=== PATIENT | male | born 1935 | race Caucasian/White ===

== ENCOUNTER 2017-09-16 10:48 | Observation (INO) | payer MEDICARE, BC ==
[2017-09-16] MEDS ORDERED: Famotidine 20 MG/2 ML SDV IVPUSH ONE (10:53)
[2017-09-16] MEDS ORDERED: Sodium Chloride 0.9% 10 ML Syringe FLUSH PRN ×2 (10:53→13:59)
--- NOTE | 2017-09-16 10:53 | EDM.PDOC ---
ED HPI GENERAL MEDICAL PROBLEM - General Chief Complaint: Neuro Symptoms/Deficits Stated Complaint: R sided weakness, hypertension Time Seen by Provider: 09/16/17 10:52 Source of Information: Reports: Patient, Family (), Old Records ([facility] EMR. No paper hospital chart available.) History Limitations: Reports: Altered Mental Status - History of Present Illness INITIAL COMMENTS - FREE TEXT/NARRATIVE: The patient was brought to the emergency room via private automobile by his for evaluation of possible TIA versus repeat CVA with patient noticing some possible mild progression of his chronic right-sided hemiparesis, paresthesias, and decreased balance since about 15:00 hours yesterday afternoon. He did not wish to come to the emergency room until this morning. Note previous history of chronic right-sided hemiparesis and paresthesias after his distant CVA as below. No recent history of fall, injury, headaches, or other change in his neurological status. The patient is a somewhat poor historian but no significant confusion, etc.. The patient denies any chest pain/ pressure, heart flutter, dizziness, orthostasis, orthopnea, diaphoresis, paresthesias, recent decreased exercise tolerance, or any other anginal-type symptoms. No recent history of abdominal pain, heartburn, nausea, diarrhea, melena, gross hematochezia, or any food intolerance, including fatty foods, etc.. The patient also denies any recent fever, cough, wheezing, dyspnea, etc.. He denies any pain or discomfort. His blood pressures have been under somewhat poor controlled since yesterday afternoon with systolic blood pressure in the 190s earlier this morning and yesterday afternoon. Onset: Gradual, Unknown/Unsure Onset Date: 09/15/17 Onset Time: 15:00 Duration: Getting Worse Location: Reports: Other (No pain) Improves with: Reports: None Worsens with: Reports: None Context: Reports: Other (As above) Associated Symptoms: Reports: Weakness. 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: Reports: Other (see below) (None) - Related Data Allergies Allergy/AdvReac Type Severity Reaction Status Date / Time No Known Allergies Allergy Verified 06/26/18 12:18 Home Meds: Home Meds Acetaminophen [Tylenol] 975 mg PO Q6H PRN 03/23/16 [History] Aspirin [Halfprin] 81 mg PO DAILY@1200 03/23/16 [History] Calcium Carbonate/Vitamin D3 [Calcium Carb 500 MG] 1 tab PO BID 03/23/16 [ History] Cholecalciferol (Vitamin D3) [Vitamin D3] 2,000 unit PO QAM 03/23/16 [History] Cyanocobalamin (Vitamin B-12) [Vitamin B-12] 1,000 mcg PO DAILY@1200 03/23/16 [ History] Esomeprazole Magnesium [Nexium] 40 mg PO QAM 03/23/16 [History] Glucosamine/D3/Boswellia Rocio [Glucosamine Complex Tablet] 1 tab PO DAILY@1200 03/23/16 [History] Lisinopril 20 mg PO BEDTIME 03/23/16 [History] Metoprolol Succinate [Toprol XL] 100 mg PO QAM 03/23/16 [History] Warfarin [Coumadin] 5 mg PO QPM 03/23/16 [History] Cholestyramine/Sucrose [Cholestyramine Packet] 4 gm PO TID 09/16/17 [History] Meclizine [Antivert] 25 mg PO TID PRN 09/16/17 [History] Past Medical History HEENT History: Reports: Cataract, Impaired Vision. Denies: Allergic Rhinitis, Glaucoma, Hard of Hearing, Macular Degeneration, Retinal Detachment Other HEENT History: Wears glasses. Borderline bilateral cataracts. Cardiovascular History: Reports: Afib, CAD, High Cholesterol, Hypertension, AK, Pacemaker, PVD, Other (See Below). Denies: Aneurysm, Arrhythmia, Blood Clots/ VTE/DVT, Bypass, Heart Failure, Heart Murmur, PTCA, Stents, Syncope Other Cardiovascular History: Bilateral carotid occlusive disease requiring surgery complicated by CVA as below. Multivessel coronary artery disease with good collaterals per heart catheterization at age 62. Note that patient did have a postoperative cardiac arrest without AK at the the time of his left carotid arterectomy and then again during post CVA rehabilitation? Respiratory History: Reports: Intubation, Previous. Denies: Asthma, Bronchitis , Recurrent, COPD, Intubation, Difficult, PE, Pneumothorax, Sleep Apnea, TB Gastrointestinal History: Reports: Chronic Constipation, Chronic Diarrhea, Colon Polyp, Diverticulosis, Fecal Incontinence, GERD, Jaundice. Denies: Celiac Disease, Cholelithiasis, Gastritis, GI Bleed, Hepatitis, Inflammatory Bowel Disease, Irritable Bowel Syndrome, Pancreatitis Other Gastrointestinal History: jaundice. Non-Cancerous rectal masses and/or cysts requiring surgeries as below with secondary stool incontinence. Genitourinary History: Reports: BPH, Chronic Renal Insuffiency, Retention, Urinary, Urinary Incontinence, Other (See Below). Denies: Acute Renal Failure, Renal Calculus, STD, UTI, Recurrent Other Genitourinary History: BPH with PSA elevation with negative biopsies as below. History of recurrent colonic polyps of unknown type. Musculoskeletal History: Reports: Arthritis, Back Pain, Chronic, Neck Pain, Chronic, Osteoarthritis. Denies: Amputation, Fracture, Gout, Osteoporosis, RA, SLE Neurological History: Reports: Concussion, CVA, Head Trauma, Neuropathy, Peripheral, Vertigo, Other (See Below). Denies: Cerebral Aneurysms, Headaches, Chronic, Migraines, MS, Neuropathy, Diabetic, Parkinson's, Seizure, TIA Other Neuro History: Postoperative CVA after left-sided carotid endarterectomy in the fall of 2012 with secondary chronic right hemiparesis including the facial region and chronic vertigo. Head concussion on 08/25/12 with brief period of loss of consciousness. Psychiatric History: Reports: None. Denies: Abuse, Victim of, ADD, ADHD, Addiction, Anxiety, Depression, Psych Hospitalization(s), PTSD, Suicide Attempt , Suicidal Ideation Endocrine/Metabolic History: Reports: Obesity/BMI 30+. Denies: Diabetes, Type I , Diabetes, Type II, Diabetes Mellitus, Type 3c, Hypothyroidism, IDDM, Osteoporosis Hematologic History: Reports: None, B12 Deficiency. Denies: Anemia, Blood Transfusion(s), Iron Deficiency Immunologic History: Reports: None. Denies: AIDS, HIV, Immunosuppression, SLE Oncologic (Cancer) History: Reports: None. Denies: Basal Cell Carcinoma, Colon , Hodgkin's Lymphoma, Leukemia, Lymphoma, Malignant Melanoma, Non-Hodgkin's Lymphoma, Prostate, Squamous Cell Carcinoma Dermatologic History: Reports: Other (See Below). Denies: Benign Melanoma, Eczema, Melanoma, Psoriasis, Seborrheic Dermatitis, Venous Stasis Dermatitis Other Dermatologic History: Actinic keratosis - Infectious Disease History Infectious Disease History: Reports: Chicken Pox, Measles. Denies: C-Difficile , Meningitis, Mononucleosis, MRSA, Mumps, Pertussis (Whooping Cough), Rheumatic Fever, Rubella, Scarlet Fever, Shingles, TB, VRE - Past Surgical History Head Surgeries/Procedures: Reports: None HEENT Surgical History: Reports: Adenoidectomy, Oral Surgery, Radiocarotid Ectomy, Tonsillectomy, Other (See Below). Denies: Cataract Surgery, Eye Surgery , Laser Surgery, LASIK, Myringotomy w Tube(s), Naso-Sinus Surgery Other HEENT Surgeries/Procedures: [place] teeth extraction 2 uppers in the 1980s. Tonsillectomy and adenoidectomy at about age 6. Cardiovascular Surgical History: Reports: Pacer, Other (See Below) Respiratory Surgical History: Reports: None. Denies: Thoracentesis GI Surgical History: Reports: Colonoscopy, EGD, Other (See Below). Denies: Appendectomy, Cholecystectomy, Hernia, Inguinal, Hernia Repair/Other Other GI Surgeries/Procedures: Last colonoscopy in about 2014 with polypectomy. EGD in about 2001. Note excision of rectal masses/cysts 2 with last surgery in about 2002. Male Surgical History: Reports: Circumcision, Prostate Biopsy, Other (See Below). Denies: TURBT-Transurethral Resection of Bladder Tumor, TURP- Transurethral Resection of Prostate, Vasectomy Other Male Surgeries/Procedures: Circumcision as an infant. Prostate biopsy in about 2009. Endocrine Surgical History: Reports: None Neurological Surgical History: Denies: C-Spine, Discectomy, Intracranial, Laminectomy, Lumbar Spine, Sacral Spine, Spinal Fusion, Thoracic Spine, Vertebroplasty Musculoskeletal Surgical History: Reports: None. Denies: Arthroscopic Procedure , Carpal Tunnel, Ganglion Cyst, Joint Replacement, ORIF, Shoulder Surgery Oncologic Surgical History: Reports: None Dermatological Surgical History: Reports: None. Denies: Skin Biopsy - Past Imaging History Past Imaging History: Reports: Angiography (Heart catheterization age 62 with results as above), CAT Scan (CT of the abdomen and pelvis with contrast on 03/23. CT of the brain and C-spine on 08/25/12.), Ultrasound (Pelvic ultrasound on .) Social & Family History - Family History HEENT: Reports: None. Denies: Glaucoma, Macular Degeneration, Retinal Detachment Cardiac: Reports: Hypertension, Other (See Below). Denies: Afib, Aneurysm, Arrhythmia, Blood Clots/VTE/DVT, Bypass, CAD, Heart Failure, High Cholesterol, AK, PVD/COD, Syncope Other Cardiac Family History: Father with hypertension Respiratory: Reports: None. Denies: BPD, COPD, PE, Pneumothorax, Sleep Apnea GI: Reports: Colon Polyps, GI bleed, PUD, Other (See Below). Denies: Celiac Disease, GERD, Inflammatory Bowel Disease, Irritable Bowel Syndrome Other GI Family History: Father with peptic disease and upper GI bleed. Mother with history of colon cancer as below : Reports: None. Denies: Dialysis, Renal Calculus, Renal Disease/ Insufficiency OBGYN: Reports: Endometriosis, Recurrent Spontaneous , Other (See Below) Other OBGYN Family History: Sister with recurrent SAB secondary to endometriosis. Musculoskeletal: Reports: None. Denies: Gout, RA, SLE Neurological: Reports: Other (See Below). Denies: Alzheimers Disease, CVA, Dementia, Migraines, MS, Neuropathy, Diabetic, Neuropathy, Peripheral, Parkinson 's, Seizure, TIA Other Neurological Family History: Sister with possible meningioma Psychiatric: Reports: None. Denies: Abuse, Victim of, ADD, ADHD, Anxiety, Depression, Psych Hospitalization(s), PTSD, Suicide Attempt Endocrine/Metabolic: Reports: None. Denies: Diabetes, Type I, Diabetes, type II , Diabetes Mellitus, Type 3c, Hypothyroidism, IDDM, Osteoporosis Hematologic: Reports: None. Denies: Anemia, SLE, Transfusion Reaction Immunologic: Reports: None. Denies: AIDS, HIV, SLE Dermatologic: Reports: None. Denies: Eczema, Psoriasis Oncologic: Reports: Colon, Leukemia, Other (See Below). Denies: Hodgkin's Lymphoma, Lymphoma, Non-Hodgkin's Lymphoma, Prostate, Skin, Uterine Other Oncologic Family History: Sister with leukemia in her 60s. Mother with fatal colon cancer at age 92. - Tobacco Use Smoking Status *Q: Former Smoker Tobacco Use Within Last Twelve Months: Cigarettes, Pipe Years of Tobacco use: 13 Packs/Tins Daily: 0.5 Packs/Tins Daily Comment: Started Smoking at age 18 with initial cigarette use for a few years then subsequent pipe use until age 31. Used Tobacco, but Quit: Yes Smoking Cessation Information Provided To Patient: No Second Hand Smoke Exposure: No - Caffeine Use Caffeine Use: Reports: Soda (1 soda per month). Denies: Coffee, Energy Drinks, Tea - Alcohol Use Alcohol Use History: Yes Days Per Week of Alcohol Use: 0 Number of Drinks Per Day: 1 Number of Drinks Per Day Comment: 1 Glass of wine for holidays. No previous DWIs , problems with alcohol abuse, etc. 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 ED EXAM, NEURO - Physical Exam Exam: See Below Exam Limited By: No Limitations General Appearance: Alert, WD/WN, No Apparent Distress Eye Exam: Bilateral Eye: EOMI, Normal Fundi, Normal Inspection (No nystagmus. Patient wearing glasses.), PERRL Ears: Normal External Exam, Normal Canal, Hearing Grossly Normal, Normal TMs Nose: Normal Inspection, Normal Mucosa, No Blood Throat/Mouth: Normal Inspection, Normal Lips, Normal Teeth, Normal Gums, Normal Oropharynx, Normal Voice, No Airway Compromise. No: Dysphagia, Inflammation, Perioral Cyanosis Head Exam: Atraumatic, Normocephalic. No: Facial Swelling, Facial Tenderness, Sinus Tenderness Neck: Supple, Non-Tender, Full Range of Motion, Carotid Bruit (Bilateral carotid bruitsmild). No: Lymphadenopathy (L), Lymphadenopathy (R) Respiratory/Chest: No Respiratory Distress, Lungs Clear, Normal Breath Sounds, No Accessory Muscle Use, Chest Non-Tender. No: Pleural Rub, Retractions Cardiovascular: Normal Peripheral Pulses, Regular Rate, Rhythm, No Edema, No Gallop, No JVD, No Murmur, No Rub. No: Gallop/S3, Gallop/S4, Friction Rub GI/Abdominal: Normal Bowel Sounds, Soft, Non-Tender, No Organomegaly, No Distention, No Abnormal Bruit, No Mass, Pelvis Stable, Other (Obese). No: Guarding (Male) Exam: Deferred Rectal (Males) Exam: Deferred Neurological: Alert, Normal Mood/Affect, Normal Dorsiflexion, Normal Plantar Flexion, Normal Reflexes, Abnormal Gait (As below), Difficulty Walking (Mild dystaxiastable by history), Other (Stable by history right hemiparesis mostly in the arm with borderline right facial hemiparesis). No: Abnormal Finger to Nose, Babinski, Tremor Back Exam: Normal Inspection, Full Range of Motion. No: CVA Tenderness (L), CVA Tenderness (R), Muscle Spasm Extremities: Normal Inspection, Normal Range of Motion, Non-Tender, No Pedal Edema, Normal Capillary Refill. No: Nathaly's Sign Psychiatric: Normal Affect, Normal Mood Skin Exam: Warm, Dry, Intact, Normal Color, No Rash, Other (Actinic keratosis on the dorsal surface of his hands and forearms bilaterally, left greater than right ). No: Diaphoretic, Ecchymosis, Petechiae, Wound/Incision EKG INTERPRETATION EKG Date: 09/16/17 Time: 11:00 Rhythm: NSR Rate (Beats/Min): 64 [place]: Normal (Neutral cardiac axis) P-Wave: Enlarged (Moderate diffuse biphasic P waves with no pacer beats noted) QRS: Normal (QRS interval of 0.09 seconds) ST-T: Other (Nonspecific ST changes with T-wave inversion in leads 1, 2, 3, aVF , and V5V6) QT: Normal DE/PQ Interval: 0.25 seconds representing a first degree AV block Comparison: NA - No Prior EKG EKG Interpretation Comments: 1. Inferolateral cardiac ischemia 2. Newly diagnosed first-degree AV block 3. Probable left atrial enlargement Course - Vital Signs Last Recorded V/S: Last Vital Signs Temp 36.8 C 09/16/17 10:53 Pulse 60 09/16/17 12:05 Resp 16 09/16/17 12:05 BP 169/68 H 09/16/17 12:05 Pulse Ox 97 09/16/17 12:05 Vital Signs - 24 hr 09/16/17 09/16/17 09/16/17 10:53 11:30 11:50 Temperature [ 36.8 C Temporal] Pulse, 60 60 60 Peripheral [ Pulse Oximetry] Respiratory 19 20 18 Rate Blood Pressure 170/86 H 158/84 H [Left Upper Arm ] O2 Sat by Pulse 100 97 97 Oximetry 09/16/17 09/16/17 09/16/17 12:05 12:20 12:45 Temperature [ Temporal] Pulse, 60 60 60 Peripheral [ Pulse Oximetry] Respiratory 16 19 19 Rate Blood Pressure 169/68 H 170/82 H 174/76 H [Left Upper Arm ] O2 Sat by Pulse 97 98 98 Oximetry See Stroke Code Sheet - Orders/Labs/Meds Orders: Active Orders 24 hr Category Date Time Status Blood Glucose Check, Bedside [RC] STAT Care 09/16/17 10:53 Active Cardiac Monitoring [RC] STAT Care 09/16/17 10:53 Active EKG Documentation Completion [RC] ASDIRECTED Care 09/16/17 10:53 Active NIH Stroke Scale [RC] ASDIRECTED Care 09/16/17 10:53 Active Oxygen Therapy, ED [RC] CONTINUOUS Care 09/16/17 10:53 Active Peripheral IV Care [RC] . DIRECTED Care 09/16/17 10:53 Active Pulse Oximetry [RC] CONTINUOUS Care 09/16/17 10:53 Active Up With Assistance [RC] ASDIRECTED Care 09/16/17 10:53 Active Vital Signs [RC] PFP Care 09/16/17 10:53 Active Nothing per Oral Now Diet [DIET] Diet 09/16/17 Breakfast Active Chest 1V Frontal [CR] Stat Exams 09/16/17 10:53 Taken Head wo Cont [CT] Stat Exams 09/16/17 10:53 Taken PROLACTIN [REF] Stat Lab 09/16/17 11:05 Received UA W/MICROSCOPIC [URIN] Stat Lab 09/16/17 10:53 Ordered Sodium Chloride 0.9% [Saline Flush] Med 09/16/17 10:53 Active 10 ml FLUSH ASDIRECTED PRN Obtain Past Medical Record [OM.PC] Stat Oth 09/16/17 10:53 Active Peripheral IV Insertion Adult [OM.PC] Stat Oth 09/16/17 10:53 Ordered Resuscitation Status Stat Resus Stat 09/16/17 10:53 Ordered Medication Orders Sodium Chloride (Saline Flush) 10 ml FLUSH ASDIRECTED PRN PRN Reason: Keep Vein Open Last Admin: 09/16/17 11:21 Dose: 10 ml Labs: Laboratory Tests 0609/16/17 09/16/17 Range/Units 11:05 11:05 11:05 WBC 7.4 (4.0-10.2) K/uL RBC 5.28 (4.33-5.41) M/uL Hgb 15.4 D (13.1-16.8) g/dL Hct 46.1 (39.0-49.0) % MCV 87.3 D (84.0-98.0) fL MCH 29.2 (28.2-33.3) pg MCHC 33.4 (31.7-36.0) g/dL RDW 15.1 H (11.2-14.1) % Plt Count 196 (150-350) K/uL Neut % (Auto) 53.0 (45.0-80.0) % Lymph % (Auto) 26.9 (10.0-50.0) % [place] % (Auto) 15.2 H (2.0-14.0) % Eos % (Auto) 4.1 (0.0-5.0) % Baso % (Auto) 0.8 (0.0-2.0) % Neut # (Auto) 3.92 (1.40-7.00) K/uL Lymph # (Auto) 1.99 (0.50-3.50) K/uL [place] # (Auto) 1.12 H (0.00-1.00) K/uL Eos # (Auto) 0.30 (0.00-0.50) K/uL Baso # (Auto) 0.06 (0.00-0.20) K/uL PT 23.7 H (9.8-11.7) SEC INR 2.2 APTT 34.8 H (22.1-29.8) SEC D-Dimer, Quantitative 339 (0-400) ng/mL Sodium (136-145) mmol/L Potassium (3.5-5.1) mmol/L Chloride (98-107) mmol/L Carbon Dioxide (21.0-32.0) mmol/L BUN (7-18) mg/dL Creatinine (0.51-1.17) mg/dL Est Cr Clr Drug Dosing Estimated GFR (MDRD) mL/min Glucose (74-106) mg/dL Lactic Acid (0.4-2.0) mmol/L Uric Acid (2.6-7.2) mg/dL Calcium (8.5-10.1) mg/dL Magnesium (1.8-2.4) mg/dL Total Bilirubin (0.2-1.0) mg/dL AST (15-37) U/L ALT (12-78) U/L Alkaline Phosphatase (46-116) IU/L Creatine Kinase (26-308) U/L Creatine Kinase Index (0.0-2.5) % CK-MB (CK-2) (0.00-3.60) ng/mL Troponin I (0.000-0.056) ng/mL NT-Pro-B Natriuret Pep (0-125) pg/mL Total Protein (6.4-8.2) g/dL Albumin (3.4-5.0) g/dL TSH, Ultra Sensitive (0.358-3.740) mIU/mL 09/16/17 09/16/17 Range/Units 11:05 11:05 WBC (4.0-10.2) K/uL RBC (4.33-5.41) M/uL Hgb (13.1-16.8) g/dL Hct (39.0-49.0) % MCV (84.0-98.0) fL MCH (28.2-33.3) pg MCHC (31.7-36.0) g/dL RDW (11.2-14.1) % Plt Count (150-350) K/uL Neut % (Auto) (45.0-80.0) % Lymph % (Auto) (10.0-50.0) % [place] % (Auto) (2.0-14.0) % Eos % (Auto) (0.0-5.0) % Baso % (Auto) (0.0-2.0) % Neut # (Auto) (1.40-7.00) K/uL Lymph # (Auto) (0.50-3.50) K/uL [place] # (Auto) (0.00-1.00) K/uL Eos # (Auto) (0.00-0.50) K/uL Baso # (Auto) (0.00-0.20) K/uL PT (9.8-11.7) SEC INR APTT (22.1-29.8) SEC D-Dimer, Quantitative (0-400) ng/mL Sodium 139 (136-145) mmol/L Potassium 4.6 (3.5-5.1) mmol/L Chloride 104 (98-107) mmol/L Carbon Dioxide 26.7 (21.0-32.0) mmol/L BUN 21 H (7-18) mg/dL Creatinine 1.32 H (0.51-1.17) mg/dL Est Cr Clr Drug Dosing TNP Estimated GFR (MDRD) 52 mL/min Glucose 130 H (74-106) mg/dL Lactic Acid 1.8 (0.4-2.0) mmol/L Uric Acid 8.5 H (2.6-7.2) mg/dL Calcium 9.2 (8.5-10.1) mg/dL Magnesium 1.6 L (1.8-2.4) mg/dL Total Bilirubin 0.4 (0.2-1.0) mg/dL AST 28 (15-37) U/L ALT 27 (12-78) U/L Alkaline Phosphatase 75 (46-116) IU/L Creatine Kinase 114 (26-308) U/L Creatine Kinase Index 1.8 (0.0-2.5) % CK-MB (CK-2) 2.00 (0.00-3.60) ng/mL Troponin I 0.000 (0.000-0.056) ng/mL NT-Pro-B Natriuret Pep 150 H (0-125) pg/mL Total Protein 8.1 (6.4-8.2) g/dL Albumin 3.5 (3.4-5.0) g/dL TSH, Ultra Sensitive 2.169 (0.358-3.740) mIU/mL Stat Accu-Chek of 107 mg percent at patient's arrival Meds: Medications Generic Name Dose Route Start Last Admin Trade Name Freq PRN Reason Stop Dose Admin Sodium Chloride 10 ml 09/16/17 10:53 09/16/17 11:21 Saline Flush FLUSH 10 ml ASDIRECTED PRN Administration Keep Vein Open Discontinued Medications Generic Name Dose Route Start Last Admin Trade Name Freq PRN Reason Stop Dose Admin Famotidine 40 mg 09/16/17 10:53 09/16/17 11:21 Pepcid IVPUSH 09/16/17 10:54 40 mg ONETIME ONE Administration - Radiology Interpretation Free Text/Narrative:: healthcare management shows normal sinus rhythm with average heart rate in the 60s with no spacer spikes, ectopy, or other arrhythmia noted. Chest x-ray, portable, shows mildly elevated right hemidiaphragm with mild to moderate cardiomegaly and borderline mild centralized CHF versus pulmonary hypertension. COPD changes also present with no significant pulmonary infiltrates. Pacemaker also noted with leads in appropriate position. Chest x- ray report received prior to admission. Telephone consultation at 11:30 2 AM with the radiology department at [facility]. Note status post old left-sided CVA with no acute changes noted. Official written report received prior to patient's admission. CT Results Date: 09/16/17 CT Results Time: 11:32 Departure - Departure Time of Disposition: 13:30 Disposition: Refer to Observation Condition: Fair Clinical Impression: First degree AV block, Hyperuricemia, Renal insufficiency, Peptic reflux disease CVA (cerebral vascular accident) Qualifiers: CVA mechanism: unspecified Qualified Code(s): I63.9 - Cerebral infarction, unspecified Coronary artery disease Qualifiers: Coronary Disease-Associated Artery/Lesion type: [place] artery [place] vs. transplanted heart: [place] heart Associated angina: without angina Qualified Code(s): I25.10 - Atherosclerotic heart disease of [place] coronary artery without angina pectoris Hypertension Qualifiers: Hypertension type: essential hypertension Qualified Code(s): I10 - Essential ( primary) hypertension Atrial fibrillation Qualifiers: Atrial fibrillation type: paroxysmal Qualified Code(s): I48.0 - Paroxysmal atrial fibrillation - Discharge Information Referrals: PCP,Unknown [Primary Care Provider] - Forms: ED Department Discharge Care Plan Goals: See plan - Problem List & Annotations (1) CVA (cerebral vascular accident) SNOMED Code(s): 583069664 Code(s): I63.9 - CEREBRAL INFARCTION, UNSPECIFIED Status: Acute Priority : High Current Visit: Yes Onset Date: ~09/15/17 Annotation/Comment:: Stroke code was called upon patient's arrival to our emergency room. [facility] was notified about the stroke code at 11:00 a.m. No significant neurological findings at this time. Possible threatening TIA versus recurrent CVA with patient probably back to normal baseline. Note negative CT scan of the head results as above. Secondary to his pacemaker he is not a candidate for an MRI. Various therapeutic options were discussed with the patient and his , who do agree to admission into this facility in observation status with continuation of neurological checks with vitals. Note evidence of inferolateral cardiac ischemia by EKG as above with additional continued observation of his cardiac status also to be conducted during this hospitalization. Neurology consultation depending on his clinical course. No aspirin given. INR therapeutic today. Qualifiers: CVA mechanism: unspecified Qualified Code(s): I63.9 - Cerebral infarction, unspecified (2) Coronary artery disease SNOMED Code(s): 80678020 Code(s): I25.10 - ATHSCL HEART DISEASE OF [place] CORONARY ARTERY W/O ANG PCTRS Status: Chronic Priority: High Current Visit: Yes Annotation/ Comment:: History of diffuse coronary artery disease nonoperable in the past secondary to good collaterals by distant heart catheterization. No chest pain or anginal type symptoms at this time. Initiate standard rule out AK orders with further cardiology consultation and/or workup depending on his clinical course. Initiate Imdur therapy as cardiac prophylaxis and for treatment of his hypertension, which has been under somewhat moderate control recently as above. Qualifiers: Coronary Disease-Associated Artery/Lesion type: [place] artery [place] vs. transplanted heart: [place] heart Associated angina: without angina Qualified Code(s): I25.10 - Atherosclerotic heart disease of [place] coronary artery without angina pectoris (3) Hypertension SNOMED Code(s): 34987594 Code(s): I10 - ESSENTIAL (PRIMARY) HYPERTENSION Status: Chronic Priority : High Current Visit: Yes Annotation/Comment:: As above. Qualifiers: Hypertension type: essential hypertension Qualified Code(s): I10 - Essential (primary) hypertension (4) Atrial fibrillation SNOMED Code(s): 13560128 Code(s): I48.91 - UNSPECIFIED ATRIAL FIBRILLATION Status: Chronic Priority: Medium Current Visit: Yes Annotation/Comment:: No atrial fibrillation today. Note INR is therapeutic. Continue to observe closely. Note current pacemaker. Qualifiers: Atrial fibrillation type: paroxysmal Qualified Code(s): I48.0 - Paroxysmal atrial fibrillation (5) First degree AV block SNOMED Code(s): 067587949 Code(s): I44.0 - ATRIOVENTRICULAR BLOCK, FIRST DEGREE Status: Acute Priority: Medium Current Visit: Yes Onset Date: 09/16/17 Annotation/ Comment:: Observe for now (6) Hyperuricemia SNOMED Code(s): 49809790 Code(s): E79.0 - HYPERURICEMIA W/O SIGNS OF INFLAM ARTHRIT AND TOPHACEOUS DIS Status: Acute Priority: Medium Current Visit: Yes Onset Date: Annotation/Comment:: No previous history of gout. His arthritis is otherwise been stable. (7) Peptic reflux disease SNOMED Code(s): 811981274 Code(s): K21.9 - GASTRO-ESOPHAGEAL REFLUX DISEASE WITHOUT ESOPHAGITIS Status: Chronic Priority: Medium Current Visit: Yes Annotation/Comment:: He apparently did have some nonspecific possible GERD type symptoms a couple days ago. High-dose IV Pepcid given as GI prophylaxis. Continue to observe for now. (8) Renal insufficiency SNOMED Code(s): 378642754, [id number] Code(s): N28.9 - DISORDER OF KIDNEY AND URETER, UNSPECIFIED Status: Chronic Priority: Medium Current Visit: Yes Annotation/Comment:: Stable. Note mild secondary BNP elevation with cardiac enzymes otherwise normal. - Problem List Review Problem List Initiated/Reviewed/Updated: Yes - My Orders Last 24 Hours: My Active Orders 09/16/17 10:53 Blood Glucose Check, Bedside [RC] STAT Cardiac Monitoring [RC] STAT EKG Documentation Completion [RC] ASDIRECTED NIH Stroke Scale [RC] ASDIRECTED Oxygen Therapy, ED [RC] CONTINUOUS Peripheral IV Care [RC] . DIRECTED Pulse Oximetry [RC] CONTINUOUS Up With Assistance [RC] ASDIRECTED Vital Signs [RC] PFP Chest 1V Frontal [CR] Stat Head wo Cont [CT] Stat UA W/MICROSCOPIC [URIN] Stat Sodium Chloride 0.9% [Saline Flush] 10 ml FLUSH ASDIRECTED PRN Obtain Past Medical Record [OM.PC] Stat Peripheral IV Insertion Adult [OM.PC] Stat Resuscitation Status Stat 09/16/17 11:05 PROLACTIN [REF] Stat 09/16/17 Breakfast Nothing per Oral Now Diet [DIET] - Assessment/Plan Admission H&P: Please use this note as an admission H&P Last 24 Hours: My Active Orders 09/16/17 10:53 Blood Glucose Check, Bedside [RC] STAT Cardiac Monitoring [RC] STAT EKG Documentation Completion [RC] ASDIRECTED NIH Stroke Scale [RC] ASDIRECTED Oxygen Therapy, ED [RC] CONTINUOUS Peripheral IV Care [RC] . DIRECTED Pulse Oximetry [RC] CONTINUOUS Up With Assistance [RC] ASDIRECTED Vital Signs [RC] PFP Chest 1V Frontal [CR] Stat Head wo Cont [CT] Stat UA W/MICROSCOPIC [URIN] Stat Sodium Chloride 0.9% [Saline Flush] 10 ml FLUSH ASDIRECTED PRN Obtain Past Medical Record [OM.PC] Stat Peripheral IV Insertion Adult [OM.PC] Stat Resuscitation Status Stat 09/16/17 11:05 PROLACTIN [REF] Stat 09/16/17 Breakfast Nothing per Oral Now Diet [DIET] Assessment:: As above Plan: As above. Extensive precautions were given to the patient and his , who are in agreement with the treatment plan. The patient's condition is stable enough for observation status and general supervision.
[2017-09-16 11:50] LABS: CHLORIDE,CL 104 mmol/L (98-107); SODIUM,NA 139 mmol/L (136-145)
[2017-09-16] MEDS ORDERED: Aspirin 81 MG Tab.EC PO SCH (13:49)
[2017-09-16] MEDS ORDERED: Meclizine 25 MG Tab PO PRN (13:49)
[2017-09-16] MEDS ORDERED: Temazepam 15 MG Cap PO PRN (13:59)
[2017-09-16] MEDS ORDERED: Acetaminophen 325 MG Tab PO PRN (14:00)
[2017-09-16] MEDS ORDERED: Isosorbide Mononitrate 30 MG Tab.ER PO ONE (14:16)
[2017-09-16] MEDS: Cholestyramine/Sucrose Powder 4 GM Packet PO SCH (17:28)
[2017-09-16] MEDS: Calcium Carbonate 500 MG Tab.Chew PO SCH (17:29)
[2017-09-16] MEDS ORDERED: Warfarin 5 MG Tab PO SCH (18:00)
[2017-09-16] MEDS ORDERED: Isosorbide Mononitrate 30 MG Tab.ER PO SCH (18:00)
[2017-09-16] MEDS ORDERED: Lisinopril 20 MG Tab PO SCH (18:00)
[2017-09-17] MEDS: Calcium Carbonate 500 MG Tab.Chew PO SCH (07:52)
[2017-09-17] MEDS: Cholestyramine/Sucrose Powder 4 GM Packet PO SCH (07:56)
[2017-09-17 07:57] VITALS: BP 149/73
[2017-09-17] MEDS ORDERED: Cholecalciferol (Vitamin D3) 1,000 Unit Tab PO SCH (08:00)
[2017-09-17] MEDS ORDERED: Metoprolol Succinate 50 MG Tab.ER PO SCH (08:00)
--- NOTE | 2017-09-17 08:51 | PCM.DCSUM1 ---
Discharge Summary - Hospital Course HPI Initial Comments: See emergency room note/admission H&P Brief History: See emergency room note/admission H&P Diagnosis: Stroke: Yes Modified [place] Scale: Mod.Disablility Requiring Some Help,Able to Walk Without Assistance Modified [place] Scale Score: 3 - Discharge Data Discharge Date: 09/17/17 Discharge Disposition: Home, Self-Care 01 Condition: Fair - Discharge Diagnosis/Problem(s) (1) CVA (cerebral vascular accident) SNOMED Code(s): 595339774 ICD Code: I63.9 - CEREBRAL INFARCTION, UNSPECIFIED Status: Acute Priority : High Current Visit: Yes Onset Date: ~09/15/17 Problem Details: Patient appears to be back to normal baseline with no direct evidence of repeat CVA prior to admission. Note recent slow increase of his right hemiparesis and dystaxia likely secondary to aging process. Stroke code was called upon patient' s arrival to our emergency room. [facility] was notified about the stroke code at 11:00 a.m. No significant change in his previous neurological findings at that time. Possible threatening TIA versus recurrent CVA with patient probably back to normal baseline prior to admission as above. Note negative CT scan of the head results prior to admission. Secondary to his pacemaker he was not a candidate for an MRI. Various therapeutic options were discussed with the patient and his , who did agree to admission into this facility in observation status with continuation of neurological checks with vitals. Note evidence of inferolateral cardiac ischemia by EKG on admission with additional continued observation of his cardiac status also conducted during this hospitalization with negative workup for acute AR. Neurology consultation normally conducted on a yearly basis per his history with regular provider to determine whether an earlier than scheduled consultation is needed as per discharge instructions. No aspirin given since INR was therapeutic in the emergency room. The patient and his were counseled on the likely slow progression of his right-sided hemiparesis secondary to his aging process. Qualifiers: CVA mechanism: unspecified Qualified Code(s): I63.9 - Cerebral infarction, unspecified (2) Coronary artery disease SNOMED Code(s): 42958222 ICD Code: I25.10 - ATHSCL HEART DISEASE OF [place] CORONARY ARTERY W/O ANG PCTRS Status: Chronic Priority: High Current Visit: Yes Problem Details : History of diffuse coronary artery disease nonoperable in the past secondary to good collaterals by distant heart catheterization. No chest pain or anginal type symptoms either prior to admission or throughout this hospitalization. Negative workup for acute AR with further earlier cardiology consultation NORMAN recommended, including possible Cardiolite evaluation. Initiated Imdur therapy as cardiac prophylaxis and for treatment of his hypertension, which will be increased prior to discharge secondary to persistent occasional elevated blood pressures. Patient was previously on sublingual nitroglycerin tablets with this to be renewed at this time. The patient is not excessively active secondary to his previous CVA as above. Glycosylated hemoglobin of 5.9% today with persistent severe dyslipidemia, which should be watched closely by his regular provider. Qualifiers: Coronary Disease-Associated Artery/Lesion type: [place] artery [place] vs. transplanted heart: [place] heart Associated angina: without angina Qualified Code(s): I25.10 - Atherosclerotic heart disease of [place] coronary artery without angina pectoris (3) Hypertension SNOMED Code(s): 86692761 ICD Code: I10 - ESSENTIAL (PRIMARY) HYPERTENSION Status: Chronic Priority : High Current Visit: Yes Problem Details: As above. Qualifiers: Hypertension type: essential hypertension Qualified Code(s): I10 - Essential (primary) hypertension (4) Atrial fibrillation SNOMED Code(s): 90923457 ICD Code: I48.91 - UNSPECIFIED ATRIAL FIBRILLATION Status: Chronic Priority: Medium Current Visit: Yes Problem Details: No atrial fibrillation today. Note INR is therapeutic. Continue to observe closely. Note current pacemaker. Qualifiers: Atrial fibrillation type: paroxysmal Qualified Code(s): I48.0 - Paroxysmal atrial fibrillation (5) First degree AV block SNOMED Code(s): 349289899 ICD Code: I44.0 - ATRIOVENTRICULAR BLOCK, FIRST DEGREE Status: Acute Priority: Medium Current Visit: Yes Onset Date: 09/16/17 Problem Details: Observe for now (6) Hyperuricemia SNOMED Code(s): 81822205 ICD Code: E79.0 - HYPERURICEMIA W/O SIGNS OF INFLAM ARTHRIT AND TOPHACEOUS DIS Status: Acute Priority: Medium Current Visit: Yes Onset Date: Problem Details: No previous history of gout. His arthritis is otherwise been stable. Continue to observe closely by his regular provider. (7) Peptic reflux disease SNOMED Code(s): 690454284 ICD Code: K21.9 - GASTRO-ESOPHAGEAL REFLUX DISEASE WITHOUT ESOPHAGITIS Status: Chronic Priority: Medium Current Visit: Yes Problem Details: He apparently did have some nonspecific possible GERD type symptoms a couple days ago. High-dose IV Pepcid given as GI prophylaxis. Continue to observe for now. (8) Renal insufficiency SNOMED Code(s): 572993156, 286404754 ICD Code: N28.9 - DISORDER OF KIDNEY AND URETER, UNSPECIFIED Status: Chronic Priority: Medium Current Visit: Yes Problem Details: Stable. Note mild BNP elevation likely secondary to his renal insufficiency with cardiac enzymes otherwise normal. No clinical evidence of CHF. (9) Heart murmur SNOMED Code(s): 54303301 ICD Code: R01.1 - CARDIAC MURMUR, UNSPECIFIED Status: Acute Priority: Medium Current Visit: Yes Onset Date: ~09/17/17 Problem Details: Note mild aortic valve stenosis and mitral valve insufficiency by clinical exam today. Consider echocardiogram, heart catheterization, cardiology consultation, etc. as above (10) Dyslipidemia SNOMED Code(s): 782114809 ICD Code: E78.5 - HYPERLIPIDEMIA, UNSPECIFIED Status: Acute Priority: High Current Visit: Yes Onset Date: ~09/17/17 Problem Details: Severe dyslipidemia. Initiate Zocor at a low-dose initially secondary to his current Coumadin therapy, etc. Close follow-up by his regular provider as per discharge instructions. - Patient Summary/Data Operative Procedure(s) Performed: None Complications: None Consults: None Labs Pending at D/C: Urine culture and sensitivity Recommended Follow-up Testing/Procedures: As per discharge instructions Planned Operative Procedure(s) after DC: None Hospital Course: The patient was admitted to observation status on telemetry with continued close observation of both his neurological and cardiac status as above. Negative workup for acute AR with patient otherwise having stable neurological status and right-sided hemiparesis throughout this hospitalization, including neurological checks with vitals. He was started on Imdur as above, which he tolerated well. Close follow-up by his regular provider as above. No complications during this hospitalization. - Patient Instructions Diet: Heart Healthy Diet (Diverticulosis, low purine/gout) Activity: As Tolerated (Strict fall precautions) Driving: Do Not Drive Showering/Bathing: May Shower Notify Provider of: Increased Pain, Nausea and/or Vomiting Other/Special Instructions: 1. Followup with your regular provider in days as directed for reevaluation and recommended repeat EKG, INR, CBC, basic metabolic panel, uric acid level, CK, CK-MB, and troponin I. Bring these discharge instructions with you to that visit. 2. Discuss with your regular provider at that time recommended earlier cardiology consultation [facility]MAN, including possible further testing such as a Cardiolite scan, echocardiogram, etc. 3. Also discuss with your regular provider possibility of earlier neurology consultation secondary to your recent slow progression of your right hemiparesis , dystaxia, etc. 4. Bring all your medications to your follow-up visit with your regular provider including OTC supplements, etc. 5. Recommend repeat CK, LFTs, and INR in 4 weeks with repeat lipid panel also recommended in about 3 months secondary to newly initiated Zocor - Discharge Plan Prescriptions/Med Rec: Isosorbide Mononitrate [Imdur] 60 mg PO QPM #30 tab.er Nitroglycerin [Nitrostat] 0.4 mg SL ASDIRECTED PRN #25 tab.sl PRN Reason: Chest Pain Simvastatin [Zocor] 10 mg PO BEDTIME #30 tablet Home Medications: Home Meds Aspirin [Halfprin] 81 mg PO DAILY@1200 03/23/16 [History] Cholecalciferol (Vitamin D3) [Vitamin D3] 2,000 unit PO QAM 03/23/16 [History] Cyanocobalamin (Vitamin B-12) [Vitamin B-12] 1,000 mcg PO DAILY@1200 03/23/16 [ History] Esomeprazole Magnesium [Nexium] 40 mg PO QAM 03/23/16 [History] Glucosamine/D3/Boswellia Rocio [Glucosamine Complex Tablet] 1 tab PO DAILY@1200 03/23/16 [History] Lisinopril 20 mg PO QPM@1800 03/23/16 [History] Metoprolol Succinate [Toprol XL] 100 mg PO QAM 03/23/16 [History] Warfarin [Coumadin] 5 mg PO QPM@1800 03/23/16 [History] Calcium Carbonate [Calcium] 1 tab PO BID 09/16/17 [History] Cholestyramine/Sucrose [Cholestyramine] 4 gm PO TID 09/16/17 [History] Meclizine [Antivert] 25 mg PO TID PRN 09/16/17 [History] Acetaminophen [Tylenol] 650 mg PO Q4H PRN tablet 09/17/17 [Rx] Isosorbide Mononitrate [Imdur] 60 mg PO QPM #30 tab.er 09/17/17 [Rx] Nitroglycerin [Nitrostat] 0.4 mg SL ASDIRECTED PRN #25 tab.sl 09/17/17 [Rx] Simvastatin [Zocor] 10 mg PO BEDTIME #30 tablet 09/17/17 [Rx] Patient Handouts: Coronary Artery Disease, Male, Simvastatin tablets, Isosorbide Mononitrate extended-release tablets, Heart-Healthy Eating Plan, Easy -to-Read, Fat and Cholesterol Restricted Diet, [id number], Low-Purine Eating Plan Forms: ED Department Discharge Referrals: PCP,Unknown [Primary Care Provider] - - Discharge Summary/Plan Comment DC Time >30 min.: Yes (Coordination of care ) Discharge Summary/Plan Comment: As above. Extensive precautions were given to the patient and his , who are in agreement with the treatment plan. See Patient Instructions for further treatment and plan. - General Info Date of Service: 09/17/17 Functional Status: Reports: Pain Controlled, Tolerating Diet, Ambulating, Urinating. Denies: New Symptoms, Incentive Spirometry Numeric/FACES Score: 0 - Review of Systems General: Reports: Weakness (Stable moderate right-sided hemiparesis). Denies: Fever, Fatigue, Malaise, Chills, Night Sweats, Appetite (.) HEENT: Reports: No Symptoms. Denies: Ear Pain, Eye Pain, Headaches, Post Nasal Drip, Sinus Congestion, Sore Throat, Rhinitis, Visual Changes Pulmonary: Reports: No Symptoms. Denies: Shortness of Breath, Pleuritic Chest Pain, Cough, Sputum, Hemoptysis, Wheezing Cardiovascular: Reports: No Symptoms. Denies: Chest Pain, Palpitations, Dyspnea on Exertion, Orthopnea, PND, Edema, Lightheadedness Gastrointestinal: Reports: No Symptoms, Other (Normal bowel movement prior to admission however no bowel movements during this hospitalization). Denies: Abdominal Pain, Constipation, Decreased Appetite, Diarrhea, Difficulty Swallowing, Flatus, Hematochezia, Melena, Nausea, Vomiting Genitourinary: Reports: No Symptoms. Denies: Frequency, Burning, Pain, Urgency , Hematuria, Retention, Flank Pain Musculoskeletal: Reports: No Symptoms. Denies: Neck Pain, Shoulder Pain, Arm Pain, Back Pain, Leg Pain Skin: Reports: No Symptoms. Denies: Diaphoresis, Bruising Neurological: Reports: Pre-Existing Deficit (Stable right hemiparesis including in the facial region), Difficulty Walking (Stable), Weakness (As above). Denies : Confusion, Dizziness, Headache, Numbness, Paresthesia, Tingling, Trouble Speaking, Change in Speech Psychiatric: Reports: No Symptoms. Denies: Confusion, Depression, Anxiety, Agitation, Cravings, Hallucinations - Patient Data Vitals - Most Recent: Last Vital Signs Temp 35.9 C 09/17/17 07:58 Pulse 62 09/17/17 07:58 Resp 18 09/17/17 07:58 BP 149/73 H 09/17/17 07:58 Pulse Ox 98 09/17/17 07:58 Vital Signs - 24 hr 09/16/17 09/16/17 09/16/17 10:53 11:30 11:50 Temperature [ 36.8 C Temporal] Pulse, Peripheral Pulse, 60 60 60 Peripheral [ Pulse Oximetry] Respiratory 19 20 18 Rate Blood Pressure Blood Pressure 170/86 H 158/84 H [Left Upper Arm ] O2 Sat by Pulse 100 97 97 Oximetry O2 Sat by Pulse Oximetry [ Nasal Cannula] 09/16/17 09/16/17 09/16/17 12:05 12:20 12:45 Temperature [ Temporal] Pulse, Peripheral Pulse, 60 60 60 Peripheral [ Pulse Oximetry] Respiratory 16 19 19 Rate Blood Pressure Blood Pressure 169/68 H 170/82 H 174/76 H [Left Upper Arm ] O2 Sat by Pulse 97 98 98 Oximetry O2 Sat by Pulse Oximetry [ Nasal Cannula] 09/16/17 09/16/17 09/16/17 13:59 15:03 15:56 Temperature [ 36.2 C 36.5 C Temporal] Pulse, Peripheral Pulse, 66 60 Peripheral [ Pulse Oximetry] Respiratory 20 18 Rate Blood Pressure 186/88 H Blood Pressure 180/90 H 149/73 H [Left Upper Arm ] O2 Sat by Pulse 100 96 Oximetry O2 Sat by Pulse 100 Oximetry [ Nasal Cannula] 09/16/17 09/17/17 09/17/17 19:18 00:00 04:00 Temperature [ 36.8 C 36.5 C 36.3 C Temporal] Pulse, Peripheral Pulse, 64 60 61 Peripheral [ Pulse Oximetry] Respiratory 20 16 16 Rate Blood Pressure Blood Pressure 152/74 H 144/67 H 160/74 H [Left Upper Arm ] O2 Sat by Pulse 97 95 96 Oximetry O2 Sat by Pulse Oximetry [ Nasal Cannula] 09/17/17 09/17/17 07:53 07:58 Temperature [ 35.9 C Temporal] Pulse, 62 Peripheral Pulse, 62 Peripheral [ Pulse Oximetry] Respiratory 18 Rate Blood Pressure 149/73 H Blood Pressure 149/73 H [Left Upper Arm ] O2 Sat by Pulse 98 Oximetry O2 Sat by Pulse Oximetry [ Nasal Cannula] Weight - Most Recent: 104.553 kg I&O - Last 24 hours: Intake & Output 09/16/17 09/17/17 09/17/17 22:59 06:59 14:59 Intake Total 240 Output Total 500 675 Balance -260 -675 Imaging Impressions - Last 24 hrs: manager monitoring shows 100% paced rhythm in the 70s with no other ectopy or arrhythmia. Note 100% independent rhythm with no paced beats in the emergency room prior to admission with average heart rate in the 60s at that time. Chest x-ray, portable, on 09/16/17 shows mildly elevated right hemidiaphragm with mild to moderate cardiomegaly and borderline mild centralized CHF versus pulmonary hypertension. COPD changes also present with no significant pulmonary infiltrates. Pacemaker also noted with leads in appropriate position. Chest x- ray report received prior to admission. Telephone consultation at 11:32 AM on 09/16/17 with the radiology department at [facility] in [place] with verbal report of noncontrast CT scan of the head. Note status post old left-sided CVA with no acute changes noted. Official written report received prior to patient's admission. Lab Results - Last 24 hrs: Laboratory Results - last 24 hr 09/16/17 09/16/17 09/16/17 Range/Units 11:05 11:05 11:05 WBC 7.4 (4.0-10.2) K/uL RBC 5.28 (4.33-5.41) M/uL Hgb 15.4 D (13.1-16.8) g/dL Hct 46.1 (39.0-49.0) % MCV 87.3 D (84.0-98.0) fL MCH 29.2 (28.2-33.3) pg MCHC 33.4 (31.7-36.0) g/dL RDW 15.1 H (11.2-14.1) % Plt Count 196 (150-350) K/uL Neut % (Auto) 53.0 (45.0-80.0) % Lymph % (Auto) 26.9 (10.0-50.0) % [place] % (Auto) 15.2 H (2.0-14.0) % Eos % (Auto) 4.1 (0.0-5.0) % Baso % (Auto) 0.8 (0.0-2.0) % Neut # (Auto) 3.92 (1.40-7.00) K/uL Lymph # (Auto) 1.99 (0.50-3.50) K/uL [place] # (Auto) 1.12 H (0.00-1.00) K/uL Eos # (Auto) 0.30 (0.00-0.50) K/uL Baso # (Auto) 0.06 (0.00-0.20) K/uL PT 23.7 H (9.8-11.7) SEC INR 2.2 APTT 34.8 H (22.1-29.8) SEC D-Dimer, Quantitative 339 (0-400) ng/mL Sodium (136-145) mmol/L Potassium (3.5-5.1) mmol/L Chloride (98-107) mmol/L Carbon Dioxide (21.0-32.0) mmol/L BUN (7-18) mg/dL Creatinine (0.51-1.17) mg/dL Est Cr Clr Drug Dosing Estimated GFR (MDRD) mL/min Glucose (74-106) mg/dL Hemoglobin A1c (4.3-5.7) % Lactic Acid (0.4-2.0) mmol/L Uric Acid (2.6-7.2) mg/dL Calcium (8.5-10.1) mg/dL Magnesium (1.8-2.4) mg/dL Total Bilirubin (0.2-1.0) mg/dL AST (15-37) U/L ALT (12-78) U/L Alkaline Phosphatase (46-116) IU/L Creatine Kinase (26-308) U/L Creatine Kinase Index (0.0-2.5) % CK-MB (CK-2) (0.00-3.60) ng/mL Troponin I (0.000-0.056) ng/mL NT-Pro-B Natriuret Pep (0-125) pg/mL Total Protein (6.4-8.2) g/dL Albumin (3.4-5.0) g/dL Triglycerides (30-150) mg/dL Cholesterol (100-200) mg/dL LDL Cholesterol, Calc (0-100) mg/dL HDL Cholesterol (40-60) mg/dL TSH, Ultra Sensitive (0.358-3.740) mIU/mL Specimen Type Urine Color Urine Appearance Urine pH (5.0-9.0) Ur Specific [place] (1.005-1.030) Urine Protein (NEGATIVE) mg/dL Urine Glucose (UA) (NEGATIVE) mg/dL Urine Ketones (NEGATIVE) mg/dL Urine Occult Blood (NEGATIVE) Urine Nitrite (NEGATIVE) Urine Bilirubin (NEGATIVE) Urine Urobilinogen (0.2-1.0) E.U./dL Ur Leukocyte Esterase (NEGATIVE) Urine RBC /HPF Urine WBC /HPF Ur Epithelial Cells /LPF Urine Bacteria (NONE TO FEW) /HPF 09/16/17 09/16/17 09/16/17 Range/Units 11:05 11:05 15:00 WBC (4.0-10.2) K/uL RBC (4.33-5.41) M/uL Hgb (13.1-16.8) g/dL Hct (39.0-49.0) % MCV (84.0-98.0) fL MCH (28.2-33.3) pg MCHC (31.7-36.0) g/dL RDW (11.2-14.1) % Plt Count (150-350) K/uL Neut % (Auto) (45.0-80.0) % Lymph % (Auto) (10.0-50.0) % [place] % (Auto) (2.0-14.0) % Eos % (Auto) (0.0-5.0) % Baso % (Auto) (0.0-2.0) % Neut # (Auto) (1.40-7.00) K/uL Lymph # (Auto) (0.50-3.50) K/uL [place] # (Auto) (0.00-1.00) K/uL Eos # (Auto) (0.00-0.50) K/uL Baso # (Auto) (0.00-0.20) K/uL PT (9.8-11.7) SEC INR APTT (22.1-29.8) SEC D-Dimer, Quantitative (0-400) ng/mL Sodium 139 (136-145) mmol/L Potassium 4.6 (3.5-5.1) mmol/L Chloride 104 (98-107) mmol/L Carbon Dioxide 26.7 (21.0-32.0) mmol/L BUN 21 H (7-18) mg/dL Creatinine 1.32 H (0.51-1.17) mg/dL Est Cr Clr Drug Dosing TNP Estimated GFR (MDRD) 52 mL/min Glucose 130 H (74-106) mg/dL Hemoglobin A1c (4.3-5.7) % Lactic Acid 1.8 (0.4-2.0) mmol/L Uric Acid 8.5 H (2.6-7.2) mg/dL Calcium 9.2 (8.5-10.1) mg/dL Magnesium 1.6 L (1.8-2.4) mg/dL Total Bilirubin 0.4 (0.2-1.0) mg/dL AST 28 (15-37) U/L ALT 27 (12-78) U/L Alkaline Phosphatase 75 (46-116) IU/L Creatine Kinase 114 84 (26-308) U/L Creatine Kinase Index 1.8 2.3 (0.0-2.5) % CK-MB (CK-2) 2.00 1.90 (0.00-3.60) ng/mL Troponin I 0.000 0.000 (0.000-0.056) ng/mL NT-Pro-B Natriuret Pep 150 H (0-125) pg/mL Total Protein 8.1 (6.4-8.2) g/dL Albumin 3.5 (3.4-5.0) g/dL Triglycerides (30-150) mg/dL Cholesterol (100-200) mg/dL LDL Cholesterol, Calc (0-100) mg/dL HDL Cholesterol (40-60) mg/dL TSH, Ultra Sensitive 2.169 (0.358-3.740) mIU/mL Specimen Type Urine Color Urine Appearance Urine pH (5.0-9.0) Ur Specific [place] (1.005-1.030) Urine Protein (NEGATIVE) mg/dL Urine Glucose (UA) (NEGATIVE) mg/dL Urine Ketones (NEGATIVE) mg/dL Urine Occult Blood (NEGATIVE) Urine Nitrite (NEGATIVE) Urine Bilirubin (NEGATIVE) Urine Urobilinogen (0.2-1.0) E.U./dL Ur Leukocyte Esterase (NEGATIVE) Urine RBC /HPF Urine WBC /HPF Ur Epithelial Cells /LPF Urine Bacteria (NONE TO FEW) /HPF 09/16/17 09/16/17 09/17/17 Range/Units 17:02 20:39 07:05 WBC 9.4 (4.0-10.2) K/uL RBC 4.98 (4.33-5.41) M/uL Hgb 14.5 (13.1-16.8) g/dL Hct 43.8 (39.0-49.0) % MCV 88.0 (84.0-98.0) fL MCH 29.1 (28.2-33.3) pg MCHC 33.1 (31.7-36.0) g/dL RDW 15.3 H (11.2-14.1) % Plt Count 205 (150-350) K/uL Neut % (Auto) 64.3 (45.0-80.0) % Lymph % (Auto) 20.0 (10.0-50.0) % [place] % (Auto) 11.4 (2.0-14.0) % Eos % (Auto) 3.7 (0.0-5.0) % Baso % (Auto) 0.6 (0.0-2.0) % Neut # (Auto) 6.06 (1.40-7.00) K/uL Lymph # (Auto) 1.88 (0.50-3.50) K/uL [place] # (Auto) 1.07 H (0.00-1.00) K/uL Eos # (Auto) 0.35 (0.00-0.50) K/uL Baso # (Auto) 0.06 (0.00-0.20) K/uL PT (9.8-11.7) SEC INR APTT (22.1-29.8) SEC D-Dimer, Quantitative (0-400) ng/mL Sodium (136-145) mmol/L Potassium (3.5-5.1) mmol/L Chloride (98-107) mmol/L Carbon Dioxide (21.0-32.0) mmol/L BUN (7-18) mg/dL Creatinine (0.51-1.17) mg/dL Est Cr Clr Drug Dosing Estimated GFR (MDRD) mL/min Glucose (74-106) mg/dL Hemoglobin A1c (4.3-5.7) % Lactic Acid (0.4-2.0) mmol/L Uric Acid (2.6-7.2) mg/dL Calcium (8.5-10.1) mg/dL Magnesium (1.8-2.4) mg/dL Total Bilirubin (0.2-1.0) mg/dL AST (15-37) U/L ALT (12-78) U/L Alkaline Phosphatase (46-116) IU/L Creatine Kinase 85 (26-308) U/L Creatine Kinase Index 2.2 (0.0-2.5) % CK-MB (CK-2) 1.90 (0.00-3.60) ng/mL Troponin I 0.000 (0.000-0.056) ng/mL NT-Pro-B Natriuret Pep (0-125) pg/mL Total Protein (6.4-8.2) g/dL Albumin (3.4-5.0) g/dL Triglycerides (30-150) mg/dL Cholesterol (100-200) mg/dL LDL Cholesterol, Calc (0-100) mg/dL HDL Cholesterol (40-60) mg/dL TSH, Ultra Sensitive (0.358-3.740) mIU/mL Specimen Type Urinvoid Urine Color Yellow Urine Appearance Clear Urine pH 5.5 (5.0-9.0) Ur Specific [place] 1.010 (1.005-1.030) Urine Protein Negative (NEGATIVE) mg/dL Urine Glucose (UA) Negative (NEGATIVE) mg/dL Urine Ketones Negative (NEGATIVE) mg/dL Urine Occult Blood Trace-intact H (NEGATIVE) Urine Nitrite Negative (NEGATIVE) Urine Bilirubin Negative (NEGATIVE) Urine Urobilinogen 0.2 (0.2-1.0) E.U./dL Ur Leukocyte Esterase Negative (NEGATIVE) Urine RBC Not seen /HPF Urine WBC Not seen /HPF Ur Epithelial Cells Not seen /LPF Urine Bacteria Not seen (NONE TO FEW) /HPF 09/17/17 09/17/17 Range/Units 07:05 07:05 WBC (4.0-10.2) K/uL RBC (4.33-5.41) M/uL Hgb (13.1-16.8) g/dL Hct (39.0-49.0) % MCV (84.0-98.0) fL MCH (28.2-33.3) pg MCHC (31.7-36.0) g/dL RDW (11.2-14.1) % Plt Count (150-350) K/uL Neut % (Auto) (45.0-80.0) % Lymph % (Auto) (10.0-50.0) % [place] % (Auto) (2.0-14.0) % Eos % (Auto) (0.0-5.0) % Baso % (Auto) (0.0-2.0) % Neut # (Auto) (1.40-7.00) K/uL Lymph # (Auto) (0.50-3.50) K/uL [place] # (Auto) (0.00-1.00) K/uL Eos # (Auto) (0.00-0.50) K/uL Baso # (Auto) (0.00-0.20) K/uL PT (9.8-11.7) SEC INR APTT (22.1-29.8) SEC D-Dimer, Quantitative (0-400) ng/mL Sodium 139 (136-145) mmol/L Potassium 4.1 (3.5-5.1) mmol/L Chloride 104 (98-107) mmol/L Carbon Dioxide 25.8 (21.0-32.0) mmol/L BUN 19 H (7-18) mg/dL Creatinine 1.34 H (0.51-1.17) mg/dL Est Cr Clr Drug Dosing 47.45 Estimated GFR (MDRD) 51 mL/min Glucose 99 (74-106) mg/dL Hemoglobin A1c 5.9 H (4.3-5.7) % Lactic Acid (0.4-2.0) mmol/L Uric Acid (2.6-7.2) mg/dL Calcium 8.9 (8.5-10.1) mg/dL Magnesium (1.8-2.4) mg/dL Total Bilirubin 0.5 (0.2-1.0) mg/dL AST 21 (15-37) U/L ALT 25 (12-78) U/L Alkaline Phosphatase 69 (46-116) IU/L Creatine Kinase 89 (26-308) U/L Creatine Kinase Index 1.9 (0.0-2.5) % CK-MB (CK-2) 1.70 (0.00-3.60) ng/mL Troponin I 0.000 (0.000-0.056) ng/mL NT-Pro-B Natriuret Pep 138 H (0-125) pg/mL Total Protein 7.4 (6.4-8.2) g/dL Albumin 3.4 (3.4-5.0) g/dL Triglycerides 467 H (30-150) mg/dL Cholesterol 198 (100-200) mg/dL LDL Cholesterol, Calc 72 (0-100) mg/dL HDL Cholesterol 33 L (40-60) mg/dL TSH, Ultra Sensitive (0.358-3.740) mIU/mL Specimen Type Urine Color Urine Appearance Urine pH (5.0-9.0) Ur Specific [place] (1.005-1.030) Urine Protein (NEGATIVE) mg/dL Urine Glucose (UA) (NEGATIVE) mg/dL Urine Ketones (NEGATIVE) mg/dL Urine Occult Blood (NEGATIVE) Urine Nitrite (NEGATIVE) Urine Bilirubin (NEGATIVE) Urine Urobilinogen (0.2-1.0) E.U./dL Ur Leukocyte Esterase (NEGATIVE) Urine RBC /HPF Urine WBC /HPF Ur Epithelial Cells /LPF Urine Bacteria (NONE TO FEW) /HPF Laboratory Tests 09/16/17 09/16/17 09/16/17 Range/Units 11:05 11:05 11:05 WBC 7.4 (4.0-10.2) K/uL RBC 5.28 (4.33-5.41) M/uL Hgb 15.4 D (13.1-16.8) g/dL Hct 46.1 (39.0-49.0) % MCV 87.3 D (84.0-98.0) fL MCH 29.2 (28.2-33.3) pg MCHC 33.4 (31.7-36.0) g/dL RDW 15.1 H (11.2-14.1) % Plt Count 196 (150-350) K/uL Neut % (Auto) 53.0 (45.0-80.0) % Lymph % (Auto) 26.9 (10.0-50.0) % [place] % (Auto) 15.2 H (2.0-14.0) % Eos % (Auto) 4.1 (0.0-5.0) % Baso % (Auto) 0.8 (0.0-2.0) % Neut # (Auto) 3.92 (1.40-7.00) K/uL Lymph # (Auto) 1.99 (0.50-3.50) K/uL [place] # (Auto) 1.12 H (0.00-1.00) K/uL Eos # (Auto) 0.30 (0.00-0.50) K/uL Baso # (Auto) 0.06 (0.00-0.20) K/uL PT 23.7 H (9.8-11.7) SEC INR 2.2 APTT 34.8 H (22.1-29.8) SEC D-Dimer, Quantitative 339 (0-400) ng/mL Sodium (136-145) mmol/L Potassium (3.5-5.1) mmol/L Chloride (98-107) mmol/L Carbon Dioxide (21.0-32.0) mmol/L BUN (7-18) mg/dL Creatinine (0.51-1.17) mg/dL Est Cr Clr Drug Dosing Estimated GFR (MDRD) mL/min Glucose (74-106) mg/dL Hemoglobin A1c (4.3-5.7) % Lactic Acid (0.4-2.0) mmol/L Uric Acid (2.6-7.2) mg/dL Calcium (8.5-10.1) mg/dL Magnesium (1.8-2.4) mg/dL Total Bilirubin (0.2-1.0) mg/dL AST (15-37) U/L ALT (12-78) U/L Alkaline Phosphatase (46-116) IU/L Creatine Kinase (26-308) U/L Creatine Kinase Index (0.0-2.5) % CK-MB (CK-2) (0.00-3.60) ng/mL Troponin I (0.000-0.056) ng/mL NT-Pro-B Natriuret Pep (0-125) pg/mL Total Protein (6.4-8.2) g/dL Albumin (3.4-5.0) g/dL Triglycerides (30-150) mg/dL Cholesterol (100-200) mg/dL LDL Cholesterol, Calc (0-100) mg/dL HDL Cholesterol (40-60) mg/dL TSH, Ultra Sensitive (0.358-3.740) mIU/mL Specimen Type Urine Color Urine Appearance Urine pH (5.0-9.0) Ur Specific [place] (1.005-1.030) Urine Protein (NEGATIVE) mg/dL Urine Glucose (UA) (NEGATIVE) mg/dL Urine Ketones (NEGATIVE) mg/dL Urine Occult Blood (NEGATIVE) Urine Nitrite (NEGATIVE) Urine Bilirubin (NEGATIVE) Urine Urobilinogen (0.2-1.0) E.U./dL Ur Leukocyte Esterase (NEGATIVE) Urine RBC /HPF Urine WBC /HPF Ur Epithelial Cells /LPF Urine Bacteria (NONE TO FEW) /HPF 09/16/17 09/16/17 09/16/17 Range/Units 11:05 11:05 15:00 WBC (4.0-10.2) K/uL RBC (4.33-5.41) M/uL Hgb (13.1-16.8) g/dL Hct (39.0-49.0) % MCV (84.0-98.0) fL MCH (28.2-33.3) pg MCHC (31.7-36.0) g/dL RDW (11.2-14.1) % Plt Count (150-350) K/uL Neut % (Auto) (45.0-80.0) % Lymph % (Auto) (10.0-50.0) % [place] % (Auto) (2.0-14.0) % Eos % (Auto) (0.0-5.0) % Baso % (Auto) (0.0-2.0) % Neut # (Auto) (1.40-7.00) K/uL Lymph # (Auto) (0.50-3.50) K/uL [place] # (Auto) (0.00-1.00) K/uL Eos # (Auto) (0.00-0.50) K/uL Baso # (Auto) (0.00-0.20) K/uL PT (9.8-11.7) SEC INR APTT (22.1-29.8) SEC D-Dimer, Quantitative (0-400) ng/mL Sodium 139 (136-145) mmol/L Potassium 4.6 (3.5-5.1) mmol/L Chloride 104 (98-107) mmol/L Carbon Dioxide 26.7 (21.0-32.0) mmol/L BUN 21 H (7-18) mg/dL Creatinine 1.32 H (0.51-1.17) mg/dL Est Cr Clr Drug Dosing TNP Estimated GFR (MDRD) 52 mL/min Glucose 130 H (74-106) mg/dL Hemoglobin A1c (4.3-5.7) % Lactic Acid 1.8 (0.4-2.0) mmol/L Uric Acid 8.5 H (2.6-7.2) mg/dL Calcium 9.2 (8.5-10.1) mg/dL Magnesium 1.6 L (1.8-2.4) mg/dL Total Bilirubin 0.4 (0.2-1.0) mg/dL AST 28 (15-37) U/L ALT 27 (12-78) U/L Alkaline Phosphatase 75 (46-116) IU/L Creatine Kinase 114 84 (26-308) U/L Creatine Kinase Index 1.8 2.3 (0.0-2.5) % CK-MB (CK-2) 2.00 1.90 (0.00-3.60) ng/mL Troponin I 0.000 0.000 (0.000-0.056) ng/mL NT-Pro-B Natriuret Pep 150 H (0-125) pg/mL Total Protein 8.1 (6.4-8.2) g/dL Albumin 3.5 (3.4-5.0) g/dL Triglycerides (30-150) mg/dL Cholesterol (100-200) mg/dL LDL Cholesterol, Calc (0-100) mg/dL HDL Cholesterol (40-60) mg/dL TSH, Ultra Sensitive 2.169 (0.358-3.740) mIU/mL Specimen Type Urine Color Urine Appearance Urine pH (5.0-9.0) Ur Specific [place] (1.005-1.030) Urine Protein (NEGATIVE) mg/dL Urine Glucose (UA) (NEGATIVE) mg/dL Urine Ketones (NEGATIVE) mg/dL Urine Occult Blood (NEGATIVE) Urine Nitrite (NEGATIVE) Urine Bilirubin (NEGATIVE) Urine Urobilinogen (0.2-1.0) E.U./dL Ur Leukocyte Esterase (NEGATIVE) Urine RBC /HPF Urine WBC /HPF Ur Epithelial Cells /LPF Urine Bacteria (NONE TO FEW) /HPF 09/16/17 09/16/17 09/17/17 Range/Units 17:02 20:39 07:05 WBC 9.4 (4.0-10.2) K/uL RBC 4.98 (4.33-5.41) M/uL Hgb 14.5 (13.1-16.8) g/dL Hct 43.8 (39.0-49.0) % MCV 88.0 (84.0-98.0) fL MCH 29.1 (28.2-33.3) pg MCHC 33.1 (31.7-36.0) g/dL RDW 15.3 H (11.2-14.1) % Plt Count 205 (150-350) K/uL Neut % (Auto) 64.3 (45.0-80.0) % Lymph % (Auto) 20.0 (10.0-50.0) % [place] % (Auto) 11.4 (2.0-14.0) % Eos % (Auto) 3.7 (0.0-5.0) % Baso % (Auto) 0.6 (0.0-2.0) % Neut # (Auto) 6.06 (1.40-7.00) K/uL Lymph # (Auto) 1.88 (0.50-3.50) K/uL [place] # (Auto) 1.07 H (0.00-1.00) K/uL Eos # (Auto) 0.35 (0.00-0.50) K/uL Baso # (Auto) 0.06 (0.00-0.20) K/uL PT (9.8-11.7) SEC INR APTT (22.1-29.8) SEC D-Dimer, Quantitative (0-400) ng/mL Sodium (136-145) mmol/L Potassium (3.5-5.1) mmol/L Chloride (98-107) mmol/L Carbon Dioxide (21.0-32.0) mmol/L BUN (7-18) mg/dL Creatinine (0.51-1.17) mg/dL Est Cr Clr Drug Dosing Estimated GFR (MDRD) mL/min Glucose (74-106) mg/dL Hemoglobin A1c (4.3-5.7) % Lactic Acid (0.4-2.0) mmol/L Uric Acid (2.6-7.2) mg/dL Calcium (8.5-10.1) mg/dL Magnesium (1.8-2.4) mg/dL Total Bilirubin (0.2-1.0) mg/dL AST (15-37) U/L ALT (12-78) U/L Alkaline Phosphatase (46-116) IU/L Creatine Kinase 85 (26-308) U/L Creatine Kinase Index 2.2 (0.0-2.5) % CK-MB (CK-2) 1.90 (0.00-3.60) ng/mL Troponin I 0.000 (0.000-0.056) ng/mL NT-Pro-B Natriuret Pep (0-125) pg/mL Total Protein (6.4-8.2) g/dL Albumin (3.4-5.0) g/dL Triglycerides (30-150) mg/dL Cholesterol (100-200) mg/dL LDL Cholesterol, Calc (0-100) mg/dL HDL Cholesterol (40-60) mg/dL TSH, Ultra Sensitive (0.358-3.740) mIU/mL Specimen Type Urinvoid Urine Color Yellow Urine Appearance Clear Urine pH 5.5 (5.0-9.0) Ur Specific [place] 1.010 (1.005-1.030) Urine Protein Negative (NEGATIVE) mg/dL Urine Glucose (UA) Negative (NEGATIVE) mg/dL Urine Ketones Negative (NEGATIVE) mg/dL Urine Occult Blood Trace-intact H (NEGATIVE) Urine Nitrite Negative (NEGATIVE) Urine Bilirubin Negative (NEGATIVE) Urine Urobilinogen 0.2 (0.2-1.0) E.U./dL Ur Leukocyte Esterase Negative (NEGATIVE) Urine RBC Not seen /HPF Urine WBC Not seen /HPF Ur Epithelial Cells Not seen /LPF Urine Bacteria Not seen (NONE TO FEW) /HPF 09/17/17 09/17/17 Range/Units 07:05 07:05 WBC (4.0-10.2) K/uL RBC (4.33-5.41) M/uL Hgb (13.1-16.8) g/dL Hct (39.0-49.0) % MCV (84.0-98.0) fL MCH (28.2-33.3) pg MCHC (31.7-36.0) g/dL RDW (11.2-14.1) % Plt Count (150-350) K/uL Neut % (Auto) (45.0-80.0) % Lymph % (Auto) (10.0-50.0) % [place] % (Auto) (2.0-14.0) % Eos % (Auto) (0.0-5.0) % Baso % (Auto) (0.0-2.0) % Neut # (Auto) (1.40-7.00) K/uL Lymph # (Auto) (0.50-3.50) K/uL [place] # (Auto) (0.00-1.00) K/uL Eos # (Auto) (0.00-0.50) K/uL Baso # (Auto) (0.00-0.20) K/uL PT (9.8-11.7) SEC INR APTT (22.1-29.8) SEC D-Dimer, Quantitative (0-400) ng/mL Sodium 139 (136-145) mmol/L Potassium 4.1 (3.5-5.1) mmol/L Chloride 104 (98-107) mmol/L Carbon Dioxide 25.8 (21.0-32.0) mmol/L BUN 19 H (7-18) mg/dL Creatinine 1.34 H (0.51-1.17) mg/dL Est Cr Clr Drug Dosing 47.45 Estimated GFR (MDRD) 51 mL/min Glucose 99 (74-106) mg/dL Hemoglobin A1c 5.9 H (4.3-5.7) % Lactic Acid (0.4-2.0) mmol/L Uric Acid (2.6-7.2) mg/dL Calcium 8.9 (8.5-10.1) mg/dL Magnesium (1.8-2.4) mg/dL Total Bilirubin 0.5 (0.2-1.0) mg/dL AST 21 (15-37) U/L ALT 25 (12-78) U/L Alkaline Phosphatase 69 (46-116) IU/L Creatine Kinase 89 (26-308) U/L Creatine Kinase Index 1.9 (0.0-2.5) % CK-MB (CK-2) 1.70 (0.00-3.60) ng/mL Troponin I 0.000 (0.000-0.056) ng/mL NT-Pro-B Natriuret Pep 138 H (0-125) pg/mL Total Protein 7.4 (6.4-8.2) g/dL Albumin 3.4 (3.4-5.0) g/dL Triglycerides 467 H (30-150) mg/dL Cholesterol 198 (100-200) mg/dL LDL Cholesterol, Calc 72 (0-100) mg/dL HDL Cholesterol 33 L (40-60) mg/dL TSH, Ultra Sensitive (0.358-3.740) mIU/mL Specimen Type Urine Color Urine Appearance Urine pH (5.0-9.0) Ur Specific [place] (1.005-1.030) Urine Protein (NEGATIVE) mg/dL Urine Glucose (UA) (NEGATIVE) mg/dL Urine Ketones (NEGATIVE) mg/dL Urine Occult Blood (NEGATIVE) Urine Nitrite (NEGATIVE) Urine Bilirubin (NEGATIVE) Urine Urobilinogen (0.2-1.0) E.U./dL Ur Leukocyte Esterase (NEGATIVE) Urine RBC /HPF Urine WBC /HPF Ur Epithelial Cells /LPF Urine Bacteria (NONE TO FEW) /HPF AMADO Results - Last 24 hrs: Urine culture and sensitivity results pending Med Orders - Current: Current Medications Acetaminophen (Tylenol) 650 mg PO Q4H PRN PRN Reason: Pain Aspirin (Halfprin) 81 mg PO DAILY@1200 [facility] Last Admin: 09/16/17 15:04 Dose: 81 mg Calcium Carbonate/Glycine (Tums) 500 mg PO BID [facility] Last Admin: 09/17/17 07:52 Dose: 500 mg Cholecalciferol (Vitamin D3) [facility] [place] [facility] Admin: 09/17/17 07:52 Dose: 2,000 units Cholestyramine Resin (Cholestyramine Packet) 4 gm PO TID [facility] Last Admin: 09/17/17 07:56 Dose: 4 gm Cyanocobalamin (Vitamin B12) 1,000 mcg PO DAILY@1200 [facility] Isosorbide Mononitrate (Imdur) 30 mg PO QPM [facility] Lisinopril (Prinivil) 20 mg PO DAILY@1800 [facility] Last Admin: 09/16/17 17:27 Dose: 20 mg Meclizine HCl (Antivert) 25 mg PO TID PRN PRN Reason: Dizziness Metoprolol Succinate (Toprol Xl) 100 mg PO QAM [facility] Last Admin: 09/17/17 07:53 Dose: 100 mg Sodium Chloride (Saline Flush) 10 ml FLUSH ASDIRECTED PRN PRN Reason: Keep Vein Open Last Admin: 09/16/17 11:21 Dose: 10 ml Sodium Chloride (Saline Flush) 10 ml FLUSH Q12HR PRN PRN Reason: Keep Vein Open Temazepam (Restoril) 15 mg PO BEDTIME PRN PRN Reason: Insomnia Warfarin Sodium (Coumadin) 5 mg PO QPM [facility] Last Admin: 09/16/17 17:27 Dose: 5 mg Discontinued Medications Famotidine (Pepcid) 40 mg IVPUSH ONETIME ONE Stop: 09/16/17 10:54 Last Admin: 09/16/17 11:21 Dose: 40 mg Isosorbide Mononitrate (Imdur) 30 mg PO QPM [facility] Isosorbide Mononitrate (Imdur) 30 mg PO ONETIME ONE Stop: 09/16/17 14:17 Last Admin: 09/16/17 15:03 Dose: 30 mg - Exam Quality Assessment: Reports: Supplemental Oxygen, DVT Prophylaxis (On Coumadin) . Denies: Central Line/PICC, Urine Catheter, Skin Breakdown, Restraints General: Reports: Alert, Oriented, Cooperative, No Acute Distress HEENT: Reports: Pupils Equal, Pupils Reactive, EOMI, Mucous Membr. Moist/[place]. Denies: Scleral Icterus Neck: Reports: Supple, Trachea Midline, No JVD, No Thyromegaly, Carotid Bruit ( Mild bilateral carotid bruits versus transmitted heart sounds). Denies: Lymphadenopathy Lungs: Reports: Clear to Auscultation, Normal Respiratory Effort. Denies: Rub Cardiovascular: Reports: Regular Rate, Regular Rhythm, Murmurs (1/6 FRANCISCO of the aortic and mitral valves). Denies: Gallops, Rubs GI/Abdominal Exam: Normal Bowel Sounds, Soft, Non-Tender, No Organomegaly, No Distention, No Abnormal Bruit, No Mass, Pelvis Stable, Other (Obese). No: Guarding (Male) Exam: Deferred Rectal (Males) Exam: Deferred Back Exam: Reports: Normal Inspection, Full Range of Motion. Denies: CVA Tenderness (L), CVA Tenderness (R), Muscle Spasm Extremities: Normal Inspection, Normal Range of Motion, Non-Tender, No Pedal Edema, Normal Capillary Refill. No: Nathaly's Sign Skin: Reports: Warm, Dry, Intact. Denies: Ecchymosis Neurological: Reports: No New Focal Deficit, Other (Stable moderate right-sided hemiparesis with mild facial drooping. Negative Babinski's) Psy/Mental Status: Reports: Alert, Normal Affect, Normal Mood. Denies: Agitated , Hallucinations, Withdrawal Symptoms EKG INTERPRETATION EKG Date: 09/17/17 Time: 07:33 Rhythm: NSR Rate (Beats/Min): 60 [place]: Normal (Left versus neutral cardiac axis) P-Wave: Present (Diffuse biphasic P waves with questionable occasional pacer spikes) QRS: Normal (QRS interval of 0.09 seconds) ST-T: Other (T-wave inversion in leads 1 aVL, V5, and V6 with resolution of previous T-wave inversion in leads 2, 3, and aVF since last EKG) QT: Normal TN/PQ Interval: 0.18 seconds with borderline new pulmonary hypertension Comparison: Change From Previous EKG (As above since 09/16/17) EKG Interpretation Comments: 1. Probable lateral wall cardiac ischemia with improved previous inferior wall ischemia 2. Questionable pulmonary hypertension by EKG 3. Demand pacemaker
[2017-09-17] MEDS ORDERED: Cyanocobalamin (Vitamin B12) 1,000 MCG Tab PO SCH (12:00)
[2017-09-17] MEDS ORDERED: Isosorbide Mononitrate 30 MG Tab.ER PO SCH (18:00)
== END 2017-09-17 11:25 | disposition home or self-care (01) ==
LOC: LL.ED 10:48 → UNDOADMOB 13:33 → LL.MS 13:33
PROVIDERS: ADMIT Family Medicine; ATTEND Family Medicine
DX: I69.351 Hemiplegia and hemiparesis following cerebral infarction affecting right dominant side (principal); I25.9 Chronic ischemic heart disease, unspecified; I44.0 Atrioventricular block, first degree; I25.10 Atherosclerotic heart disease of native coronary artery without angina pectoris; I48.0 Paroxysmal atrial fibrillation; I10 Essential (primary) hypertension; E79.0 Hyperuricemia without signs of inflammatory arthritis and tophaceous disease; K21.9 Gastro-esophageal reflux disease without esophagitis; E78.00 Pure hypercholesterolemia, unspecified; E66.9 Obesity, unspecified; N28.9 Disorder of kidney and ureter, unspecified; Z87.891 Personal history of nicotine dependence; E78.5 Hyperlipidemia, unspecified; Z79.82 Long term (current) use of aspirin; Z79.01 Long term (current) use of anticoagulants; Z79.899 Other long term (current) drug therapy; Z95.0 Presence of cardiac pacemaker
CPT/HCPCS: 36415; 70450; 71045; 80053; 80061; 81001; 82550; 82553; 83036; 83605; 83735; 83880; 84146; 84443; 84484; 84550; 85025; 85379; 85610; 85730; 93005; 96374; 99285; A9270-GY; G0378; J7050; S0028

== ENCOUNTER 2018-11-04 07:25 | Inpatient (IN) | payer MEDICARE, BC ==
[2018-11-04] MEDS: Sodium Chloride 0.9% 1,000 ML IV SCH ×2 (08:52→20:35)
--- NOTE | 2018-11-04 09:31 | EDM.PDOC ---
ED HPI GENERAL MEDICAL PROBLEM - General Chief Complaint: General Stated Complaint: weakness, chills Time Seen by Provider: 11/04/18 07:31 Source of Information: Reports: Patient, Family - History of Present Illness INITIAL COMMENTS - FREE TEXT/NARRATIVE: Patient presented to ER with generalized weakness in the lower extremities. "My legs felt weak and numb" per patient. Patient has a previous history of stroke 6 years ago. Here for evaluation. Onset: Sudden Associated Symptoms: Reports: Other (generalized weakness) Frontal Headache Pain Score (Numeric/FACES): 3 - Related Data Allergies Allergy/AdvReac Type Severity Reaction Status Date / Time No Known Allergies Allergy Verified 11/04/18 07:30 Home Meds: Home Meds Aspirin [Halfprin] 81 mg PO DAILY 03/23/16 [History] Cholecalciferol (Vitamin D3) [Vitamin D3] 2,000 unit PO QAM 03/23/16 [History] Cyanocobalamin (Vitamin B-12) [Vitamin B-12] 1,000 mcg PO DAILY 03/23/16 [ History] Esomeprazole Magnesium [Nexium] 40 mg PO QAM 03/23/16 [History] Glucosamine/D3/Boswellia Rocio [Glucosamine Complex Tablet] 1 tab PO DAILY 03/23 [History] Lisinopril 20 mg PO QPM@1800 03/23/16 [History] Metoprolol Succinate [Toprol XL] 150 mg PO QAM 03/23/16 [History] Warfarin [Coumadin] 5 mg PO SUMOTUWETHSA@18 03/23/16 [History] Cholestyramine/Sucrose [Cholestyramine] 4 gm PO SUMOWEFR@1000 09/16/17 [History] Acetaminophen [Tylenol] 650 mg PO Q4H PRN tablet 09/17/17 [Rx] Nitroglycerin [Nitrostat] 0.4 mg SL ASDIRECTED PRN #25 tab.sl 09/17/17 [Rx] Calcium Carbonate/Vitamin D3 [Calcium Carb 500 MG] 1 each PO BID 11/04/18 [ History] Isosorbide Mononitrate [Imdur] 60 mg PO DAILY 11/04/18 [History] Magnesium Oxide [Magnesium] 400 mg PO QPM 11/04/18 [History] Warfarin [Coumadin] 2.5 mg PO FR@18 11/04/18 [History] atorvaSTATin [Lipitor] 10 mg PO BEDTIME 11/04/18 [History] Past Medical History HEENT History: Reports: Cataract, Impaired Vision Other HEENT History: Wears glasses. Borderline bilateral cataracts. Cardiovascular History: Reports: Afib, CAD, High Cholesterol, Hypertension, [place], Pacemaker, Prior Cardiac Arrest, PVD, Other (See Below) Other Cardiovascular History: Bilateral carotid occlusive disease requiring surgery complicated by CVA as below. Multivessel coronary artery disease with good collaterals per heart catheterization at age 62. Note that patient did have a postoperative cardiac arrest without FL at the the time of his left carotid arterectomy and then again during post CVA rehabilitation? PRIOR CARDIAC ARREST REQUIRING CPR Respiratory History: Reports: Intubation, Previous Gastrointestinal History: Reports: Chronic Constipation, Chronic Diarrhea, Colon Polyp, Diverticulosis, Fecal Incontinence, GERD, Jaundice Other Gastrointestinal History: jaundice. Non-Cancerous rectal masses and/or cysts requiring surgeries as below with secondary stool incontinence. Genitourinary History: Reports: BPH, Chronic Renal Insuffiency, Retention, Urinary, Urinary Incontinence, Other (See Below) Other Genitourinary History: BPH with PSA elevation with negative biopsies as below. History of recurrent colonic polyps of unknown type. 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 Head concussion on 08/25/12 with brief period of loss of consciousness. Psychiatric History: Reports: None Endocrine/Metabolic History: Reports: Obesity/BMI 30+ Hematologic History: Reports: None, B12 Deficiency Immunologic History: Reports: None Oncologic (Cancer) History: Reports: None Dermatologic History: Reports: Other (See Below) Other Dermatologic History: Actinic keratosis - Infectious Disease History Infectious Disease History: Reports: None - Past Surgical History Head Surgeries/Procedures: Reports: None HEENT Surgical History: Reports: Adenoidectomy, Oral Surgery, Radiocarotid Ectomy, Tonsillectomy, Other (See Below) Other HEENT Surgeries/Procedures: [place] teeth extraction 2 uppers in the 1980s. Tonsillectomy and adenoidectomy at about age 6. Cardiovascular Surgical History: Reports: Pacer Respiratory Surgical History: Reports: None GI Surgical History: Reports: Colonoscopy, EGD, Other (See Below) Other GI Surgeries/Procedures: Last colonoscopy in about 2014 with polypectomy. EGD in about 2001. Note excision of rectal masses/cysts 2 with last surgery in about 2002. Male Surgical History: Reports: Circumcision, Prostate Biopsy, Other (See Below) Other Male Surgeries/Procedures: Circumcision as an . Prostate biopsy in about 2009. Endocrine Surgical History: Reports: None Musculoskeletal Surgical History: Reports: None Oncologic Surgical History: Reports: None Dermatological Surgical History: Reports: None - Past Imaging History Past Imaging History: Reports: Angiography (Heart catheterization age 62 with results as above), CAT Scan (CT of the abdomen and pelvis with contrast on 03/23. CT of the brain and C-spine on 08/25/12.), Ultrasound (Pelvic ultrasound on .) Social & Family History - Family History HEENT: Reports: None Cardiac: Reports: Hypertension, Other (See Below) Other Cardiac Family History: Father with hypertension Respiratory: Reports: None GI: Reports: Colon Polyps, GI bleed, PUD, Other (See Below) Other GI Family History: Father with peptic disease and upper GI bleed. Mother with history of colon cancer as below : Reports: None OBGYN: Reports: Endometriosis, Recurrent Spontaneous , Other (See Below) Other OBGYN Family History: Sister with recurrent SAB secondary to endometriosis. Musculoskeletal: Reports: None Neurological: Reports: Other (See Below) Other Neurological Family History: Sister with possible meningioma Psychiatric: Reports: None Endocrine/Metabolic: Reports: None Hematologic: Reports: None Immunologic: Reports: None Dermatologic: Reports: None Oncologic: Reports: Colon, Leukemia, Other (See Below) Other Oncologic Family History: Sister with leukemia in her 60s. Mother with fatal colon cancer at age 92. 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 Denies: Shortness of Breath Cardiovascular: Reports: No Symptoms. Denies: Chest Pain GI/Abdominal: Reports: No Symptoms : Reports: No Symptoms Musculoskeletal: Reports: No Symptoms Skin: Reports: No Symptoms Neurological: Reports: Headache ("in front of head" per patient ; patient reports last week that he had sharp pains through his head, but they went away ) Psychiatric: Reports: No Symptoms Hematologic/Lymphatic: Reports: No Symptoms Immunologic: Reports: No Symptoms ED EXAM, GENERAL - Physical Exam Exam: See Below Exam Limited By: No Limitations General Appearance: Alert, WD/WN, No Apparent Distress Ears: Normal External Exam, Normal Canal, Hearing Grossly Normal, Normal TMs Nose: Normal Inspection, Normal Mucosa, No Blood Throat/Mouth: Normal Inspection, Normal Lips, Normal Teeth, Normal Gums, Normal Oropharynx, Normal Voice, No Airway Compromise Head: Atraumatic, Normocephalic Neck: Normal Inspection, Supple, Non-Tender, Full Range of Motion Respiratory/Chest: No Respiratory Distress, Lungs Clear, Normal Breath Sounds, No Accessory Muscle Use, Chest Non-Tender Cardiovascular: Normal Peripheral Pulses, Regular Rate, Rhythm, No Edema, No Gallop, No JVD, No Murmur, No Rub GI/Abdominal: Normal Bowel Sounds, Soft, Non-Tender, No Organomegaly, No Distention, No Abnormal Bruit, No Mass Back Exam: Normal Inspection, Full Range of Motion, NT Extremities: Redness, Other (left foot redness and scab on bottom of foot. reports he had a wart there for many years and he occasionally "picks its out" . ) Neurological: Alert, Oriented, Normal Cognition Psychiatric: Normal Affect, Normal Mood Skin Exam: Warm, Intact, Rash (bottom of left foot- cellulitis) Course - Vital Signs Last Recorded V/S: Last Vital Signs Temp 98 F 11/04/18 15:47 Pulse 60 11/04/18 15:47 Resp 17 11/04/18 15:47 BP 155/72 H 11/04/18 15:47 Pulse Ox 96 11/04/18 15:47 - Orders/Labs/Meds Orders: Active Orders 24 hr Category Date Time Status Patient Status [ADT] Routine ADT 11/04/18 11:09 Active Cardiac Monitoring [RC] Q2HR Care 11/04/18 08:29 Active EKG Documentation Completion [RC] ASDIRECTED Care 11/04/18 08:12 Active Insert Urinary Catheter [OM.PC] Q24H Care 11/04/18 09:40 Ordered Vital Signs [RC] Q4HR Care 11/04/18 11:09 Active Chest 1V Frontal [CR] Stat Exams 11/04/18 08:00 Taken Sodium Chloride 0.9% [Normal Saline] 1,000 ml Med 11/04/18 08:15 Active IV ASDIRECTED Sodium Chloride 0.9% [Saline Flush] Med 11/04/18 08:10 Active 10 ml FLUSH ASDIRECTED PRN Old Chart [Obtain Past Medical Record] [OM.PC] Routine Oth 11/04/18 08:29 Active Saline Lock Insert [OM.PC] Stat Oth 11/04/18 08:10 Ordered Medication Orders Acetaminophen (Tylenol) 650 mg PO Q4H PRN PRN Reason: Pain Aspirin (Halfprin) 81 mg PO DAILY [facility] Atorvastatin Calcium (Lipitor) 10 mg PO BEDTIME [facility] Calcium Carbonate (Caltrate 600+D 1500 Mg-400 Units) 1 tab PO BID [facility]IO Cholecalciferol (Vitamin D3) 50 mcg PO QAM [facility] Cholestyramine Resin (Cholestyramine Packet) 4 gm PO SuMoWeFr@1000 [facility] Cyanocobalamin (Vitamin B12) 1,000 mcg PO DAILY [facility] Glucosamine/Chondroitin (Glucosamine-Chondroitin 500-400 Capsule) 1 cap PO DAILY [facility] Sodium Chloride (Normal Saline) 1,000 mls @ 125 mls/hr IV ASDIRECTED [facility] Last Admin: 11/04/18 08:52 Dose: 125 mls/hr Piperacillin Sod/Tazobactam (Sod 3.375 gm/ Sodium Chloride) 100 mls @ 200 mls/ hr IV Q6H [facility] Last Admin: 11/04/18 16:09 Dose: 200 mls/hr Isosorbide Mononitrate (Imdur) 60 mg PO DAILY [facility] Lisinopril (Prinivil) 20 mg PO QPM@1800 [facility] Magnesium Oxide (Magnesium Oxide) 400 mg PO QPM [facility]IO Metoprolol Succinate (Toprol Xl) 150 mg PO QAM [facility] Nitroglycerin (Nitrostat) 0.4 mg SL ASDIRECTED PRN PRN Reason: Chest Pain Pantoprazole Sodium (Protonix) 40 mg PO QAM [facility] Sodium Chloride (Saline Flush) 10 ml FLUSH ASDIRECTED PRN PRN Reason: Keep Vein Open Warfarin Sodium (Coumadin) 2.5 mg PO FR@18 [facility] Warfarin Sodium (Coumadin) 5 mg PO SUMOTUWETHSA@18 [facility] Labs: Laboratory Tests 11/04/18 11/04/18 11/04/18 Range/Units 08:10 08:10 08:10 WBC 11.6 H (4.0-10.2) K/uL RBC 5.14 (4.33-5.41) M/uL Hgb 15.6 (13.1-16.8) g/dL Hct 45.6 (39.0-49.0) % MCV 88.7 (84.0-98.0) fL MCH 30.4 (28.2-33.3) pg MCHC 34.2 (31.7-36.0) g/dL RDW 15.0 H (11.2-14.1) % Plt Count 207 (150-350) K/uL Neut % (Auto) 69.7 (45.0-80.0) % Lymph % (Auto) 14.0 (10.0-50.0) % [place] % (Auto) 15.0 H (2.0-14.0) % Eos % (Auto) 1.0 (0.0-5.0) % Baso % (Auto) 0.3 (0.0-2.0) % Neut # (Auto) 8.10 H (1.40-7.00) K/uL Lymph # (Auto) 1.63 (0.50-3.50) K/uL [place] # (Auto) 1.75 H (0.00-1.00) K/uL Eos # (Auto) 0.12 (0.00-0.50) K/uL Baso # (Auto) 0.03 (0.00-0.20) K/uL PT 25.2 H (9.5-12.0) SEC INR 2.3 Sodium 136 (136-145) mmol/L Potassium 4.2 (3.5-5.1) mmol/L Chloride 101 (98-107) mmol/L Carbon Dioxide 26.6 (21.0-32.0) mmol/L BUN 19 H (7-18) mg/dL Creatinine 1.45 H (0.51-1.17) mg/dL Est Cr Clr Drug Dosing 43.11 mL/min Estimated GFR (MDRD) 47 mL/min Glucose 108 H (74-106) mg/dL Calcium 8.9 (8.5-10.1) mg/dL Total Bilirubin 0.6 (0.2-1.0) mg/dL AST 19 (15-37) U/L ALT 24 (12-78) U/L Alkaline Phosphatase 83 (46-116) IU/L Troponin I (0.000-0.056) ng/mL Total Protein 7.8 (6.4-8.2) g/dL Albumin 3.4 (3.4-5.0) g/dL Specimen Type Urine Color Urine Appearance Urine pH (5.0-9.0) Ur Specific [place] (1.005-1.030) Urine Protein (NEGATIVE) mg/dL Urine Glucose (UA) (NEGATIVE) mg/dL Urine Ketones (NEGATIVE) mg/dL Urine Occult Blood (NEGATIVE) Urine Nitrite (NEGATIVE) Urine Bilirubin (NEGATIVE) Urine Urobilinogen (0.2-1.0) E.U./dL Ur Leukocyte Esterase (NEGATIVE) Urine RBC /HPF Urine WBC /HPF Ur Epithelial Cells /LPF Urine Bacteria (NONE TO FEW) /HPF 11/04/18 11/04/18 Range/Units 08:51 10:00 WBC (4.0-10.2) K/uL RBC (4.33-5.41) M/uL Hgb (13.1-16.8) g/dL Hct (39.0-49.0) % MCV (84.0-98.0) fL MCH (28.2-33.3) pg MCHC (31.7-36.0) g/dL RDW (11.2-14.1) % Plt Count (150-350) K/uL Neut % (Auto) (45.0-80.0) % Lymph % (Auto) (10.0-50.0) % Valley % (Auto) (2.0-14.0) % Eos % (Auto) (0.0-5.0) % Baso % (Auto) (0.0-2.0) % Neut # (Auto) (1.40-7.00) K/uL Lymph # (Auto) (0.50-3.50) K/uL [place] # (Auto) (0.00-1.00) K/uL Eos # (Auto) (0.00-0.50) K/uL Baso # (Auto) (0.00-0.20) K/uL PT (9.5-12.0) SEC INR Sodium (136-145) mmol/L Potassium (3.5-5.1) mmol/L Chloride (98-107) mmol/L Carbon Dioxide (21.0-32.0) mmol/L BUN (7-18) mg/dL Creatinine (0.51-1.17) mg/dL Est Cr Clr Drug Dosing mL/min Estimated GFR (MDRD) mL/min Glucose (74-106) mg/dL Calcium (8.5-10.1) mg/dL Total Bilirubin (0.2-1.0) mg/dL AST (15-37) U/L ALT (12-78) U/L Alkaline Phosphatase (46-116) IU/L Troponin I 0.000 (0.000-0.056) ng/mL Total Protein (6.4-8.2) g/dL Albumin (3.4-5.0) g/dL Specimen Type Urinvoid Urine Color Yellow Urine Appearance Clear Urine pH 7.5 (5.0-9.0) Ur Specific [place] 1.015 (1.005-1.030) Urine Protein 30 H (NEGATIVE) mg/dL Urine Glucose (UA) Negative (NEGATIVE) mg/dL Urine Ketones Negative (NEGATIVE) mg/dL Urine Occult Blood Trace-intact H (NEGATIVE) Urine Nitrite Negative (NEGATIVE) Urine Bilirubin Negative (NEGATIVE) Urine Urobilinogen 0.2 (0.2-1.0) E.U./dL Ur Leukocyte Esterase Negative (NEGATIVE) Urine RBC 0-5 /HPF Urine WBC Not seen /HPF Ur Epithelial Cells Not seen /LPF Urine Bacteria Not seen (NONE TO FEW) /HPF Meds: Medications Generic Name Dose Route Start Last Admin Trade Name Freq PRN Reason Stop Dose Admin Acetaminophen 650 mg 11/04/18 11:33 Tylenol PO Q4H PRN Pain Aspirin 81 mg 11/05/18 08:00 Halfprin PO DAILY [facility] Atorvastatin Calcium 10 mg 11/04/18 20:00 Lipitor PO BEDTIME [facility] Calcium Carbonate 1 tab 11/04/18 18:00 Caltrate 600+D 1500 Mg-400 Units PO BID [facility] Cholecalciferol 50 mcg 11/05/18 08:00 Vitamin D3 PO QAM [facility] Cholestyramine Resin 4 gm 11/06/18 10:00 Cholestyramine Packet PO SuMoWeFr@1000 [facility] Cyanocobalamin 1,000 mcg 11/05/18 08:00 Vitamin B12 PO DAILY [facility] Glucosamine/Chondroitin 1 cap 11/05/18 08:00 Glucosamine-Chondroitin 500-400 Capsule PO DAILY [facility] Sodium Chloride 1,000 mls @ 125 mls/hr 11/04/18 08:15 11/04/18 08:52 Normal Saline IV 125 mls/hr ASDIRECTED RIO Administration Piperacillin Sod/Tazobactam 100 mls @ 200 mls/hr 11/04/18 16:00 11/04/18 16: 09 Sod 3.375 gm/ Sodium Chloride IV 200 mls/hr Q6H [facility] Administration Isosorbide Mononitrate 60 mg 11/05/18 08:00 Imdur PO DAILY [facility] Lisinopril 20 mg 11/04/18 18:00 Prinivil PO QPM@1800 [facility] Magnesium Oxide 400 mg 11/04/18 18:00 Magnesium Oxide PO QPM [facility] Metoprolol Succinate 150 mg 11/05/18 08:00 Toprol Xl PO QAM [facility] Nitroglycerin 0.4 mg 11/04/18 11:33 Nitrostat SL ASDIRECTED PRN Chest Pain Pantoprazole Sodium 40 mg 11/05/18 08:00 Protonix PO QAM [facility] Sodium Chloride 10 ml 11/04/18 08:10 Saline Flush FLUSH ASDIRECTED PRN Keep Vein Open Warfarin Sodium 2.5 mg 11/06/18 18:00 Coumadin PO FR@18 [facility] Warfarin Sodium 5 mg 11/04/18 18:00 Coumadin PO SUMOTUWETHSA@18 [facility] Discontinued Medications Generic Name Dose Route Start Last Admin Trade Name Freq PRN Reason Stop Dose Admin Cholestyramine Resin 4 gm 11/04/18 12:00 11/04/18 13:21 Cholestyramine Packet PO 4 gm TID [facility] Administration Sodium Chloride 1,000 mls @ 100 mls/hr 11/04/18 11:15 Normal Saline IV ASDIRECTED [facility] Isosorbide Mononitrate 60 mg 11/05/18 08:00 Imdur PO DAILY [facility] Non-Formulary Medication 1 each 11/04/18 18:00 Calcium Carbonate/Vitamin D3 [Calcium Carb 500 Mg] PO BID [facility] Non-Formulary Medication 40 mg 11/05/18 08:00 Esomeprazole Magnesium [Nexium] PO QAM [facility] Non-Formulary Medication 1 tab 11/05/18 08:00 Glucosamine/D3/Boswellia Rocio [Glucosamine Complex Tablet] PO DAILY [facility] Non-Formulary Medication 400 mg 11/04/18 18:00 Magnesium Oxide [Magnesium] PO QPM [facility] Departure - Departure Time of Disposition: 11:09 Disposition: Admitted As Inpatient 66 Clinical Impression: Generalized weakness - Discharge Information - Problem List & Annotations (1) Cellulitis and abscess of foot SNOMED Code(s): 860892533, 739087549 Code(s): L03.119 - CELLULITIS OF UNSPECIFIED PART OF LIMB; L02.619 - CUTANEOUS ABSCESS OF UNSPECIFIED FOOT Status: Acute Current Visit: Yes Annotation/Comment:: Patient complains of left foot ulcer/wound. Redness noted. WIll start antibiotics. (2) Generalized weakness SNOMED Code(s): 88320679 Code(s): R53.1 - WEAKNESS Status: Acute Current Visit: Yes Annotation/ Comment:: PT/OT therapy initiated (3) Pressure ulcer of foot, stage 2 SNOMED Code(s): 119082507, 931134046, 801243152 Code(s): L89.892 - PRESSURE ULCER OF OTHER SITE, STAGE 2 Status: Acute Current Visit: Yes Annotation/Comment:: pinhole ulcer noted on bottom of left foot. open to air. Qualifiers: Laterality: left Qualified Code(s): L89.892 - Pressure ulcer of other site , stage 2 - Problem List Review Problem List Initiated/Reviewed/Updated: Yes - My Orders Last 24 Hours: My Active Orders 11/04/18 08:00 Chest 1V Frontal [CR] Stat 11/04/18 08:10 Sodium Chloride 0.9% [Saline Flush] 10 ml FLUSH ASDIRECTED PRN Saline Lock Insert [OM.PC] Stat 11/04/18 08:12 EKG Documentation Completion [RC] ASDIRECTED 11/04/18 08:15 Sodium Chloride 0.9% [Normal Saline] 1,000 ml IV ASDIRECTED 11/04/18 08:29 Cardiac Monitoring [RC] Q2HR Old Chart [Obtain Past Medical Record] [OM.PC] Routine 11/04/18 09:40 Insert Urinary Catheter [OM.PC] Q24H 11/04/18 11:09 Patient Status [ADT] Routine Vital Signs [RC] Q4HR - Assessment/Plan Admission H&P: Please use this note as an admission H&P Last 24 Hours: My Active Orders 11/04/18 08:00 Chest 1V Frontal [CR] Stat 11/04/18 08:10 Sodium Chloride 0.9% [Saline Flush] 10 ml FLUSH ASDIRECTED PRN Saline Lock Insert [OM.PC] Stat 11/04/18 08:12 EKG Documentation Completion [RC] ASDIRECTED 11/04/18 08:15 Sodium Chloride 0.9% [Normal Saline] 1,000 ml IV ASDIRECTED 11/04/18 08:29 Cardiac Monitoring [RC] Q2HR Old Chart [Obtain Past Medical Record] [OM.PC] Routine 11/04/18 09:40 Insert Urinary Catheter [OM.PC] Q24H 11/04/18 11:09 Patient Status [ADT] Routine Vital Signs [RC] Q4HR Plan: After review, this patient will be admitted to inpatient for antibiotic therapy and PT/OT.
[2018-11-04] MEDS ORDERED: Sodium Chloride 0.9% 1,000 ML IV SCH (11:15)
[2018-11-04] MEDS ORDERED: Acetaminophen 325 MG Tab PO PRN (11:33)
[2018-11-04] MEDS ORDERED: Nitroglycerin 0.4 MG Tab.SL SL PRN (11:33)
[2018-11-04] MEDS ORDERED: Cholestyramine/Sucrose Powder 4 GM Packet PO SCH (12:00)
[2018-11-04] MEDS: Piperacillin/Tazobactam 3.375 GM in Sodium Chloride 0.9% 100 ML IV SCH ×2 (16:09→21:28)
[2018-11-04] MEDS: Warfarin 5 MG Tab PO SCH (17:19)
[2018-11-04] MEDS: Magnesium Oxide 400 MG Tab PO SCH (17:19)
[2018-11-04] MEDS: Lisinopril 20 MG Tab PO SCH (17:19)
[2018-11-04] MEDS: Calcium Carbonate/Vitamin D3 1500 MG-400 Units Tab PO SCH (17:19)
[2018-11-04] MEDS ORDERED: [UNRECOGNIZED DRUG - OTHER] PO SCH (18:00)
[2018-11-04] MEDS ORDERED: VITAMIN D3 PO SCH (18:00)
[2018-11-04] MEDS ORDERED: CALCIUM CARBONATE PO SCH (18:00)
[2018-11-04] MEDS ORDERED: Non-Formulary Medication 1 Each (Magnesium Oxide [Magnesium] 400 MG) PO SCH (18:00)
[2018-11-04] MEDS: atorvaSTATin 10 MG Tab PO SCH (20:35)
[2018-11-05] MEDS: Piperacillin/Tazobactam 3.375 GM in Sodium Chloride 0.9% 100 ML IV SCH ×4 (03:20→21:52)
[2018-11-05] MEDS: Sodium Chloride 0.9% 1,000 ML IV SCH (05:38)
[2018-11-05] MEDS: Isosorbide Mononitrate 60 MG Tab.ER PO SCH (07:44)
[2018-11-05] MEDS: Cholecalciferol (Vitamin D3) 25 MCG Tab PO SCH (07:44)
[2018-11-05] MEDS: Calcium Carbonate/Vitamin D3 1500 MG-400 Units Tab PO SCH ×2 (07:44→17:18)
[2018-11-05] MEDS: Chondroitin/Glucosamine Cap PO SCH (07:45)
[2018-11-05] MEDS: Metoprolol Succinate 50 MG Tab.ER PO SCH (07:45)
[2018-11-05] MEDS: Cyanocobalamin (Vitamin B12) 1,000 MCG Tab PO SCH (07:45)
[2018-11-05] MEDS: Pantoprazole 40 MG Tab.CR PO SCH (07:45)
[2018-11-05] MEDS: Aspirin 81 MG Tab.EC PO SCH (07:46)
[2018-11-05] MEDS ORDERED: Non-Formulary Medication 1 Each (Esomeprazole Magnesium [Nexium] 40 MG) PO SCH (08:00)
[2018-11-05] MEDS ORDERED: GLUCOSAMINE PO SCH (08:00)
[2018-11-05] MEDS ORDERED: Isosorbide Mononitrate 30 MG Tab.ER PO SCH (08:00)
[2018-11-05] MEDS ORDERED: [UNRECOGNIZED DRUG - OTHER] PO SCH (08:00)
[2018-11-05] MEDS ORDERED: BOSWELLIA SERRA PO SCH (08:00)
[2018-11-05] MEDS ORDERED: D3 PO SCH (08:00)
--- NOTE | 2018-11-05 13:50 | PCM.PN ---
- General Info Date of Service: 11/05/18 Functional Status: Reports: Tolerating Diet, Ambulating - Review of Systems General: Reports: Weakness HEENT: Reports: No Symptoms Pulmonary: Reports: No Symptoms Cardiovascular: Reports: No Symptoms Gastrointestinal: Reports: No Symptoms Genitourinary: Reports: No Symptoms Musculoskeletal: Reports: No Symptoms Skin: Reports: Other Neurological: Reports: No Symptoms Psychiatric: Reports: No Symptoms - Patient Data Vitals - Most Recent: Last Vital Signs Temp 97.6 F 11/05/18 06:55 Pulse 60 11/05/18 07:45 Resp 18 11/05/18 06:55 BP 150/67 H 11/05/18 07:45 Pulse Ox 95 11/05/18 06:55 Weight - Most Recent: 230 lb 3.2 oz I&O - Last 24 Hours: Intake & Output 11/04/18 11/05/18 11/05/18 22:59 06:59 14:59 Intake Total 140 2507 583 Output Total 750 1400 400 Balance -610 1107 183 Lab Results Last 24 Hours: Laboratory Results - last 24 hr 11/04/18 11/04/18 11/05/18 Range/Units 17:25 17:25 07:15 WBC 9.5 8.3 (4.0-10.2) K/uL RBC 5.05 4.87 (4.33-5.41) M/uL Hgb 15.4 14.8 (13.1-16.8) g/dL Hct 45.7 43.9 (39.0-49.0) % MCV 90.5 90.1 (84.0-98.0) fL MCH 30.5 30.4 (28.2-33.3) pg MCHC 33.7 33.7 (31.7-36.0) g/dL RDW 15.2 H 15.3 H (11.2-14.1) % Plt Count 202 193 (150-350) K/uL Neut % (Auto) 66.3 66.4 (45.0-80.0) % Lymph % (Auto) 18.3 19.1 (10.0-50.0) % [place] % (Auto) 13.9 12.1 (2.0-14.0) % Eos % (Auto) 1.2 2.2 (0.0-5.0) % Baso % (Auto) 0.3 0.2 (0.0-2.0) % Neut # (Auto) 6.29 5.49 (1.40-7.00) K/uL Lymph # (Auto) 1.74 1.58 (0.50-3.50) K/uL [place] # (Auto) 1.32 H 1.00 (0.00-1.00) K/uL Eos # (Auto) 0.11 0.18 (0.00-0.50) K/uL Baso # (Auto) 0.03 0.02 (0.00-0.20) K/uL PT (9.5-12.0) SEC INR Sodium 137 (136-145) mmol/L Potassium 4.1 (3.5-5.1) mmol/L Chloride 102 (98-107) mmol/L Carbon Dioxide 29.9 (21.0-32.0) mmol/L BUN 19 H (7-18) mg/dL Creatinine 1.56 H (0.51-1.17) mg/dL Est Cr Clr Drug Dosing 40.07 mL/min Estimated GFR (MDRD) 43 mL/min Glucose 127 H (74-106) mg/dL Calcium 8.6 (8.5-10.1) mg/dL 11/05/18 11/05/18 Range/Units 07:15 07:30 WBC (4.0-10.2) K/uL RBC (4.33-5.41) M/uL Hgb (13.1-16.8) g/dL Hct (39.0-49.0) % MCV (84.0-98.0) fL MCH (28.2-33.3) pg MCHC (31.7-36.0) g/dL RDW (11.2-14.1) % Plt Count (150-350) K/uL Neut % (Auto) (45.0-80.0) % Lymph % (Auto) (10.0-50.0) % [place] % (Auto) (2.0-14.0) % Eos % (Auto) (0.0-5.0) % Baso % (Auto) (0.0-2.0) % Neut # (Auto) (1.40-7.00) K/uL Lymph # (Auto) (0.50-3.50) K/uL [place] # (Auto) (0.00-1.00) K/uL Eos # (Auto) (0.00-0.50) K/uL Baso # (Auto) (0.00-0.20) K/uL PT 24.5 H (9.5-12.0) SEC INR 2.3 Sodium 138 (136-145) mmol/L Potassium 4.0 (3.5-5.1) mmol/L Chloride 105 (98-107) mmol/L Carbon Dioxide 26.0 (21.0-32.0) mmol/L BUN 18 (7-18) mg/dL Creatinine 1.56 H (0.51-1.17) mg/dL Est Cr Clr Drug Dosing 40.07 mL/min Estimated GFR (MDRD) 43 mL/min Glucose 105 (74-106) mg/dL Calcium 8.3 L (8.5-10.1) mg/dL Med Orders - Current: Current Medications Acetaminophen (Tylenol) 650 mg PO Q4H PRN PRN Reason: Pain Aspirin (Halfprin) 81 mg PO DAILY [facility] Last Admin: 11/05/18 07:46 Dose: 81 mg Atorvastatin Calcium (Lipitor) 10 mg PO BEDTIME [facility] Last Admin: 11/04/18 20:35 Dose: 10 mg Calcium Carbonate (Caltrate 600+D 1500 Mg-400 Units) 1 tab PO BID [facility] Last Admin: 11/05/18 07:44 Dose: 1 tab Cholecalciferol (Vitamin D3) 50 mcg PO QAM [facility] Last Admin: 11/05/18 07:44 Dose: 50 mcg Cholestyramine Resin (Cholestyramine Packet) 4 gm PO SuMoWeFr@1000 [facility] Cyanocobalamin (Vitamin B12) 1,000 mcg PO DAILY [facility] Last Admin: 11/05/18 07:45 Dose: 1,000 mcg Glucosamine/Chondroitin (Glucosamine-Chondroitin 500-400 Capsule) 1 cap PO DAILY [facility] Last Admin: 11/05/18 07:45 Dose: 1 cap Piperacillin Sod/Tazobactam (Sod 3.375 gm/ Sodium Chloride) 100 mls @ 200 mls/ hr IV Q6H [facility] Last Admin: 11/05/18 09:53 Dose: 200 mls/hr Isosorbide Mononitrate (Imdur) 60 mg PO DAILY [facility] Last Admin: 11/05/18 07:44 Dose: 60 mg Lisinopril (Prinivil) 20 mg PO QPM@1800 [facility] Last Admin: 11/04/18 17:19 Dose: 20 mg Magnesium Oxide (Magnesium Oxide) 400 mg PO QPM [facility] Last Admin: 11/04/18 17:19 Dose: 400 mg Metoprolol Succinate (Toprol Xl) 150 mg PO QAM [facility] Last Admin: 11/05/18 07:45 Dose: 150 mg Nitroglycerin (Nitrostat) 0.4 mg SL ASDIRECTED PRN PRN Reason: Chest Pain Pantoprazole Sodium (Protonix) 40 mg PO QAM [facility] Last Admin: 11/05/18 07:45 Dose: 40 mg Sodium Chloride (Saline Flush) 10 ml FLUSH ASDIRECTED PRN PRN Reason: Keep Vein Open Warfarin Sodium (Coumadin) 2.5 mg PO FR@18 [facility] Warfarin Sodium (Coumadin) 5 mg PO SUMOTUWETHSA@18 [facility] Last Admin: 11/04/18 17:19 Dose: 5 mg Discontinued Medications Cholestyramine Resin (Cholestyramine Packet) 4 gm PO TID [facility] Last Admin: 11/04/18 13:21 Dose: 4 gm Sodium Chloride (Normal Saline) 1,000 mls @ 125 mls/hr IV ASDIRECTED [facility] Last Admin: 11/05/18 05:38 Dose: 125 mls/hr Sodium Chloride (Normal Saline) 1,000 mls @ 100 mls/hr IV ASDIRECTED [facility] Isosorbide Mononitrate (Imdur) 60 mg PO DAILY [facility] Non-Formulary Medication (Calcium Carbonate/Vitamin D3 [Calcium Carb 500 Mg]) 1 each PO BID [facility] Non-Formulary Medication (Esomeprazole Magnesium [Nexium]) 40 mg PO QAM [facility] Non-Formulary Medication (Glucosamine/D3/Boswellia Rocio [Glucosamine Complex Tablet]) 1 tab PO DAILY [facility] Non-Formulary Medication (Magnesium Oxide [Magnesium]) 400 mg PO QPM [facility] - Exam General: Alert, Oriented HEENT: Pupils Equal, Pupils Reactive, EOMI, Mucous Membr. Moist/[place] Neck: Supple Lungs: Clear to Auscultation, Normal Respiratory Effort Cardiovascular: Regular Rate, Regular Rhythm GI/Abdominal Exam: Normal Bowel Sounds, Soft, Non-Tender, No Organomegaly, No Distention, No Abnormal Bruit, No Mass, Pelvis Stable Back Exam: Decreased Range of Motion Extremities: Other (Left foot cellulitis) Skin: Warm, Dry, Intact Wound/Incisions: No Drainage Neurological: No New Focal Deficit Psy/Mental Status: Alert, Normal Affect, Normal Mood - Problem List & Annotations (1) Cellulitis and abscess of foot SNOMED Code(s): 298519551, 674744757 Code(s): L03.119 - CELLULITIS OF UNSPECIFIED PART OF LIMB; L02.619 - CUTANEOUS ABSCESS OF UNSPECIFIED FOOT Status: Acute Current Visit: Yes Annotation/Comment:: Patient complains of left foot ulcer/wound. Redness noted. WIll start antibiotics. (2) Generalized weakness SNOMED Code(s): 23942089 Code(s): R53.1 - WEAKNESS Status: Acute Current Visit: Yes Annotation/ Comment:: PT/OT therapy initiated (3) Pressure ulcer of foot, stage 2 SNOMED Code(s): 675293817, 669391037, 544339974 Code(s): L89.892 - PRESSURE ULCER OF OTHER SITE, STAGE 2 Status: Acute Current Visit: Yes Qualifiers: Laterality: left Qualified Code(s): L89.892 - Pressure ulcer of other site , stage 2 Annotation/Comment:: pinhole ulcer noted on bottom of left foot. open to air. - Problem List Review Problem List Initiated/Reviewed/Updated: Yes - My Orders Last 24 Hours: My Active Orders 11/04/18 14:34 Intake and Output [RC] ASDIRECTED 11/04/18 14:35 Antiembolic Devices [RC] PER UNIT ROUTINE Bladder Scan [RC] PRN YEHUDA Hose [Antiembolic Hose] [OM.PC] Routine 11/04/18 15:20 Blood Culture x2 Reflex Set [OM.PC] Stat 11/04/18 15:30 CULTURE BLOOD [BC] Stat 11/04/18 15:35 CULTURE BLOOD [BC] Stat 11/04/18 16:00 Piperacillin/Tazobactam [Zosyn] 3.375 gm Sodium Chloride 0.9% [Normal Saline] 100 ml IV Q6H 11/04/18 16:22 OT Evaluation and Treatment [CONS] Routine 11/04/18 18:00 Calcium Carbonate/Vitamin D3 [Caltrate 600+D 1500 MG-400 Units] 1 tab PO BID Lisinopril [Prinivil] 20 mg PO QPM@1800 Magnesium Oxide 400 mg PO QPM Warfarin [Coumadin] 5 mg PO SUMOTUWETHSA@18 11/04/18 20:00 atorvaSTATin [Lipitor] 10 mg PO BEDTIME 11/04/18 Dinner Regular Diet [DIET] 11/05/18 08:00 Aspirin [Halfprin] 81 mg PO DAILY Cholecalciferol (Vitamin D3) [Vitamin D3] 50 mcg PO QAM Chondroitin/Glucosamine [Glucosamine-Chondroitin 500-400 Capsule] 1 cap PO DAILY Cyanocobalamin (Vitamin B12) [Vitamin B12] 1,000 mcg PO DAILY Isosorbide Mononitrate [Imdur] 60 mg PO DAILY Metoprolol Succinate [Toprol XL] 150 mg PO QAM Pantoprazole [ProTONIX] 40 mg PO QAM 11/06/18 10:00 Cholestyramine/Sucrose [Cholestyramine Packet] 4 gm PO SuMoWeFr@1000 11/06/18 18:00 Warfarin [Coumadin] 2.5 mg PO FR@18 - Plan Plan:: Continue current therapy of antibiotics and physical therapy
[2018-11-05] MEDS: Sodium Chloride 0.9% 10 ML Syringe FLUSH PRN ×3 (16:37→22:00)
[2018-11-05] MEDS: Magnesium Oxide 400 MG Tab PO SCH (17:18)
[2018-11-05] MEDS: Lisinopril 20 MG Tab PO SCH (17:18)
[2018-11-05] MEDS: Warfarin 5 MG Tab PO SCH (17:18)
[2018-11-05] MEDS: atorvaSTATin 10 MG Tab PO SCH (20:26)
[2018-11-06] MEDS: Sodium Chloride 0.9% 10 ML Syringe FLUSH PRN ×4 (04:44→21:50)
[2018-11-06] MEDS: Piperacillin/Tazobactam 3.375 GM in Sodium Chloride 0.9% 100 ML IV SCH ×4 (04:45→21:50)
[2018-11-06] MEDS: Pantoprazole 40 MG Tab.CR PO SCH (07:12)
[2018-11-06] MEDS: Calcium Carbonate/Vitamin D3 1500 MG-400 Units Tab PO SCH ×2 (07:12→17:27)
[2018-11-06] MEDS: Chondroitin/Glucosamine Cap PO SCH (07:12)
[2018-11-06] MEDS: Isosorbide Mononitrate 60 MG Tab.ER PO SCH (07:13)
[2018-11-06] MEDS: Aspirin 81 MG Tab.EC PO SCH (07:13)
[2018-11-06] MEDS: Cholecalciferol (Vitamin D3) 25 MCG Tab PO SCH (07:13)
[2018-11-06] MEDS: Cyanocobalamin (Vitamin B12) 1,000 MCG Tab PO SCH (07:13)
[2018-11-06] MEDS: Metoprolol Succinate 50 MG Tab.ER PO SCH (07:18)
[2018-11-06] MEDS ORDERED: Cholestyramine/Sucrose Powder 4 GM Packet PO SCH (10:00)
--- NOTE | 2018-11-06 12:21 | PCM.PN ---
- General Info Date of Service: 11/06/18 Admission Dx/Problem (Free Text): Cellulitis and abscess left plantar aspect of foot Functional Status: Reports: Tolerating Diet, Ambulating - Review of Systems General: Reports: Fever, Chills, Other (Improve) HEENT: Reports: No Symptoms Pulmonary: Reports: No Symptoms Cardiovascular: Reports: No Symptoms Gastrointestinal: Reports: No Symptoms Genitourinary: Reports: No Symptoms Neurological: Reports: No Symptoms Psychiatric: Reports: No Symptoms - Patient Data Vitals - Most Recent: Last Vital Signs Temp 98.7 F 11/06/18 07:10 Pulse 62 11/06/18 07:18 Resp 20 11/06/18 07:10 BP 159/67 H 11/06/18 07:18 Pulse Ox 95 11/06/18 07:10 Weight - Most Recent: 230 lb 3.2 oz I&O - Last 24 Hours: Intake & Output 11/05/18 11/06/18 11/06/18 22:59 06:59 14:59 Intake Total 100 200 Output Total 400 800 700 Balance -300 -600 -700 Lab Results Last 24 Hours: Laboratory Results - last 24 hr 11/06/18 11/06/18 11/06/18 Range/Units 07:10 07:10 07:10 WBC 7.2 (4.0-10.2) K/uL RBC 4.68 (4.33-5.41) M/uL Hgb 14.2 (13.1-16.8) g/dL Hct 42.6 (39.0-49.0) % MCV 91.0 (84.0-98.0) fL MCH 30.3 (28.2-33.3) pg MCHC 33.3 (31.7-36.0) g/dL RDW 15.0 H (11.2-14.1) % Plt Count 180 (150-350) K/uL Neut % (Auto) 66.0 (45.0-80.0) % Lymph % (Auto) 17.5 (10.0-50.0) % [place] % (Auto) 13.6 (2.0-14.0) % Eos % (Auto) 2.5 (0.0-5.0) % Baso % (Auto) 0.4 (0.0-2.0) % Neut # (Auto) 4.73 (1.40-7.00) K/uL Lymph # (Auto) 1.26 (0.50-3.50) K/uL [place] # (Auto) 0.98 (0.00-1.00) K/uL Eos # (Auto) 0.18 (0.00-0.50) K/uL Baso # (Auto) 0.03 (0.00-0.20) K/uL PT 24.5 H (9.5-12.0) SEC INR 2.3 Sodium 140 (136-145) mmol/L Potassium 4.0 (3.5-5.1) mmol/L Chloride 107 (98-107) mmol/L Carbon Dioxide 24.7 (21.0-32.0) mmol/L BUN 16 (7-18) mg/dL Creatinine 1.49 H (0.51-1.17) mg/dL Est Cr Clr Drug Dosing 41.95 mL/min Estimated GFR (MDRD) 45 mL/min Glucose 105 (74-106) mg/dL Calcium 8.6 (8.5-10.1) mg/dL Bruce Results Last 24 Hours: Microbiology 11/04/18 15:35 Aerobic Blood Culture - Preliminary Blood - Venous NO GROWTH AFTER 1 DAY Anaerobic Blood Culture - Preliminary NO GROWTH AFTER 1 DAY 11/04/18 15:30 Aerobic Blood Culture - Preliminary Blood - Venous - Lab Draw NO GROWTH AFTER 1 DAY Anaerobic Blood Culture - Preliminary NO GROWTH AFTER 1 DAY Med Orders - Current: Current Medications Acetaminophen (Tylenol) 650 mg PO Q4H PRN PRN Reason: Pain Aspirin (Halfprin) 81 mg PO DAILY [facility] Last Admin: 11/06/18 07:13 Dose: 81 mg Atorvastatin Calcium (Lipitor) 10 mg PO BEDTIME [facility] Last Admin: 11/05/18 20:26 Dose: 10 mg Calcium Carbonate (Caltrate 600+D 1500 Mg-400 Units) 1 tab PO BID [facility] Last Admin: 11/06/18 07:12 Dose: 1 tab Cholecalciferol (Vitamin D3) 50 mcg PO QAM [facility] Last Admin: 11/06/18 07:13 Dose: 50 mcg Cholestyramine Resin (Cholestyramine Packet) 4 gm PO SuMoWeFr@1000 [facility] Last Admin: 11/06/18 09:39 Dose: 4 gm Cyanocobalamin (Vitamin B12) 1,000 mcg PO DAILY [facility] Last Admin: 11/06/18 07:13 Dose: 1,000 mcg Glucosamine/Chondroitin (Glucosamine-Chondroitin 500-400 Capsule) 1 cap PO DAILY [facility] Last Admin: 11/06/18 07:12 Dose: 1 cap Piperacillin Sod/Tazobactam (Sod 3.375 gm/ Sodium Chloride) 100 mls @ 200 mls/ hr IV Q6H [facility] Last Admin: 11/06/18 09:39 Dose: 200 mls/hr Isosorbide Mononitrate (Imdur) 60 mg PO DAILY [facility] Last Admin: 11/06/18 07:13 Dose: 60 mg Lisinopril (Prinivil) 20 mg PO QPM@1800 [facility] Last Admin: 11/05/18 17:18 Dose: 20 mg Magnesium Oxide (Magnesium Oxide) 400 mg PO QPM [facility] Last Admin: 11/05/18 17:18 Dose: 400 mg Metoprolol Succinate (Toprol Xl) 150 mg PO QAM [facility] Last Admin: 11/06/18 07:18 Dose: 150 mg Nitroglycerin (Nitrostat) 0.4 mg SL ASDIRECTED PRN PRN Reason: Chest Pain Pantoprazole Sodium (Protonix) 40 mg PO QAM [facility] Last Admin: 11/06/18 07:12 Dose: 40 mg Sodium Chloride (Saline Flush) 10 ml FLUSH ASDIRECTED PRN PRN Reason: Keep Vein Open Last Admin: 11/06/18 09:45 Dose: 10 ml Warfarin Sodium (Coumadin) 2.5 mg PO FR@18 [facility] Warfarin Sodium (Coumadin) 5 mg PO SUMOTUWETHSA@18 [facility] Last Admin: 11/05/18 17:18 Dose: 5 mg Discontinued Medications Cholestyramine Resin (Cholestyramine Packet) 4 gm PO TID [facility] Last Admin: 11/04/18 13:21 Dose: 4 gm Sodium Chloride (Normal Saline) 1,000 mls @ 125 mls/hr IV ASDIRECTED [facility] Last Admin: 11/05/18 05:38 Dose: 125 mls/hr Sodium Chloride (Normal Saline) 1,000 mls @ 100 mls/hr IV ASDIRECTED [facility] Isosorbide Mononitrate (Imdur) 60 mg PO DAILY [facility] Non-Formulary Medication (Calcium Carbonate/Vitamin D3 [Calcium Carb 500 Mg]) 1 each PO BID [facility] Non-Formulary Medication (Esomeprazole Magnesium [Nexium]) 40 mg PO QAM [facility] Non-Formulary Medication (Glucosamine/D3/Boswellia Rocio [Glucosamine Complex Tablet]) 1 tab PO DAILY [facility] Non-Formulary Medication (Magnesium Oxide [Magnesium]) 400 mg PO QPM [facility] - Exam General: Alert, Oriented, Cooperative HEENT: Pupils Equal, Pupils Reactive, EOMI, Mucous Membr. Moist/[place] Neck: Supple Lungs: Clear to Auscultation, Normal Respiratory Effort Cardiovascular: Regular Rate, Regular Rhythm GI/Abdominal Exam: Normal Bowel Sounds, Soft, Non-Tender, No Organomegaly, No Distention, No Abnormal Bruit, No Mass, Pelvis Stable (Male) Exam: Deferred Back Exam: Normal Inspection, Full Range of Motion Extremities: Other (Decubitus ulcer right foot with cellulitis resolving) - Problem List & Annotations (1) Cellulitis and abscess of foot SNOMED Code(s): 000895480, 348851072 Code(s): L03.119 - CELLULITIS OF UNSPECIFIED PART OF LIMB; L02.619 - CUTANEOUS ABSCESS OF UNSPECIFIED FOOT Status: Acute Current Visit: Yes Annotation/Comment:: Cellulitis improving with current antibiotics will continue for a couple days (2) Generalized weakness SNOMED Code(s): 23891142 Code(s): R53.1 - WEAKNESS Status: Acute Current Visit: Yes Annotation/ Comment:: Patient feeling stronger at this time (3) Pressure ulcer of foot, stage 2 SNOMED Code(s): 283948922, 141861726, 578081562 Code(s): L89.892 - PRESSURE ULCER OF OTHER SITE, STAGE 2 Status: Acute Current Visit: Yes Qualifiers: Laterality: left Qualified Code(s): L89.892 - Pressure ulcer of other site , stage 2 Annotation/Comment:: pinhole ulcer noted on bottom of left foot. open to air. - Problem List Review Problem List Initiated/Reviewed/Updated: Yes - My Orders Last 24 Hours: My Active Orders 11/06/18 10:00 Cholestyramine/Sucrose [Cholestyramine Packet] 4 gm PO SuMoWeFr@1000 11/06/18 18:00 Warfarin [Coumadin] 2.5 mg PO FR@18 - Plan Plan:: Continue current therapy of antibiotics and physical therapy
[2018-11-06] MEDS: Magnesium Oxide 400 MG Tab PO SCH (17:28)
[2018-11-06] MEDS: Lisinopril 20 MG Tab PO SCH (17:28)
[2018-11-06] MEDS ORDERED: Warfarin 2.5 MG Tab PO SCH (18:00)
[2018-11-06] MEDS: atorvaSTATin 10 MG Tab PO SCH (19:22)
[2018-11-07] MEDS: Piperacillin/Tazobactam 3.375 GM in Sodium Chloride 0.9% 100 ML IV SCH ×2 (03:48→10:33)
[2018-11-07] MEDS: Sodium Chloride 0.9% 10 ML Syringe FLUSH PRN ×3 (03:49→10:36)
[2018-11-07] MEDS: Chondroitin/Glucosamine Cap PO SCH (07:49)
[2018-11-07] MEDS: Pantoprazole 40 MG Tab.CR PO SCH (07:50)
[2018-11-07] MEDS: Aspirin 81 MG Tab.EC PO SCH (07:50)
[2018-11-07] MEDS: Cholecalciferol (Vitamin D3) 25 MCG Tab PO SCH (07:50)
[2018-11-07] MEDS: Isosorbide Mononitrate 60 MG Tab.ER PO SCH (07:50)
[2018-11-07] MEDS: Cyanocobalamin (Vitamin B12) 1,000 MCG Tab PO SCH (07:51)
[2018-11-07] MEDS: Calcium Carbonate/Vitamin D3 1500 MG-400 Units Tab PO SCH (07:51)
[2018-11-07] MEDS: Metoprolol Succinate 50 MG Tab.ER PO SCH (08:51)
[2018-11-07 11:39] VITALS: BP 134/68; PULSE 59
--- NOTE | 2018-11-07 13:18 | PCM.DCSUM1 ---
Discharge Summary - Hospital Course Brief History: Patient admitted for treatment of cellulitis left foot and weakness. Will need to be changed to swing bed for continued PT/OT therapy as well as IV antibiotic therapy. Diagnosis: Stroke: No - Discharge Data Discharge Date: 11/07/18 Discharge Disposition: DC/Tfer W/I Hosp To Swing 61 Condition: Good - Discharge Diagnosis/Problem(s) (1) Cellulitis and abscess of foot SNOMED Code(s): 180868320, 230016526 ICD Code: L03.119 - CELLULITIS OF UNSPECIFIED PART OF LIMB; L02.619 - CUTANEOUS ABSCESS OF UNSPECIFIED FOOT Status: Acute Current Visit: Yes Problem Details: Cellulitis improving with current antibiotics. Admission to swing bed to continue IV antibiotics, PT/OT. Anticipate 3 additional days IV antibiotics with transition to PO antibiotics at that time. (2) Generalized weakness SNOMED Code(s): 59608791 ICD Code: R53.1 - WEAKNESS Status: Acute Current Visit: Yes Problem Details: Patient feeling stronger at this time. PT and OT will be working with patient this week on strengthening/ADLs. (3) Pressure ulcer of foot, stage 2 SNOMED Code(s): 906503933, 142361433, 186607345 ICD Code: L89.892 - PRESSURE ULCER OF OTHER SITE, STAGE 2 Status: Acute Current Visit: Yes Problem Details: pinhole ulcer noted on bottom of left foot. open to air. Qualifiers: Laterality: left Qualified Code(s): L89.892 - Pressure ulcer of other site , stage 2 - Patient Summary/Data Consults: Consultations 11/04/18 11:21 Consult to Physical Therapy [PT Evaluation and Treatment] [CONS] Routine 11/04/18 16:22 OT Evaluation and Treatment [CONS] Routine Hospital Course: Patient received IV antibiotics to treat left foot infection. Improving overall. Still weak. Admitted to Swing Bed after PT and OT qualified him for ongoing treatment. Anticipate 3 additional days of IV antibiotic treatment for cellulitis and will then change patient over to oral antibiotics. - Patient Instructions Diet: Usual Diet as Tolerated - Discharge Plan *PRESCRIPTION DRUG MONITORING PROGRAM REVIEWED*: Not Applicable *COPY OF PRESCRIPTION DRUG MONITORING REPORT IN PATIENT LUISANA: Not Applicable Home Medications: Home Meds Aspirin [Halfprin] 81 mg PO DAILY 03/23/16 [History] Cholecalciferol (Vitamin D3) [Vitamin D3] 2,000 unit PO QAM 03/23/16 [History] Cyanocobalamin (Vitamin B-12) [Vitamin B-12] 1,000 mcg PO DAILY 03/23/16 [ History] Esomeprazole Magnesium [Nexium] 40 mg PO QAM 03/23/16 [History] Glucosamine/D3/Boswellia Rocio [Glucosamine Complex Tablet] 1 tab PO DAILY 03/23 [History] Lisinopril 20 mg PO QPM@1800 03/23/16 [History] Metoprolol Succinate [Toprol XL] 150 mg PO QAM 03/23/16 [History] Warfarin [Coumadin] 5 mg PO SUMOTUWETHSA@18 03/23/16 [History] Cholestyramine/Sucrose [Cholestyramine] 4 gm PO SUMOWEFR@1000 09/16/17 [History] Acetaminophen [Tylenol] 650 mg PO Q4H PRN tablet 09/17/17 [Rx] Nitroglycerin [Nitrostat] 0.4 mg SL ASDIRECTED PRN #25 tab.sl 09/17/17 [Rx] Calcium Carbonate/Vitamin D3 [Calcium Carb 500 MG] 1 each PO BID 11/04/18 [ History] Isosorbide Mononitrate [Imdur] 60 mg PO DAILY 11/04/18 [History] Magnesium Oxide [Magnesium] 400 mg PO QPM 11/04/18 [History] Warfarin [Coumadin] 2.5 mg PO FR@18 11/04/18 [History] atorvaSTATin [Lipitor] 10 mg PO BEDTIME 11/04/18 [History] Forms: ED Department Discharge Referrals: Ethan Pineda MD [Primary Care Provider] - - Discharge Summary/Plan Comment DC Time >30 min.: No - Patient Data Vitals - Most Recent: Last Vital Signs Temp 37.0 C 11/07/18 11:38 Pulse 59 L 11/07/18 11:38 Resp 16 11/07/18 11:38 BP 134/68 11/07/18 11:38 Pulse Ox 95 11/07/18 11:38 Weight - Most Recent: 104.417 kg I&O - Last 24 hours: Intake & Output 11/06/18 11/07/18 11/07/18 22:59 06:59 14:59 Intake Total 200 200 220 Output Total 450 Balance 200 -250 220 Lab Results - Last 24 hrs: Laboratory Results - last 24 hr 11/07/18 Range/Units 08:10 INR 2.7 AMADO Results - Last 24 hrs: Microbiology 11/04/18 15:35 Aerobic Blood Culture - Preliminary Blood - Venous NO GROWTH AFTER 2 DAYS Anaerobic Blood Culture - Preliminary NO GROWTH AFTER 2 DAYS 11/04/18 15:30 Aerobic Blood Culture - Preliminary Blood - Venous - Lab Draw NO GROWTH AFTER 2 DAYS Anaerobic Blood Culture - Preliminary NO GROWTH AFTER 2 DAYS Med Orders - Current: Current Medications Acetaminophen (Tylenol) 650 mg PO Q4H PRN PRN Reason: Pain Aspirin (Halfprin) 81 mg PO DAILY [facility] [place] Last Admin: 11/07/18 07:50 Dose: 81 mg Atorvastatin Calcium (Lipitor) 10 mg PO BEDTIME [facility] [place] Last Admin: 11/06/18 19:22 Dose: 10 mg Calcium Carbonate (Caltrate 600+D 1500 Mg-400 Units) 1 tab PO BID [facility] [place] Last Admin: 11/07/18 07:51 Dose: 1 tab Cholecalciferol (Vitamin D3) 50 mcg PO QAM [facility] [place] Last Admin: 11/07/18 07:50 Dose: 50 mcg Cholestyramine Resin (Cholestyramine Packet) 4 gm PO SuMoWeFr@1000 [facility] [place] Last Admin: 11/06/18 09:39 Dose: 4 gm Cyanocobalamin (Vitamin B12) 1,000 mcg PO DAILY [facility] [place] Last Admin: 11/07/18 07:51 Dose: 1,000 mcg Glucosamine/Chondroitin (Glucosamine-Chondroitin 500-400 Capsule) 1 cap PO DAILY [facility] [place] Last Admin: 11/07/18 07:49 Dose: 1 cap Piperacillin Sod/Tazobactam (Sod 3.375 gm/ Sodium Chloride) 100 mls @ 200 mls/ hr IV Q6H [facility] [place] Last Admin: 11/07/18 10:33 Dose: 200 mls/hr Isosorbide Mononitrate (Imdur) 60 mg PO DAILY [facility] [place] Last Admin: 11/07/18 07:50 Dose: 60 mg Lisinopril (Prinivil) 20 mg PO QPM@1800 [facility] [place] Last Admin: 11/06/18 17:28 Dose: 20 mg Magnesium Oxide (Magnesium Oxide) 400 mg PO QPM [facility] [place] Last Admin: 11/06/18 17:28 Dose: 400 mg Metoprolol Succinate (Toprol Xl) 150 mg PO QAM [facility] [place] Last Admin: 11/07/18 08:51 Dose: 150 mg Nitroglycerin (Nitrostat) 0.4 mg SL ASDIRECTED PRN PRN Reason: Chest Pain Pantoprazole Sodium (Protonix) 40 mg PO QAM [facility] [place] Last Admin: 11/07/18 07:50 Dose: 40 mg Sodium Chloride (Saline Flush) 10 ml FLUSH ASDIRECTED PRN PRN Reason: Keep Vein Open Last Admin: 11/07/18 10:36 Dose: 10 ml Warfarin Sodium (Coumadin) 2.5 mg PO FR@18 [facility] [place] Last Admin: 11/06/18 17:27 Dose: 2.5 mg Warfarin Sodium (Coumadin) 5 mg PO SUMOTUWETHSA@18 [facility] [place] Last Admin: 11/05/18 17:18 Dose: 5 mg Discontinued Medications Cholestyramine Resin (Cholestyramine Packet) 4 gm PO TID [facility] [place] Last Admin: 11/04/18 13:21 Dose: 4 gm Sodium Chloride (Normal Saline) 1,000 mls @ 125 mls/hr IV ASDIRECTED [facility] [place] Last Admin: 11/05/18 05:38 Dose: 125 mls/hr Sodium Chloride (Normal Saline) 1,000 mls @ 100 mls/hr IV ASDIRECTED [facility] [place] Isosorbide Mononitrate (Imdur) 60 mg PO DAILY [facility] [place] Non-Formulary Medication (Calcium Carbonate/Vitamin D3 [Calcium Carb 500 Mg]) 1 each PO BID [facility] [place] Non-Formulary Medication (Esomeprazole Magnesium [Nexium]) [facility] [place] [facility] (Glucosamine/D3/Boswellia Rocio [Glucosamine Complex Tablet]) 1 tab PO DAILY [facility] [place] Non-Formulary Medication (Magnesium Oxide [Magnesium]) 400 mg PO QPM [facility] [place]
== END 2018-11-07 13:25 | disposition swing bed (61) | DRG 603 ==
LOC: LL.ED 07:25 → LL.MS 10:50 → UNDOADMOB 10:50 → LL.MS 11:09 → OBSVTOIN 16:20 → INTOOBSV 16:20 → UNDODISIN 11-07 13:25
PROVIDERS: ADMIT Family Medicine; ATTEND Family Medicine
DX: L03.116 Cellulitis of left lower limb (principal); L03.119 Cellulitis of unspecified part of limb; R53.1 Weakness; L89.892 Pressure ulcer of other site, stage 2; H54.7 Unspecified visual loss; I48.91 Unspecified atrial fibrillation; I25.10 Atherosclerotic heart disease of native coronary artery without angina pectoris; E78.00 Pure hypercholesterolemia, unspecified; I25.2 Old myocardial infarction; Z86.74 Personal history of sudden cardiac arrest; K59.00 Constipation, unspecified; I73.9 Peripheral vascular disease, unspecified; K59.09 Other constipation; K21.9 Gastro-esophageal reflux disease without esophagitis; N40.0 Benign prostatic hyperplasia without lower urinary tract symptoms; N18.9 Chronic kidney disease, unspecified; M19.90 Unspecified osteoarthritis, unspecified site; M54.9 Dorsalgia, unspecified; E66.9 Obesity, unspecified; I69.351 Hemiplegia and hemiparesis following cerebral infarction affecting right dominant side; G89.29 Other chronic pain; E53.8 Deficiency of other specified B group vitamins; I12.9 Hypertensive chronic kidney disease with stage 1 through stage 4 chronic kidney disease, or unspecified chronic kidney disease; H26.9 Unspecified cataract; M54.2 Cervicalgia; Z98.890 Other specified postprocedural states; Z79.82 Long term (current) use of aspirin; Z95.0 Presence of cardiac pacemaker; Z79.01 Long term (current) use of anticoagulants; Z79.899 Other long term (current) drug therapy; Z86.73 Personal history of transient ischemic attack (TIA), and cerebral infarction without residual deficits; Z68.31 Body mass index [BMI] 31.0-31.9, adult; Z90.89 Acquired absence of other organs; Z98.61 Coronary angioplasty status; Z87.891 Personal history of nicotine dependence
CPT/HCPCS: 36415; 70450; 71045; 80053; 81001; 84484; 85025; 85610; 87040 ×2; 93005; 96360; 96361; 97162; 97530; 99285; A9270; J2543; J7030; J7050; 80048; 83735; 97110-GP

== ENCOUNTER 2018-11-07 11:20 | Inpatient (IN) | payer MEDICARE, BC ==
[2018-11-07] MEDS ORDERED: Acetaminophen 325 MG Tab PO PRN (13:27)
[2018-11-07] MEDS ORDERED: Sodium Chloride 0.9% 10 ML Syringe FLUSH PRN (13:27)
[2018-11-07] MEDS ORDERED: Nitroglycerin 0.4 MG Tab.SL SL PRN (13:27)
[2018-11-07] MEDS: Piperacillin/Tazobactam 3.375 GM in Sodium Chloride 0.9% 100 ML IV SCH ×2 (16:17→22:12)
[2018-11-07] MEDS: Sodium Chloride 0.9% 10 ML Syringe FLUSH PRN ×2 (16:20→22:12)
[2018-11-07] MEDS: Magnesium Oxide 400 MG Tab PO SCH (17:24)
[2018-11-07] MEDS: Calcium Carbonate/Vitamin D3 1500 MG-400 Units Tab PO SCH (17:24)
[2018-11-07] MEDS: Lisinopril 20 MG Tab PO SCH (17:25)
[2018-11-07] MEDS: Warfarin 5 MG Tab PO SCH (17:25)
[2018-11-07] MEDS: atorvaSTATin 10 MG Tab PO SCH (19:14)
[2018-11-08] MEDS: Sodium Chloride 0.9% 10 ML Syringe FLUSH PRN ×2 (04:27→21:03)
[2018-11-08] MEDS: Piperacillin/Tazobactam 3.375 GM in Sodium Chloride 0.9% 100 ML IV SCH ×4 (04:27→21:03)
[2018-11-08] MEDS: Chondroitin/Glucosamine Cap PO SCH (08:25)
[2018-11-08] MEDS: Metoprolol Succinate 50 MG Tab.ER PO SCH (08:26)
[2018-11-08] MEDS: Aspirin 81 MG Tab.EC PO SCH (08:27)
[2018-11-08] MEDS: Pantoprazole 40 MG Tab.CR PO SCH (08:27)
[2018-11-08] MEDS: Calcium Carbonate/Vitamin D3 1500 MG-400 Units Tab PO SCH ×2 (08:27→17:08)
[2018-11-08] MEDS: Cholecalciferol (Vitamin D3) 25 MCG Tab PO SCH (08:27)
[2018-11-08] MEDS: Isosorbide Mononitrate 60 MG Tab.ER PO SCH (08:28)
[2018-11-08] MEDS: Cyanocobalamin (Vitamin B12) 1,000 MCG Tab PO SCH (08:28)
[2018-11-08] MEDS: Cholestyramine/Sucrose Powder 4 GM Packet PO SCH (09:52)
[2018-11-08] MEDS ORDERED: Furosemide 20 MG Tab PO ONE (10:15)
[2018-11-08] MEDS: Magnesium Oxide 400 MG Tab PO SCH (17:09)
[2018-11-08] MEDS: Lisinopril 20 MG Tab PO SCH (17:09)
[2018-11-08] MEDS: Warfarin 5 MG Tab PO SCH (17:09)
[2018-11-08] MEDS: atorvaSTATin 10 MG Tab PO SCH (20:13)
[2018-11-09] MEDS: Sodium Chloride 0.9% 10 ML Syringe FLUSH PRN ×2 (03:03→20:14)
[2018-11-09] MEDS: Piperacillin/Tazobactam 3.375 GM in Sodium Chloride 0.9% 100 ML IV SCH (03:03)
[2018-11-09] MEDS: Isosorbide Mononitrate 60 MG Tab.ER PO SCH (07:29)
[2018-11-09] MEDS: Aspirin 81 MG Tab.EC PO SCH (07:29)
[2018-11-09] MEDS: Chondroitin/Glucosamine Cap PO SCH (07:29)
[2018-11-09] MEDS: Calcium Carbonate/Vitamin D3 1500 MG-400 Units Tab PO SCH ×2 (07:29→17:44)
[2018-11-09] MEDS: Metoprolol Succinate 50 MG Tab.ER PO SCH (07:30)
[2018-11-09] MEDS: Pantoprazole 40 MG Tab.CR PO SCH (07:30)
[2018-11-09] MEDS: Cholecalciferol (Vitamin D3) 25 MCG Tab PO SCH (07:31)
[2018-11-09] MEDS: Cyanocobalamin (Vitamin B12) 1,000 MCG Tab PO SCH (07:31)
[2018-11-09] MEDS ORDERED: Furosemide 20 MG Tab PO ONE (08:00)
[2018-11-09] MEDS: Cephalexin 250 MG Cap PO SCH ×3 (09:58→21:12)
[2018-11-09] MEDS: Cholestyramine/Sucrose Powder 4 GM Packet PO SCH (09:59)
[2018-11-09] MEDS ORDERED: Cephalexin 250 MG Cap PO SCH (12:00)
[2018-11-09] MEDS: Lisinopril 20 MG Tab PO SCH (17:44)
[2018-11-09] MEDS: Warfarin 5 MG Tab PO SCH (17:44)
[2018-11-09] MEDS: Magnesium Oxide 400 MG Tab PO SCH (17:44)
[2018-11-09] MEDS: atorvaSTATin 10 MG Tab PO SCH (20:14)
[2018-11-10] MEDS: Aspirin 81 MG Tab.EC PO SCH (07:17)
[2018-11-10] MEDS: Chondroitin/Glucosamine Cap PO SCH (07:17)
[2018-11-10] MEDS: Cephalexin 250 MG Cap PO SCH ×2 (07:17→19:22)
[2018-11-10] MEDS: Calcium Carbonate/Vitamin D3 1500 MG-400 Units Tab PO SCH ×2 (07:17→17:57)
[2018-11-10] MEDS: Isosorbide Mononitrate 60 MG Tab.ER PO SCH (07:17)
[2018-11-10] MEDS: Pantoprazole 40 MG Tab.CR PO SCH (07:18)
[2018-11-10] MEDS: Metoprolol Succinate 50 MG Tab.ER PO SCH (07:18)
[2018-11-10] MEDS: Cyanocobalamin (Vitamin B12) 1,000 MCG Tab PO SCH (07:19)
[2018-11-10] MEDS: Cholecalciferol (Vitamin D3) 25 MCG Tab PO SCH (07:19)
[2018-11-10] MEDS: Sodium Chloride 0.9% 10 ML Syringe FLUSH PRN (07:23)
--- NOTE | 2018-11-10 15:04 | PCM.SN ---
- Free Text/Narrative Note: patient was seen today for evaluation of left foot redness/infection follow up. He continues to have some ruddiness to the left 1st metatarsal area. He has no pain to the area. This cannot be accurately judged because of his peripheral neuropathy, so he doesn't have much sensation to foot anyways. Area is red, but only slightly warm to touch. No drainage is noted. Area blanches easily. He continues on Keflex orally. patient is working with PT and ambulating well. He has no discomfort with ambulation or foot drag iwth left foot. 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 CVA occurrd 6 years ago per 's report. We will continue this and monitor left foot for improvement or decline. He has an INR of 1.8. We will keep him on current dosage and recheck in 2 days.
[2018-11-10] MEDS: Warfarin 5 MG Tab PO SCH (17:57)
[2018-11-10] MEDS: Lisinopril 20 MG Tab PO SCH (17:57)
[2018-11-10] MEDS: Magnesium Oxide 400 MG Tab PO SCH (17:57)
[2018-11-10] MEDS: atorvaSTATin 10 MG Tab PO SCH (19:23)
[2018-11-11] MEDS: Calcium Carbonate/Vitamin D3 1500 MG-400 Units Tab PO SCH ×2 (07:42→17:57)
[2018-11-11] MEDS: Metoprolol Succinate 50 MG Tab.ER PO SCH (07:43)
[2018-11-11] MEDS: Cholecalciferol (Vitamin D3) 25 MCG Tab PO SCH (07:43)
[2018-11-11] MEDS: Pantoprazole 40 MG Tab.CR PO SCH (07:45)
[2018-11-11] MEDS: Aspirin 81 MG Tab.EC PO SCH (07:45)
[2018-11-11] MEDS: Chondroitin/Glucosamine Cap PO SCH (07:45)
[2018-11-11] MEDS: Cephalexin 250 MG Cap PO SCH ×2 (07:46→19:15)
[2018-11-11] MEDS: Isosorbide Mononitrate 60 MG Tab.ER PO SCH (07:47)
[2018-11-11] MEDS: Cyanocobalamin (Vitamin B12) 1,000 MCG Tab PO SCH (07:47)
[2018-11-11] MEDS: Cholestyramine/Sucrose Powder 4 GM Packet PO SCH (10:13)
[2018-11-11] MEDS: Magnesium Oxide 400 MG Tab PO SCH (17:57)
[2018-11-11] MEDS: Warfarin 5 MG Tab PO SCH (17:57)
[2018-11-11] MEDS: Lisinopril 20 MG Tab PO SCH (17:57)
[2018-11-11] MEDS: atorvaSTATin 10 MG Tab PO SCH (19:16)
[2018-11-12] MEDS: Aspirin 81 MG Tab.EC PO SCH (07:29)
[2018-11-12] MEDS: Chondroitin/Glucosamine Cap PO SCH (07:29)
[2018-11-12] MEDS: Calcium Carbonate/Vitamin D3 1500 MG-400 Units Tab PO SCH ×2 (07:29→17:38)
[2018-11-12] MEDS: Cholecalciferol (Vitamin D3) 25 MCG Tab PO SCH (07:30)
[2018-11-12] MEDS: Cephalexin 250 MG Cap PO SCH ×2 (07:30→19:21)
[2018-11-12] MEDS: Isosorbide Mononitrate 60 MG Tab.ER PO SCH (07:30)
[2018-11-12] MEDS: Pantoprazole 40 MG Tab.CR PO SCH (07:30)
[2018-11-12] MEDS: Metoprolol Succinate 50 MG Tab.ER PO SCH (07:30)
[2018-11-12] MEDS: Cyanocobalamin (Vitamin B12) 1,000 MCG Tab PO SCH (07:30)
[2018-11-12] MEDS: Warfarin 5 MG Tab PO SCH (17:38)
[2018-11-12] MEDS: Magnesium Oxide 400 MG Tab PO SCH (17:38)
[2018-11-12] MEDS: Lisinopril 20 MG Tab PO SCH (17:39)
[2018-11-12] MEDS: atorvaSTATin 10 MG Tab PO SCH (19:21)
[2018-11-13] MEDS: Cephalexin 250 MG Cap PO SCH ×2 (07:58→19:34)
[2018-11-13] MEDS: Cholecalciferol (Vitamin D3) 25 MCG Tab PO SCH (07:59)
[2018-11-13] MEDS: Pantoprazole 40 MG Tab.CR PO SCH (07:59)
[2018-11-13] MEDS: Calcium Carbonate/Vitamin D3 1500 MG-400 Units Tab PO SCH ×2 (07:59→17:58)
[2018-11-13] MEDS: Chondroitin/Glucosamine Cap PO SCH (07:59)
[2018-11-13] MEDS: Cyanocobalamin (Vitamin B12) 1,000 MCG Tab PO SCH (07:59)
[2018-11-13] MEDS: Aspirin 81 MG Tab.EC PO SCH (07:59)
[2018-11-13] MEDS: Metoprolol Succinate 50 MG Tab.ER PO SCH (08:03)
[2018-11-13] MEDS: Isosorbide Mononitrate 60 MG Tab.ER PO SCH (08:04)
[2018-11-13] MEDS: Cholestyramine/Sucrose Powder 4 GM Packet PO SCH (10:53)
[2018-11-13] MEDS: Lisinopril 20 MG Tab PO SCH (17:59)
[2018-11-13] MEDS: Magnesium Oxide 400 MG Tab PO SCH (17:59)
[2018-11-13] MEDS ORDERED: Warfarin 2.5 MG Tab PO SCH (18:00)
[2018-11-13] MEDS: atorvaSTATin 10 MG Tab PO SCH (19:34)
[2018-11-14] MEDS: Cephalexin 250 MG Cap PO SCH ×2 (07:56→19:00)
[2018-11-14] MEDS: Chondroitin/Glucosamine Cap PO SCH (07:56)
[2018-11-14] MEDS: Pantoprazole 40 MG Tab.CR PO SCH (07:56)
[2018-11-14] MEDS: Aspirin 81 MG Tab.EC PO SCH (07:57)
[2018-11-14] MEDS: Cholecalciferol (Vitamin D3) 25 MCG Tab PO SCH (07:57)
[2018-11-14] MEDS: Calcium Carbonate/Vitamin D3 1500 MG-400 Units Tab PO SCH ×2 (07:58→17:13)
[2018-11-14] MEDS: Cyanocobalamin (Vitamin B12) 1,000 MCG Tab PO SCH (07:58)
[2018-11-14] MEDS: Isosorbide Mononitrate 60 MG Tab.ER PO SCH (07:58)
[2018-11-14] MEDS: Metoprolol Succinate 50 MG Tab.ER PO SCH (07:58)
[2018-11-14] MEDS: Magnesium Oxide 400 MG Tab PO SCH (17:13)
[2018-11-14] MEDS: Lisinopril 20 MG Tab PO SCH (17:13)
[2018-11-14] MEDS: Warfarin 5 MG Tab PO SCH (17:15)
[2018-11-14] MEDS: atorvaSTATin 10 MG Tab PO SCH (19:01)
[2018-11-15] MEDS: Calcium Carbonate/Vitamin D3 1500 MG-400 Units Tab PO SCH ×2 (08:03→17:56)
[2018-11-15] MEDS: Cyanocobalamin (Vitamin B12) 1,000 MCG Tab PO SCH (08:03)
[2018-11-15] MEDS: Aspirin 81 MG Tab.EC PO SCH (08:03)
[2018-11-15] MEDS: Cholecalciferol (Vitamin D3) 25 MCG Tab PO SCH (08:03)
[2018-11-15] MEDS: Chondroitin/Glucosamine Cap PO SCH (08:03)
[2018-11-15] MEDS: Pantoprazole 40 MG Tab.CR PO SCH (08:03)
[2018-11-15] MEDS: Cephalexin 250 MG Cap PO SCH ×2 (08:03→19:33)
[2018-11-15] MEDS: Metoprolol Succinate 50 MG Tab.ER PO SCH (08:04)
[2018-11-15] MEDS: Isosorbide Mononitrate 60 MG Tab.ER PO SCH (08:13)
[2018-11-15] MEDS: Cholestyramine/Sucrose Powder 4 GM Packet PO SCH (10:59)
[2018-11-15] MEDS: Lisinopril 20 MG Tab PO SCH (17:58)
[2018-11-15] MEDS: Magnesium Oxide 400 MG Tab PO SCH (17:58)
[2018-11-15] MEDS: Warfarin 5 MG Tab PO SCH (18:00)
[2018-11-15] MEDS: atorvaSTATin 10 MG Tab PO SCH (19:34)
[2018-11-16] MEDS: Calcium Carbonate/Vitamin D3 1500 MG-400 Units Tab PO SCH ×2 (07:59→17:15)
[2018-11-16] MEDS: Chondroitin/Glucosamine Cap PO SCH (07:59)
[2018-11-16] MEDS: Pantoprazole 40 MG Tab.CR PO SCH (07:59)
[2018-11-16] MEDS: Cyanocobalamin (Vitamin B12) 1,000 MCG Tab PO SCH (08:00)
[2018-11-16] MEDS: Isosorbide Mononitrate 60 MG Tab.ER PO SCH (08:00)
[2018-11-16] MEDS: Aspirin 81 MG Tab.EC PO SCH (08:00)
[2018-11-16] MEDS: Metoprolol Succinate 50 MG Tab.ER PO SCH (08:00)
[2018-11-16] MEDS: Cephalexin 250 MG Cap PO SCH ×2 (08:00→17:15)
[2018-11-16] MEDS: Cholecalciferol (Vitamin D3) 25 MCG Tab PO SCH (08:00)
[2018-11-16] MEDS: Cholestyramine/Sucrose Powder 4 GM Packet PO SCH (11:25)
[2018-11-16] MEDS: Magnesium Oxide 400 MG Tab PO SCH (17:15)
[2018-11-16] MEDS: Warfarin 5 MG Tab PO SCH (17:16)
[2018-11-16] MEDS: Lisinopril 20 MG Tab PO SCH (17:16)
[2018-11-16] MEDS: atorvaSTATin 10 MG Tab PO SCH (19:07)
[2018-11-17] MEDS: Aspirin 81 MG Tab.EC PO SCH (08:03)
[2018-11-17] MEDS: Cephalexin 250 MG Cap PO SCH ×2 (08:03→17:20)
[2018-11-17] MEDS: Pantoprazole 40 MG Tab.CR PO SCH (08:03)
[2018-11-17] MEDS: Chondroitin/Glucosamine Cap PO SCH (08:03)
[2018-11-17] MEDS: Metoprolol Succinate 50 MG Tab.ER PO SCH (08:04)
[2018-11-17] MEDS: Calcium Carbonate/Vitamin D3 1500 MG-400 Units Tab PO SCH ×2 (08:04→17:21)
[2018-11-17] MEDS: Isosorbide Mononitrate 60 MG Tab.ER PO SCH (08:04)
[2018-11-17] MEDS: Cyanocobalamin (Vitamin B12) 1,000 MCG Tab PO SCH (08:04)
[2018-11-17] MEDS: Cholecalciferol (Vitamin D3) 25 MCG Tab PO SCH (08:04)
[2018-11-17] MEDS: Lisinopril 20 MG Tab PO SCH (17:21)
[2018-11-17] MEDS: Magnesium Oxide 400 MG Tab PO SCH (17:21)
[2018-11-17] MEDS: Warfarin 5 MG Tab PO SCH (17:22)
[2018-11-17] MEDS: atorvaSTATin 10 MG Tab PO SCH (19:33)
[2018-11-18] MEDS: Metoprolol Succinate 50 MG Tab.ER PO SCH (07:35)
[2018-11-18] MEDS: Chondroitin/Glucosamine Cap PO SCH (07:35)
[2018-11-18] MEDS: Cholecalciferol (Vitamin D3) 25 MCG Tab PO SCH (07:36)
[2018-11-18] MEDS: Pantoprazole 40 MG Tab.CR PO SCH (07:36)
[2018-11-18] MEDS: Aspirin 81 MG Tab.EC PO SCH (07:37)
[2018-11-18] MEDS: Isosorbide Mononitrate 60 MG Tab.ER PO SCH (07:37)
[2018-11-18] MEDS: Cyanocobalamin (Vitamin B12) 1,000 MCG Tab PO SCH (07:37)
[2018-11-18] MEDS: Calcium Carbonate/Vitamin D3 1500 MG-400 Units Tab PO SCH (07:37)
[2018-11-18] MEDS: Cephalexin 250 MG Cap PO SCH (07:38)
[2018-11-18 07:46] VITALS: BP 173/74
--- NOTE | 2018-11-18 09:05 | PCM.DCSUM1 ---
Discharge Summary - Hospital Course Free Text/Narrative:: Patient is here for a SWB stay for PT/OT for rehabilitation after cellulitis infection of the foot. He has reached plateau with therapy and is ready for discharge. His skin infection to the bottom of his left foot is healing. This appears to have developed on a plantar wart. Patient's noted bleeding from the wart in the days prior to hospital admission. The area is healed, however plantars wart is still present. We will refer patient to Dr. Rangel for evalaution and treatment of plantars wart as he feels necessary. - Discharge Data Discharge Date: 11/18/18 Discharge Disposition: Home, Self-Care 01 Condition: Good - Patient Summary/Data Consults: Consultations 11/07/18 13:27 Consult to Physical Therapy [PT Evaluation and Treatment] [CONS] Routine OT Evaluation and Treatment [CONS] Routine - Patient Instructions Diet: Usual Diet as Tolerated Activity: As Tolerated Showering/Bathing: May Shower (May leave plantars wart uncovered in the shower) Notify Provider of: Fever, Increased Pain, Swelling and Redness - Discharge Plan *PRESCRIPTION DRUG MONITORING PROGRAM REVIEWED*: Not Applicable *COPY OF PRESCRIPTION DRUG MONITORING REPORT IN PATIENT LUISANA: Not Applicable Prescriptions/Med Rec: atorvaSTATin [Lipitor] 10 mg PO BEDTIME #30 tablet cephALEXin [Keflex] 500 mg PO BID 7 Days #14 cap Cholestyramine/Sucrose [Cholestyramine] 4 gm PO SUMOWEFR@1000 #30 packet Esomeprazole Magnesium [Nexium] 40 mg PO QAM #30 capsule. Isosorbide Mononitrate [Imdur] 60 mg PO DAILY #30 tab.er Lisinopril 20 mg PO QPM@1800 #30 tablet Metoprolol Succinate [Toprol XL 50mg] 150 mg PO QAM #90 tab.er Warfarin [Coumadin] 2.5 mg PO FR@18 #30 tablet Warfarin [Coumadin] 5 mg PO SUMOTUWETHSA@18 #30 tablet Home Medications: Home Meds Cholecalciferol (Vitamin D3) [Vitamin D3] 2,000 unit PO QAM 03/23/16 [History] Cyanocobalamin (Vitamin B-12) [Vitamin B-12] 1,000 mcg PO DAILY 03/23/16 [ History] Glucosamine/D3/Boswellia Rocio [Glucosamine Complex Tablet] 1 tab PO DAILY 03/23 [History] Metoprolol Succinate [Toprol XL] 150 mg PO QAM 03/23/16 [History] Warfarin [Coumadin] 5 mg PO SUMOTUWETHSA@18 03/23/16 [History] Acetaminophen [Tylenol] 650 mg PO Q4H PRN tablet 09/17/17 [Rx] Nitroglycerin [Nitrostat] 0.4 mg SL ASDIRECTED PRN #25 tab.sl 09/17/17 [Rx] Calcium Carbonate/Vitamin D3 [Calcium Carb 500 MG] 1 each PO BID 11/04/18 [ History] Magnesium Oxide [Magnesium] 400 mg PO QPM 11/04/18 [History] Aspirin [Halfprin] 81 mg PO DAILY tab.ec 11/18/18 [Rx] Cholestyramine/Sucrose [Cholestyramine] 4 gm PO SUMOWEFR@1000 #30 packet [Rx] Esomeprazole Magnesium [Nexium] 40 mg PO QAM #30 capsule.dr 11/18/18 [Rx] Isosorbide Mononitrate [Imdur] 60 mg PO DAILY #30 tab.er 11/18/18 [Rx] Lisinopril 20 mg PO QPM@1800 #30 tablet 11/18/18 [Rx] Metoprolol Succinate [Toprol XL 50mg] 150 mg PO QAM #90 tab.er 11/18/18 [Rx] Warfarin [Coumadin] 2.5 mg PO FR@18 #30 tablet 11/18/18 [Rx] Warfarin [Coumadin] 5 mg PO SUMOTUWETHSA@18 #30 tablet 11/18/18 [Rx] atorvaSTATin [Lipitor] 10 mg PO BEDTIME #30 tablet 11/18/18 [Rx] cephALEXin [Keflex] 500 mg PO BID 7 Days #14 cap 11/18/18 [Rx] Patient Handouts: Furosemide tablets, Cellulitis, Adult, [id number] Referrals: Jose Han MD [Ordering Only Provider] - - Discharge Summary/Plan Comment DC Time >30 min.: Yes - General Info Date of Service: 11/18/18 Admission Dx/Problem (Free Text: Cellulitis and abscess of foot Functional Status: Reports: Pain Controlled - Review of Systems General: Reports: No Symptoms HEENT: Reports: No Symptoms, Glasses Pulmonary: Reports: No Symptoms Cardiovascular: Reports: No Symptoms Gastrointestinal: Reports: No Symptoms Genitourinary: Reports: No Symptoms Musculoskeletal: Reports: No Symptoms Skin: Reports: No Symptoms Neurological: Reports: No Symptoms Psychiatric: Reports: No Symptoms - Patient Data Vitals - Most Recent: Last Vital Signs Temp 97.8 F 11/18/18 07:45 Pulse 72 11/18/18 07:45 Resp 14 11/18/18 07:45 BP 173/74 H 11/18/18 07:45 Pulse Ox 96 11/17/18 17:20 Weight - Most Recent: 229 lb 3.2 oz I&O - Last 24 hours: Intake & Output 11/17/18 11/18/18 11/18/18 22:59 06:59 14:59 Intake Total 1950 0 120 Balance 1950 0 120 Med Orders - Current: Current Medications Acetaminophen (Tylenol) 650 mg PO Q4H PRN PRN Reason: Pain Aspirin (Halfprin) 81 mg PO DAILY [facility] Last Admin: 11/18/18 07:37 Dose: 81 mg Atorvastatin Calcium (Lipitor) 10 mg PO BEDTIME [facility] Last Admin: 11/17/18 19:33 Dose: 10 mg Calcium Carbonate (Caltrate 600+D 1500 Mg-400 Units) 1 tab PO BID [facility] Last Admin: 11/18/18 07:37 Dose: 1 tab Cephalexin (Keflex) 500 mg PO BID [facility] Stop: 11/23/18 09:00 Last Admin: 11/18/18 07:38 Dose: 500 mg Cholecalciferol (Vitamin D3) 50 mcg PO QAM [facility] Last Admin: 11/18/18 07:36 Dose: 50 mcg Cholestyramine Resin (Cholestyramine Packet) 4 gm PO SuMoWeFr@1000 [facility] Last Admin: 11/16/18 11:25 Dose: 4 gm Cyanocobalamin (Vitamin B12) 1,000 mcg PO DAILY [facility] Last Admin: 11/18/18 07:37 Dose: 1,000 mcg Glucosamine/Chondroitin (Glucosamine-Chondroitin 500-400 Capsule) 1 cap PO DAILY [facility] Last Admin: 11/18/18 07:35 Dose: 1 cap Isosorbide Mononitrate (Imdur) 60 mg PO DAILY [facility] Last Admin: 11/18/18 07:37 Dose: 60 mg Lisinopril (Prinivil) 20 mg PO QPM@1800 [facility] Last Admin: 11/17/18 17:21 Dose: 20 mg Magnesium Oxide (Magnesium Oxide) 400 mg PO QPM [facility] Last Admin: 11/17/18 17:21 Dose: 400 mg Metoprolol Succinate (Toprol Xl) 150 mg PO QAM [facility] Last Admin: 11/18/18 07:35 Dose: 150 mg Nitroglycerin (Nitrostat) 0.4 mg SL ASDIRECTED PRN PRN Reason: Chest Pain Pantoprazole Sodium (Protonix) 40 mg PO QAM [facility] Last Admin: 11/18/18 07:36 Dose: 40 mg Sodium Chloride (Saline Flush) 10 ml FLUSH ASDIRECTED PRN PRN Reason: Keep Vein Open Last Admin: 11/10/18 07:23 Dose: 10 ml Warfarin Sodium (Coumadin) 2.5 mg PO FR@18 [facility] Last Admin: 11/13/18 17:59 Dose: 2.5 mg Warfarin Sodium (Coumadin) 5 mg PO SUMOTUWETHSA@18 [facility] Last Admin: 11/17/18 17:22 Dose: 5 mg Discontinued Medications Cephalexin (Keflex) 500 mg PO Q12H [facility] Stop: 11/16/18 12:01 Cephalexin (Keflex) 500 mg PO Q12H [facility] Stop: 11/16/18 09:01 Last Admin: 11/09/18 20:14 Dose: 500 mg Cephalexin (Keflex) 500 mg PO BID@0800,1999 [facility] Stop: 11/16/18 09:01 Last Admin: 11/16/18 08:00 Dose: 500 mg Furosemide (Lasix) 20 mg PO ONETIME ONE Stop: 11/08/18 10:16 Last Admin: 11/08/18 10:42 Dose: 20 mg Furosemide (Lasix) 20 mg PO ONETIME ONE Stop: 11/09/18 08:01 Last Admin: 11/09/18 07:29 Dose: 20 mg Piperacillin Sod/Tazobactam (Sod 3.375 gm/ Sodium Chloride) 100 mls @ 200 mls/ hr IV Q6H [facility] Stop: 11/09/18 08:00 Last Admin: 11/09/18 03:03 Dose: 200 mls/hr Sodium Chloride (Saline Flush) 10 ml FLUSH ASDIRECTED PRN PRN Reason: Keep Vein Open - Exam General: Reports: Alert, Oriented, Cooperative HEENT: Reports: Pupils Equal, Pupils Reactive Neck: Reports: Supple Lungs: Reports: Clear to Auscultation, Normal Respiratory Effort Cardiovascular: Reports: Regular Rate, Regular Rhythm GI/Abdominal Exam: Normal Bowel Sounds, Soft, Non-Tender, No Distention (Male) Exam: Deferred Rectal (Males) Exam: Deferred Extremities: Normal Inspection, Normal Range of Motion, No Pedal Edema Skin: Reports: Warm, Dry, Intact Wound/Incisions: Reports: Healing Well, Dressing Dry and Intact Neurological: Reports: No New Focal Deficit Psy/Mental Status: Reports: Alert, Normal Affect, Normal Mood
[2018-11-18] MEDS ORDERED: Furosemide 20 MG Tab PO SCH (09:56)
[2018-11-19] MEDS ORDERED: Furosemide 20 MG Tab PO SCH (08:00)
== END 2018-11-18 10:20 | disposition home or self-care (01) | DRG 603 ==
LOC: LL.MS 13:25
PROVIDERS: ADMIT Family Medicine; ATTEND Family Medicine
DX: L03.116 Cellulitis of left lower limb (principal); L02.612 Cutaneous abscess of left foot; L89.892 Pressure ulcer of other site, stage 2; Z79.899 Other long term (current) drug therapy; Z98.890 Other specified postprocedural states; Z79.82 Long term (current) use of aspirin; Z79.01 Long term (current) use of anticoagulants
CPT/HCPCS: 36415; 36416; 73630-LT; 80053; 82962; 85025; 85610; 97110-GO; 97110-GP; 97116-GP; 97161-GP; 97165-GO; 97530-GO; 97530-GP; 97535-GO; A9270-GY; J2543; J7050

== ENCOUNTER 2020-01-30 19:35 | Emergency (ER) | payer MEDICARE, BC | END 2020-01-30 23:09 | disposition swing bed (61) | LOC: LL.ED 19:35 | DX: U07.1 COVID-19 (principal); I48.91 Unspecified atrial fibrillation; I25.10 Atherosclerotic heart disease of native coronary artery without angina pectoris; I12.9 Hypertensive chronic kidney disease with stage 1 through stage 4 chronic kidney disease, or unspecified chronic kidney disease; N18.9 Chronic kidney disease, unspecified; E78.00 Pure hypercholesterolemia, unspecified; I25.2 Old myocardial infarction; K21.9 Gastro-esophageal reflux disease without esophagitis; M19.90 Unspecified osteoarthritis, unspecified site; E66.9 Obesity, unspecified; Z79.899 Other long term (current) drug therapy; Z79.82 Long term (current) use of aspirin | CPT/HCPCS: 99284; 99285 ==

== ENCOUNTER 2020-01-30 19:35 | Inpatient (IN) | payer MEDICARE, BC ==
--- NOTE | 2020-01-30 21:55 | EDM.PDOC ---
ED HPI GENERAL MEDICAL PROBLEM - General Chief Complaint: General Stated Complaint: weakness r/t COVID Time Seen by Provider: 01/30/20 19:49 Source of Information: Reports: Patient, Family History Limitations: Reports: No Limitations - History of Present Illness INITIAL COMMENTS - FREE TEXT/NARRATIVE: Patient comes to ER by EMS after having apparent vaso-vagal episode at home. Brief LOC/nausea/small emesis/some muscle twitching observed by his . Had similar episode in vehicle the day he was admitted to [facility] last week for treatment of Covid 19. Patient discharged home today from that facility. Says he was barely able to get into his house due to weakness. Unable to perform ADLs/very weak. No SOB or other acute complaints at this time. Call placed to [facility] for information regarding patient's stay. We were informed that patient was not evaluated by PT/OT there as their policy is not to allow interaction with Covid patients. We were also told that patient was supposedly up and able to walk and they felt he could go home. Finally, they added that they do not allow Covid patients to go to Swing Bed status there once they no longer qualify for inpatient. Patient and feel that he is unable to be safely at home given the continued feeling of significant weakness. Patient has persistent right side deficit from previous stroke that adds to their concerns. - Related Data Allergies Allergy/AdvReac Type Severity Reaction Status Date / Time No Known Allergies Allergy Verified 01/30/20 19:36 Home Meds: Home Meds Cholecalciferol (Vitamin D3) [Vitamin D3] 2,000 unit PO QAM 03/23/16 [History] Cyanocobalamin (Vitamin B-12) [Vitamin B-12] 1,000 mcg PO DAILY 03/23/16 [History] Glucosamine/D3/Boswellia Rocio [Glucosamine Complex Tablet] 1 tab PO DAILY 03/23/16 [History] Metoprolol Succinate [Toprol XL] 150 mg PO QAM 03/23/16 [History] Warfarin [Coumadin] 5 mg PO SUMOTUWETHSA@18 03/23/16 [History] Acetaminophen [Tylenol] 650 mg PO Q4H PRN tablet 09/17/17 [Rx] Calcium Carbonate/Vitamin D3 [Calcium Carb 500 MG] 1 each PO BID 11/04/18 [History] Magnesium Oxide [Magnesium] 400 mg PO QPM 11/04/18 [History] Aspirin [Halfprin] 81 mg PO DAILY tab.ec 11/18/18 [Rx] Cholestyramine/Sucrose [Cholestyramine] 4 gm PO SUMOWEFR@1000 #30 packet 11/18/18 [Rx] Esomeprazole Magnesium [Nexium] 40 mg PO QAM #30 capsule.dr 11/18/18 [Rx] Furosemide [Lasix] 10 mg PO DAILY #30 tablet 11/18/18 [Rx] Isosorbide Mononitrate [Imdur] 60 mg PO DAILY #30 tab.er 11/18/18 [Rx] Lisinopril 20 mg PO QPM@1800 #30 tablet 11/18/18 [Rx] Metoprolol Succinate [Toprol XL 50mg] 150 mg PO QAM #90 tab.er 11/18/18 [Rx] Nitroglycerin [Nitrostat] 0.4 mg SL ASDIRECTED PRN #10 tab.sl 11/18/18 [Rx] Warfarin [Coumadin] 2.5 mg PO FR@18 #30 tablet 11/18/18 [Rx] Warfarin [Coumadin] 5 mg PO SUMOTUWETHSA@18 #30 tablet 11/18/18 [Rx] atorvaSTATin [Lipitor] 10 mg PO BEDTIME #30 tablet 11/18/18 [Rx] cephALEXin [Keflex] 500 mg PO BID 7 Days #14 cap 11/18/18 [Rx] Past Medical History HEENT History: Reports: Cataract, Impaired Vision Other HEENT History: Wears glasses. Borderline bilateral cataracts. Cardiovascular History: Reports: Afib, CAD, High Cholesterol, Hypertension, NH, Pacemaker, Prior Cardiac Arrest, PVD, Other (See Below) Other Cardiovascular History: Bilateral carotid occlusive disease requiring surgery complicated by CVA as below. Multivessel coronary artery disease with good collaterals per heart catheterization at age 62. Note that patient did have a postoperative cardiac arrest without NH at the the time of his left carotid arterectomy and then again during post CVA rehabilitation? PRIOR CARDIAC ARREST REQUIRING CPR Respiratory History: Reports: Intubation, Previous Gastrointestinal History: Reports: Chronic Constipation, Chronic Diarrhea, Colon Polyp, Diverticulosis, Fecal Incontinence, GERD, Jaundice Other Gastrointestinal History: jaundice. Non-Cancerous rectal masses and/or cysts requiring surgeries as below with secondary stool incontinence. Genitourinary History: Reports: BPH, Chronic Renal Insuffiency, Retention, Urinary, Urinary Incontinence, Other (See Below) Other Genitourinary History: BPH with PSA elevation with negative biopsies as below. History of recurrent colonic polyps of unknown type. 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 Head concussion on 08/25/12 with brief period of loss of consciousness. Psychiatric History: Reports: None Endocrine/Metabolic History: Reports: Obesity/BMI 30+ Hematologic History: Reports: None, B12 Deficiency Immunologic History: Reports: None Oncologic (Cancer) History: Reports: None Dermatologic History: Reports: Other (See Below) Other Dermatologic History: Actinic keratosis - Infectious Disease History Infectious Disease History: Reports: Influenza, Measles, Other (See Below) Other Infectious Disease History: Jaundice as a child. - Past Surgical History Head Surgeries/Procedures: Reports: None HEENT Surgical History: Reports: Adenoidectomy, Oral Surgery, Radiocarotid Ectomy, Tonsillectomy, Other (See Below) Other HEENT Surgeries/Procedures: [place] teeth extraction 2 uppers in the 1980s . Tonsillectomy and adenoidectomy at about age 6. Cardiovascular Surgical History: Reports: Pacer Respiratory Surgical History: Reports: None GI Surgical History: Reports: Colonoscopy, EGD, Other (See Below) Other GI Surgeries/Procedures: Last colonoscopy in about 2014 with polypectomy. EGD in about 2001. Note excision of rectal masses/cysts 2 with last surgery in about 2002. Male Surgical History: Reports: Circumcision, Prostate Biopsy, Other (See Below) Other Male Surgeries/Procedures: Circumcision as an infant. Prostate biopsy in about 2009. Endocrine Surgical History: Reports: None Musculoskeletal Surgical History: Reports: None Oncologic Surgical History: Reports: None Dermatological Surgical History: Reports: None - Past Imaging History Past Imaging History: Reports: Angiography (Heart catheterization age 62 with results as above), CAT Scan (CT of the abdomen and pelvis with contrast on 03/23/16. CT of the brain and C-spine on 08/25/12.), Ultrasound (Pelvic ultrasound on 11/01/15.) Social & Family History - Family History HEENT: Reports: None Cardiac: Reports: Hypertension, Other (See Below) Other Cardiac Family History: Father with hypertension Respiratory: Reports: None GI: Reports: Colon Polyps, GI bleed, PUD, Other (See Below) Other GI Family History: Father with peptic disease and upper GI bleed. Mother with history of colon cancer as below : Reports: None OBGYN: Reports: Endometriosis, Recurrent Spontaneous , Other (See Below) Other OBGYN Family History: Sister with recurrent SAB secondary to endometriosis. Musculoskeletal: Reports: None Neurological: Reports: Other (See Below) Other Neurological Family History: Sister with possible meningioma Psychiatric: Reports: None Endocrine/Metabolic: Reports: None Hematologic: Reports: None Immunologic: Reports: None Dermatologic: Reports: None Oncologic: Reports: Colon, Leukemia, Other (See Below) Other Oncologic Family History: Sister with leukemia in her 60s. Mother with fatal colon cancer at age 92. - Caffeine Use Caffeine Use: Reports: Soda Other Caffeine Use: RARE CAFFINE USE Caffeine Use Comment: very rarely - Living Situation & Occupation Living situation: Reports: (1958, 4 children.), with Family () Occupation: Retired (Semi-Retired [employer] at age 62 with completely disabled secondary to CVA in the Fall of 2012) ED ROS GENERAL - Review of Systems Review Of Systems: See Below Constitutional: Reports: Weakness, Fatigue, Decreased Appetite. Denies: Fever, Chills, Night Sweats HEENT: Denies: Rhinitis, Sinus Problem, Throat Swelling, Vertigo, Vision Change Respiratory: Denies: Shortness of Breath, Wheezing, Pleuritic Chest Pain, Cough, Sputum Cardiovascular: Denies: Chest Pain, Lightheadedness, Palpitations GI/Abdominal: Denies: Abdominal Pain, Constipation, Diarrhea, Nausea, Vomiting : Reports: No Symptoms Musculoskeletal: Reports: Other (no acute changes from baseline) Skin: Reports: No Symptoms Neurological: Reports: Pre-Existing Deficit (right sided weakness), Syncope, Difficulty Walking, Weakness (generalized). Denies: Change in Speech Psychiatric: Reports: No Symptoms ED EXAM, GENERAL - Physical Exam Exam: See Below Exam Limited By: No Limitations General Appearance: Alert, WD/WN, No Apparent Distress, Obese Eye Exam: Bilateral Eye: EOMI, PERRL Ears: Hearing Grossly Normal Nose: No: Nasal Deformity, Nasal Swelling, Nasal Drainage Throat/Mouth: Normal Lips, Normal Voice, No Airway Compromise Head: Atraumatic, Normocephalic Neck: Supple, Full Range of Motion Respiratory/Chest: No Respiratory Distress, Lungs Clear, Normal Breath Sounds, No Accessory Muscle Use Cardiovascular: Regular Rate, Rhythm, No Murmur GI/Abdominal: Normal Bowel Sounds, Soft, Non-Tender (Male) Exam: Deferred Rectal (Males) Exam: Deferred Back Exam: No: CVA Tenderness (L), CVA Tenderness (R), Muscle Spasm, Paraspinal Tenderness, Vertebral Tenderness Extremities: Non-Tender, Normal Capillary Refill, Pedal Edema (mild). No: Increased Warmth, Mottled, Pallor, Redness Neurological: Alert, Oriented, Normal Cognition, Other (right sided upper and lower limb weakness) Psychiatric: Normal Affect, Normal Mood Skin Exam: Warm, Dry, Intact, Normal Color Course - Vital Signs Last Recorded V/S: Last Vital Signs Temp 36.1 C 01/30/20 19:37 Pulse 69 01/30/20 19:37 Resp 28 H 01/30/20 19:37 BP 117/65 01/30/20 19:37 Pulse Ox 92 L 01/30/20 19:37 - Re-Assessments/Exams Free Text/Narrative Re-Assessment/Exam: 01/30/20 21:59 Labs/paperwork reviewed from [place] fax. No need to draw new labs at this time as this mornings labs were overall within good range. Patient's Covid infection is also overall improving. Persistent fatigue which is common with Covid is the main issue at this time. Given his 3 night stay at [facility] he qualifies for [facility] admission for ongoing strengthening. Patient and are agreeable with plan. Departure - Departure Time of Disposition: 22:01 Disposition: DC/Tfer W/I Hosp To [place] [id number] Condition: Good Clinical Impression: COVID-19 - Discharge Information *PRESCRIPTION DRUG MONITORING PROGRAM REVIEWED*: Not Applicable *COPY OF PRESCRIPTION DRUG MONITORING REPORT IN PATIENT LUISANA: Not Applicable Sepsis Event Note (ED) - Evaluation Sepsis Screening Result: No Definite Risk - Focused Exam Vital Signs: Vital Signs Temp Pulse Resp BP Pulse Ox 01/30/20 19:37 36.1 C 69 28 H 117/65 92 L - Problem List & Annotations (1) COVID-19 SNOMED Code(s): 979790714 Code(s): U07.1 - COVID-19 Status: Acute Priority: High Current Visit: Yes Annotation/Comment:: Recent acute Covid 19 infection with initial 3 day stay at [facility] for treatment. Discharged today and failed attempt to return home due to continued pronounced weakness. Other symptoms have been improving. Admit to Swing Bed for evaluation tomorrow by PT/OT. (2) Generalized weakness SNOMED Code(s): 98490657 Code(s): R53.1 - WEAKNESS Status: Acute Priority: High Current Visit: No Annotation/Comment:: As above (3) CVA (cerebral vascular accident) SNOMED Code(s): 986095445 Code(s): I63.9 - CEREBRAL INFARCTION, UNSPECIFIED Status: Chronic Priority: Low Current Visit: No Onset Date: ~09/15/17 Annotation/Comment:: Chronic right sided limb weakness Qualifiers: CVA mechanism: unspecified Qualified Code(s): I63.9 - Cerebral infarction, unspecified (4) Coronary artery disease SNOMED Code(s): 87416602 Code(s): I25.10 - ATHSCL HEART DISEASE OF [place] CORONARY ARTERY W/O ANG PCTRS Status: Chronic Priority: Low Current Visit: No Annotation/Comment:: History of diffuse coronary artery disease nonoperable in the past secondary to good collaterals by distant heart catheterization. Pacemaker. History Afib. 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 Qualifiers: Coronary Disease-Associated Artery/Lesion type: [place] artery [place] vs. transplanted heart: [place] heart Associated angina: without angina Qualified Code(s): I25.10 - Atherosclerotic heart disease of [place] coronary artery without angina pectoris (5) Hypertension SNOMED Code(s): 37575697 Code(s): I10 - ESSENTIAL (PRIMARY) HYPERTENSION Status: Chronic Priority: Low Current Visit: No Annotation/Comment:: observe trends Qualifiers: Hypertension type: essential hypertension Qualified Code(s): I10 - Essential (primary) hypertension (6) Renal insufficiency SNOMED Code(s): 980448441, 102125075 Code(s): N28.9 - DISORDER OF KIDNEY AND URETER, UNSPECIFIED Status: Chronic Priority: Medium Current Visit: No Annotation/Comment:: Stable. (7) Peptic reflux disease SNOMED Code(s): 045602476 Code(s): K21.9 - GASTRO-ESOPHAGEAL REFLUX DISEASE WITHOUT ESOPHAGITIS Status: Chronic Priority: Medium Current Visit: No Annotation/Comment:: Stable by history (8) Dyslipidemia SNOMED Code(s): 415628579 Code(s): E78.5 - HYPERLIPIDEMIA, UNSPECIFIED Status: Acute Priority: High Current Visit: No Onset Date: ~09/17/17 Annotation/Comment:: Close follow-up by his regular provide. - Problem List Review Problem List Initiated/Reviewed/Updated: Yes - Assessment/Plan Admission H&P: Please use this note as an admission H&P Assessment:: as above Plan: as above. PT and OT evaluation tomorrow for strengthening/ADLs/ambulation.
[2020-01-30] MEDS ORDERED: Nitroglycerin 0.4 MG Tab.SL SL PRN (22:49)
[2020-01-30] MEDS ORDERED: Acetaminophen 325 MG Tab PO PRN (22:49)
[2020-01-31] MEDS ORDERED: Pantoprazole 40 MG Tab.CR PO SCH (07:30)
[2020-01-31] MEDS ORDERED: Calcium Carbonate/Vitamin D3 625 MG-125 Unit Tab PO SCH (08:00)
[2020-01-31] MEDS: Cholecalciferol (Vitamin D3) 25 MCG Tab PO SCH (08:02)
[2020-01-31] MEDS: Isosorbide Mononitrate 30 MG Tab.ER PO SCH (08:02)
[2020-01-31] MEDS: Cyanocobalamin (Vitamin B12) 1,000 MCG Tab PO SCH (08:02)
[2020-01-31] MEDS: Aspirin 81 MG Tab.EC PO SCH (08:03)
[2020-01-31] MEDS: Metoprolol Succinate 50 MG Tab.ER PO SCH (08:03)
[2020-01-31] MEDS: Furosemide 20 MG Tab PO SCH (08:03)
[2020-01-31] MEDS: Magnesium Oxide 400 MG Tab PO SCH (08:04)
[2020-01-31] MEDS ORDERED: Cholestyramine/Sucrose Powder 4 GM Packet PO SCH (10:00)
[2020-01-31] MEDS: Calcium Carbonate/Vitamin D3 625 MG-125 Unit Tab PO SCH (19:49)
[2020-01-31] MEDS ORDERED: Warfarin 5 MG Tab PO SCH (20:00)
[2020-01-31] MEDS ORDERED: Latanoprost 0.005% Ophth Soln 2.5 ML Bottle EYEBOTH SCH (20:00)
[2020-01-31] MEDS ORDERED: Lisinopril 20 MG Tab PO SCH (20:00)
[2020-01-31] MEDS ORDERED: atorvaSTATin 10 MG Tab PO SCH (20:00)
[2020-02-01] MEDS ORDERED: Pantoprazole 40 MG Tab.CR PO SCH (08:00)
[2020-02-01 08:10] LABS: CHLORIDE,CL 95 mmol/L (98-107); SODIUM,NA 125 mmol/L (136-145)
[2020-02-01] MEDS: Cholecalciferol (Vitamin D3) 25 MCG Tab PO SCH (08:48)
[2020-02-01] MEDS: Metoprolol Succinate 50 MG Tab.ER PO SCH (08:48)
[2020-02-01] MEDS: Cyanocobalamin (Vitamin B12) 1,000 MCG Tab PO SCH (08:49)
[2020-02-01] MEDS: Furosemide 20 MG Tab PO SCH (08:49)
[2020-02-01] MEDS: Aspirin 81 MG Tab.EC PO SCH (08:49)
[2020-02-01] MEDS: Isosorbide Mononitrate 30 MG Tab.ER PO SCH (08:49)
[2020-02-01] MEDS: Calcium Carbonate/Vitamin D3 625 MG-125 Unit Tab PO SCH (08:49)
[2020-02-01] MEDS: Magnesium Oxide 400 MG Tab PO SCH (08:49)
--- NOTE | 2020-02-01 11:08 | PCM.DCSUM1 ---
Discharge Summary - Hospital Course HPI Initial Comments: See admission H&P Brief History: See admission H&P Diagnosis: Stroke: Yes Modified [place] Scale: Mod.Disablility Requiring Some Help,Able to Walk Without Assistance Modified [place] Scale Score: 3 - Discharge Data Discharge Date: 02/01/20 Discharge Disposition: Admitted As Inpatient 66 Condition: Poor - Referral to Home Health Primary Care Physician: PCP None - Discharge Diagnosis/Problem(s) (1) COVID-19 SNOMED Code(s): 000744988 ICD Code: U07.1 - COVID-19 Status: Acute Priority: High Current Visit: Yes Problem Details: Recent acute Covid 19 infection with initial 3 day stay at [facility] for treatment. Discharged from that facility and failed attempt to return home due to continued pronounced weakness. Other symptoms have been improving. Admit to [facility] for evaluation by PT/OT. IV antibiotic therapy was not initiated with leukopenia on admission. Initiate doxycycline and IV Protonix as a prophylactic measure for possible concomitant pneumonia. Chest x-ray later today. Transfer to acute care secondary to possible recurrent seizures and/or syncopal episodes as above. (2) Dyslipidemia SNOMED Code(s): 784530161 ICD Code: E78.5 - HYPERLIPIDEMIA, UNSPECIFIED Status: Acute Priority: High Current Visit: No Onset Date: ~09/17/17 Problem Details: Currently under therapy. (3) Generalized weakness SNOMED Code(s): 23430836 ICD Code: R53.1 - WEAKNESS Status: Acute Priority: High Current Visit: No Problem Details: As per admission H&P. Note patient unable to perform ADLs secondary to his recent COVID-19 infection, etc. as above. (4) Atrial fibrillation SNOMED Code(s): 50366404 ICD Code: I48.91 - UNSPECIFIED ATRIAL FIBRILLATION Status: Chronic Priority: Medium Current Visit: Yes Problem Details: No atrial fibrillation on admission, however note current pacemaker. Note INR is therapeutic at 2.0.. Continue to observe closely. Qualifiers: Atrial fibrillation type: paroxysmal Qualified Code(s): I48.0 - Paroxysmal atrial fibrillation (5) CVA (cerebral vascular accident) SNOMED Code(s): 090875941 ICD Code: I63.9 - CEREBRAL INFARCTION, UNSPECIFIED Status: Chronic Priority: Low Current Visit: Yes Onset Date: ~09/15/17 Problem Details: Chronic right sided limb weakness Qualifiers: CVA mechanism: unspecified Qualified Code(s): I63.9 - Cerebral infarction, unspecified (6) Coronary artery disease SNOMED Code(s): 39535520 ICD Code: I25.10 - ATHSCL HEART DISEASE OF [place] CORONARY ARTERY W/O ANG PCTRS Status: Chronic Priority: Medium Current Visit: Yes Problem Details: History of diffuse coronary artery disease nonoperable in the past seco ndary to good collaterals by distant heart catheterization. Pacemaker. History Afib. 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 No chest pain or anginal type symptoms. Note comfort care status. Repeat cardiac enzymes in the a.m. Qualifiers: Coronary Disease-Associated Artery/Lesion type: [place] artery [place] vs. transplanted heart: [place] heart Associated angina: without angina Qualified Code(s): I25.10 - Atherosclerotic heart disease of [place] coronary artery without angina pectoris (7) Hypertension SNOMED Code(s): 91114664 ICD Code: I10 - ESSENTIAL (PRIMARY) HYPERTENSION Status: Chronic Priority: Medium Current Visit: Yes Problem Details: Blood pressure is elevated prior to transfer to inpatient/acute care. Continue to observe closely. Medication adjustment as needed. Qualifiers: Hypertension type: essential hypertension Qualified Code(s): I10 - Essential (primary) hypertension (8) Peptic reflux disease SNOMED Code(s): 344313594 ICD Code: K21.9 - GASTRO-ESOPHAGEAL REFLUX DISEASE WITHOUT ESOPHAGITIS Status: Chronic Priority: Medium Current Visit: Yes Problem Details: Stable by history, however change from oral Protonix to IV Pepcid and IV Protonix secondary to current anemia and COVID-19. (9) Renal insufficiency SNOMED Code(s): 446291471, 074882999 ICD Code: N28.9 - DISORDER OF KIDNEY AND URETER, UNSPECIFIED Status: Chronic Priority: Medium Current Visit: Yes Problem Details: Stable. (10) Seizure SNOMED Code(s): 87240570 ICD Code: R56.9 - UNSPECIFIED CONVULSIONS Status: Acute Priority: High Current Visit: Yes Onset Date: 02/01/20 Problem Details: Generalized tonic- clonic grand mal seizure with secondary urinary and stool incontinence at about 9:10 AM today resulting in some mild postictal sedation. Previously suspected recurrent vasovagal episodes prior to admission to [facility] as per history and physical and swing bed care. By patient history a negative CTA of the chest was conducted in that facility with consideration of repeat evaluation depending on his clinical course. Note current COVID-19 infection and comfort care. Prolactin level to be collected. Prognosis guarded. No neurological deficits other than stable right mild hemiparesis at time of my exam this morning. (11) Hyponatremia SNOMED Code(s): 32722810 ICD Code: E87.1 - HYPO-OSMOLALITY AND HYPONATREMIA Status: Acute Priority: High Current Visit: Yes Onset Date: 02/01/20 Problem Details: Note significant hyponatremia, which may have contributed to his grand mal seizure as above. Careful initiation of 3% sodium chloride solution. (12) Anemia SNOMED Code(s): 805296557 ICD Code: D64.9 - ANEMIA, UNSPECIFIED Status: Acute Priority: High Current Visit: Yes Problem Details: Stable anemia with IV Pepcid and IV Protonix as above. Iron studies, etc. to be conducted in acute care. Qualifiers: Anemia type: unspecified type Qualified Code(s): D64.9 - Anemia, unspecified - Patient Summary/Data Operative Procedure(s) Performed: None Complications: None. The patient was in bed during seizure with no fall or injury. Consults: Consultations 01/30/20 22:49 OT Evaluation and Treatment [CONS] Routine PT Evaluation and Treatment [CONS] Routine 01/31/20 15:18 Consult to Case Management/Clerical Clerk [CONS] Routine Labs Pending at D/C: None Recommended Follow-up Testing/Procedures: None Planned Operative Procedure(s) after DC: None Hospital Course: Patient was initially placed in swing bed care by on-call physician with necessity of transferring to inpatient/acute care secondary to newly diagnosed probable grand mal seizures, hyponatremia, etc. as above. - Patient Instructions Diet: Fluid Restriction Diet, Other: Heart healthy Fluid Restriction: 2000 mL Activity: No Strenuous Activities Driving: Do Not Drive Showering/Bathing: May Shower (With assist) Notify Provider of: Fever, Increased Pain, Nausea and/or Vomiting - Discharge Plan *PRESCRIPTION DRUG MONITORING PROGRAM REVIEWED*: Not Applicable *COPY OF PRESCRIPTION DRUG MONITORING REPORT IN PATIENT LUISANA: Not Applicable Home Medications: Home Meds Cholecalciferol (Vitamin D3) [Vitamin D3] 2,000 unit PO QAM 03/23/16 [History] Cyanocobalamin (Vitamin B-12) [Vitamin B-12] 1,000 mcg PO DAILY 03/23/16 [History] Glucosamine/D3/Boswellia Rocio [Glucosamine Complex Tablet] 1 tab PO DAILY 03/23/16 [History] Warfarin [Coumadin] 5 mg PO SUMOTUWETHSA@18 03/23/16 [History] Acetaminophen [Tylenol] 650 mg PO Q4H PRN tablet 09/17/17 [Rx] Calcium Carbonate/Vitamin D3 [Calcium Carb 500 MG] 1 each PO BID 11/04/18 [History] Magnesium Oxide [Magnesium] 400 mg PO QPM 11/04/18 [History] Aspirin [Halfprin] 81 mg PO DAILY tab.ec 11/18/18 [Rx] Cholestyramine/Sucrose [Cholestyramine] 4 gm PO SUMOWEFR@1000 #30 packet 11/18/18 [Rx] Esomeprazole Magnesium [Nexium] 40 mg PO QAM #30 capsule.dr 11/18/18 [Rx] Furosemide [Lasix] 10 mg PO DAILY #30 tablet 11/18/18 [Rx] Isosorbide Mononitrate [Imdur] 60 mg PO DAILY #30 tab.er 11/18/18 [Rx] Lisinopril 20 mg PO QPM@1800 #30 tablet 11/18/18 [Rx] Metoprolol Succinate [Toprol XL 50mg] 150 mg PO QAM #90 tab.er 11/18/18 [Rx] Nitroglycerin [Nitrostat] 0.4 mg SL ASDIRECTED PRN #10 tab.sl 11/18/18 [Rx] Warfarin [Coumadin] 2.5 mg PO FR@18 #30 tablet 11/18/18 [Rx] atorvaSTATin [Lipitor] 10 mg PO BEDTIME #30 tablet 11/18/18 [Rx] Latanoprost/Pf [Latanoprost 0.005% Eye Drop] 1 drop EYEBOTH BEDTIME 01/30/20 [History] Oxygen Therapy Mode: Nasal Cannula Oxygen Flow Rate (L/min): 2 Maintain SpO2% greater than: 92 Forms: ED Department Discharge Referrals: PCP,None [Primary Care Provider] - - Discharge Summary/Plan Comment DC Time >30 min.: Yes (Hospital transfer) Discharge Summary/Plan Comment: As above. Extensive precautions were given to the patient, who is in agreement with the treatment plan. Transfer to inpatient/acute care on telemetry as above. - General Info Date of Service: 02/01/20 Admission Dx/Problem (Free Text: 1. Generalized weakness 2. COVID-19 Functional Status: Reports: Pain Controlled, Tolerating Diet, Ambulating (With assist), Urinating, New Symptoms (Grand mal seizure as above), Incentive Spirometry Numeric/FACES Score: 0 - Review of Systems General: Reports: Fever (Maximum temperature of 38.4 degrees since admission), Weakness, Fatigue, Chills, Night Sweats, Appetite (Adequate) HEENT: Reports: Post Nasal Drip, Rhinitis. Denies: Dysphasia, Ear Pain, Eye Pain, Headaches, Sinus Congestion, Sore Throat, Visual Changes Pulmonary: Reports: Cough, Sputum. Denies: Shortness of Breath, Pleuritic Chest Pain, Hemoptysis, Wheezing Cardiovascular: Reports: No Symptoms, Dyspnea on Exertion. Denies: Chest Pain, Palpitations, Orthopnea, Edema Gastrointestinal: Reports: Other (Stool incontinence as above). Denies: Abdominal Pain, Constipation, Decreased Appetite, Diarrhea, Difficulty Swallowing, Flatus, Melena, Nausea, Vomiting Genitourinary: Reports: Incontinence (Secondary seizure as above) Musculoskeletal: Reports: No Symptoms. Denies: Shoulder Pain, Arm Pain, Back Pain, Joint Pain, Joint Swelling Skin: Reports: No Symptoms. Denies: Diaphoresis, Pruritis, Rash Neurological: Reports: Pre-Existing Deficit (Mild right hemiparesis), Seizure, Weakness. Denies: Confusion, Headache, Numbness, Paresthesia, Tingling Psychiatric: Reports: No Symptoms. Denies: Confusion, Depression, Anxiety, Agitation, Hallucinations, Homicidal Ideation - Patient Data Vitals - Most Recent: Last Vital Signs Temp 37.7 C 02/01/20 08:00 Pulse 74 02/01/20 08:48 Resp 22 H 02/01/20 08:00 BP 169/73 H 02/01/20 08:49 Pulse Ox 93 L 02/01/20 08:00 Vital Signs - 24 hr 01/31/20 01/31/20 01/31/20 16:00 19:49 19:53 Temperature [ 37.1 C 38.4 C H Temporal] Pulse, Peripheral Pulse, 75 73 Peripheral [ Right Pulse Oximetry] Respiratory 18 20 Rate Blood Pressure 155/78 H Blood Pressure 132/86 155/78 H [Left Upper Arm ] O2 Sat by Pulse 96 95 Oximetry 02/01/20 02/01/20 02/01/20 08:00 08:48 08:49 Temperature [ 37.7 C Temporal] Pulse, 74 Peripheral Pulse, 74 Peripheral [ Right Pulse Oximetry] Respiratory 22 H Rate Blood Pressure 169/73 H 169/73 H Blood Pressure 169/73 H [Left Upper Arm ] O2 Sat by Pulse 93 L Oximetry Weight - Most Recent: 87.997 kg I&O - Last 24 hours: Intake & Output 01/31/20 02/01/20 02/01/20 22:59 06:59 14:59 Intake Total 700 100 Output Total 500 Balance 700 -500 100 Imaging Impressions - Last 24 hrs: None Lab Results - Last 24 hrs: Laboratory Results - last 24 hr 02/01/20 02/01/20 02/01/20 Range/Units 07:20 07:20 07:20 WBC 4.2 (4.0-10.2) K/uL RBC 5.30 (4.33-5.41) M/uL Hgb 15.8 (13.1-16.8) g/dL Hct 47.3 (39.0-49.0) % MCV 89.2 (84.0-98.0) fL MCH 29.8 (28.2-33.3) pg MCHC 33.4 (31.7-36.0) g/dL RDW 14.3 H (11.2-14.1) % Plt Count 140 L D (150-350) K/uL Neut % (Auto) 59.9 (45.0-80.0) % Lymph % (Auto) 20.9 (10.0-50.0) % [place] % (Auto) 18.8 H (2.0-14.0) % Eos % (Auto) 0.2 (0.0-5.0) % Baso % (Auto) 0.2 (0.0-2.0) % Neut # (Auto) 2.49 (1.40-7.00) K/uL Lymph # (Auto) 0.87 (0.50-3.50) K/uL [place] # (Auto) 0.78 (0.00-1.00) K/uL Eos # (Auto) 0.01 (0.00-0.50) K/uL Baso # (Auto) 0.01 (0.00-0.20) K/uL PT 19.7 H (9.5-12.0) SEC INR 2.0 Sodium 125 L D (136-145) mmol/L Potassium 3.8 (3.5-5.1) mmol/L Chloride 95 L (98-107) mmol/L Carbon Dioxide 24.7 (21.0-32.0) mmol/L BUN 25 H (7-18) mg/dL Creatinine 1.63 H (0.51-1.17) mg/dL Est Cr Clr Drug Dosing TNP Estimated GFR (MDRD) 41 mL/min Glucose 97 (74-106) mg/dL Calcium 8.6 (8.5-10.1) mg/dL Total Bilirubin 0.6 (0.2-1.0) mg/dL AST 31 (15-37) U/L ALT 27 (12-78) U/L Alkaline Phosphatase 69 (46-116) IU/L Total Protein 7.3 (6.4-8.2) g/dL Albumin 3.2 L (3.4-5.0) g/dL Specimen Type Urine Color Urine Appearance Urine pH (5.0-9.0) Ur Specific [place] (1.005-1.030) Urine Protein (NEGATIVE) mg/dL Urine Glucose (UA) (NEGATIVE) mg/dL Urine Ketones (NEGATIVE) mg/dL Urine Occult Blood (NEGATIVE) Urine Nitrite (NEGATIVE) Urine Bilirubin (NEGATIVE) Urine Urobilinogen (0.2-1.0) E.U./dL Ur Leukocyte Esterase (NEGATIVE) U Hyaline Cast (Auto) Urine RBC /HPF Urine WBC /HPF Amorphous Sediment (0/HPF) /HPF Urine Mucus (NEGATIVE) /LPF 02/01/20 Range/Units 09:55 WBC (4.0-10.2) K/uL RBC (4.33-5.41) M/uL Hgb (13.1-16.8) g/dL Hct (39.0-49.0) % MCV (84.0-98.0) fL MCH (28.2-33.3) pg MCHC (31.7-36.0) g/dL RDW (11.2-14.1) % Plt Count (150-350) K/uL Neut % (Auto) (45.0-80.0) % Lymph % (Auto) (10.0-50.0) % [place] % (Auto) (2.0-14.0) % Eos % (Auto) (0.0-5.0) % Baso % (Auto) (0.0-2.0) % Neut # (Auto) (1.40-7.00) K/uL Lymph # (Auto) (0.50-3.50) K/uL [place] # (Auto) (0.00-1.00) K/uL Eos # (Auto) (0.00-0.50) K/uL Baso # (Auto) (0.00-0.20) K/uL PT (9.5-12.0) SEC INR Sodium (136-145) mmol/L Potassium (3.5-5.1) mmol/L Chloride (98-107) mmol/L Carbon Dioxide (21.0-32.0) mmol/L BUN (7-18) mg/dL Creatinine (0.51-1.17) mg/dL Est Cr Clr Drug Dosing Estimated GFR (MDRD) mL/min Glucose (74-106) mg/dL Calcium (8.5-10.1) mg/dL Total Bilirubin (0.2-1.0) mg/dL AST (15-37) U/L ALT (12-78) U/L Alkaline Phosphatase (46-116) IU/L Total Protein (6.4-8.2) g/dL Albumin (3.4-5.0) g/dL Specimen Type Urinblad Urine Color Yellow Urine Appearance Clear Urine pH 5.5 (5.0-9.0) Ur Specific [place] 1.020 (1.005-1.030) Urine Protein 30 H (NEGATIVE) mg/dL Urine Glucose (UA) Negative (NEGATIVE) mg/dL Urine Ketones Negative (NEGATIVE) mg/dL Urine Occult Blood Trace-lysed H (NEGATIVE) Urine Nitrite Negative (NEGATIVE) Urine Bilirubin Negative (NEGATIVE) Urine Urobilinogen 0.2 (0.2-1.0) E.U./dL Ur Leukocyte Esterase Negative (NEGATIVE) U Hyaline Cast (Auto) Few Urine RBC 0-5 /HPF Urine WBC Not seen /HPF Amorphous Sediment Rare (0/HPF) /HPF Urine Mucus Rare H (NEGATIVE) /LPF AMADO Results - Last 24 hrs: None Med Orders - Current: Current Medications Acetaminophen (Tylenol) 650 mg PO Q4H PRN PRN Reason: Pain Last Admin: 01/31/20 19:57 Dose: 650 mg Documented by: Aspirin (Halfprin) 81 mg PO DAILY [facility] Last Admin: 02/01/20 08:49 Dose: 81 mg Documented by: Atorvastatin Calcium (Lipitor) 10 mg PO BEDTIME [facility] Last Admin: 01/31/20 19:49 Dose: 10 mg Documented by: Calcium Carbonate (Oystcal-D 625 Mg-125 Units) 1 tab PO BID@799,1999 [facility] Last Admin: 02/01/20 08:49 Dose: 1 tab Documented by: Cholecalciferol (Vitamin D3) 50 mcg PO QAM [facility] Last Admin: 02/01/20 08:48 Dose: 50 mcg Documented by: Cholestyramine Resin (Cholestyramine Packet) 4 gm PO SUMOWEFR@1000 [facility] Last Admin: 01/31/20 10:05 Dose: 4 gm Documented by: Cyanocobalamin (Vitamin B12) 1,000 mcg PO DAILY [facility] Last Admin: 02/01/20 08:49 Dose: 1,000 mcg Documented by: Furosemide (Lasix) 10 mg PO DAILY [facility] Last Admin: 02/01/20 08:49 Dose: 10 mg Documented by: Isosorbide Mononitrate (Imdur) 60 mg PO DAILY [facility] Last Admin: 02/01/20 08:49 Dose: 60 mg Documented by: Latanoprost (Xalatan 0.005% Ophth Soln) 0 ml EYEBOTH BEDTIME [facility] Last Admin: 01/31/20 19:51 Dose: 1 drop Documented by: Lisinopril (Prinivil) 20 mg PO QPM@1999 [facility] Last Admin: 01/31/20 19:49 Dose: 20 mg Documented by: Magnesium Oxide (Magnesium Oxide) 400 mg PO DAILY [facility] Last Admin: 02/01/20 08:49 Dose: 400 mg Documented by: Metoprolol Succinate (Toprol Xl) 150 mg PO QAM [facility] Last Admin: 02/01/20 08:48 Dose: 150 mg Documented by: Nitroglycerin (Nitrostat) 0.4 mg SL ASDIRECTED PRN PRN Reason: Chest Pain Pantoprazole Sodium (Protonix) 40 mg PO DAILY [facility] Last Admin: 02/01/20 08:49 Dose: 40 mg Documented by: Warfarin Sodium (Coumadin) 2.5 mg PO Fr@1999 [facility] Warfarin Sodium (Coumadin) 5 mg PO SuMoTuWeThSa@1999 [facility] Last Admin: 01/31/20 19:49 Dose: 5 mg Documented by: Discontinued Medications Calcium Carbonate (Oystcal-D 625 Mg-125 Units) 1 tab PO BID [facility] Last Admin: 01/31/20 08:02 Dose: 1 tab Documented by: Pantoprazole Sodium (Protonix) 40 mg PO ACBREAKFAST [facility] Last Admin: 01/31/20 08:03 Dose: 40 mg Documented by: - Exam Quality Assessment: Reports: Supplemental Oxygen, DVT Prophylaxis (Coumadin). Denies: Central Line/PICC, Urine Catheter, Skin Breakdown, Restraints General: Reports: Alert, Oriented, Cooperative, No Acute Distress HEENT: Reports: Pupils Equal, Pupils Reactive, EOMI, Mucous Membr. Moist/[place]. Denies: Scleral Icterus Neck: Reports: Supple, No JVD, No Thyromegaly, Carotid Bruit (Mild bilateral carotid bruits versus transmitted heart sounds). Denies: Lymphadenopathy Lungs: Reports: Normal Respiratory Effort, Rales (Mild diffuse bilateral). Denies: Rhonchi, Rub, Stridor, Wheezing Cardiovascular: Reports: Regular Rate, Regular Rhythm, Murmurs (Mild 1/6 FRANCIS[place] with aortic and mitral valves). Denies: Gallops, Rubs GI/Abdominal Exam: Normal Bowel Sounds, Soft, Non-Tender, No Organomegaly, No Distention, No Abnormal Bruit, No Mass, Pelvis Stable. No: Guarding (Male) Exam: Deferred Rectal (Males) Exam: Deferred Back Exam: Reports: Normal Inspection, Full Range of Motion. Denies: CVA Tenderness (L), CVA Tenderness (R), Muscle Spasm Extremities: Normal Inspection, Normal Range of Motion, Non-Tender, No Pedal Edema, Normal Capillary Refill. No: Nathaly's Sign Skin: Reports: Warm, Dry, Intact. Denies: Rash, Ecchymosis Neurological: Reports: No New Focal Deficit, Other (Negative Babinski's. Stable mild right hemiparesis) Psy/Mental Status: Reports: Alert, Normal Affect, Normal Mood. Denies: Agitated, Hallucinations, Withdrawal Symptoms
[2020-02-01 13:23] VITALS: BP 127/59; PULSE 67
[2020-02-04] MEDS ORDERED: Warfarin 2.5 MG Tab PO SCH (20:00)
== END 2020-02-01 13:09 | disposition critical access hospital (66) | DRG 948 ==
LOC: LL.ED 19:35 → UNDOADMIN 21:30 → LL.MS 21:30
PROVIDERS: ADMIT Emergency Medicine; ATTEND Emergency Medicine
DX: R53.1 Weakness (principal); E87.1 Hypo-osmolality and hyponatremia; I69.351 Hemiplegia and hemiparesis following cerebral infarction affecting right dominant side; I12.9 Hypertensive chronic kidney disease with stage 1 through stage 4 chronic kidney disease, or unspecified chronic kidney disease; N18.9 Chronic kidney disease, unspecified; D72.819 Decreased white blood cell count, unspecified; G40.909 Epilepsy, unspecified, not intractable, without status epilepticus; E78.5 Hyperlipidemia, unspecified; I25.2 Old myocardial infarction; I48.91 Unspecified atrial fibrillation; Z86.74 Personal history of sudden cardiac arrest; I73.9 Peripheral vascular disease, unspecified; I25.10 Atherosclerotic heart disease of native coronary artery without angina pectoris; N40.1 Benign prostatic hyperplasia with lower urinary tract symptoms; R33.9 Retention of urine, unspecified; I10 Essential (primary) hypertension; M19.90 Unspecified osteoarthritis, unspecified site; G89.29 Other chronic pain; Z86.73 Personal history of transient ischemic attack (TIA), and cerebral infarction without residual deficits; K21.9 Gastro-esophageal reflux disease without esophagitis; N28.9 Disorder of kidney and ureter, unspecified; Z79.899 Other long term (current) drug therapy; R32 Unspecified urinary incontinence; D64.9 Anemia, unspecified; H54.7 Unspecified visual loss; E78.00 Pure hypercholesterolemia, unspecified; E66.9 Obesity, unspecified; Z86.59 Personal history of other mental and behavioral disorders; Z87.09 Personal history of other diseases of the respiratory system; Z87.19 Personal history of other diseases of the digestive system; Z87.448 Personal history of other diseases of urinary system; Z95.0 Presence of cardiac pacemaker; Z79.01 Long term (current) use of anticoagulants; Z79.82 Long term (current) use of aspirin; Z98.49 Cataract extraction status, unspecified eye; Z87.39 Personal history of other diseases of the musculoskeletal system and connective tissue; Z86.69 Personal history of other diseases of the nervous system and sense organs; Z86.39 Personal history of other endocrine, nutritional and metabolic disease; Z68.30 Body mass index [BMI] 30.0-30.9, adult; Z87.2 Personal history of diseases of the skin and subcutaneous tissue; Z86.2 Personal history of diseases of the blood and blood-forming organs and certain disorders involving the immune mechanism; Z86.19 Personal history of other infectious and parasitic diseases
CPT/HCPCS: 36415; 51702; 80053; 81001; 85025; 85610; 97110-GP; 97162-GP; 99285; A9270-GY

== ENCOUNTER 2020-02-01 10:34 | Inpatient (IN) | payer MEDICARE, BC ==
[2020-02-01] MEDS ORDERED: Nitroglycerin 0.4 MG Tab.SL SL PRN (13:03)
[2020-02-01] MEDS ORDERED: Temazepam 15 MG Cap PO PRN (13:13)
[2020-02-01] MEDS: Sodium Chloride 3% 500 ML IV SCH ×2 (13:55→18:04)
[2020-02-01] MEDS: Famotidine 20 MG/2 ML SDV IVPUSH SCH (13:55)
--- NOTE | 2020-02-01 14:51 | PCM.SN.2 ---
- Free Text/Narrative Note: Patient transferred from swing bed earlier this morning. EKG shows a first- degree AV block with NC interval of 0.24 seconds and an additional possible bifascicular bundle branch block with QRS interval of 0.12 seconds. Difficult to assess secondary to extremely noisy baseline and artifacts with nonspecific possible lateral wall changes. Overall poor R wave progression in the anterior leads. Additional blood work this morning does show a D-dimer elevation with venous Doppler studies of the lower extremities to be conducted later today. Note patient's renal insufficiency and current COVID-19 infection with delay of CTA of the chest using PE protocol for now. Note NO CODE STATUS. Patient is currently on Coumadin with therapeutic INR.
[2020-02-01] MEDS: Potassium Chloride 20 MEQ Tab.ER PO SCH (17:59)
[2020-02-01] MEDS: Furosemide 40 MG/4 ML VIAL IVPUSH SCH (17:59)
[2020-02-01] MEDS: Sodium Chloride 0.9% 10 ML Syringe FLUSH PRN (18:04)
[2020-02-01] MEDS: Calcium Carbonate/Vitamin D3 625 MG-125 Unit Tab PO SCH (19:41)
[2020-02-01] MEDS: atorvaSTATin 10 MG Tab PO SCH (19:41)
[2020-02-01] MEDS: Lisinopril 20 MG Tab PO SCH (19:42)
[2020-02-01] MEDS: Warfarin 5 MG Tab PO SCH (19:43)
[2020-02-01] MEDS: Latanoprost 0.005% Ophth Soln 2.5 ML Bottle EYEBOTH SCH (19:44)
[2020-02-01] MEDS: Acetaminophen 325 MG Tab PO PRN (19:46)
[2020-02-02] MEDS: Furosemide 40 MG/4 ML VIAL IVPUSH SCH ×3 (05:37→18:00)
[2020-02-02] MEDS: Sodium Chloride 0.9% 10 ML Syringe FLUSH PRN ×3 (08:55→22:10)
[2020-02-02] MEDS: Potassium Chloride 20 MEQ Tab.ER PO SCH ×3 (08:55→17:59)
[2020-02-02] MEDS: Calcium Carbonate/Vitamin D3 625 MG-125 Unit Tab PO SCH ×2 (08:55→22:17)
[2020-02-02] MEDS: Famotidine 20 MG/2 ML SDV IVPUSH SCH (08:55)
[2020-02-02] MEDS: Magnesium Oxide 400 MG Tab PO SCH (08:56)
[2020-02-02] MEDS: Metoprolol Succinate 50 MG Tab.ER PO SCH (08:56)
[2020-02-02] MEDS: Isosorbide Mononitrate 60 MG Tab.ER PO SCH (08:56)
[2020-02-02] MEDS: Cholecalciferol (Vitamin D3) 25 MCG Tab PO SCH (08:56)
[2020-02-02] MEDS: Cyanocobalamin (Vitamin B12) 1,000 MCG Tab PO SCH (08:56)
[2020-02-02] MEDS: Aspirin 81 MG Tab.EC PO SCH (08:57)
--- NOTE | 2020-02-02 10:18 | PCM.PN ---
- General Info Date of Service: 02/02/20 Admission Dx/Problem (Free Text): 1. COVID-19 2. Bilateral pneumonia 3. Grand mal seizure 4. Hyponatremia Subjective Update: Patient transferred from swing bed care in this facility to inpatient/acute care on 02/01/2020 secondary to grand mal seizure and decompensation of his multiple illnesses. Functional Status: Reports: Pain Controlled, Urinating, New Symptoms (Anorexia as above), Incentive Spirometry. Denies: Tolerating Diet (Moderate anorexia today with the patient not eating breakfast), Ambulating Pain Score: 0 - Review of Systems General: Reports: Fever, Weakness (Moderate progressive secondary to current infection), Fatigue, Malaise (Borderline), Chills, Night Sweats. Denies: Appetite (Poor) HEENT: Reports: Post Nasal Drip, Rhinitis. Denies: Dysphasia, Ear Pain, Headaches, Visual Changes Pulmonary: Reports: Shortness of Breath, Cough, Wheezing. Denies: Pleuritic Chest Pain, Sputum, Hemoptysis Cardiovascular: Reports: Dyspnea on Exertion. Denies: Chest Pain, Palpitations, Orthopnea, Edema, Lightheadedness Gastrointestinal: Reports: Decreased Appetite, Other (Note stool and urine incontinence with grand mal seizure in swing bed care prior to transfer to acute care). Denies: Abdominal Pain, Constipation, Diarrhea, Flatus, Hematochezia, Melena, Nausea, Vomiting Genitourinary: Reports: Incontinence. Denies: Dysuria, Frequency, Burning, Urgency, Hematuria, Retention, Flank Pain Musculoskeletal: Reports: No Symptoms. Denies: Neck Pain, Shoulder Pain, Arm Pain, Back Pain, Leg Pain Skin: Reports: No Symptoms. Denies: Diaphoresis, Bruising Neurological: Reports: Pre-Existing Deficit (Stable moderate right-sided hemiparesis), Difficulty Walking (Chronic), Weakness (As above). Denies: Confusion, Headache, Numbness, Seizure (No seizures since transfer to acute care), Tingling Psychiatric: Reports: Depression (Mild to moderate secondary to current illness). Denies: Confusion, Anxiety, Agitation, Cravings, Hallucinations - Patient Data Vitals - Most Recent: Last Vital Signs Temp 37.1 C 02/02/20 08:00 Pulse 91 02/02/20 08:56 Resp 18 02/02/20 08:00 BP 143/69 H 02/02/20 08:56 Pulse Ox 94 L 02/02/20 08:00 Vital Signs - 24 hr 02/01/20 02/01/20 02/01/20 13:13 18:00 19:42 Temperature [ 37.6 C Temporal] Pulse, Peripheral Pulse, 71 Peripheral [ Left Pulse Oximetry] Pulse, Peripheral [ Right Pulse Oximetry] Respiratory 20 Rate Blood Pressure 191/102 H Blood Pressure 158/62 H [Left Upper Arm ] Blood Pressure [Right Upper Arm] O2 Sat by Pulse 95 95 Oximetry O2 Sat by Pulse 95 Oximetry [ Nasal Cannula] 02/01/20 02/02/20 02/02/20 20:00 04:00 08:00 Temperature [ 38.1 C 37.4 C 37.1 C Temporal] Pulse, Peripheral Pulse, 83 94 Peripheral [ Left Pulse Oximetry] Pulse, 91 Peripheral [ Right Pulse Oximetry] Respiratory 24 H 24 H 18 Rate Blood Pressure Blood Pressure 191/102 H 191/110 H [Left Upper Arm ] Blood Pressure 143/69 H [Right Upper Arm] O2 Sat by Pulse 97 97 94 L Oximetry O2 Sat by Pulse Oximetry [ Nasal Cannula] 02/02/20 08:56 Temperature [ Temporal] Pulse, 91 Peripheral Pulse, Peripheral [ Left Pulse Oximetry] Pulse, Peripheral [ Right Pulse Oximetry] Respiratory Rate Blood Pressure 143/69 H Blood Pressure [Left Upper Arm ] Blood Pressure [Right Upper Arm] O2 Sat by Pulse Oximetry O2 Sat by Pulse Oximetry [ Nasal Cannula] Weight - Most Recent: 87.725 kg I&O - Last 24 Hours: Intake & Output 02/01/20 02/02/20 02/02/20 22:59 06:59 14:59 Intake Total 950 500 Output Total 800 3000 Balance 150 -2500 Imaging Impressions - Last 24 Hours: monitoring specialist showed normal sinus rhythm in the 60s with occasional sinus tachycardia secondary to fever with no ectopy or arrhythmia. Venous Doppler studies of the lower extremities bilaterally on 02/01/2020 were negative for DVT. Lab Results Last 24 Hours: Laboratory Results - last 24 hr 02/01/20 02/01/20 02/02/20 Range/Units 07:20 07:20 07:35 WBC 4.1 (4.0-10.2) K/uL RBC 5.50 H (4.33-5.41) M/uL Hgb 16.4 (13.1-16.8) g/dL Hct 49.8 H (39.0-49.0) % MCV 90.5 (84.0-98.0) fL MCH 29.8 (28.2-33.3) pg MCHC 32.9 (31.7-36.0) g/dL RDW 14.5 H (11.2-14.1) % Plt Count 139 L (150-350) K/uL Neut % (Auto) 53.9 (45.0-80.0) % Lymph % (Auto) 24.6 (10.0-50.0) % [place] % (Auto) 21.0 H (2.0-14.0) % Eos % (Auto) 0.0 (0.0-5.0) % Baso % (Auto) 0.5 (0.0-2.0) % Neut # (Auto) 2.21 (1.40-7.00) K/uL Lymph # (Auto) 1.01 (0.50-3.50) K/uL [place] # (Auto) 0.86 (0.00-1.00) K/uL Eos # (Auto) 0.00 (0.00-0.50) K/uL Baso # (Auto) 0.02 (0.00-0.20) K/uL D-Dimer, Quantitative 835 H (0-400) ng/mL Sodium (136-145) mmol/L Potassium (3.5-5.1) mmol/L Chloride (98-107) mmol/L Carbon Dioxide (21.0-32.0) mmol/L BUN (7-18) mg/dL Creatinine (0.51-1.17) mg/dL Est Cr Clr Drug Dosing mL/min Estimated GFR (MDRD) mL/min Glucose (74-106) mg/dL Calcium (8.5-10.1) mg/dL Total Bilirubin (0.2-1.0) mg/dL AST (15-37) U/L ALT (12-78) U/L Alkaline Phosphatase (46-116) IU/L Creatine Kinase 125 (26-308) U/L Creatine Kinase Index 1.0 (0.0-2.5) % CK-MB (CK-2) 1.30 (0.00-3.60) ng/mL Troponin I 0.019 (0.000-0.056) ng/mL C-Reactive Protein (<=0.9) mg/dL NT-Pro-B Natriuret Pep 203 H (0-125) pg/mL Total Protein (6.4-8.2) g/dL Albumin (3.4-5.0) g/dL 02/02/20 Range/Units 07:35 WBC (4.0-10.2) K/uL RBC (4.33-5.41) M/uL Hgb (13.1-16.8) g/dL Hct (39.0-49.0) % MCV (84.0-98.0) fL MCH (28.2-33.3) pg MCHC (31.7-36.0) g/dL RDW (11.2-14.1) % Plt Count (150-350) K/uL Neut % (Auto) (45.0-80.0) % Lymph % (Auto) (10.0-50.0) % [place] % (Auto) (2.0-14.0) % Eos % (Auto) (0.0-5.0) % Baso % (Auto) (0.0-2.0) % Neut # (Auto) (1.40-7.00) K/uL Lymph # (Auto) (0.50-3.50) K/uL [place] # (Auto) (0.00-1.00) K/uL Eos # (Auto) (0.00-0.50) K/uL Baso # (Auto) (0.00-0.20) K/uL D-Dimer, Quantitative (0-400) ng/mL Sodium 138 D (136-145) mmol/L Potassium 4.0 (3.5-5.1) mmol/L Chloride 102 (98-107) mmol/L Carbon Dioxide 25.3 (21.0-32.0) mmol/L BUN 30 H (7-18) mg/dL Creatinine 1.98 H (0.51-1.17) mg/dL Est Cr Clr Drug Dosing 32.29 mL/min Estimated GFR (MDRD) 32 mL/min Glucose 97 (74-106) mg/dL Calcium 8.6 (8.5-10.1) mg/dL Total Bilirubin 0.6 (0.2-1.0) mg/dL AST 40 H (15-37) U/L ALT 28 (12-78) U/L Alkaline Phosphatase 69 (46-116) IU/L Creatine Kinase 199 (26-308) U/L Creatine Kinase Index 0.5 (0.0-2.5) % CK-MB (CK-2) 0.90 (0.00-3.60) ng/mL Troponin I (0.000-0.056) ng/mL C-Reactive Protein 2.6 H (<=0.9) mg/dL NT-Pro-B Natriuret Pep (0-125) pg/mL Total Protein 7.8 (6.4-8.2) g/dL Albumin 3.3 L (3.4-5.0) g/dL Bruce Results Last 24 Hours: None Med Orders - Current: Current Medications Acetaminophen (Tylenol) 650 mg PO Q4H PRN PRN Reason: Pain Last Admin: 02/01/20 19:46 Dose: 650 mg Documented by: Aspirin (Halfprin) 81 mg PO DAILY [facility] Last Admin: 02/02/20 08:57 Dose: 81 mg Documented by: Atorvastatin Calcium (Lipitor) 10 mg PO BEDTIME [facility] Last Admin: 02/01/20 19:41 Dose: 10 mg Documented by: Calcium Carbonate (Oystcal-D 625 Mg-125 Units) 1 tab PO BID@0800,2000 [facility] Last Admin: 02/02/20 08:55 Dose: 1 tab Documented by: Cholecalciferol (Vitamin D3) 50 mcg PO QAM [facility] Last Admin: 02/02/20 08:56 Dose: 50 mcg Documented by: Cholestyramine Resin (Cholestyramine Packet) 4 gm PO SUMOWEFR@1000 [facility] Cyanocobalamin (Vitamin B12) 1,000 mcg PO DAILY [facility] Last Admin: 02/02/20 08:56 Dose: 1,000 mcg Documented by: Famotidine (Pepcid) 20 mg IVPUSH DAILY [facility] Last Admin: 02/02/20 08:55 Dose: 20 mg Documented by: Furosemide (Lasix) 40 mg IVPUSH Q8H [facility] Last Admin: 02/02/20 05:37 Dose: Not Given Documented by: Sodium Chloride (Sodium Chloride 3%) 500 mls @ 100 mls/hr IV ASDIRECTED [facility] Last Admin: 02/01/20 18:04 Dose: 100 mls/hr Documented by: Isosorbide Mononitrate (Imdur) 60 mg PO DAILY [facility] Last Admin: 02/02/20 08:56 Dose: 60 mg Documented by: Latanoprost (Xalatan 0.005% Ophth Soln) 0 ml EYEBOTH BEDTIME [facility] Last Admin: 02/01/20 19:44 Dose: 1 drop Documented by: Lisinopril (Prinivil) 20 mg PO QPM@1999 [facility] Last Admin: 02/01/20 19:42 Dose: 20 mg Documented by: Magnesium Oxide (Magnesium Oxide) 400 mg PO DAILY [facility] Last Admin: 02/02/20 08:56 Dose: 400 mg Documented by: Metoprolol Succinate (Toprol Xl) 150 mg PO QAM [facility] Last Admin: 02/02/20 08:56 Dose: 150 mg Documented by: Nitroglycerin (Nitrostat) 0.4 mg SL ASDIRECTED PRN PRN Reason: Chest Pain Potassium Chloride (Klor-Con M20) 20 meq PO TID [facility] Last Admin: 02/02/20 08:55 Dose: 20 meq Documented by: Sodium Chloride (Saline Flush) 10 ml FLUSH ASDIRECTED PRN PRN Reason: Keep Vein Open Last Admin: 02/02/20 08:55 Dose: 10 ml Documented by: Temazepam (Restoril) 15 mg PO BEDTIME PRN PRN Reason: Insomnia Warfarin Sodium (Coumadin) 2.5 mg PO @1999 [facility] Warfarin Sodium (Coumadin) 5 mg PO SuMoTuWeThSa@1999 [facility] Last Admin: 02/01/20 19:43 Dose: 5 mg Documented by: - Exam Quality Assessment: Supplemental Oxygen, DVT Prophylaxis. No: Central Line/PICC, Urine Catheter, Skin Breakdown, Restraints General: Alert, Oriented, Cooperative, Mild Distress (Secondary to current illness) HEENT: Pupils Equal, Pupils Reactive, EOMI, Mucous Membr. Moist/Hull. No: Scleral Icterus Neck: Trachea Midline, No JVD, No Thyromegaly, Carotid Bruit (Mild bilateral carotid bruits). No: Lymphadenopathy Lungs: Normal Respiratory Effort, Rales (Mild diffuse bilateral), Rhonchi (Occasional bilateral), Wheezing (Occasional bilateral) Cardiovascular: Tachycardia (Mild secondary to fever with occasional extrasystoles), Murmurs (Mild 1/6 [place] of the aortic and mitral valves.). No: Gallops, Rubs GI/Abdominal Exam: Normal Bowel Sounds, Soft, Non-Tender, No Organomegaly, No Distention, No Abnormal Bruit, No Mass. No: Guarding (Male) Exam: Deferred Back Exam: Normal Inspection, Full Range of Motion. No: CVA Tenderness (L), CVA Tenderness (R), Muscle Spasm Extremities: Normal Inspection, Normal Range of Motion, Non-Tender, No Pedal Edema, Normal Capillary Refill. No: Nathaly's Sign Peripheral Pulses: 2+: Radial (L), Radial (R), Dorsalis Pedis (L), Dorsalis Pedis (R) Skin: Warm, Dry, Intact. No: Rash, Ecchymosis Neurological: No New Focal Deficit, Other (Stable moderate left hemiparesis) Psy/Mental Status: Depressed (Mild secondary to current illnesses). No: Anxious, Agitated, Hallucinations, Withdrawal Symptoms #1 Interpretation EKG Date: 02/02/20 Time: 07:25 Rhythm: Other (New mild sinus tachycardia with occasional PACs) Rate (Beats/Min): 102 [place]: Normal (Neutral cardiac axis) P-Wave: Present QRS: Wide (0.10 seconds representing repolarization changes with noisy baseline) ST-T: Other (Nonspecific ST changes in the lateral leads however note noisy baseline) QT: Normal MS/PQ Interval: 0.24 seconds representing a stable first-degree AV block Comparison: Change From Previous EKG (As above since 02/01/2020) EKG Interpretation Comments: 1. Questionable lateral wall ischemia 2. First-degree AV block 3. Repolarization changes Sepsis Event Note - Evaluation Sepsis Screening Result: No Definite Risk - Focused Exam Vital Signs: Vital Signs Temp Pulse Pulse Pulse Resp BP BP 02/02/20 08:56 91 143/69 H 02/02/20 08:00 37.1 C 91 18 02/02/20 04:00 37.4 C 94 24 H 191/110 H BP Pulse Ox 02/02/20 08:56 02/02/20 08:00 143/69 H 94 L 02/02/20 04:00 97 - Problem List & Annotations (1) Seizure SNOMED Code(s): 00316777 Code(s): R56.9 - UNSPECIFIED CONVULSIONS Status: Acute Priority: High Current Visit: Yes Onset Date: 02/01/20 Annotation/Comment:: Generalized tonic-clonic grand mal seizure with secondary urinary and stool incontinence at about 9:10 AM on 01/31 in swing bed care resulting in some mild postictal sedation. His severe hyponatremia may be a contributing factor with no initiation of Keppra for now. Note comfort care status with neurology consultation depending on his clinical course. CTA of the head from 01/27/2020 was reviewed as below. Previously suspected recurrent vasovagal episodes prior to admission to [facility] as per history and physical and swing bed care. Note current COVID-19 infection. Prolactin level is still pending. Prognosis guarded. No neurological deficits other than stable moderate right-sided hemiparesis from his previous CVA by history with stable neurological checks wit h vitals. (2) COVID-19 SNOMED Code(s): 502852354 Code(s): U07.1 - COVID-19 Status: Acute Priority: High Current Visit: Yes Annotation/Comment:: Recent acute Covid 19 infection with initial hospitalization from 01/26 through 01/30/2020 [facility] for treatment. I did review those records on 01/31, including CT scan of the head results in that facility on 01/27/2020. 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 Patient was discharged from that facility and failed attempt to return home due to continued pronounced weakness. Other symptoms had been improving. The patient was admitted to Swing Bed in this facility for evaluation and treatment by PT/OT. IV antibiotic therapy was not initiated on admission with initiation of doxycycline, IV Rocephin, and Combivent inhalers secondary to probable developing secondary pneumonia on 02/01. IV Pepcid was also initiated on 01/31 as GI prophylaxis and treatment for his COVID-19. The patient is already on an SU inhibitor. Chest x-ray to be repeated on 02/02. In addition, note that the patient was transferred to inpatient/acute care secondary to newly diagnosed grand mal seizure shortly prior to transfer from swing bed with previous apparent history of recurrent vasovagal episodes? (3) Pneumonia SNOMED Code(s): 581500878 Code(s): J18.9 - PNEUMONIA, UNSPECIFIED ORGANISM Status: Acute Priority: High Current Visit: Yes Onset Date: ~02/01/20 Qualifiers: Pneumonia type: due to unspecified organism Laterality: bilateral Lung location: unspecified part of lung Qualified Code(s): J18.9 - Pneumonia, unspecified organism Annotation/Comment:: Likely secondary bacterial pneumonia with IV antibiotic therapy and oral doxycycline initiated as above. Attempt to obtain sputum specimen [place], however this has been unsuccessful to this point. (4) CHF (congestive heart failure) SNOMED Code(s): 48629180 Code(s): I50.9 - HEART FAILURE, UNSPECIFIED Status: Acute Current Visit: Yes Qualifiers: Heart failure type: unspecified Heart failure chronicity: acute on chronic Qualified Code(s): I50.9 - Heart failure, unspecified Annotation/Comment:: IV Lasix has been initiated. No chest pain or anginal type symptoms. Repeat cardiac enzymes in the a.m. (5) Elevated LFTs SNOMED Code(s): 349864192, 522803088 Code(s): R79.89 - OTHER SPECIFIED ABNORMAL FINDINGS OF BLOOD CHEMISTRY Status: Acute Priority: Medium Current Visit: Yes Onset Date: 02/02/20 Annotation/Comment:: Likely secondary to mild CHF elevation. Observe for now. (6) Hypoalbuminemia SNOMED Code(s): 877565368 Code(s): E88.09 - [facility] DISORDERS OF PLASMA-PROTEIN METABOLISM, NEC Status: Acute Priority: Medium Current Visit: Yes Onset Date: 02/02/20 Annotation/Comment:: Observe for now. Consider high-protein Glucerna supplements as snacks. (7) First degree AV block SNOMED Code(s): 841474158 Code(s): I44.0 - ATRIOVENTRICULAR BLOCK, FIRST DEGREE Status: Acute Priority: Medium Current Visit: Yes Onset Date: 09/16/17 Annotation/Comment:: Stable during this hospitalization. (8) Hyponatremia SNOMED Code(s): 57266129 Code(s): E87.1 - HYPO-OSMOLALITY AND HYPONATREMIA Status: Acute Priority: High Current Visit: Yes Onset Date: 02/01/20 Annotation/Comment:: Note significant hyponatremia, which may have contributed to his grand mal seizure as above. Careful initiation of 3% sodium chloride solution on admission, which was completed in the a.m. on 02/01. No further IV fluids for now secondary to patient's current CHF and COVID-19 infection. Sodium level now normal at 138 on 02/01 in comparison to 125 on 01/31 prior to patient's transfer. (9) Atrial fibrillation SNOMED Code(s): 41134214 Code(s): I48.91 - UNSPECIFIED ATRIAL FIBRILLATION Status: Chronic Priority: Medium Current Visit: Yes Qualifiers: Atrial fibrillation type: paroxysmal Qualified Code(s): I48.0 - Paroxysmal atrial fibrillation Annotation/Comment:: No atrial fibrillation on admission, however note current pacemaker. Note INR is therapeutic. Continue to observe INRs closely secondary to antibiotic therapy as above. (10) CVA (cerebral vascular accident) SNOMED Code(s): 635323202 Code(s): I63.9 - CEREBRAL INFARCTION, UNSPECIFIED Status: Chronic Priority: Low Current Visit: Yes Onset Date: ~09/15/17 Qualifiers: CVA mechanism: unspecified Qualified Code(s): I63.9 - Cerebral infarction, unspecified Annotation/Comment:: As above. (11) Coronary artery disease SNOMED Code(s): 00041483 Code(s): I25.10 - ATHSCL HEART DISEASE OF [place] CORONARY ARTERY W/O ANG PCTRS Status: Chronic Priority: Medium Current Visit: Yes Qualifiers: Coronary Disease-Associated Artery/Lesion type: [place] artery [place] vs. transplanted heart: [place] heart Associated angina: without angina Qualified Code(s): I25.10 - Atherosclerotic heart disease of [place] coronary artery without angina pectoris Annotation/Comment:: History of diffuse coronary artery disease nonoperable in the past secondary to good collaterals by distant heart catheterization. Pacemaker. History Afib. 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 No chest pain or anginal type symptoms. Note comfort care status. Serial EKGs and cardiac enzymes conducted during this hospitalization. (12) Hypertension SNOMED Code(s): 03795362 Code(s): I10 - ESSENTIAL (PRIMARY) HYPERTENSION Status: Chronic Priority: Medium Current Visit: Yes Qualifiers: Hypertension type: essential hypertension Qualified Code(s): I10 - Essential (primary) hypertension Annotation/Comment:: Blood pressure is elevated this morning and also prior to transfer to inpatient/acute care. Continue to observe closely. Medication adjustment as needed. (13) Peptic reflux disease SNOMED Code(s): 158242339 Code(s): K21.9 - GASTRO-ESOPHAGEAL REFLUX DISEASE WITHOUT ESOPHAGITIS Status: Chronic Priority: Medium Current Visit: Yes Annotation/Comment:: Stable by history, however changed from oral Protonix to IV Pepcid and IV Protonix secondary to current anemia and COVID-19. (14) Renal insufficiency SNOMED Code(s): 908719984, 962676335 Code(s): N28.9 - DISORDER OF KIDNEY AND URETER, UNSPECIFIED Status: Chronic Priority: Medium Current Visit: Yes Annotation/Comment:: Mildly progressive renal insufficiency with IV Lasix therapy after transfer to acute care. Continue to observe closely. - Problem List Review Problem List Initiated/Reviewed/Updated: Yes - My Orders Last 24 Hours: My Active Orders 02/01/20 Lunch Fluid Restriction [DIET] 02/01/20 13:00 Acetaminophen [TylenoL] 650 mg PO Q4H PRN 02/01/20 13:03 Nitroglycerin [Nitrostat] 0.4 mg SL ASDIRECTED PRN 02/01/20 13:03 Ambulate [RC] ASDIRECTED Dietary Supplements [RC] ACBED Insert Kam Catheter [Insert Urinary Catheter] [OM.PC] Q24H Up With Assistance [RC] ASDIRECTED Urinary Catheter Assessment [RC] Consult to Case Management/[place] Magistrate [CONS] Routine OT Evaluation and Treatment [CONS] Routine PT Evaluation and Treatment [CONS] Routine CHF Questionnaire [COMM] Routine 02/01/20 13:07 Admission Status [Patient Status] [ADT] Routine Resuscitation Status Routine 02/01/20 13:09 Cardiac Monitoring [RC] Q2HR 02/01/20 13:13 Communication Order [RC] PER UNIT ROUTINE Height and Weight [RC] DAILY Intake and Output Strict [RC] 18 Oxygen Therapy [RC] 2300 Pulse Oximetry [RC] .PRN Vital Signs [RC] Q4HR Temazepam [Restoril] 15 mg PO BEDTIME PRN Antiembolic Hose [OM.PC] Routine Comfort Measures [OM.PC] Routine DVT/VTE Prophylaxis Reflex [OM.PC] Routine GM Immunization Reflex [OM.PC] Click to Edit 02/01/20 13:14 Antiembolic Devices [RC] Communication, Vaccine [RC] PER UNIT ROUTINE VTE/DVT Education [RC] PER UNIT ROUTINE Vaccines to be Administered [RC] .DISHCARGE 02/01/20 13:15 Saline Lock Insert [OM.PC] Routine 02/01/20 13:18 Communication Order [RC] Q4HR 02/01/20 13:25 OCCULT BLOOD DIAGNOSTIC [OP] Stat PROLACTIN [REF] Stat 02/01/20 13:30 Famotidine [Pepcid] 20 mg IVPUSH DAILY Sodium Chloride 3% 500 ml IV ASDIRECTED 02/01/20 14:47 Venous Doppler Lwr Ext Bi [US] Urgent 02/01/20 18:00 Furosemide [Lasix] 40 mg IVPUSH Q8H Potassium Chloride [Klor-Con M20] 20 meq PO TID Sodium Chloride 0.9% [Saline Flush] 10 ml FLUSH ASDIRECTED PRN 02/01/20 20:00 Calcium Carbonate/Vitamin D3 [OystCal-D 625 MG-125 Units] 1 tab PO BID@799,1999 Latanoprost [Xalatan 0.005% [facility] Soln] See Dose Instructions EYEBOTH BEDTIME Warfarin [Coumadin] 5 mg PO SuMoTuWeThSa@1999 atorvaSTATin [Lipitor] 10 mg PO BEDTIME lisinopriL [Prinivil] 20 mg PO QPM@199902/02/20 08:00 Aspirin [Halfprin] 81 mg PO DAILY Cholecalciferol (Vitamin D3) [Vitamin D3] 50 mcg PO QAM Cyanocobalamin (Vitamin B12) [Vitamin B12] 1,000 mcg PO DAILY Isosorbide Mononitrate [Imdur] 60 mg PO DAILY Magnesium Oxide 400 mg PO DAILY Metoprolol Succinate [Toprol XL] 150 mg PO QAM 02/02/20 10:00 Cholestyramine/Sucrose [Cholestyramine Packet] 4 gm PO SUMOWEFR@1000 02/04/20 20:00 Warfarin [Coumadin] 2.5 mg PO Fr@1999 - Assessment Assessment:: As above - Plan Plan:: As above. Extensive precautions were given to the patient, who is in agreement with the treatment plan. The patient will require about 3-4 days of inpatient/acute care secondary to multiple health problems as above. Sudhakar olvera physician assumes care in the a.m.
[2020-02-02] MEDS: Cholestyramine/Sucrose Powder 4 GM Packet PO SCH (10:32)
[2020-02-02] MEDS: Albuterol/Ipratropium 4 GM Inhalation Spray INH SCH ×3 (11:57→22:18)
[2020-02-02] MEDS: Acetaminophen 325 MG Tab PO PRN ×2 (11:58→18:00)
[2020-02-02] MEDS: Doxycycline Monohydrate 100 MG Cap PO SCH ×2 (11:58→17:59)
[2020-02-02] MEDS ORDERED: cefTRIAXone 1 GM in Sodium Chloride 0.9% 100 ML IV SCH (12:00)
[2020-02-02] MEDS ORDERED: Albuterol/Ipratropium 4 GM Inhalation Spray INH PRN (14:00)
[2020-02-02] MEDS: cefTRIAXone 1 GM in Sodium Chloride 0.9% 100 ML IV SCH (22:09)
[2020-02-02] MEDS: Warfarin 5 MG Tab PO SCH (22:15)
[2020-02-02] MEDS: atorvaSTATin 10 MG Tab PO SCH (22:17)
[2020-02-02] MEDS: Lisinopril 20 MG Tab PO SCH (22:17)
[2020-02-02] MEDS: Latanoprost 0.005% Ophth Soln 2.5 ML Bottle EYEBOTH SCH (22:19)
[2020-02-03] MEDS: Sodium Chloride 0.9% 10 ML Syringe FLUSH PRN ×2 (02:01→08:39)
[2020-02-03] MEDS: Furosemide 40 MG/4 ML VIAL IVPUSH SCH ×2 (02:01→09:54)
[2020-02-03] MEDS: Albuterol/Ipratropium 4 GM Inhalation Spray INH SCH ×4 (08:28→21:25)
[2020-02-03] MEDS: Potassium Chloride 20 MEQ Tab.ER PO SCH ×3 (08:35→18:04)
[2020-02-03] MEDS: Aspirin 81 MG Tab.EC PO SCH (08:35)
[2020-02-03] MEDS: Magnesium Oxide 400 MG Tab PO SCH (08:35)
[2020-02-03] MEDS: Doxycycline Monohydrate 100 MG Cap PO SCH (08:35)
[2020-02-03] MEDS: Isosorbide Mononitrate 60 MG Tab.ER PO SCH (08:35)
[2020-02-03] MEDS: Famotidine 20 MG/2 ML SDV IVPUSH SCH (08:36)
[2020-02-03] MEDS: cefTRIAXone 1 GM in Sodium Chloride 0.9% 100 ML IV SCH (08:36)
[2020-02-03] MEDS: Calcium Carbonate/Vitamin D3 625 MG-125 Unit Tab PO SCH ×2 (08:36→21:26)
[2020-02-03] MEDS: Metoprolol Succinate 50 MG Tab.ER PO SCH (08:36)
[2020-02-03] MEDS: Cholecalciferol (Vitamin D3) 25 MCG Tab PO SCH (08:39)
[2020-02-03] MEDS: Cyanocobalamin (Vitamin B12) 1,000 MCG Tab PO SCH (08:39)
[2020-02-03] MEDS: Acetaminophen 325 MG Tab PO PRN ×2 (12:15→16:39)
[2020-02-03] MEDS ORDERED: Sodium Chloride 0.9% 500 ML IV SCH ×2 (14:30→19:00)
--- NOTE | 2020-02-03 14:56 | PCM.PN ---
- General Info Date of Service: 02/03/20 Admission Dx/Problem (Free Text): Covid-19, possible new seizure disorder. Subjective Update: Patient feels weak/tired. Now needs Jeffry lift. Functional Status: Reports: Pain Controlled, Urinating (Kam). Denies: Ambulating, New Symptoms - Review of Systems General: Reports: Weakness, Fatigue. Denies: Fever, Chills, Night Sweats HEENT: Reports: No Symptoms Pulmonary: Reports: Cough, Sputum. Denies: Shortness of Breath, Hemoptysis, Wheezing Cardiovascular: Reports: No Symptoms Gastrointestinal: Reports: Nausea, Vomiting. Denies: Abdominal Pain, Diarrhea Genitourinary: Reports: No Symptoms Musculoskeletal: Reports: Other (no changes from baseline) Skin: Reports: No Symptoms Neurological: Reports: Pre-Existing Deficit, Weakness. Denies: Confusion, Headache, Change in Speech Psychiatric: Reports: No Symptoms - Patient Data Vitals - Most Recent: Last Vital Signs Temp 37.4 C 02/03/20 12:00 Pulse 93 02/03/20 12:00 Resp 28 H 02/03/20 12:00 BP 142/87 H 02/03/20 12:00 Pulse Ox 92 L 02/03/20 12:00 Weight - Most Recent: 70.987 kg I&O - Last 24 Hours: Intake & Output 02/02/20 02/03/20 02/03/20 22:59 06:59 14:59 Intake Total 250 Output Total 1300 Balance -1050 Lab Results Last 24 Hours: Laboratory Results - last 24 hr 02/01/20 02/03/20 02/03/20 Range/Units 13:25 07:05 07:05 WBC 4.4 (4.0-10.2) K/uL RBC 5.75 H (4.33-5.41) M/uL Hgb 17.1 H (13.1-16.8) g/dL Hct 51.5 H (39.0-49.0) % MCV 89.6 (84.0-98.0) fL MCH 29.7 (28.2-33.3) pg MCHC 33.2 (31.7-36.0) g/dL RDW 14.6 H (11.2-14.1) % Plt Count 133 L (150-350) K/uL Neut % (Auto) 64.8 (45.0-80.0) % Lymph % (Auto) 20.1 (10.0-50.0) % [place] % (Auto) 14.7 H (2.0-14.0) % Eos % (Auto) 0.2 (0.0-5.0) % Baso % (Auto) 0.2 (0.0-2.0) % Neut # (Auto) 2.86 (1.40-7.00) K/uL Lymph # (Auto) 0.89 (0.50-3.50) K/uL [place] # (Auto) 0.65 (0.00-1.00) K/uL Eos # (Auto) 0.01 (0.00-0.50) K/uL Baso # (Auto) 0.01 (0.00-0.20) K/uL D-Dimer, Quantitative (0-400) ng/mL Sodium 137 (136-145) mmol/L Potassium 4.5 (3.5-5.1) mmol/L Chloride 101 (98-107) mmol/L Carbon Dioxide 26.1 (21.0-32.0) mmol/L BUN 41 H (7-18) mg/dL Creatinine 2.47 H (0.51-1.17) mg/dL Est Cr Clr Drug Dosing 25.88 mL/min Estimated GFR (MDRD) 25 mL/min Glucose 129 H (74-106) mg/dL Calcium 8.9 (8.5-10.1) mg/dL Magnesium 1.9 (1.8-2.4) mg/dL Total Bilirubin 0.5 (0.2-1.0) mg/dL AST 78 H (15-37) U/L ALT 32 (12-78) U/L Alkaline Phosphatase 66 (46-116) IU/L Creatine Kinase 1710 H (26-308) U/L Creatine Kinase Index 0.2 (0.0-2.5) % CK-MB (CK-2) 3.00 (0.00-3.60) ng/mL Troponin I 0.045 (0.000-0.056) ng/mL C-Reactive Protein 3.3 H (<=0.9) mg/dL NT-Pro-B Natriuret Pep 1 (0-125) pg/mL Total Protein 8.3 H (6.4-8.2) g/dL Albumin 3.4 (3.4-5.0) g/dL Prolactin 7.4 (2.6-13.1) ng/mL 02/03/20 Range/Units 07:05 WBC (4.0-10.2) K/uL RBC (4.33-5.41) M/uL Hgb (13.1-16.8) g/dL Hct (39.0-49.0) % MCV (84.0-98.0) fL MCH (28.2-33.3) pg MCHC (31.7-36.0) g/dL RDW (11.2-14.1) % Plt Count (150-350) K/uL Neut % (Auto) (45.0-80.0) % Lymph % (Auto) (10.0-50.0) % [place] % (Auto) (2.0-14.0) % Eos % (Auto) (0.0-5.0) % Baso % (Auto) (0.0-2.0) % Neut # (Auto) (1.40-7.00) K/uL Lymph # (Auto) (0.50-3.50) K/uL [place] # (Auto) (0.00-1.00) K/uL Eos # (Auto) (0.00-0.50) K/uL Baso # (Auto) (0.00-0.20) K/uL D-Dimer, Quantitative 1080 H (0-400) ng/mL Sodium (136-145) mmol/L Potassium (3.5-5.1) mmol/L Chloride (98-107) mmol/L Carbon Dioxide (21.0-32.0) mmol/L BUN (7-18) mg/dL Creatinine (0.51-1.17) mg/dL Est Cr Clr Drug Dosing mL/min Estimated GFR (MDRD) mL/min Glucose (74-106) mg/dL Calcium (8.5-10.1) mg/dL Magnesium (1.8-2.4) mg/dL Total Bilirubin (0.2-1.0) mg/dL AST (15-37) U/L ALT (12-78) U/L Alkaline Phosphatase (46-116) IU/L Creatine Kinase (26-308) U/L Creatine Kinase Index (0.0-2.5) % CK-MB (CK-2) (0.00-3.60) ng/mL Troponin I (0.000-0.056) ng/mL C-Reactive Protein (<=0.9) mg/dL NT-Pro-B Natriuret Pep (0-125) pg/mL Total Protein (6.4-8.2) g/dL Albumin (3.4-5.0) g/dL Prolactin (2.6-13.1) ng/mL Med Orders - Current: Current Medications Acetaminophen (Tylenol) 650 mg PO Q4H PRN PRN Reason: Pain Last Admin: 02/03/20 12:15 Dose: 650 mg Documented by: Albuterol/Ipratropium (Combivent Respimat) 0 gm INH QID [facility] Last Admin: 02/03/20 12:13 Dose: 2 puff Documented by: Albuterol/Ipratropium (Combivent Respimat) 0 gm INH Q4H PRN PRN Reason: Dyspnea Aspirin (Halfprin) 81 mg PO DAILY [facility] Last Admin: 02/03/20 08:35 Dose: Not Given Documented by: Atorvastatin Calcium (Lipitor) 10 mg PO BEDTIME [facility] Last Admin: 02/02/20 22:17 Dose: 10 mg Documented by: Calcium Carbonate (Oystcal-D 625 Mg-125 Units) 1 tab PO BID@0800,2000 [facility] Last Admin: 02/03/20 08:36 Dose: Not Given Documented by: Cholecalciferol (Vitamin D3) 50 mcg PO QAM [facility] Last Admin: 02/03/20 08:39 Dose: Not Given Documented by: Cholestyramine Resin (Cholestyramine Packet) 4 gm PO SUMOWEFR@1000 [facility] Last Admin: 02/02/20 10:32 Dose: 4 gm Documented by: Cyanocobalamin (Vitamin B12) 1,000 mcg PO DAILY [facility] Last Admin: 02/03/20 08:39 Dose: Not Given Documented by: Doxycycline Monohydrate (Doxycycline Monohydrate) 100 mg PO BID [facility] Last Admin: 02/03/20 08:35 Dose: Not Given Documented by: Famotidine (Pepcid) 20 mg IVPUSH DAILY [facility] Last Admin: 02/03/20 08:36 Dose: 20 mg Documented by: Sodium Chloride (Normal Saline) 500 mls @ 125 mls/hr IV .BOLUS [facility] Last Admin: 02/03/20 14:39 Dose: 250 mls/hr Documented by: Remdesivir 200 mg/ Sodium (Chloride) 290 mls @ 290 mls/hr IV ONETIME ONE Stop: 02/04/20 09:01 Isosorbide Mononitrate (Imdur) 60 mg PO DAILY [facility] Last Admin: 02/03/20 08:35 Dose: Not Given Documented by: Latanoprost (Xalatan 0.005% Ophth Soln) 0 ml EYEBOTH BEDTIME [facility] Last Admin: 02/02/20 22:19 Dose: 1 drop Documented by: Lisinopril (Prinivil) 20 mg PO QPM@1999 [facility] Last Admin: 02/02/20 22:17 Dose: 20 mg Documented by: Magnesium Oxide (Magnesium Oxide) 400 mg PO DAILY [facility] Last Admin: 02/03/20 08:35 Dose: Not Given Documented by: Metoprolol Succinate (Toprol Xl) 150 mg PO QAM [facility] Last Admin: 02/03/20 08:36 Dose: Not Given Documented by: Nitroglycerin (Nitrostat) 0.4 mg SL ASDIRECTED PRN PRN Reason: Chest Pain Potassium Chloride (Klor-Con M20) 20 meq PO TID [facility] Last Admin: 02/03/20 12:14 Dose: Not Given Documented by: Sodium Chloride (Saline Flush) 10 ml FLUSH ASDIRECTED PRN PRN Reason: Keep Vein Open Last Admin: 02/03/20 08:39 Dose: 10 ml Documented by: Temazepam (Restoril) 15 mg PO BEDTIME PRN PRN Reason: Insomnia Warfarin Sodium (Coumadin) 2.5 mg PO Fr@1999 [facility] Warfarin Sodium (Coumadin) 5 mg PO SuMoTuWeThSa@1999 [facility] Last Admin: 02/02/20 22:15 Dose: 5 mg Documented by: Discontinued Medications Furosemide (Lasix) 40 mg IVPUSH Q8H [facility] Last Admin: 02/03/20 09:54 Dose: 40 mg Documented by: Sodium Chloride (Sodium Chloride 3%) 500 mls @ 100 mls/hr IV ASDIRECTED [facility] Last Admin: 02/01/20 18:04 Dose: 100 mls/hr Documented by: Ceftriaxone Sodium 1 gm/ (Sodium Chloride) 100 mls @ 200 mls/hr IV Q12H [facility] Last Admin: 02/02/20 12:00 Dose: 200 mls/hr Documented by: Ceftriaxone Sodium 1 gm/ (Sodium Chloride) 100 mls @ 200 mls/hr IV BID@0800 ,1999 [facility] Last Admin: 02/03/20 08:36 Dose: 200 mls/hr Documented by: - Exam Quality Assessment: Supplemental Oxygen, DVT Prophylaxis (is on Warfarin regula rly) General: Alert, Oriented, Cooperative, No Acute Distress HEENT: Pupils Equal, Pupils Reactive, EOMI, Mucous Membr. Moist/[place] Neck: Supple Lungs: Normal Respiratory Effort, Decreased Breath Sounds (throughout). No: Crackles, Rales, Rhonchi, Rub, Stridor, Wheezing Cardiovascular: Regular Rate, Regular Rhythm GI/Abdominal Exam: Normal Bowel Sounds, Soft, Non-Tender, No Distention (Male) Exam: Deferred Back Exam: No: CVA Tenderness (L), CVA Tenderness (R), Muscle Spasm Extremities: Non-Tender, Normal Capillary Refill Skin: Warm, Dry Neurological: No New Focal Deficit Psy/Mental Status: Alert, Normal Affect, Normal Mood Sepsis Event Note - Evaluation Sepsis Screening Result: No Definite Risk - Focused Exam Vital Signs: Vital Signs Temp Pulse Pulse Pulse Resp BP BP 02/03/20 12:00 37.4 C 93 28 H 02/03/20 08:36 85 159/125 H 02/03/20 08:00 36.8 C 85 24 H 02/03/20 04:00 37.3 C 74 18 154/71 H BP Pulse Ox 02/03/20 12:00 142/87 H 92 L 02/03/20 08:36 02/03/20 08:00 160/80 H 92 L 02/03/20 04:00 95 - Problem List & Annotations (1) COVID-19 SNOMED Code(s): 864734475 Code(s): U07.1 - COVID-19 Status: Acute Priority: High Current Visit: Yes Annotation/Comment:: Recent acute Covid 19 infection with initial hospitalization from 01/26 through 01/30/2020 [facility] for treatment. I did review those records on 01/31, including CT scan of the head results in that facility on 01/27/2020. 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 Patient was discharged from that facility and failed attempt to return home due to continued pronounced weakness. Other symptoms had been improving. The patient was admitted to Swing Bed in this facility for evaluation and treatment by PT/OT. IV antibiotic therapy was not initiated on admission with initiation of doxycycline, IV Rocephin, and Combivent inhalers secondary to probable developing secondary pneumonia on 02/01. IV Pepcid was also initiated on 01/31 as GI prophylaxis and treatment for his COVID-19. The patient is already on an SU inhibitor. Chest x-ray to be repeated on 02/02. In addition, note that the patient was transferred to inpatient/acute care secondary to newly diagnosed grand mal seizure shortly prior to transfer from swing bed with previous apparent history of recurrent vasovagal episodes? (2) Elevated CK SNOMED Code(s): 532234398 Code(s): R74.8 - ABNORMAL LEVELS OF OTHER SERUM ENZYMES Status: Acute Priority: Medium Current Visit: Yes Annotation/Comment:: Continue to observe trends. Suspect due to Covid-19 as Covid has been shown to cause elevation due to rhabdo and cardiac effects. (3) Seizure SNOMED Code(s): 71679919 Code(s): R56.9 - UNSPECIFIED CONVULSIONS Status: Acute Priority: High Current Visit: Yes Onset Date: 02/01/20 Annotation/Comment:: Generalized tonic-clonic grand mal seizure with secondary urinary and stool incontinence at about 9:10 AM on 01/31 in swing bed care resulting in some mild postictal sedation. His severe hyponatremia may be a contributing factor with no initiation of Keppra initially. Note comfort care status with neurology consultation depending on his clinical course. CTA of the head from 01/27/2020 [place] unremarkable for acute changes. Previously suspected recurrent vasovagal episodes prior to admission to [place] as per history and physical and swing bed care. These may be in fact brief seizures, however no noted post-ictal period. Note current COVID-19 infection. Prolactin ordered. Prognosis guarded. No neurological deficits other than stable moderate right- sided hemiparesis from his previous CVA by history with stable neurological checks with vitals. (4) Pneumonia SNOMED Code(s): 573027798 Code(s): J18.9 - PNEUMONIA, UNSPECIFIED ORGANISM Status: Acute Priority: High Current Visit: Yes Onset Date: ~02/01/20 Qualifiers: Pneumonia type: due to unspecified organism Laterality: bilateral Lung location: unspecified part of lung Qualified Code(s): J18.9 - Pneumonia, unspecified organism Annotation/Comment:: Possible secondary bacterial pneumonia with IV antibiotic therapy and oral doxycycline initiated. This will be changed to Doxy after discussing patient with from [facility]. Attempt to obtain sputum specimen [place], however this has been unsuccessful to this point. (5) CHF (congestive heart failure) SNOMED Code(s): 93673379 Code(s): I50.9 - HEART FAILURE, UNSPECIFIED Status: Acute Current Visit: Yes Qualifiers: Heart failure type: unspecified Heart failure chronicity: acute on chronic Qualified Code(s): I50.9 - Heart failure, unspecified Annotation/Comment:: IV Lasix has been initiated. No chest pain or anginal type symptoms. Repeat cardiac enzymes in the a.m. (6) Elevated LFTs SNOMED Code(s): 994062951, 568852081 Code(s): R79.89 - OTHER SPECIFIED ABNORMAL FINDINGS OF BLOOD CHEMISTRY Status: Acute Priority: Medium Current Visit: Yes Onset Date: 02/02/20 Annotation/Comment:: Likely secondary to mild CHF elevation. Observe for now. (7) First degree AV block SNOMED Code(s): 283415163 Code(s): I44.0 - ATRIOVENTRICULAR BLOCK, FIRST DEGREE Status: Acute Priority: Medium Current Visit: Yes Onset Date: 09/16/17 Annotation/Comment:: Stable during this hospitalization. (8) Hypoalbuminemia SNOMED Code(s): 344624097 Code(s): E88.09 - OTH DISORDERS OF PLASMA-PROTEIN METABOLISM, NEC Status: Acute Priority: Medium Current Visit: Yes Onset Date: 02/02/20 Annotation/Comment:: Observe for now. Consider high-protein Glucerna supplements as snacks. (9) Hyponatremia SNOMED Code(s): 87622304 Code(s): E87.1 - HYPO-OSMOLALITY AND HYPONATREMIA Status: Acute Priority: High Current Visit: Yes Onset Date: 02/01/20 Annotation/Comment:: Note significant hyponatremia, which may have contributed to his grand mal seizure as above. Careful initiation of 3% sodium chloride solution on admission, which was completed in the a.m. on 02/01. No further IV fluids for now secondary to patient's current CHF and COVID-19 infection. Sodium level now normal at 138 on 02/01 in comparison to 125 on 01/31 prior to patient's transfer. (10) Atrial fibrillation SNOMED Code(s): 41025655 Code(s): I48.91 - UNSPECIFIED ATRIAL FIBRILLATION Status: Chronic Priority: Medium Current Visit: Yes Qualifiers: Atrial fibrillation type: paroxysmal Qualified Code(s): I48.0 - Paroxysmal atrial fibrillation Annotation/Comment:: No atrial fibrillation on admission, however note current pacemaker. Note INR is therapeutic. Continue to observe INRs closely secondary to antibiotic therapy as above. (11) CVA (cerebral vascular accident) SNOMED Code(s): 815082694 Code(s): I63.9 - CEREBRAL INFARCTION, UNSPECIFIED Status: Chronic Priority: Low Current Visit: Yes Onset Date: ~09/15/17 Qualifiers: CVA mechanism: unspecified Qualified Code(s): I63.9 - Cerebral infarction, unspecified Annotation/Comment:: As above. (12) Coronary artery disease SNOMED Code(s): 98346507 Code(s): I25.10 - ATHSCL HEART DISEASE OF [place] CORONARY ARTERY W/O ANG PCTRS Status: Chronic Priority: Medium Current Visit: Yes Qualifiers: Coronary Disease-Associated Artery/Lesion type: [place] artery [place] vs. transplanted heart: [place] heart Associated angina: without angina Qualified Code(s): I25.10 - Atherosclerotic heart disease of [place] coronary artery without angina pectoris Annotation/Comment:: History of diffuse coronary artery disease nonoperable in the past secondary to good collaterals by distant heart catheterization. Pacemaker. History Afib. 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 No chest pain or anginal type symptoms. Note comfort care status. Serial EKGs and cardiac enzymes conducted during this hospitalization. (13) Hypertension SNOMED Code(s): 62253868 Code(s): I10 - ESSENTIAL (PRIMARY) HYPERTENSION Status: Chronic Priority: Medium Current Visit: Yes Qualifiers: Hypertension type: essential hypertension Qualified Code(s): I10 - Essential (primary) hypertension Annotation/Comment:: Blood pressure is elevated this morning and also prior to transfer to inpatient/acute care. Continue to observe closely. Medication adjustment as needed. (14) Peptic reflux disease SNOMED Code(s): 961168796 Code(s): K21.9 - GASTRO-ESOPHAGEAL REFLUX DISEASE WITHOUT ESOPHAGITIS Status: Chronic Priority: Medium Current Visit: Yes Annotation/Comment:: Stable by history, however changed from oral Protonix to IV Pepcid and IV Protonix secondary to current anemia and COVID-19. (15) Renal insufficiency SNOMED Code(s): 519927710, 645944641 Code(s): N28.9 - DISORDER OF KIDNEY AND URETER, UNSPECIFIED Status: Chronic Priority: Medium Current Visit: Yes Annotation/Comment:: Mildly progressive renal insufficiency with IV Lasix therapy after transfer to acute care. Continue to observe closely. - Problem List Review Problem List Initiated/Reviewed/Updated: Yes - My Orders Last 24 Hours: My Active Orders 02/03/20 14:30 Sodium Chloride 0.9% [Normal Saline] 500 ml IV .BOLUS 02/04/20 05:11 COMPREHENSIVE METABOLIC PN,CMP [CHEM] AM CREATINE KINASE,CK [CHEM] AM INR,PT,PROTHROMBIN TIME [COAG] AM TROPONIN I [CHEM] AM 02/04/20 05:15 CBC WITH AUTO DIFF [HEME] AM 02/04/20 09:00 Remdesivir (Eua) [Remdesivir (EUA)] 200 mg Sodium Chloride 0.9% [Normal Saline] 250 ml IV ONETIME - Assessment Assessment:: As above - Plan Plan:: Patient reviewed with from [facility]. Suspect elevated CK may reflect rhabdo or even cardiac involvement from Covid infection. Lasix discontinued. Rocephin discontinued but Doxy will remain for now. No obvious bacterial infection noted on chest xray. Cautious IV fluid to see if patient feels better/less weak AND to improve GFR to point where he can be candidate for Remdesivir. Consider initiation of Keppra for suspected seizures with later referral to Neurology for better assessment.
[2020-02-03] MEDS ORDERED: Ondansetron 4 MG/2 ML SDV IVPUSH PRN (16:00)
[2020-02-03] MEDS ORDERED: Sodium Chloride 0.9% 1,000 ML IV ONE (20:20)
[2020-02-03] MEDS: Latanoprost 0.005% Ophth Soln 2.5 ML Bottle EYEBOTH SCH (20:34)
[2020-02-03] MEDS ORDERED: Dexamethasone 10 MG/ML SDV IVPUSH ONE (20:35)
[2020-02-03] MEDS: atorvaSTATin 10 MG Tab PO SCH (21:25)
[2020-02-03] MEDS: Warfarin 5 MG Tab PO SCH (21:25)
[2020-02-03] MEDS: Lisinopril 20 MG Tab PO SCH (21:26)
[2020-02-03] MEDS: Acetaminophen 650 MG Supp RECTAL PRN (22:26)
[2020-02-04] MEDS: Acetaminophen 325 MG Tab PO PRN ×2 (07:44→19:32)
[2020-02-04] MEDS: Albuterol/Ipratropium 4 GM Inhalation Spray INH SCH ×4 (08:50→19:36)
[2020-02-04] MEDS: Famotidine 20 MG/2 ML SDV IVPUSH SCH (08:53)
[2020-02-04] MEDS: Aspirin 81 MG Tab.EC PO SCH (08:55)
[2020-02-04] MEDS: Metoprolol Succinate 50 MG Tab.ER PO SCH (08:55)
[2020-02-04] MEDS: Isosorbide Mononitrate 60 MG Tab.ER PO SCH (08:56)
[2020-02-04] MEDS: Cholecalciferol (Vitamin D3) 25 MCG Tab PO SCH (08:56)
[2020-02-04] MEDS: Cyanocobalamin (Vitamin B12) 1,000 MCG Tab PO SCH (08:56)
[2020-02-04] MEDS: Magnesium Oxide 400 MG Tab PO SCH (08:56)
[2020-02-04] MEDS: Calcium Carbonate/Vitamin D3 625 MG-125 Unit Tab PO SCH ×2 (08:56→19:35)
[2020-02-04] MEDS ORDERED: REMDESIVIR 200 MG in Sodium Chloride 0.9% 250 ML IV ONE (09:00)
[2020-02-04] MEDS: Cholestyramine/Sucrose Powder 4 GM Packet PO SCH (09:02)
[2020-02-04] MEDS: Sodium Chloride 0.9% 1,000 ML IV SCH (11:45)
[2020-02-04] MEDS ORDERED: Sodium Chloride 0.9% 250 ML IV SCH (11:45)
--- NOTE | 2020-02-04 16:46 | PCM.PN ---
- General Info Date of Service: 02/04/20 Admission Dx/Problem (Free Text): Covid-19, possible new seizure disorder. Subjective Update: Patient notes that he feels a bit better today. Less weak. 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 Denies: New Symptoms - Review of Systems General: Reports: Weakness, Fatigue. Denies: Fever, Chills, Night Sweats HEENT: Denies: Headaches, Post Nasal Drip, Sinus Congestion, Sore Throat, Rhinitis, Visual Changes Pulmonary: Reports: Shortness of Breath, Cough, Sputum. Denies: Pleuritic Chest Pain, Hemoptysis, Wheezing Cardiovascular: Denies: Chest Pain, Palpitations, Orthopnea, Lightheadedness Gastrointestinal: Reports: Difficulty Swallowing (chronic). Denies: Abdominal Pain, Diarrhea, Hematochezia, Melena, Nausea, Vomiting Genitourinary: Reports: Other (has Kam) Musculoskeletal: Reports: Other (no acute changes reported today compared to baseline) Skin: Reports: No Symptoms Neurological: Reports: Pre-Existing Deficit (right sided weakness), Difficulty Walking (chronic/recently worse with the weakness), Weakness (global). Denies: Confusion, Dizziness, Headache, Seizure, Syncope Psychiatric: Reports: No Symptoms - Patient Data Vitals - Most Recent: Last Vital Signs Temp 36.4 C 02/04/20 11:51 Pulse 70 02/04/20 11:51 Resp 16 02/04/20 11:51 BP 110/57 L 02/04/20 11:51 Pulse Ox 92 L 02/04/20 11:51 Weight - Most Recent: 70.987 kg I&O - Last 24 Hours: Intake & Output 02/04/20 02/04/20 02/04/20 06:59 14:59 22:59 Intake Total 770 Output Total 350 Balance 420 Lab Results Last 24 Hours: Laboratory Results - last 24 hr 02/04/20 02/04/20 02/04/20 Range/Units 07:25 07:25 07:25 WBC 3.7 L (4.0-10.2) K/uL RBC 5.64 H (4.33-5.41) M/uL Hgb 16.9 H (13.1-16.8) g/dL Hct 50.2 H (39.0-49.0) % MCV 89.0 (84.0-98.0) fL MCH 30.0 (28.2-33.3) pg MCHC 33.7 (31.7-36.0) g/dL RDW 14.8 H (11.2-14.1) % Plt Count 130 L (150-350) K/uL Neut % (Auto) 79.9 (45.0-80.0) % Lymph % (Auto) 11.5 (10.0-50.0) % [place] % (Auto) 8.3 (2.0-14.0) % Eos % (Auto) 0.0 (0.0-5.0) % Baso % (Auto) 0.3 (0.0-2.0) % Neut # (Auto) 2.98 (1.40-7.00) K/uL Lymph # (Auto) 0.43 L (0.50-3.50) K/uL [place] # (Auto) 0.31 (0.00-1.00) K/uL Eos # (Auto) 0.00 (0.00-0.50) K/uL Baso # (Auto) 0.01 (0.00-0.20) K/uL PT 27.9 H D (9.5-12.0) SEC INR 2.9 Sodium 137 (136-145) mmol/L Potassium 4.2 (3.5-5.1) mmol/L Chloride 104 (98-107) mmol/L Carbon Dioxide 21.3 (21.0-32.0) mmol/L BUN 52 H (7-18) mg/dL Creatinine 2.59 H (0.51-1.17) mg/dL Est Cr Clr Drug Dosing 21.32 mL/min Estimated GFR (MDRD) 24 mL/min Glucose 160 H (74-106) mg/dL Calcium 8.3 L (8.5-10.1) mg/dL Total Bilirubin 0.4 (0.2-1.0) mg/dL AST 71 H (15-37) U/L ALT 33 (12-78) U/L Alkaline Phosphatase 58 (46-116) IU/L Creatine Kinase 1237 H (26-308) U/L Troponin I 0.085 H* (0.000-0.056) ng/mL Total Protein 7.7 (6.4-8.2) g/dL Albumin 3.0 L (3.4-5.0) g/dL Bruce Results Last 24 Hours: Microbiology 02/01/20 13:25 Stool Occult Blood (BRUCE) - Final Stool / Feces NEGATIVE OCCULT BLOOD REFERENCE RANGE: NEGATIVE Med Orders - Current: Current Medications Acetaminophen (Tylenol) 650 mg PO Q4H PRN PRN Reason: Pain Last Admin: 02/04/20 07:44 Dose: 650 mg Documented by: Acetaminophen (Tylenol) 650 mg RECTAL Q4H PRN PRN Reason: Fever Last Admin: 02/03/20 22:26 Dose: 650 mg Documented by: Albuterol/Ipratropium (Combivent Respimat) 0 gm INH QID [facility] Last Admin: 02/04/20 11:46 Dose: 2 puff Documented by: Albuterol/Ipratropium (Combivent Respimat) 0 gm INH Q4H PRN PRN Reason: Dyspnea Aspirin (Halfprin) 81 mg PO DAILY [facility] Last Admin: 02/04/20 08:55 Dose: 81 mg Documented by: Atorvastatin Calcium (Lipitor) 10 mg PO BEDTIME [facility] Last Admin: 02/03/20 21:25 Dose: Not Given Documented by: Calcium Carbonate (Oystcal-D 625 Mg-125 Units) 1 tab PO BID@0800,2000 [facility] Last Admin: 02/04/20 08:56 Dose: 1 tab Documented by: Cholecalciferol (Vitamin D3) 50 mcg PO QAM [facility] Last Admin: 02/04/20 08:56 Dose: 50 mcg Documented by: Cholestyramine Resin (Cholestyramine Packet) 4 gm PO SUMOWEFR@1000 [facility] Last Admin: 02/04/20 09:02 Dose: 4 gm Documented by: Cyanocobalamin (Vitamin B12) 1,000 mcg PO DAILY [facility] Last Admin: 02/04/20 08:56 Dose: 1,000 mcg Documented by: Dexamethasone (Decadron) 6 mg IVPUSH Q24H [facility] Famotidine (Pepcid) 20 mg IVPUSH DAILY [facility] Last Admin: 02/04/20 08:53 Dose: 20 mg Documented by: Sodium Chloride (Normal Saline) 250 mls @ 999 mls/hr IV ASDIRECTED [facility] Last Infusion: 02/04/20 12:05 Dose: Infused Documented by: Sodium Chloride (Normal Saline) 1,000 mls @ 100 mls/hr IV ASDIRECTED [facility] Last Admin: 02/04/20 11:45 Dose: 80 mls/hr Documented by: Isosorbide Mononitrate (Imdur) 60 mg PO DAILY [facility] Last Admin: 02/04/20 08:56 Dose: 60 mg Documented by: Latanoprost (Xalatan 0.005% Ophth Soln) 0 ml EYEBOTH BEDTIME [facility] Last Admin: 02/03/20 20:34 Dose: 1 drop Documented by: Lisinopril (Prinivil) 20 mg PO QPM@1999 [facility] Last Admin: 02/03/20 21:26 Dose: Not Given Documented by: Magnesium Oxide (Magnesium Oxide) 400 mg PO DAILY [facility] Last Admin: 02/04/20 08:56 Dose: 400 mg Documented by: Metoprolol Succinate (Toprol Xl) 150 mg PO QAM [facility] Last Admin: 02/04/20 08:55 Dose: 150 mg Documented by: Nitroglycerin (Nitrostat) 0.4 mg SL ASDIRECTED PRN PRN Reason: Chest Pain Ondansetron HCl (Zofran) 4 mg IVPUSH Q6H PRN PRN Reason: Nausea/Vomiting Sodium Chloride (Saline Flush) 10 ml FLUSH ASDIRECTED PRN PRN Reason: Keep Vein Open Last Admin: 02/03/20 08:39 Dose: 10 ml Documented by: Temazepam (Restoril) 15 mg PO BEDTIME PRN PRN Reason: Insomnia Warfarin Sodium (Coumadin) 2.5 mg PO @1999 [facility] Warfarin Sodium (Coumadin) 5 mg PO SuMoTuWeThSa@1999 [facility] Last Admin: 02/03/20 21:25 Dose: Not Given Documented by: Discontinued Medications Dexamethasone (Decadron) 6 mg IVPUSH ONETIME ONE Stop: 02/03/20 20:36 Last Admin: 02/03/20 22:25 Dose: 6 mg Documented by: Doxycycline Monohydrate (Doxycycline Monohydrate) 100 mg PO BID [facility] Last Admin: 02/03/20 08:35 Dose: Not Given Documented by: Furosemide (Lasix) 40 mg IVPUSH Q8H [facility] Last Admin: 02/03/20 09:54 Dose: 40 mg Documented by: Sodium Chloride (Sodium Chloride 3%) 500 mls @ 100 mls/hr IV ASDIRECTED [facility] Last Admin: 02/01/20 18:04 Dose: 100 mls/hr Documented by: Ceftriaxone Sodium 1 gm/ (Sodium Chloride) 100 mls @ 200 mls/hr IV Q12H [facility] Last Admin: 02/02/20 12:00 Dose: 200 mls/hr Documented by: Ceftriaxone Sodium 1 gm/ (Sodium Chloride) 100 mls @ 200 mls/hr IV BID@0 800,2000 [facility] Last Admin: 02/03/20 08:36 Dose: 200 mls/hr Documented by: Sodium Chloride (Normal Saline) 500 mls @ 125 mls/hr IV .BOLUS [facility] Last Admin: 02/03/20 14:39 Dose: 250 mls/hr Documented by: Remdesivir 200 mg/ Sodium (Chloride) 290 mls @ 290 mls/hr IV ONETIME ONE Stop: 02/04/20 09:01 Last Admin: 02/04/20 11:46 Dose: Not Given Documented by: Sodium Chloride (Normal Saline) 500 mls @ 40 mls/hr IV .BOLUS [facility] Sodium Chloride (Normal Saline) 1,000 mls @ 80 mls/hr IV ASDIRECTED ONE Stop: 02/04/20 08:49 Last Admin: 02/03/20 20:34 Dose: 50 mls/hr Documented by: Potassium Chloride (Klor-Con M20) 20 meq PO TID [facility] Last Admin: 02/03/20 18:04 Dose: Not Given Documented by: - Exam Quality Assessment: Supplemental Oxygen, Urine Catheter, DVT Prophylaxis General: Alert, Oriented, Cooperative, No Acute Distress HEENT: Pupils Equal, Pupils Reactive, EOMI, Mucous Membr. Moist/Rover Neck: Supple Lungs: Normal Respiratory Effort, Decreased Breath Sounds (throughout), Rhonchi (mild/bilat). No: Rales, Rub, Stridor, Wheezing Cardiovascular: Regular Rate, Regular Rhythm GI/Abdominal Exam: Normal Bowel Sounds, Soft, Non-Tender, No Distention (Male) Exam: Deferred Back Exam: No: CVA Tenderness (L), CVA Tenderness (R), Muscle Spasm Extremities: Non-Tender, Normal Capillary Refill Skin: Warm, Dry Neurological: No New Focal Deficit Psy/Mental Status: Alert, Normal Affect, Normal Mood Sepsis Event Note - Evaluation Sepsis Screening Result: No Definite Risk - Focused Exam Vital Signs: Vital Signs Temp Pulse Pulse Pulse Resp BP BP 02/04/20 11:51 36.4 C 70 16 110/57 L 02/04/20 08:55 84 145/81 H 02/04/20 08:00 36.6 C 84 16 BP Pulse Ox 02/04/20 11:51 92 L 02/04/20 08:55 02/04/20 08:00 145/81 H 93 L - Problem List & Annotations (1) COVID-19 SNOMED Code(s): 364285723 Code(s): U07.1 - COVID-19 Status: Acute Priority: High Current Visit: Yes Annotation/Comment:: Recent acute Covid 19 infection with initial hospitalization from 01/26 through 01/30/2020 at [facility] for treatment. Records reviwed on 01/31, including CT scan of the head results in t [facility] facility on 01/27/2020. 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 Patient was discharged from that facility and failed attempt to return home due to continued pronounced weakness. Other symptoms had been improving. The patient was admitted to Swing Bed in this facility for evaluation and treatment by PT/OT. IV Pepcid was also initiated on 01/31 as GI prophylaxis and treatment for his COVID-19. The patient is already on an SU inhibitor. In addition, note that the patient was transferred to inpatient/acute care secondary to newly diagnosed suspected grand mal seizure. (2) Renal insufficiency SNOMED Code(s): 560846665, 671388810 Code(s): N28.9 - DISORDER OF KIDNEY AND URETER, UNSPECIFIED Status: Chronic Priority: Medium Current Visit: Yes Annotation/Comment:: Progressive renal insufficiency after IV Lasix therapy after transfer to acute care. Lasix discontinued due to this and patient's sudden acute increased weakness. No improvement noted today despite small fluid bolus and minimal IV fluids. Additional small bolus given today and maintenance fluids increased. Unable to receive Remdesivir because of poor GFR. Recheck in AM (3) Elevated CK SNOMED Code(s): 659456827 Code(s): R74.8 - ABNORMAL LEVELS OF OTHER SERUM ENZYMES Status: Acute Priority: Medium Current Visit: Yes Annotation/Comment:: Continue to observe trends. Somewhat improved today. Suspect due to Covid-19 as Covid has been shown to cause elevation due to rhabdo and cardiac effects. Troponin also noted to be elevated today. No chest pain/anginal complaints. Recheck in AM (4) Dysphagia SNOMED Code(s): 31581329, 028407730 Code(s): R13.10 - DYSPHAGIA, UNSPECIFIED Status: Chronic Priority: Medium Current Visit: Yes Qualifiers: Dysphagia type: unspecified Qualified Code(s): R13.10 - Dysphagia, unspecified Annotation/Comment:: Long history of difficulty swallowing. Has undergone esophageal dilitation in past. Notes that food has been getting stuck more frequently in recent months. Will put in consult to see if local surgeon will consider upper endoscopy for better assessment. (5) Seizure SNOMED Code(s): 20442315 Code(s): R56.9 - UNSPECIFIED CONVULSIONS Status: Acute Priority: High Current Visit: Yes Onset Date: 02/01/20 Annotation/Comment:: Initiate Keppra if another episode is observed per conversation with /Gay. Willl need to be followed up by Neuro after discharge. Suspected generalized tonic- clonic grand mal seizure with secondary urinary and stool incontinence at about 9:10 AM on 01/31 in swing bed care resulting in some mild postictal sedation. His severe hyponatremia may be a contributing factor with no initiation of Keppra initially. Note comfort care status with neurology consultation depending on his clinical course. CTA of the head from 01/27/2020 [facility] unremarkable for acute changes. Previously suspected recurrent vasovagal episodes prior to admission to [facility] as per history and physical and swing bed care. These may be in fact brief seizures, however no noted post-ictal period. Note current COVID-19 infection which has been associated with development of seizures. 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 (6) Pneumonia SNOMED Code(s): 467900890 Code(s): J18.9 - PNEUMONIA, UNSPECIFIED ORGANISM Status: Acute Priority: High Current Visit: Yes Onset Date: ~02/01/20 Qualifiers: Pneumonia type: due to unspecified organism Laterality: bilateral Lung location: unspecified part of lung Qualified Code(s): J18.9 - Pneumonia, unspecified organism Annotation/Comment:: IV antibiotics had been started due to cover for the potential of developing secondary bacterial pneumonia. Chest xray clear however. No elevation in WBC, no fevers, no worsening respiratory complaints. Initial plan was to continue coverage with Doxy however after discussing options with patient's it was decided to avoid antibiotics for now unless there developes changes suggestive of acute worsening infection. (7) CHF (congestive heart failure) SNOMED Code(s): 09569818 Code(s): I50.9 - HEART FAILURE, UNSPECIFIED Status: Acute Current Visit: Yes Qualifiers: Heart failure type: unspecified Heart failure chronicity: acute on chronic Qualified Code(s): I50.9 - Heart failure, unspecified Annotation/Comment:: No chest pain or anginal type symptoms. No evidence of acute fluid overload (8) Elevated LFTs SNOMED Code(s): 339067447, 673803777 Code(s): R79.89 - OTHER SPECIFIED ABNORMAL FINDINGS OF BLOOD CHEMISTRY Status: Acute Priority: Medium Current Visit: Yes Onset Date: 02/02/20 Annotation/Comment:: Likely secondary to mild CHF elevation. Observe for now. (9) First degree AV block SNOMED Code(s): 849615780 Code(s): I44.0 - ATRIOVENTRICULAR BLOCK, FIRST DEGREE Status: Acute Priority: Medium Current Visit: Yes Onset Date: 09/16/17 Annotation/Comment:: Stable during this hospitalization. (10) Hypoalbuminemia SNOMED Code(s): 397650097 Code(s): E88.09 - OTH DISORDERS OF PLASMA-PROTEIN METABOLISM, NEC Status: Acute Priority: Medium Current Visit: Yes Onset Date: 02/02/20 Anno tation/Comment:: Observe for now. Consider high-protein Glucerna supplements as snacks. (11) Hyponatremia SNOMED Code(s): 31478807 Code(s): E87.1 - HYPO-OSMOLALITY AND HYPONATREMIA Status: Acute Priority: High Current Visit: Yes Onset Date: 02/01/20 Annotation/Comment:: Note significant hyponatremia, which may have contributed to his grand mal seizure as above. Careful initiation of 3% sodium chloride solution on admission, which was completed in the a.m. on 02/01. No further IV fluids for now secondary to patient's current CHF and COVID-19 infection. Sodium level now normal at 138 on 02/01 in comparison to 125 on 01/31 prior to patient's transfer. (12) Atrial fibrillation SNOMED Code(s): 47213962 Code(s): I48.91 - UNSPECIFIED ATRIAL FIBRILLATION Status: Chronic Priority: Medium Current Visit: Yes Qualifiers: Atrial fibrillation type: paroxysmal Qualified Code(s): I48.0 - Paroxysmal atrial fibrillation Annotation/Comment:: No atrial fibrillation on admission, however note current pacemaker. Note INR is therapeutic. Continue to observe INRs closely secondary to antibiotic therapy as above. (13) CVA (cerebral vascular accident) SNOMED Code(s): 022497931 Code(s): I63.9 - CEREBRAL INFARCTION, UNSPECIFIED Status: Chronic Priority: Low Current Visit: Yes Onset Date: ~09/15/17 Qualifiers: CVA mechanism: unspecified Qualified Code(s): I63.9 - Cerebral infarction, unspecified Annotation/Comment:: As above. (14) Coronary artery disease SNOMED Code(s): 91289705 Code(s): I25.10 - ATHSCL HEART DISEASE OF [place] CORONARY ARTERY W/O ANG PCTRS Status: Chronic Priority: Medium Current Visit: Yes Qualifiers: Coronary Disease-Associated Artery/Lesion type: [place] artery [place] vs. transplanted heart: [place] heart Associated angina: without angina Qualified Code(s): I25.10 - Atherosclerotic heart disease of [place] coronary artery without angina pectoris Annotation/Comment:: History of diffuse coronary artery disease nonoperable in the past secondary to good collaterals by distant heart catheterization. Pacemaker. History Afib. 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 No chest pain or anginal type symptoms. Note comfort care status. Noted to have developed increase in troponin today. This and the increase in CK are suspected to be due to current Covid infection and associated muscle involvement. (15) Hypertension SNOMED Code(s): 14408551 Code(s): I10 - ESSENTIAL (PRIMARY) HYPERTENSION Status: Chronic Priority: Medium Current Visit: Yes Qualifiers: Hypertension type: essential hypertension Qualified Code(s): I10 - Essential (primary) hypertension Annotation/Comment:: Blood pressure is elevated this morning and also prior to transfer to inpatient/acute care. Continue to observe closely. Medication a djustment as needed. (16) Peptic reflux disease SNOMED Code(s): 826599078 Code(s): K21.9 - GASTRO-ESOPHAGEAL REFLUX DISEASE WITHOUT ESOPHAGITIS Status: Chronic Priority: Medium Current Visit: Yes Annotation/Comment:: Stable by history, however changed from oral Protonix to IV Pepcid and IV Protonix secondary to current anemia and COVID-19. - Problem List Review Problem List Initiated/Reviewed/Updated: Yes - My Orders Last 24 Hours: My Active Orders 02/03/20 16:00 Ondansetron [Zofran] 4 mg IVPUSH Q6H PRN 02/03/20 20:22 Communication Order [RC] 02/03/20 20:36 Acetaminophen [Tylenol] 650 mg RECTAL Q4H PRN 02/04/20 11:45 Sodium Chloride 0.9% [Normal Saline] 250 ml IV ASDIRECTED 02/04/20 12:00 Sodium Chloride 0.9% [Normal Saline] 1,000 ml IV ASDIRECTED 02/04/20 20:00 dexAMETHasone [Decadron] 6 mg IVPUSH Q24H 02/05/20 05:11 CREATINE KINASE,CK [CHEM] AM TROPONIN I [CHEM] AM 02/05/20 05:15 BASIC METABOLIC PANEL,BMP [CHEM] AM CBC WITH AUTO DIFF [HEME] AM - Assessment Assessment:: As above - Plan Plan:: Patient reviewed with from [facility]. Suspect elevated CK may reflect rhabdo or even cardiac involvement from Covid infection. Lasix discontinued. Rocephin and Doxy discontinued as no obvious bacterial infection noted on chest xray/patient is afebrile with normal WBC. Cautious IV fluid to see if patient feels better/less weak AND to improve GFR to point where he can be candidate for Remdesivir. Consider initiation of Keppra for suspected seizures with later referral to Neurology for better assessment. Referral to surgery for possible upper endoscopy due to his worsening dysphagia. Plan will be to return patient back to Swing Bed status Friday depending on ongoing clinical course. to assume care in AM
[2020-02-04] MEDS: atorvaSTATin 10 MG Tab PO SCH (19:34)
[2020-02-04] MEDS: Lisinopril 20 MG Tab PO SCH (19:34)
[2020-02-04] MEDS: Dexamethasone 10 MG/ML SDV IVPUSH SCH (19:36)
[2020-02-04] MEDS: Sodium Chloride 0.9% 10 ML Syringe FLUSH PRN (19:37)
[2020-02-04] MEDS: Latanoprost 0.005% Ophth Soln 2.5 ML Bottle EYEBOTH SCH (19:37)
[2020-02-04] MEDS ORDERED: Warfarin 2.5 MG Tab PO SCH (20:00)
[2020-02-05] MEDS: Sodium Chloride 0.9% 1,000 ML IV SCH ×2 (00:39→13:12)
[2020-02-05] MEDS: Aspirin 81 MG Tab.EC PO SCH (08:52)
[2020-02-05] MEDS: Famotidine 20 MG/2 ML SDV IVPUSH SCH (08:52)
[2020-02-05] MEDS: Albuterol/Ipratropium 4 GM Inhalation Spray INH SCH ×4 (08:52→21:25)
[2020-02-05] MEDS: Metoprolol Succinate 50 MG Tab.ER PO SCH (08:52)
[2020-02-05] MEDS: Calcium Carbonate/Vitamin D3 625 MG-125 Unit Tab PO SCH ×2 (08:53→21:25)
[2020-02-05] MEDS: Cyanocobalamin (Vitamin B12) 1,000 MCG Tab PO SCH (08:53)
[2020-02-05] MEDS: Magnesium Oxide 400 MG Tab PO SCH (08:53)
[2020-02-05] MEDS: Cholecalciferol (Vitamin D3) 25 MCG Tab PO SCH (08:54)
[2020-02-05] MEDS: Isosorbide Mononitrate 60 MG Tab.ER PO SCH (08:54)
--- NOTE | 2020-02-05 09:50 | PCM.PN ---
- General Info Date of Service: 02/05/20 Subjective Update: Feels weaker today Nurses note decreased activity today - Review of Systems General: Reports: Weakness Pulmonary: Reports: Shortness of Breath, Cough Cardiovascular: Reports: No Symptoms Gastrointestinal: Reports: No Symptoms Genitourinary: Reports: Other (Kam in place) Musculoskeletal: Reports: No Symptoms - Patient Data Vitals - Most Recent: Last Vital Signs Temp 98.9 F 02/05/20 08:50 Pulse 79 02/05/20 08:52 Resp 20 02/05/20 08:50 BP 165/73 H 02/05/20 08:52 Pulse Ox 96 02/05/20 08:50 Weight - Most Recent: 156 lb 8 oz I&O - Last 24 Hours: Intake & Output 02/04/20 02/05/20 02/05/20 18:59 02:59 10:59 Intake Total 1260 1356 Output Total 1100 450 Balance 160 906 Lab Results Last 24 Hours: Laboratory Results - last 24 hr 02/05/20 02/05/20 Range/Units 07:30 07:30 WBC 5.6 (4.0-10.2) K/uL RBC 5.18 (4.33-5.41) M/uL Hgb 15.5 (13.1-16.8) g/dL Hct 47.1 (39.0-49.0) % MCV 90.9 (84.0-98.0) fL MCH 29.9 (28.2-33.3) pg MCHC 32.9 (31.7-36.0) g/dL RDW 14.6 H (11.2-14.1) % Plt Count 131 L (150-350) K/uL Neut % (Auto) 85.5 H (45.0-80.0) % Lymph % (Auto) 8.3 L (10.0-50.0) % [place] % (Auto) 6.0 (2.0-14.0) % Eos % (Auto) 0.0 (0.0-5.0) % Baso % (Auto) 0.2 (0.0-2.0) % Neut # (Auto) 4.81 (1.40-7.00) K/uL Lymph # (Auto) 0.47 L (0.50-3.50) K/uL [place] # (Auto) 0.34 (0.00-1.00) K/uL Eos # (Auto) 0.00 (0.00-0.50) K/uL Baso # (Auto) 0.01 (0.00-0.20) K/uL Sodium 141 (136-145) mmol/L Potassium 4.5 (3.5-5.1) mmol/L Chloride 107 (98-107) mmol/L Carbon Dioxide 23.2 (21.0-32.0) mmol/L BUN 52 H (7-18) mg/dL Creatinine 1.99 H (0.51-1.17) mg/dL Est Cr Clr Drug Dosing 27.74 mL/min Estimated GFR (MDRD) 32 mL/min Glucose 128 H (74-106) mg/dL Calcium 8.2 L (8.5-10.1) mg/dL Creatine Kinase 894 H (26-308) U/L Troponin I 0.053 (0.000-0.056) ng/mL Bruce Results Last 24 Hours: Microbiology 02/01/20 13:25 Stool Occult Blood (BRUCE) - Final Stool / Feces NEGATIVE OCCULT BLOOD REFERENCE RANGE: NEGATIVE Med Orders - Current: Current Medications Acetaminophen (Tylenol) 650 mg PO Q4H PRN PRN Reason: Pain Last Admin: 02/04/20 19:32 Dose: 650 mg Documented by: Acetaminophen (Tylenol) 650 mg RECTAL Q4H PRN PRN Reason: Fever Last Admin: 02/03/20 22:26 Dose: 650 mg Documented by: Albuterol/Ipratropium (Combivent Respimat) 0 gm INH QID [facility] Last Admin: 02/05/20 08:52 Dose: 2 puff Documented by: Albuterol/Ipratropium (Combivent Respimat) 0 gm INH Q4H PRN PRN Reason: Dyspnea Aspirin (Halfprin) 81 mg PO DAILY [facility] Last Admin: 02/05/20 08:52 Dose: 81 mg Documented by: Atorvastatin Calcium (Lipitor) 10 mg PO BEDTIME [facility] Last Admin: 02/04/20 19:34 Dose: 10 mg Documented by: Calcium Carbonate (Oystcal-D 625 Mg-125 Units) 1 tab PO BID@0800,2000 [facility] Last Admin: 02/05/20 08:53 Dose: 1 tab Documented by: Cholecalciferol (Vitamin D3) 50 mcg PO QAM [facility] Last Admin: 02/05/20 08:54 Dose: 50 mcg Documented by: Cholestyramine Resin (Cholestyramine Packet) 4 gm PO SUMOWEFR@1000 [facility] Last Admin: 02/04/20 09:02 Dose: 4 gm Documented by: Cyanocobalamin (Vitamin B12) 1,000 mcg PO DAILY [facility] Last Admin: 02/05/20 08:53 Dose: 1,000 mcg Documented by: Dexamethasone (Decadron) 6 mg IVPUSH Q24H [facility] Last Admin: 02/04/20 19:36 Dose: 6 mg Documented by: Famotidine (Pepcid) 20 mg IVPUSH DAILY [facility] Last Admin: 02/05/20 08:52 Dose: 20 mg Documented by: Sodium Chloride (Normal Saline) 250 mls @ 999 mls/hr IV ASDIRECTED [facility] Last Infusion: 02/04/20 12:05 Dose: Infused Documented by: Sodium Chloride (Normal Saline) 1,000 mls @ 100 mls/hr IV ASDIRECTED [facility] Last Admin: 02/05/20 00:39 Dose: 80 mls/hr Documented by: Isosorbide Mononitrate (Imdur) 60 mg PO DAILY [facility] Last Admin: 02/05/20 08:54 Dose: 60 mg Documented by: Latanoprost (Xalatan 0.005% Oph Soln) 0 ml EYEBOTH BEDTIME [facility] Last Admin: 02/04/20 19:37 Dose: 1 drop Documented by: Lisinopril (Prinivil) 20 mg PO QPM@2000 [facility] Last Admin: 02/04/20 19:34 Dose: 20 mg Documented by: Magnesium Oxide (Magnesium Oxide) 400 mg PO DAILY [facility] Last Admin: 02/05/20 08:53 Dose: 400 mg Documented by: Metoprolol Succinate (Toprol Xl) 150 mg PO QAM [facility] Last Admin: 02/05/20 08:52 Dose: 150 mg Documented by: Nitroglycerin (Nitrostat) 0.4 mg SL ASDIRECTED PRN PRN Reason: Chest Pain Ondansetron HCl (Zofran) 4 mg IVPUSH Q6H PRN PRN Reason: Nausea/Vomiting Sodium Chloride (Saline Flush) 10 ml FLUSH ASDIRECTED PRN PRN Reason: Keep Vein Open Last Admin: 02/04/20 19:37 Dose: 10 ml Documented by: Temazepam (Restoril) 15 mg PO BEDTIME PRN PRN Reason: Insomnia Warfarin Sodium (Coumadin) 2.5 mg PO Fr@1999 [facility] Last Admin: 02/04/20 19:35 Dose: 2.5 mg Documented by: Warfarin Sodium (Coumadin) 5 mg PO SuMoTuWeThSa@1999 [facility] Last Admin: 02/03/20 21:25 Dose: Not Given Documented by: Discontinued Medications Dexamethasone (Decadron) 6 mg IVPUSH ONETIME ONE Stop: 02/03/20 20:36 Last Admin: 02/03/20 22:25 Dose: 6 mg Documented by: Doxycycline Monohydrate (Doxycycline Monohydrate) 100 mg PO BID [facility] Last Admin: 02/03/20 08:35 Dose: Not Given Documented by: Furosemide (Lasix) 40 mg IVPUSH Q8H [facility] Last Admin: 02/03/20 09:54 Dose: 40 mg Documented by: Sodium Chloride (Sodium Chloride 3%) 500 mls @ 100 mls/hr IV ASDIRECTED [facility] Last Admin: 02/01/20 18:04 Dose: 100 mls/hr Documented by: Ceftriaxone Sodium 1 gm/ (Sodium Chloride) 100 mls @ 200 mls/hr IV Q12H [facility] Last Admin: 02/02/20 12:00 Dose: 200 mls/hr Documented by: Ceftriaxone Sodium 1 gm/ (Sodium Chloride) 100 mls @ 200 mls/hr IV BID@799,1999 [facility] Last Admin: 02/03/20 08:36 Dose: 200 mls/hr Documented by: Sodium Chloride (Normal Saline) 500 mls @ 125 mls/hr IV .BOLUS [facility] Last Admin: 02/03/20 14:39 Dose: 250 mls/hr Documented by: Remdesivir 200 mg/ Sodium (Chloride) 290 mls @ 290 mls/hr IV ONETIME ONE Stop: 02/04/20 09:01 Last Admin: 02/04/20 11:46 Dose: Not Given Documented by: Sodium Chloride (Normal Saline) 500 mls @ 40 mls/hr IV .BOLUS [facility] Sodium Chloride (Normal Saline) 1,000 mls @ 80 mls/hr IV ASDIRECTED ONE Stop: 02/04/20 08:49 Last Admin: 02/03/20 20:34 Dose: 50 mls/hr Documented by: Potassium Chloride (Klor-Con M20) 20 meq PO TID [facility] Last Admin: 02/03/20 18:04 Dose: Not Given Documented by: - Exam Quality Assessment: Supplemental Oxygen General: Other (Sleepy) Lungs: Decreased Breath Sounds Cardiovascular: Regular Rate Sepsis Event Note - Evaluation Sepsis Screening Result: No Definite Risk - Focused Exam Vital Signs: Vital Signs Temp Pulse Pulse Resp BP BP Pulse Ox 02/05/20 08:52 79 165/73 H 02/05/20 08:50 98.9 F 79 20 165/73 H 96 02/05/20 06:09 98.4 F - Problem List Review Problem List Initiated/Reviewed/Updated: Yes - My Orders Last 24 Hours: My Active Orders 02/06/20 08:00 AMMONIA VENOUS [CHEM] Routine - Assessment Assessment:: As above - Plan Plan:: Patient reviewed with from . Suspect elevated CK may reflect rhabdo or even cardiac involvement from Covid infection. Lasix discontinued. Rocephin and Doxy discontinued as no obvious bacterial infection noted on chest xray/patient is afebrile with normal WBC. Cautious IV fluid to see if patient feels better/less weak AND to improve GFR to point where he can be candidate for Remdesivir. Consider initiation of Keppra for suspected seizures with later referral to Neurology for better assessment. Referral to surgery for possible upper endoscopy due to his worsening dysphagia. Plan will be to return patient back to Swing Bed status Friday depending on ongoing clinical course. to assume care in AM Continue current cares
[2020-02-05] MEDS: Acetaminophen 650 MG Supp RECTAL PRN (15:29)
[2020-02-05] MEDS: Dexamethasone 10 MG/ML SDV IVPUSH SCH (19:56)
[2020-02-05] MEDS: Latanoprost 0.005% Ophth Soln 2.5 ML Bottle EYEBOTH SCH (19:58)
[2020-02-05] MEDS: atorvaSTATin 10 MG Tab PO SCH (21:25)
[2020-02-05] MEDS: Warfarin 5 MG Tab PO SCH (21:25)
[2020-02-05] MEDS: Lisinopril 20 MG Tab PO SCH (21:25)
[2020-02-06] MEDS: Sodium Chloride 0.9% 1,000 ML IV SCH ×4 (00:03→22:06)
[2020-02-06] MEDS: Albuterol/Ipratropium 4 GM Inhalation Spray INH SCH ×4 (07:59→20:11)
[2020-02-06] MEDS: Metoprolol Succinate 50 MG Tab.ER PO SCH (08:02)
[2020-02-06] MEDS: Isosorbide Mononitrate 60 MG Tab.ER PO SCH (08:02)
[2020-02-06] MEDS: Cholecalciferol (Vitamin D3) 25 MCG Tab PO SCH (08:02)
[2020-02-06] MEDS: Magnesium Oxide 400 MG Tab PO SCH (08:03)
[2020-02-06] MEDS: Aspirin 81 MG Tab.EC PO SCH (08:03)
[2020-02-06] MEDS: Cyanocobalamin (Vitamin B12) 1,000 MCG Tab PO SCH (08:03)
[2020-02-06] MEDS: Calcium Carbonate/Vitamin D3 625 MG-125 Unit Tab PO SCH ×2 (08:03→20:11)
[2020-02-06] MEDS: Famotidine 20 MG/2 ML SDV IVPUSH SCH (08:04)
[2020-02-06] MEDS: Acetaminophen 325 MG Tab PO PRN ×2 (10:04→16:30)
[2020-02-06] MEDS: Cholestyramine/Sucrose Powder 4 GM Packet PO SCH (10:19)
--- NOTE | 2020-02-06 17:52 | PCM.PN ---
- General Info Date of Service: 02/06/20 Admission Dx/Problem (Free Text): Pt feels better but nurses note increased wheezing - Review of Systems General: Reports: Fever Pulmonary: Reports: Shortness of Breath, Cough Cardiovascular: Reports: No Symptoms Gastrointestinal: Reports: No Symptoms - Patient Data Vitals - Most Recent: Last Vital Signs Temp 100.7 F H 02/06/20 17:31 Pulse 108 H 02/06/20 16:15 Resp 32 H 02/06/20 16:15 BP 191/89 H 02/06/20 16:15 Pulse Ox 89 L 02/06/20 16:15 Weight - Most Recent: 156 lb 8 oz I&O - Last 24 Hours: Intake & Output 02/06/20 02/06/20 02/06/20 02:59 10:59 18:59 Intake Total 1853 200 Output Total 900 Balance 953 200 Lab Results Last 24 Hours: Laboratory Results - last 24 hr 02/06/20 02/06/20 02/06/20 Range/Units 08:30 08:30 08:30 WBC 5.1 (4.0-10.2) K/uL RBC 5.07 (4.33-5.41) M/uL Hgb 15.1 (13.1-16.8) g/dL Hct 46.4 (39.0-49.0) % MCV 91.5 (84.0-98.0) fL MCH 29.8 (28.2-33.3) pg MCHC 32.5 (31.7-36.0) g/dL RDW 14.7 H (11.2-14.1) % Plt Count 112 L (150-350) K/uL Neut % (Auto) 88.3 H (45.0-80.0) % Lymph % (Auto) 8.2 L (10.0-50.0) % [place] % (Auto) 3.3 (2.0-14.0) % Eos % (Auto) 0.0 (0.0-5.0) % Baso % (Auto) 0.2 (0.0-2.0) % Neut # (Auto) 4.54 (1.40-7.00) K/uL Lymph # (Auto) 0.42 L (0.50-3.50) K/uL [place] # (Auto) 0.17 (0.00-1.00) K/uL Eos # (Auto) 0.00 (0.00-0.50) K/uL Baso # (Auto) 0.01 (0.00-0.20) K/uL Sodium 140 (136-145) mmol/L Potassium 4.3 (3.5-5.1) mmol/L Chloride 107 (98-107) mmol/L Carbon Dioxide 23.6 (21.0-32.0) mmol/L BUN 42 H (7-18) mg/dL Creatinine 1.54 H (0.51-1.17) mg/dL Est Cr Clr Drug Dosing 35.85 mL/min Estimated GFR (MDRD) 43 mL/min Glucose 170 H (74-106) mg/dL Calcium 8.4 L (8.5-10.1) mg/dL Total Bilirubin 0.5 (0.2-1.0) mg/dL AST 70 H (15-37) U/L ALT 36 (12-78) U/L Alkaline Phosphatase 47 (46-116) IU/L Ammonia 12 (11-32) umol/L Creatine Kinase 538 H (26-308) U/L Total Protein 7.2 (6.4-8.2) g/dL Albumin 2.6 L (3.4-5.0) g/dL Med Orders - Current: Current Medications Acetaminophen (Tylenol) 650 mg PO Q4H PRN PRN Reason: Pain Last Admin: 02/06/20 16:30 Dose: 650 mg Documented by: Acetaminophen (Tylenol) 650 mg RECTAL Q4H PRN PRN Reason: Fever Last Admin: 02/05/20 15:29 Dose: 650 mg Documented by: Albuterol/Ipratropium (Combivent Respimat) 0 gm INH QID [facility] Last Admin: 02/06/20 16:31 Dose: 2 puff Documented by: Albuterol/Ipratropium (Combivent Respimat) 0 gm INH Q4H PRN PRN Reason: Dyspnea Aspirin (Halfprin) 81 mg PO DAILY [facility] Last Admin: 02/06/20 08:03 Dose: 81 mg Documented by: Atorvastatin Calcium (Lipitor) 10 mg PO BEDTIME [facility] Last Admin: 02/05/20 21:25 Dose: Not Given Documented by: Calcium Carbonate (Oystcal-D 625 Mg-125 Units) 1 tab PO BID@799,1999 [facility] Last Admin: 02/06/20 08:03 Dose: 1 tab Documented by: Cholecalciferol (Vitamin D3) 50 mcg PO QAM [facility] Last Admin: 02/06/20 08:02 Dose: 50 mcg Documented by: Cholestyramine Resin (Cholestyramine Packet) 4 gm PO SUMOWEFR@1000 [facility] Last Admin: 02/06/20 10:19 Dose: 4 gm Documented by: Cyanocobalamin (Vitamin B12) 1,000 mcg PO DAILY [facility] Last Admin: 02/06/20 08:03 Dose: 1,000 mcg Documented by: Dexamethasone (Decadron) 6 mg IVPUSH Q24H [facility] Last Admin: 02/05/20 19:56 Dose: 6 mg Documented by: Famotidine (Pepcid) 20 mg IVPUSH DAILY [facility] Last Admin: 02/06/20 08:04 Dose: 20 mg Documented by: Sodium Chloride (Normal Saline) 250 mls @ 999 mls/hr IV ASDIRECTED [facility] Last Infusion: 02/04/20 12:05 Dose: Infused Documented by: Sodium Chloride (Normal Saline) 1,000 mls @ 100 mls/hr IV ASDIRECTED [facility] Last Admin: 02/06/20 10:05 Dose: 100 mls/hr Documented by: Isosorbide Mononitrate (Imdur) 60 mg PO DAILY [facility] Last Admin: 02/06/20 08:02 Dose: 60 mg Documented by: Latanoprost (Xalatan 0.005% Ophth Soln) 0 ml EYEBOTH BEDTIME [facility] Last Admin: 02/05/20 19:58 Dose: 1 drop Documented by: Lisinopril (Prinivil) 20 mg PO QPM@1999 [facility] Last Admin: 02/05/20 21:25 Dose: Not Given Documented by: Magnesium Oxide (Magnesium Oxide) 400 mg PO DAILY [facility] Last Admin: 02/06/20 08:03 Dose: 400 mg Documented by: Metoprolol Succinate (Toprol Xl) 150 mg PO QAM [facility] Last Admin: 02/06/20 08:02 Dose: 150 mg Documented by: Nitroglycerin (Nitrostat) 0.4 mg SL ASDIRECTED PRN PRN Reason: Chest Pain Ondansetron HCl (Zofran) 4 mg IVPUSH Q6H PRN PRN Reason: Nausea/Vomiting Sodium Chloride (Saline Flush) 10 ml FLUSH ASDIRECTED PRN PRN Reason: Keep Vein Open Last Admin: 02/04/20 19:37 Dose: 10 ml Documented by: Temazepam (Restoril) 15 mg PO BEDTIME PRN PRN Reason: Insomnia Warfarin Sodium (Coumadin) 2.5 mg PO Fr@1999 [facility] Last Admin: 02/04/20 19:35 Dose: 2.5 mg Documented by: Warfarin Sodium (Coumadin) 5 mg PO SuMoTuWeThSa@1999 [facility] Last Admin: 02/05/20 21:25 Dose: Not Given Documented by: Discontinued Medications Dexamethasone (Decadron) 6 mg IVPUSH ONETIME ONE Stop: 02/03/20 20:36 Last Admin: 02/03/20 22:25 Dose: 6 mg Documented by: Doxycycline Monohydrate (Doxycycline Monohydrate) 100 mg PO BID [facility] Last Admin: 02/03/20 08:35 Dose: Not Given Documented by: Furosemide (Lasix) 40 mg IVPUSH Q8H [facility] Last Admin: 02/03/20 09:54 Dose: 40 mg Documented by: Sodium Chloride (Sodium Chloride 3%) 500 mls @ 100 mls/hr IV ASDIRECTED [facility] Last Admin: 02/01/20 18:04 Dose: 100 mls/hr Documented by: Ceftriaxone Sodium 1 gm/ (Sodium Chloride) 100 mls @ 200 mls/hr IV Q12H [facility] Last Admin: 02/02/20 12:00 Dose: 200 mls/hr Documented by: Ceftriaxone Sodium 1 gm/ (Sodium Chloride) 100 mls @ 200 mls/hr IV BID@ [facility] Last Admin: 02/03/20 08:36 Dose: 200 mls/hr Documented by: Sodium Chloride (Normal Saline) 500 mls @ 125 mls/hr IV .BOLUS [facility] Last Admin: 02/03/20 14:39 Dose: 250 mls/hr Documented by: Remdesivir 200 mg/ Sodium (Chloride) 290 mls @ 290 mls/hr IV ONETIME ONE Stop: 02/04/20 09:01 Last Admin: 02/04/20 11:46 Dose: Not Given Documented by: Sodium Chloride (Normal Saline) 500 mls @ 40 mls/hr IV .BOLUS [facility] Sodium Chloride (Normal Saline) 1,000 mls @ 80 mls/hr IV ASDIRECTED ONE Stop: 02/04/20 08:49 Last Admin: 02/03/20 20:34 Dose: 50 mls/hr Documented by: Potassium Chloride (Klor-Con M20) 20 meq PO TID [facility] Last Admin: 02/03/20 18:04 Dose: Not Given Documented by: - Exam Quality Assessment: Supplemental Oxygen General: Alert Lungs: Decreased Breath Sounds, Wheezing Cardiovascular: Regular Rate Sepsis Event Note - Evaluation Sepsis Screening Result: No Definite Risk - Focused Exam Vital Signs: Vital Signs Temp Pulse Pulse Pulse Resp BP BP 02/06/20 17:31 100.7 F H 02/06/20 16:15 101.2 F H 108 H 32 H 191/89 H 02/06/20 12:00 98.6 F 66 20 139/76 02/06/20 10:00 98.3 F 02/06/20 08:02 70 180/95 H 02/06/20 08:00 98 F 70 180/95 H Pulse Ox 02/06/20 17:31 02/06/20 16:15 89 L 02/06/20 12:00 93 L 02/06/20 10:00 02/06/20 08:02 02/06/20 08:00 93 L - Problem List Review Problem List Initiated/Reviewed/Updated: Yes - Assessment Assessment:: As above - Plan Plan:: Patient reviewed with from [facility]. Suspect elevated CK may reflect rhabdo or even cardiac involvement from Covid infection. Lasix discontinued. Rocephin and Doxy discontinued as no obvious bacterial infection noted on chest xray/patient is afebrile with normal WBC. Cautious IV fluid to see if patient feels better/less weak AND to improve GFR to point where he can be candidate for Remdesivir. Consider initiation of Keppra for suspected seizures with later referral to Neurology for better assessment. Referral to surgery for possible upper endoscopy due to his worsening dysphagia. Plan will be to return patient back to Swing Bed status Friday depending on ongoing clinical course. to assume care in AM Continue current cares See lab Will continue IVF and current cares
[2020-02-06] MEDS: Dexamethasone 10 MG/ML SDV IVPUSH SCH (20:08)
[2020-02-06] MEDS: Latanoprost 0.005% Ophth Soln 2.5 ML Bottle EYEBOTH SCH (20:09)
[2020-02-06] MEDS: atorvaSTATin 10 MG Tab PO SCH (20:11)
[2020-02-06] MEDS: Warfarin 5 MG Tab PO SCH (20:11)
[2020-02-06] MEDS: Lisinopril 20 MG Tab PO SCH (20:11)
[2020-02-06] MEDS: Labetalol 20 MG/4 ML Syringe IVPUSH ONE ×2 (22:03→22:15)
[2020-02-07] MEDS: Metoprolol Succinate 50 MG Tab.ER PO SCH (08:07)
[2020-02-07] MEDS: Isosorbide Mononitrate 60 MG Tab.ER PO SCH (08:07)
[2020-02-07] MEDS: Famotidine 20 MG/2 ML SDV IVPUSH SCH (08:22)
[2020-02-07] MEDS: Cyanocobalamin (Vitamin B12) 1,000 MCG Tab PO SCH (08:23)
[2020-02-07] MEDS: Calcium Carbonate/Vitamin D3 625 MG-125 Unit Tab PO SCH ×2 (08:23→20:32)
[2020-02-07] MEDS: Sodium Chloride 0.9% 10 ML Syringe FLUSH PRN ×3 (08:23→21:56)
[2020-02-07] MEDS: Aspirin 81 MG Tab.EC PO SCH (08:23)
[2020-02-07] MEDS: Cholecalciferol (Vitamin D3) 25 MCG Tab PO SCH (08:23)
[2020-02-07] MEDS: Magnesium Oxide 400 MG Tab PO SCH (08:23)
[2020-02-07] MEDS: Albuterol/Ipratropium 4 GM Inhalation Spray INH SCH ×4 (09:14→20:32)
[2020-02-07] MEDS ORDERED: REMDESIVIR 200 MG in Sodium Chloride 0.9% 250 ML IV ONE (10:00)
[2020-02-07] MEDS: Cholestyramine/Sucrose Powder 4 GM Packet PO SCH (11:02)
[2020-02-07] MEDS: Acetaminophen 650 MG Supp RECTAL PRN ×2 (11:07→19:48)
[2020-02-07] MEDS: Saliva Substitute Oral Spray 120 ML Bottle MUCMEM PRN (17:07)
[2020-02-07] MEDS: Dexamethasone 10 MG/ML SDV IVPUSH SCH (19:38)
[2020-02-07] MEDS: Latanoprost 0.005% Ophth Soln 2.5 ML Bottle EYEBOTH SCH (19:46)
[2020-02-07] MEDS: Warfarin 5 MG Tab PO SCH (20:32)
[2020-02-07] MEDS: Lisinopril 20 MG Tab PO SCH (20:32)
[2020-02-07] MEDS: atorvaSTATin 10 MG Tab PO SCH (20:32)
[2020-02-07] MEDS ORDERED: Labetalol 20 MG/4 ML Syringe IVPUSH PRN (20:55)
[2020-02-08] MEDS: Sodium Chloride 0.9% 10 ML Syringe FLUSH PRN ×2 (07:56→10:19)
[2020-02-08] MEDS: Metoprolol Succinate 50 MG Tab.ER PO SCH (07:56)
[2020-02-08] MEDS: Famotidine 20 MG/2 ML SDV IVPUSH SCH (07:56)
[2020-02-08] MEDS: Albuterol/Ipratropium 4 GM Inhalation Spray INH SCH ×4 (07:59→19:55)
[2020-02-08] MEDS: Calcium Carbonate/Vitamin D3 625 MG-125 Unit Tab PO SCH ×2 (08:00→19:50)
[2020-02-08] MEDS: Isosorbide Mononitrate 60 MG Tab.ER PO SCH (08:00)
[2020-02-08] MEDS: Aspirin 81 MG Tab.EC PO SCH (08:00)
[2020-02-08] MEDS: Cholecalciferol (Vitamin D3) 25 MCG Tab PO SCH (08:00)
[2020-02-08] MEDS: Magnesium Oxide 400 MG Tab PO SCH (08:00)
[2020-02-08] MEDS: Cyanocobalamin (Vitamin B12) 1,000 MCG Tab PO SCH (08:00)
[2020-02-08] MEDS: Sodium Chloride 0.9% 1,000 ML IV SCH (10:19)
[2020-02-08] MEDS: REMDESIVIR 100 MG in Sodium Chloride 0.9% 250 ML IV SCH (10:20)
--- NOTE | 2020-02-08 11:06 | PCM.PN ---
- General Info Date of Service: 02/07/20 Admission Dx/Problem (Free Text): Pt admitted with Covid Subjective Update: Pt with increased lethargy today per nursing minimally responsive - Review of Systems General: Reports: Weakness Pulmonary: Reports: Shortness of Breath, Cough Cardiovascular: Reports: No Symptoms Gastrointestinal: Reports: No Symptoms Neurological: Reports: Confusion, Weakness - Patient Data Vitals - Most Recent: Last Vital Signs Temp 96.9 F 02/08/20 10:18 Pulse 79 02/08/20 10:18 Resp 28 H 02/08/20 10:18 BP 104/64 02/08/20 10:18 Pulse Ox 92 L 02/08/20 10:18 Weight - Most Recent: 156 lb 8 oz I&O - Last 24 Hours: Intake & Output 02/08/20 02/08/20 02/08/20 02:59 10:59 18:59 Intake Total 250 Output Total 300 250 Balance -300 0 Lab Results Last 24 Hours: Laboratory Results - last 24 hr 02/08/20 02/08/20 02/08/20 Range/Units 07:10 07:10 07:10 WBC 6.5 (4.0-10.2) K/uL RBC 5.57 H (4.33-5.41) M/uL Hgb 16.4 (13.1-16.8) g/dL Hct 49.4 H (39.0-49.0) % MCV 88.7 (84.0-98.0) fL MCH 29.4 (28.2-33.3) pg MCHC 33.2 (31.7-36.0) g/dL RDW 14.5 H (11.2-14.1) % Plt Count 131 L (150-350) K/uL Neut % (Auto) 87.0 H (45.0-80.0) % Lymph % (Auto) 6.5 L (10.0-50.0) % [place] % (Auto) 6.3 (2.0-14.0) % Eos % (Auto) 0.0 (0.0-5.0) % Baso % (Auto) 0.2 (0.0-2.0) % Neut # (Auto) 5.65 (1.40-7.00) K/uL Lymph # (Auto) 0.42 L (0.50-3.50) K/uL [place] # (Auto) 0.41 (0.00-1.00) K/uL Eos # (Auto) 0.00 (0.00-0.50) K/uL Baso # (Auto) 0.01 (0.00-0.20) K/uL PT 23.0 H (9.5-12.0) SEC INR 2.4 Sodium 140 (136-145) mmol/L Potassium 4.2 (3.5-5.1) mmol/L Chloride 108 H (98-107) mmol/L Carbon Dioxide 18.1 L (21.0-32.0) mmol/L BUN 44 H (7-18) mg/dL Creatinine 1.60 H (0.51-1.17) mg/dL Est Cr Clr Drug Dosing 34.51 mL/min Estimated GFR (MDRD) 41 mL/min Glucose 164 H (74-106) mg/dL Lactic Acid (0.4-2.0) mmol/L Calcium 8.7 (8.5-10.1) mg/dL Total Bilirubin 0.8 (0.2-1.0) mg/dL AST 70 H (15-37) U/L ALT 35 (12-78) U/L Alkaline Phosphatase 50 (46-116) IU/L Creatine Kinase (26-308) U/L Creatine Kinase Index (0.0-2.5) % CK-MB (CK-2) (0.00-3.60) ng/mL Troponin I (0.000-0.056) ng/mL Total Protein 7.4 (6.4-8.2) g/dL Albumin 2.3 L (3.4-5.0) g/dL 02/08/20 02/08/20 Range/Units 07:10 09:10 WBC (4.0-10.2) K/uL RBC (4.33-5.41) M/uL Hgb (13.1-16.8) g/dL Hct (39.0-49.0) % MCV (84.0-98.0) fL MCH (28.2-33.3) pg MCHC (31.7-36.0) g/dL RDW (11.2-14.1) % Plt Count (150-350) K/uL Neut % (Auto) (45.0-80.0) % Lymph % (Auto) (10.0-50.0) % [place] % (Auto) (2.0-14.0) % Eos % (Auto) (0.0-5.0) % Baso % (Auto) (0.0-2.0) % Neut # (Auto) (1.40-7.00) K/uL Lymph # (Auto) (0.50-3.50) K/uL [place] # (Auto) (0.00-1.00) K/uL Eos # (Auto) (0.00-0.50) K/uL Baso # (Auto) (0.00-0.20) K/uL PT (9.5-12.0) SEC INR Sodium (136-145) mmol/L Potassium (3.5-5.1) mmol/L Chloride (98-107) mmol/L Carbon Dioxide (21.0-32.0) mmol/L BUN (7-18) mg/dL Creatinine (0.51-1.17) mg/dL Est Cr Clr Drug Dosing mL/min Estimated GFR (MDRD) mL/min Glucose (74-106) mg/dL Lactic Acid 2.4 H (0.4-2.0) mmol/L Calcium (8.5-10.1) mg/dL Total Bilirubin (0.2-1.0) mg/dL AST (15-37) U/L ALT (12-78) U/L Alkaline Phosphatase (46-116) IU/L Creatine Kinase 342 H (26-308) U/L Creatine Kinase Index 1.4 (0.0-2.5) % CK-MB (CK-2) 4.90 H* (0.00-3.60) ng/mL Troponin I 1.691 H* (0.000-0.056) ng/mL Total Protein (6.4-8.2) g/dL Albumin (3.4-5.0) g/dL Med Orders - Current: Current Medications Acetaminophen (Tylenol) 650 mg PO Q4H PRN PRN Reason: Pain Last Admin: 02/06/20 16:30 Dose: 650 mg Documented by: Acetaminophen (Tylenol) 650 mg RECTAL Q4H PRN PRN Reason: Fever Last Admin: 02/07/20 19:48 Dose: 650 mg Documented by: Albuterol/Ipratropium (Combivent Respimat) 0 gm INH QID [facility] Last Admin: 02/08/20 07:59 Dose: 2 puff Documented by: Albuterol/Ipratropium (Combivent Respimat) 0 gm INH Q4H PRN PRN Reason: Dyspnea Aspirin (Halfprin) 81 mg PO DAILY [facility] Last Admin: 02/08/20 08:00 Dose: Not Given Documented by: Atorvastatin Calcium (Lipitor) 10 mg PO BEDTIME [facility] Last Admin: 02/07/20 20:32 Dose: Not Given Documented by: Calcium Carbonate (Oystcal-D 625 Mg-125 Units) 1 tab PO BID@0800,2000 [facility] Last Admin: 02/08/20 08:00 Dose: Not Given Documented by: Cholecalciferol (Vitamin D3) 50 mcg PO QAM [facility] Last Admin: 02/08/20 08:00 Dose: Not Given Documented by: Cholestyramine Resin (Cholestyramine Packet) 4 gm PO SUMOWEFR@1000 [facility] Last Admin: 02/07/20 11:02 Dose: Not Given Documented by: Cyanocobalamin (Vitamin B12) 1,000 mcg PO DAILY [facility] Last Admin: 02/08/20 08:00 Dose: Not Given Documented by: Dexamethasone (Decadron) 6 mg IVPUSH Q24H [facility] Last Admin: 02/07/20 19:38 Dose: 6 mg Documented by: Famotidine (Pepcid) 20 mg IVPUSH DAILY [facility] Last Admin: 02/08/20 07:56 Dose: 20 mg Documented by: Remdesivir 100 mg/ Sodium (Chloride) 270 mls @ 270 mls/hr IV Q24H [facility] Stop: 02/11/20 10:01 Last Admin: 02/08/20 10:20 Dose: 270 mls/hr Documented by: Sodium Chloride (Normal Saline) 1,000 mls @ 50 mls/hr IV ASDIRECTED [facility] Last Admin: 02/08/20 10:19 Dose: 50 mls/hr Documented by: Isosorbide Mononitrate (Imdur) 60 mg PO DAILY [facility] Last Admin: 02/08/20 08:00 Dose: Not Given Documented by: Labetalol HCl (Normodyne) 5 mg IVPUSH ONETIME PRN; Protocol PRN Reason: Hypertension Last Admin: 02/07/20 21:57 Dose: 5 mg Documented by: Latanoprost (Xalatan 0.005% Ophth Soln) 0 ml EYEBOTH BEDTIME [facility] Last Admin: 02/07/20 19:46 Dose: 1 drop Documented by: Lisinopril (Prinivil) 20 mg PO QPM@1999 [facility] Last Admin: 02/07/20 20:32 Dose: Not Given Documented by: Magnesium Oxide (Magnesium Oxide) 400 mg PO DAILY [facility] Last Admin: 02/08/20 08:00 Dose: Not Given Documented by: Metoprolol Succinate (Toprol Xl) 150 mg PO QAM [facility] Last Admin: 02/08/20 07:56 Dose: 150 mg Documented by: Nitroglycerin (Nitrostat) 0.4 mg SL ASDIRECTED PRN PRN Reason: Chest Pain Ondansetron HCl (Zofran) 4 mg IVPUSH Q6H PRN PRN Reason: Nausea/Vomiting Saliva Substitute (Ceferino-Stir Oral [place]) 0 ml MUCMEM ASDIRECTED PRN PRN Reason: Dry Mouth Last Admin: 02/07/20 17:07 Dose: 2 spray Documented by: Sodium Chloride (Saline Flush) 10 ml FLUSH ASDIRECTED PRN PRN Reason: Keep Vein Open Last Admin: 02/08/20 10:19 Dose: 10 ml Documented by: Temazepam (Restoril) 15 mg PO BEDTIME PRN PRN Reason: Insomnia Warfarin Sodium (Coumadin) 2.5 mg PO Fr@1999 [facility] Last Admin: 02/04/20 19:35 Dose: 2.5 mg Documented by: Warfarin Sodium (Coumadin) 5 mg PO SuMoTuWeThSa@1999 [facility] Last Admin: 02/07/20 20:32 Dose: Not Given Documented by: Discontinued Medications Dexamethasone (Decadron) 6 mg IVPUSH ONETIME ONE Stop: 02/03/20 20:36 Last Admin: 02/03/20 22:25 Dose: 6 mg Documented by: Doxycycline Monohydrate (Doxycycline Monohydrate) 100 mg PO BID [facility] Last Admin: 02/03/20 08:35 Dose: Not Given Documented by: Furosemide (Lasix) 40 mg IVPUSH Q8H [facility] Last Admin: 02/03/20 09:54 Dose: 40 mg Documented by: Sodium Chloride (Sodium Chloride 3%) 500 mls @ 100 mls/hr IV ASDIRECTED [facility] Last Admin: 02/01/20 18:04 Dose: 100 mls/hr Documented by: Ceftriaxone Sodium 1 gm/ (Sodium Chloride) 100 mls @ 200 mls/hr IV Q12H [facility] Last Admin: 02/02/20 12:00 Dose: 200 mls/hr Documented by: Ceftriaxone Sodium 1 gm/ (Sodium Chloride) 100 mls @ 200 mls/hr IV BID@0800,2000 [facility] Last Admin: 02/03/20 08:36 Dose: 200 mls/hr Documented by: Sodium Chloride (Normal Saline) 500 mls @ 125 mls/hr IV .BOLUS [facility] Last Admin: 02/03/20 14:39 Dose: 250 mls/hr Documented by: Remdesivir 200 mg/ Sodium (Chloride) 290 mls @ 290 mls/hr IV ONETIME ONE Stop: 02/04/20 09:01 Last Admin: 02/04/20 11:46 Dose: Not Given Documented by: Sodium Chloride (Normal Saline) 500 mls @ 40 mls/hr IV .BOLUS [facility] Sodium Chloride (Normal Saline) 1,000 mls @ 80 mls/hr IV ASDIRECTED ONE Stop: 02/04/20 08:49 Last Admin: 02/03/20 20:34 Dose: 50 mls/hr Documented by: Sodium Chloride (Normal Saline) 250 mls @ 999 mls/hr IV ASDIRECTED [facility] Last Infusion: 02/04/20 12:05 Dose: Infused Documented by: Sodium Chloride (Normal Saline) 1,000 mls @ 50 mls/hr IV ASDIRECTED [facility] Last Admin: 02/06/20 22:06 Dose: 50 mls/hr Documented by: Remdesivir 200 mg/ Sodium (Chloride) 290 mls @ 290 mls/hr IV ONETIME ONE Stop: 02/07/20 10:01 Last Admin: 02/07/20 11:00 Dose: 290 mls/hr Documented by: Labetalol HCl (Normodyne) 5 mg IVPUSH ONETIME ONE; Protocol Stop: 02/06/20 20:31 Last Admin: 02/06/20 22:15 Dose: 5 mg Documented by: Potassium Chloride (Klor-Con M20) 20 meq PO TID [facility] Last Admin: 02/03/20 18:04 Dose: Not Given Documented by: - Exam Quality Assessment: Supplemental Oxygen Neck: Supple Lungs: Decreased Breath Sounds, Wheezing Cardiovascular: Regular Rate GI/Abdominal Exam: Soft Neurological: Other (Lethargic) Sepsis Event Note - Evaluation Sepsis Screening Result: Sepsis Risk - Focused Exam Vital Signs: Vital Signs Temp Pulse Pulse Resp BP BP BP 02/08/20 10:18 96.9 F 79 28 H 104/64 02/08/20 08:00 97.0 F 91 30 H 110/65 02/08/20 07:56 91 110/65 02/08/20 06:00 97.8 F 02/08/20 04:00 97.2 F 98 24 H 115/61 02/08/20 00:00 97.9 F 85 26 H 133/77 Pulse Ox 02/08/20 10:18 92 L 02/08/20 08:00 94 L 02/08/20 07:56 02/08/20 06:00 02/08/20 04:00 92 L 02/08/20 00:00 92 L - Problem List Review Problem List Initiated/Reviewed/Updated: Yes - My Orders Last 24 Hours: My Active Orders 02/07/20 15:34 Carboxymethylcellulose/Lytes [Ceferino-Stir Oral [place]] 0 ml MUCMEM ASDIRECTED PRN 02/07/20 20:55 Labetalol [Normodyne] 5 mg IVPUSH ONETIME PRN 02/07/20 21:07 Head wo Cont [CT] Routine 02/08/20 05:11 Chest 1V Frontal [CR] Routine 02/08/20 08:00 Head wo Cont [CT] Routine 02/08/20 09:15 Sodium Chloride 0.9% [Normal Saline] 1,000 ml IV ASDIRECTED 02/08/20 10:00 Remdesivir (Eua) [Remdesivir (EUA)] 100 mg Sodium Chloride 0.9% [Normal Saline] 250 ml IV Q24H 02/09/20 05:11 ALANINE AMINOTRANSFERASE,ALT [CHEM] DAILY ASPARTATE AMNIOTRANSFERASE,AST [CHEM] DAILY CMP [COMPREHENSIVE METABOLIC PN,CMP] [CHEM] DAILY 02/10/20 05:11 ALANINE AMINOTRANSFERASE,ALT [CHEM] DAILY ASPARTATE AMNIOTRANSFERASE,AST [CHEM] DAILY CMP [COMPREHENSIVE METABOLIC PN,CMP] [CHEM] DAILY 02/11/20 05:11 ALANINE AMINOTRANSFERASE,ALT [CHEM] DAILY ASPARTATE AMNIOTRANSFERASE,AST [CHEM] DAILY CMP [COMPREHENSIVE METABOLIC PN,CMP] [CHEM] DAILY - Assessment Assessment:: As above Pt with increased lethargy due to Covid issues - Plan Plan:: Patient reviewed with from [facility]. Suspect elevated CK may reflect rhabdo or even cardiac involvement from Covid infection. Lasix discontinued. Rocephin and Doxy discontinued as no obvious bacterial infection noted on chest xray/patient is afebrile with normal WBC. Cautious IV fluid to see if patient feels better/less weak AND to improve GFR to point where he can be candidate for Remdesivir. Consider initiation of Keppra for suspected seizures with later referral to Neurology for better assessment. Referral to surgery for possible upper endoscopy due to his worsening dysphagia. Plan will be to return patient back to Swing Bed status Friday depending on ongoing clinical course. to assume care in AM Continue current cares See lab Will continue IVF and current cares Begin IV antivirals
--- NOTE | 2020-02-08 11:07 | PCM.PN ---
- General Info Date of Service: 02/08/20 Subjective Update: Pt more awake today CXR pending CT head no acute changes - Review of Systems General: Reports: Fever, Weakness, Fatigue, Malaise Pulmonary: Reports: Shortness of Breath, Cough Cardiovascular: Reports: No Symptoms Gastrointestinal: Reports: No Symptoms Neurological: Reports: Weakness - Patient Data Vitals - Most Recent: Last Vital Signs Temp 96.9 F 02/08/20 10:18 Pulse 79 02/08/20 10:18 Resp 28 H 02/08/20 10:18 BP 104/64 02/08/20 10:18 Pulse Ox 92 L 02/08/20 10:18 Weight - Most Recent: 156 lb 8 oz I&O - Last 24 Hours: Intake & Output 02/08/20 02/08/20 02/08/20 02:59 10:59 18:59 Intake Total 250 Output Total 300 250 Balance -300 0 Lab Results Last 24 Hours: Laboratory Results - last 24 hr 02/08/20 02/08/20 02/08/20 Range/Units 07:10 07:10 07:10 WBC 6.5 (4.0-10.2) K/uL RBC 5.57 H (4.33-5.41) M/uL Hgb 16.4 (13.1-16.8) g/dL Hct 49.4 H (39.0-49.0) % MCV 88.7 (84.0-98.0) fL MCH 29.4 (28.2-33.3) pg MCHC 33.2 (31.7-36.0) g/dL RDW 14.5 H (11.2-14.1) % Plt Count 131 L (150-350) K/uL Neut % (Auto) 87.0 H (45.0-80.0) % Lymph % (Auto) 6.5 L (10.0-50.0) % [place] % (Auto) 6.3 (2.0-14.0) % Eos % (Auto) 0.0 (0.0-5.0) % Baso % (Auto) 0.2 (0.0-2.0) % Neut # (Auto) 5.65 (1.40-7.00) K/uL Lymph # (Auto) 0.42 L (0.50-3.50) K/uL [place] # (Auto) 0.41 (0.00-1.00) K/uL Eos # (Auto) 0.00 (0.00-0.50) K/uL Baso # (Auto) 0.01 (0.00-0.20) K/uL PT 23.0 H (9.5-12.0) SEC INR 2.4 Sodium 140 (136-145) mmol/L Potassium 4.2 (3.5-5.1) mmol/L Chloride 108 H (98-107) mmol/L Carbon Dioxide 18.1 L (21.0-32.0) mmol/L BUN 44 H (7-18) mg/dL Creatinine 1.60 H (0.51-1.17) mg/dL Est Cr Clr Drug Dosing 34.51 mL/min Estimated GFR (MDRD) 41 mL/min Glucose 164 H (74-106) mg/dL Lactic Acid (0.4-2.0) mmol/L Calcium 8.7 (8.5-10.1) mg/dL Total Bilirubin 0.8 (0.2-1.0) mg/dL AST 70 H (15-37) U/L ALT 35 (12-78) U/L Alkaline Phosphatase 50 (46-116) IU/L Creatine Kinase (26-308) U/L Creatine Kinase Index (0.0-2.5) % CK-MB (CK-2) (0.00-3.60) ng/mL Troponin I (0.000-0.056) ng/mL Total Protein 7.4 (6.4-8.2) g/dL Albumin 2.3 L (3.4-5.0) g/dL 02/08/20 02/08/20 Range/Units 07:10 09:10 WBC (4.0-10.2) K/uL RBC (4.33-5.41) M/uL Hgb (13.1-16.8) g/dL Hct (39.0-49.0) % MCV (84.0-98.0) fL MCH (28.2-33.3) pg MCHC (31.7-36.0) g/dL RDW (11.2-14.1) % Plt Count (150-350) K/uL Neut % (Auto) (45.0-80.0) % Lymph % (Auto) (10.0-50.0) % [place] % (Auto) (2.0-14.0) % Eos % (Auto) (0.0-5.0) % Baso % (Auto) (0.0-2.0) % Neut # (Auto) (1.40-7.00) K/uL Lymph # (Auto) (0.50-3.50) K/uL [place] # (Auto) (0.00-1.00) K/uL Eos # (Auto) (0.00-0.50) K/uL Baso # (Auto) (0.00-0.20) K/uL PT (9.5-12.0) SEC INR Sodium (136-145) mmol/L Potassium (3.5-5.1) mmol/L Chloride (98-107) mmol/L Carbon Dioxide (21.0-32.0) mmol/L BUN (7-18) mg/dL Creatinine (0.51-1.17) mg/dL Est Cr Clr Drug Dosing mL/min Estimated GFR (MDRD) mL/min Glucose (74-106) mg/dL Lactic Acid 2.4 H (0.4-2.0) mmol/L Calcium (8.5-10.1) mg/dL Total Bilirubin (0.2-1.0) mg/dL AST (15-37) U/L ALT (12-78) U/L Alkaline Phosphatase (46-116) IU/L Creatine Kinase 342 H (26-308) U/L Creatine Kinase Index 1.4 (0.0-2.5) % CK-MB (CK-2) 4.90 H* (0.00-3.60) ng/mL Troponin I 1.691 H* (0.000-0.056) ng/mL Total Protein (6.4-8.2) g/dL Albumin (3.4-5.0) g/dL Med Orders - Current: Current Medications Acetaminophen (Tylenol) 650 mg PO Q4H PRN PRN Reason: Pain Last Admin: 02/06/20 16:30 Dose: 650 mg Documented by: Acetaminophen (Tylenol) 650 mg RECTAL Q4H PRN PRN Reason: Fever Last Admin: 02/07/20 19:48 Dose: 650 mg Documented by: Albuterol/Ipratropium (Combivent Respimat) 0 gm INH QID [facility] Last Admin: 02/08/20 11:04 Dose: 2 puff Documented by: Albuterol/Ipratropium (Combivent Respimat) 0 gm INH Q4H PRN PRN Reason: Dyspnea Aspirin (Halfprin) 81 mg PO DAILY [facility] Last Admin: 02/08/20 08:00 Dose: Not Given Documented by: Atorvastatin Calcium (Lipitor) 10 mg PO BEDTIME [facility] Last Admin: 02/07/20 20:32 Dose: Not Given Documented by: Calcium Carbonate (Oystcal-D 625 Mg-125 Units) 1 tab PO BID@0800,2000 [facility] Last Admin: 02/08/20 08:00 Dose: Not Given Documented by: Cholecalciferol (Vitamin D3) 50 mcg PO QAM [facility] Last Admin: 02/08/20 08:00 Dose: Not Given Documented by: Cholestyramine Resin (Cholestyramine Packet) 4 gm PO SUMOWEFR@1000 [facility] Last Admin: 02/07/20 11:02 Dose: Not Given Documented by: Cyanocobalamin (Vitamin B12) 1,000 mcg PO DAILY [facility] Last Admin: 02/08/20 08:00 Dose: Not Given Documented by: Dexamethasone (Decadron) 6 mg IVPUSH Q24H [facility] Last Admin: 02/07/20 19:38 Dose: 6 mg Documented by: Famotidine (Pepcid) 20 mg IVPUSH DAILY [facility] Last Admin: 02/08/20 07:56 Dose: 20 mg Documented by: Remdesivir 100 mg/ Sodium (Chloride) 270 mls @ 270 mls/hr IV Q24H [facility] Stop: 02/11/20 10:01 Last Admin: 02/08/20 10:20 Dose: 270 mls/hr Documented by: Sodium Chloride (Normal Saline) 1,000 mls @ 50 mls/hr IV ASDIRECTED [facility] Last Admin: 02/08/20 10:19 Dose: 50 mls/hr Documented by: Isosorbide Mononitrate (Imdur) 60 mg PO DAILY [facility] Last Admin: 02/08/20 08:00 Dose: Not Given Documented by: Labetalol HCl (Normodyne) 5 mg IVPUSH ONETIME PRN; Protocol PRN Reason: Hypertension Last Admin: 02/07/20 21:57 Dose: 5 mg Documented by: Latanoprost (Xalatan 0.005% Ophth Soln) 0 ml EYEBOTH BEDTIME [facility] Last Admin: 02/07/20 19:46 Dose: 1 drop Documented by: Lisinopril (Prinivil) 20 mg PO QPM@1999 [facility] Last Admin: 02/07/20 20:32 Dose: Not Given Documented by: Magnesium Oxide (Magnesium Oxide) 400 mg PO DAILY [facility] Last Admin: 02/08/20 08:00 Dose: Not Given Documented by: Metoprolol Succinate (Toprol Xl) 150 mg PO QAM [facility] Last Admin: 02/08/20 07:56 Dose: 150 mg Documented by: Nitroglycerin (Nitrostat) 0.4 mg SL ASDIRECTED PRN PRN Reason: Chest Pain Ondansetron HCl (Zofran) 4 mg IVPUSH Q6H PRN PRN Reason: Nausea/Vomiting Saliva Substitute (Ceferino-Stir Oral [place]) 0 ml MUCMEM ASDIRECTED PRN PRN Reason: Dry Mouth Last Admin: 02/07/20 17:07 Dose: 2 spray Documented by: Sodium Chloride (Saline Flush) 10 ml FLUSH ASDIRECTED PRN PRN Reason: Keep Vein Open Last Admin: 02/08/20 10:19 Dose: 10 ml Documented by: Temazepam (Restoril) 15 mg PO BEDTIME PRN PRN Reason: Insomnia Warfarin Sodium (Coumadin) 2.5 mg PO Fr@1999 [facility] Last Admin: 02/04/20 19:35 Dose: 2.5 mg Documented by: Warfarin Sodium (Coumadin) 5 mg PO SuMoTuWeThSa@1999 [facility] Last Admin: 02/07/20 20:32 Dose: Not Given Documented by: Discontinued Medications Dexamethasone (Decadron) 6 mg IVPUSH ONETIME ONE Stop: 02/03/20 20:36 Last Admin: 02/03/20 22:25 Dose: 6 mg Documented by: Doxycycline Monohydrate (Doxycycline Monohydrate) 100 mg PO BID [facility] Last Admin: 02/03/20 08:35 Dose: Not Given Documented by: Furosemide (Lasix) 40 mg IVPUSH Q8H [facility] Last Admin: 02/03/20 09:54 Dose: 40 mg Documented by: Sodium Chloride (Sodium Chloride 3%) 500 mls @ 100 mls/hr IV ASDIRECTED [facility] Last Admin: 02/01/20 18:04 Dose: 100 mls/hr Documented by: Ceftriaxone Sodium 1 gm/ (Sodium Chloride) 100 mls @ 200 mls/hr IV Q12H [facility] Last Admin: 02/02/20 12:00 Dose: 200 mls/hr Documented by: Ceftriaxone Sodium 1 gm/ (Sodium Chloride) 100 mls @ 200 mls/hr IV BID@0800,2000 [facility] Last Admin: 02/03/20 08:36 Dose: 200 mls/hr Documented by: Sodium Chloride (Normal Saline) 500 mls @ 125 mls/hr IV .BOLUS [facility] Last Admin: 02/03/20 14:39 Dose: 250 mls/hr Documented by: Remdesivir 200 mg/ Sodium (Chloride) 290 mls @ 290 mls/hr IV ONETIME ONE Stop: 02/04/20 09:01 Last Admin: 02/04/20 11:46 Dose: Not Given Documented by: Sodium Chloride (Normal Saline) 500 mls @ 40 mls/hr IV .BOLUS [facility] Sodium Chloride (Normal Saline) 1,000 mls @ 80 mls/hr IV ASDIRECTED ONE Stop: 02/04/20 08:49 Last Admin: 02/03/20 20:34 Dose: 50 mls/hr Documented by: Sodium Chloride (Normal Saline) 250 mls @ 999 mls/hr IV ASDIRECTED [facility] Last Infusion: 02/04/20 12:05 Dose: Infused Documented by: Sodium Chloride (Normal Saline) 1,000 mls @ 50 mls/hr IV ASDIRECTED [facility] Last Admin: 02/06/20 22:06 Dose: 50 mls/hr Documented by: Remdesivir 200 mg/ Sodium (Chloride) 290 mls @ 290 mls/hr IV ONETIME ONE Stop: 02/07/20 10:01 Last Admin: 02/07/20 11:00 Dose: 290 mls/hr Documented by: Labetalol HCl (Normodyne) 5 mg IVPUSH ONETIME ONE; Protocol Stop: 02/06/20 20:31 Last Admin: 02/06/20 22:15 Dose: 5 mg Documented by: Potassium Chloride (Klor-Con M20) 20 meq PO TID [facility] Last Admin: 02/03/20 18:04 Dose: Not Given Documented by: - Exam Quality Assessment: Supplemental Oxygen General: Alert Neck: Supple Lungs: Decreased Breath Sounds, Wheezing Cardiovascular: Regular Rate GI/Abdominal Exam: Soft Sepsis Event Note - Evaluation Sepsis Screening Result: Sepsis Risk - Focused Exam Vital Signs: Vital Signs Temp Pulse Pulse Resp BP BP BP 02/08/20 10:18 96.9 F 79 28 H 104/64 02/08/20 08:00 97.0 F 91 30 H 110/65 02/08/20 07:56 91 110/65 02/08/20 06:00 97.8 F 02/08/20 04:00 97.2 F 98 24 H 115/61 02/08/20 00:00 97.9 F 85 26 H 133/77 Pulse Ox 02/08/20 10:18 92 L 02/08/20 08:00 94 L 02/08/20 07:56 02/08/20 06:00 02/08/20 04:00 92 L 02/08/20 00:00 92 L - Problem List Review Problem List Initiated/Reviewed/Updated: Yes - My Orders Last 24 Hours: My Active Orders 02/07/20 15:34 Carboxymethylcellulose/Lytes [Ceferino-Stir Oral [place]] 0 ml MUCMEM ASDIRECTED PRN 02/07/20 20:55 Labetalol [Normodyne] 5 mg IVPUSH ONETIME PRN 02/07/20 21:07 Head wo Cont [CT] Routine 02/08/20 05:11 Chest 1V Frontal [CR] Routine 02/08/20 08:00 Head wo Cont [CT] Routine 02/08/20 09:15 Sodium Chloride 0.9% [Normal Saline] 1,000 ml IV ASDIRECTED 02/08/20 10:00 Remdesivir (Eua) [Remdesivir (EUA)] 100 mg Sodium Chloride 0.9% [Normal Saline] 250 ml IV Q24H 02/09/20 05:11 ALANINE AMINOTRANSFERASE,ALT [CHEM] DAILY ASPARTATE AMNIOTRANSFERASE,AST [CHEM] DAILY CMP [COMPREHENSIVE METABOLIC PN,CMP] [CHEM] DAILY 02/10/20 05:11 ALANINE AMINOTRANSFERASE,ALT [CHEM] DAILY ASPARTATE AMNIOTRANSFERASE,AST [CHEM] DAILY CMP [COMPREHENSIVE METABOLIC PN,CMP] [CHEM] DAILY 02/11/20 05:11 ALANINE AMINOTRANSFERASE,ALT [CHEM] DAILY ASPARTATE AMNIOTRANSFERASE,AST [CHEM] DAILY CMP [COMPREHENSIVE METABOLIC PN,CMP] [CHEM] DAILY - Assessment Assessment:: As above Pt with increased lethargy due to Covid issues - Plan Plan:: Patient reviewed with from [facility]. Suspect elevated CK may reflect rhabdo or even cardiac involvement from Covid infection. Lasix discontinued. Rocephin and Doxy discontinued as no obvious bacterial infection noted on chest xray/patient is afebrile with normal WBC. Cautious IV fluid to see if patient feels better/less weak AND to improve GFR to point where he can be candidate for Remdesivir. Consider initiation of Keppra for suspected seizures with later referral to Neurology for better assessment. Referral to surgery for possible upper endoscopy due to his worsening dysphagia. Plan will be to return patient back to Swing Bed status Friday depending on ongoing clinical course. to assume care in AM Continue current cares See lab Will continue IVF and current cares Begin IV antivirals Continue cares
[2020-02-08] MEDS: cefTRIAXone 1 GM in Sodium Chloride 0.9% 100 ML IV SCH (16:37)
[2020-02-08] MEDS: Dexamethasone 10 MG/ML SDV IVPUSH SCH (19:48)
[2020-02-08] MEDS: atorvaSTATin 10 MG Tab PO SCH (19:49)
[2020-02-08] MEDS: Lisinopril 20 MG Tab PO SCH (19:50)
[2020-02-08] MEDS: Warfarin 5 MG Tab PO SCH (19:50)
[2020-02-08] MEDS: Latanoprost 0.005% Ophth Soln 2.5 ML Bottle EYEBOTH SCH (19:56)
[2020-02-09] MEDS: Albuterol/Ipratropium 4 GM Inhalation Spray INH SCH ×4 (08:46→20:00)
[2020-02-09] MEDS: Magnesium Oxide 400 MG Tab PO SCH (08:47)
[2020-02-09] MEDS: Cholecalciferol (Vitamin D3) 25 MCG Tab PO SCH (08:47)
[2020-02-09] MEDS: Cyanocobalamin (Vitamin B12) 1,000 MCG Tab PO SCH (08:47)
[2020-02-09] MEDS: Famotidine 20 MG/2 ML SDV IVPUSH SCH (08:47)
[2020-02-09] MEDS: Metoprolol Succinate 50 MG Tab.ER PO SCH (08:47)
[2020-02-09] MEDS: Calcium Carbonate/Vitamin D3 625 MG-125 Unit Tab PO SCH ×2 (08:47→19:58)
[2020-02-09] MEDS: Isosorbide Mononitrate 60 MG Tab.ER PO SCH (08:48)
[2020-02-09] MEDS: Aspirin 81 MG Tab.EC PO SCH (08:48)
[2020-02-09] MEDS: Sodium Chloride 0.9% 1,000 ML IV SCH (08:49)
[2020-02-09] MEDS: REMDESIVIR 100 MG in Sodium Chloride 0.9% 250 ML IV SCH (10:58)
[2020-02-09] MEDS: Sodium Chloride 0.9% 10 ML Syringe FLUSH PRN (10:58)
[2020-02-09] MEDS: Cholestyramine/Sucrose Powder 4 GM Packet PO SCH (10:58)
[2020-02-09] MEDS: cefTRIAXone 1 GM in Sodium Chloride 0.9% 100 ML IV SCH (15:42)
--- NOTE | 2020-02-09 19:14 | PCM.PN ---
- General Info Date of Service: 02/09/20 Admission Dx/Problem (Free Text): 1. Grand mal seizure 2. COVID-19 3. Bilateral pneumonia Subjective Update: Patient is a somewhat poor historian today with possible confusion. Functional Status: Reports: Pain Controlled, Tolerating Diet, Urinating (Kam catheter), Incentive Spirometry. Denies: Ambulating, New Symptoms Pain Score: 0 - Review of Systems General: Reports: Weakness (Stable left hemiparesis), Fatigue, Appetite (Adequate). Denies: Fever, Chills HEENT: Reports: Post Nasal Drip, Sinus Congestion Pulmonary: Reports: No Symptoms, Shortness of Breath, Cough, Sputum. Denies: Pleuritic Chest Pain, Hemoptysis, Wheezing Cardiovascular: Reports: No Symptoms Gastrointestinal: Reports: No Symptoms Genitourinary: Denies: Incontinence (Kam catheter) Musculoskeletal: Reports: No Symptoms Skin: Reports: No Symptoms. Denies: Diaphoresis Neurological: Reports: Confusion (As above? New), Pre-Existing Deficit (Right hemiparesis ), Difficulty Walking (stable), Weakness - Patient Data Vitals - Most Recent: Last Vital Signs Temp 36.3 C 02/09/20 15:44 Pulse 90 02/09/20 15:44 Resp 24 H 02/09/20 15:44 BP 118/78 02/09/20 15:44 Pulse Ox 90 L 02/09/20 15:44 Vital Signs - 24 hr 02/08/20 02/08/20 02/09/20 19:41 19:50 00:00 Temperature [ 36.3 C 36.4 C Temporal] Pulse, Peripheral Pulse, 56 L 61 Peripheral [ Left Pulse Oximetry] Pulse, Peripheral [ Right Pulse Oximetry] Respiratory 32 H 28 H Rate Blood Pressure 107/67 Blood Pressure 107/67 104/63 [Left Upper Arm ] Blood Pressure [Right Upper Arm] O2 Sat by Pulse 90 L 90 L Oximetry 02/09/20 02/09/20 02/09/20 08:36 08:47 10:50 Temperature [ 36.0 C L 36.3 C Temporal] Pulse, 50 L Peripheral Pulse, 50 L Peripheral [ Left Pulse Oximetry] Pulse, Peripheral [ Right Pulse Oximetry] Respiratory 24 H Rate Blood Pressure 125/61 Blood Pressure [Left Upper Arm ] Blood Pressure 125/61 [Right Upper Arm] O2 Sat by Pulse 91 L Oximetry 02/09/20 02/09/20 12:14 15:44 Temperature [ 36.3 C 36.3 C Temporal] Pulse, Peripheral Pulse, 90 Peripheral [ Left Pulse Oximetry] Pulse, 80 Peripheral [ Right Pulse Oximetry] Respiratory 24 H 24 H Rate Blood Pressure Blood Pressure 118/78 [Left Upper Arm ] Blood Pressure 122/69 [Right Upper Arm] O2 Sat by Pulse 90 L 90 L Oximetry Weight - Most Recent: 70.987 kg I&O - Last 24 Hours: Intake & Output 02/09/20 02/09/20 02/09/20 06:59 14:59 22:59 Intake Total 686 650 400 Output Total 500 Balance 186 650 400 Imaging Impressions - Last 24 Hours: X-ray, portable, on 02/08/2020 showed persistent moderate diffuse bilateral pulmonary infiltrates consistent with COVID-19. Pacemaker noted. CT of the head without contrast on 02/08/2020 showed no acute findings with stable chronic left superior frontal, parietal, and occipital hypodensities consistent with probable previous left CVA. Lab Results Last 24 Hours: Laboratory Results - last 24 hr 02/09/20 Range/Units 07:24 Sodium 141 (136-145) mmol/L Potassium 4.0 (3.5-5.1) mmol/L Chloride 112 H (98-107) mmol/L Carbon Dioxide 16.7 L (21.0-32.0) mmol/L BUN 62 H (7-18) mg/dL Creatinine 1.55 H (0.51-1.17) mg/dL Est Cr Clr Drug Dosing 35.62 mL/min Estimated GFR (MDRD) 43 mL/min Glucose 162 H (74-106) mg/dL Calcium 8.3 L (8.5-10.1) mg/dL Total Bilirubin 0.6 (0.2-1.0) mg/dL AST 73 H (15-37) U/L ALT 32 (12-78) U/L Alkaline Phosphatase 45 L (46-116) IU/L Total Protein 6.6 (6.4-8.2) g/dL Albumin 2.0 L (3.4-5.0) g/dL Bruce Results Last 24 Hours: None Med Orders - Current: Current Medications Acetaminophen (Tylenol) 650 mg PO Q4H PRN PRN Reason: Pain Last Admin: 02/06/20 16:30 Dose: 650 mg Documented by: Acetaminophen (Tylenol) 650 mg RECTAL Q4H PRN PRN Reason: Fever Last Admin: 02/07/20 19:48 Dose: 650 mg Documented by: Albuterol/Ipratropium (Combivent Respimat) 0 gm INH QID [facility] Last Admin: 02/09/20 15:42 Dose: 2 puff Documented by: Albuterol/Ipratropium (Combivent Respimat) 0 gm INH Q4H PRN PRN Reason: Dyspnea Aspirin (Halfprin) 81 mg PO DAILY [facility] Last Admin: 02/09/20 08:48 Dose: 81 mg Documented by: Atorvastatin Calcium (Lipitor) 10 mg PO BEDTIME [facility] Last Admin: 02/08/20 19:49 Dose: 10 mg Documented by: Calcium Carbonate (Oystcal-D 625 Mg-125 Units) 1 tab PO BID@0800,2000 [facility] Last Admin: 02/09/20 08:47 Dose: 1 tab Documented by: Cholecalciferol (Vitamin D3) 50 mcg PO QAM [facility] Last Admin: 02/09/20 08:47 Dose: 50 mcg Documented by: Cholestyramine Resin (Cholestyramine Packet) 4 gm PO SUMOWEFR@1000 [facility] Last Admin: 02/09/20 10:58 Dose: 4 gm Documented by: Cyanocobalamin (Vitamin B12) 1,000 mcg PO DAILY [facility] Last Admin: 02/09/20 08:47 Dose: 1,000 mcg Documented by: Dexamethasone (Decadron) 6 mg IVPUSH Q24H [facility] Last Admin: 02/08/20 19:48 Dose: 6 mg Documented by: Famotidine (Pepcid) 20 mg IVPUSH DAILY [facility] Last Admin: 02/09/20 08:47 Dose: 20 mg Documented by: Remdesivir 100 mg/ Sodium (Chloride) 270 mls @ 270 mls/hr IV Q24H [facility] Stop: 02/11/20 10:01 Last Admin: 02/09/20 10:58 Dose: 270 mls/hr Documented by: Sodium Chloride (Normal Saline) 1,000 mls @ 50 mls/hr IV ASDIRECTED [facility] Last Admin: 02/09/20 08:49 Dose: 50 mls/hr Documented by: Ceftriaxone Sodium 1 gm/ (Sodium Chloride) 100 mls @ 200 mls/hr IV Q24H [facility] Last Admin: 02/09/20 15:42 Dose: 200 mls/hr Documented by: Isosorbide Mononitrate (Imdur) 60 mg PO DAILY [facility] Last Admin: 02/09/20 08:48 Dose: 60 mg Documented by: Labetalol HCl (Normodyne) 5 mg IVPUSH ONETIME PRN; Protocol PRN Reason: Hypertension Last Admin: 02/07/20 21:57 Dose: 5 mg Documented by: Latanoprost (Xalatan 0.005% Ophth Soln) 0 ml EYEBOTH BEDTIME [facility] Last Admin: 02/08/20 19:56 Dose: 1 drop Documented by: Lisinopril (Prinivil) 20 mg PO QPM@1999 [facility] Last Admin: 02/08/20 19:50 Dose: 20 mg Documented by: Magnesium Oxide (Magnesium Oxide) 400 mg PO DAILY [facility] Last Admin: 02/09/20 08:47 Dose: 400 mg Documented by: Metoprolol Succinate (Toprol Xl) 150 mg PO QAM [facility] Last Admin: 02/09/20 08:47 Dose: 150 mg Documented by: Nitroglycerin (Nitrostat) 0.4 mg SL ASDIRECTED PRN PRN Reason: Chest Pain Ondansetron HCl (Zofran) 4 mg IVPUSH Q6H PRN PRN Reason: Nausea/Vomiting Saliva Substitute (Ceferino-Stir Oral [place]) 0 ml MUCMEM ASDIRECTED PRN PRN Reason: Dry Mouth Last Admin: 02/07/20 17:07 Dose: 2 spray Documented by: Sodium Chloride (Saline Flush) 10 ml FLUSH ASDIRECTED PRN PRN Reason: Keep Vein Open Last Admin: 02/09/20 10:58 Dose: 10 ml Documented by: Temazepam (Restoril) 15 mg PO BEDTIME PRN PRN Reason: Insomnia Warfarin Sodium (Coumadin) 2.5 mg PO Fr@1999 [facility] Last Admin: 02/04/20 19:35 Dose: 2.5 mg Documented by: Warfarin Sodium (Coumadin) 5 mg PO SuMoTuWeThSa@1999 [facility] Last Admin: 02/08/20 19:50 Dose: 5 mg Documented by: Discontinued Medications Dexamethasone (Decadron) 6 mg IVPUSH ONETIME ONE Stop: 11/12/20 20:36 Last Admin: 02/03/20 22:25 Dose: 6 mg Documented by: Doxycycline Monohydrate (Doxycycline Monohydrate) 100 mg PO BID [facility] Last Admin: 02/03/20 08:35 Dose: Not Given Documented by: Furosemide (Lasix) 40 mg IVPUSH Q8H [facility] Last Admin: 02/03/20 09:54 Dose: 40 mg Documented by: Sodium Chloride (Sodium Chloride 3%) 500 mls @ 100 mls/hr IV ASDIRECTED [facility] Last Admin: 02/01/20 18:04 Dose: 100 mls/hr Documented by: Ceftriaxone Sodium 1 gm/ (Sodium Chloride) 100 mls @ 200 mls/hr IV Q12H [facility] Last Admin: 02/02/20 12:00 Dose: 200 mls/hr Documented by: Ceftriaxone Sodium 1 gm/ (Sodium Chloride) 100 mls @ 200 mls/hr IV BID@0800,1999 [facility] Last Admin: 02/03/20 08:36 Dose: 200 mls/hr Documented by: Sodium Chloride (Normal Saline) 500 mls @ 125 mls/hr IV .BOLUS [facility] Last Admin: 02/03/20 14:39 Dose: 250 mls/hr Documented by: Remdesivir 200 mg/ Sodium (Chloride) 290 mls @ 290 mls/hr IV ONETIME ONE Stop: 02/04/20 09:01 Last Admin: 02/04/20 11:46 Dose: Not Given Documented by: Sodium Chloride (Normal Saline) 500 mls @ 40 mls/hr IV .BOLUS [facility] Sodium Chloride (Normal Saline) 1,000 mls @ 80 mls/hr IV ASDIRECTED ONE Stop: 02/04/20 08:49 Last Admin: 02/03/20 20:34 Dose: 50 mls/hr Documented by: Sodium Chloride (Normal Saline) 250 mls @ 999 mls/hr IV ASDIRECTED [facility] Last Infusion: 02/04/20 12:05 Dose: Infused Documented by: Sodium Chloride (Normal Saline) 1,000 mls @ 50 mls/hr IV ASDIRECTED [facility] Last Admin: 02/06/20 22:06 Dose: 50 mls/hr Documented by: Remdesivir 200 mg/ Sodium (Chloride) 290 mls @ 290 mls/hr IV ONETIME ONE Stop: 02/07/20 10:01 Last Admin: 02/07/20 11:00 Dose: 290 mls/hr Documented by: Labetalol HCl (Normodyne) 5 mg IVPUSH ONETIME ONE; Protocol Stop: 02/06/20 20:31 Last Admin: 02/06/20 22:15 Dose: 5 mg Documented by: Potassium Chloride (Klor-Con M20) 20 meq PO TID RIO Last Admin: 02/03/20 18:04 Dose: Not Given Documented by: - Exam Quality Assessment: Supplemental Oxygen, Urine Catheter, DVT Prophylaxis (Coumadin). No: Central Line/PICC, Skin Breakdown, Restraints General: Alert, No Acute Distress. No: Oriented (Possible mild confusion) HEENT: Pupils Equal, Pupils Reactive, EOMI, Mucous Membr. Moist/[place]. No: Scleral Icterus, Other Neck: Supple, No JVD, No Thyromegaly, Carotid Bruit (Mild bilateral carotid bruits). No: Trachea Midline, Lymphadenopathy Lungs: Rales (Persistent mild to moderate diffuse bilateral rales). No: Rhonchi, Rub, Wheezing Cardiovascular: Regular Rate, Regular Rhythm, No Murmurs. No: Gallops, Rubs GI/Abdominal Exam: Normal Bowel Sounds, Soft, Non-Tender, No Organomegaly, No Distention, No Abnormal Bruit, No Mass, Pelvis Stable, Other (Obese) (Male) Exam: Deferred Back Exam: Normal Inspection, Full Range of Motion. No: CVA Tenderness (L), CVA Tenderness (R), Muscle Spasm Extremities: Normal Inspection, Normal Range of Motion, Non-Tender, No Pedal Edema, Normal Capillary Refill. No: Nathaly's Sign Peripheral Pulses: 2+: Radial (L), Radial (R), Dorsalis Pedis (L), Dorsalis Pedis (R) Skin: Warm Neurological: Other (Possible mild confusion with stable moderate right hemiparesis) Psy/Mental Status: Alert, Normal Affect, Normal Mood. No: Agitated, Hallucinations, Withdrawal Symptoms Sepsis Event Note - Evaluation Sepsis Screening Result: No Definite Risk - Focused Exam Vital Signs: Vital Signs Temp Pulse Pulse Pulse Resp BP BP 02/09/20 15:44 36.3 C 90 24 H 118/78 02/09/20 12:14 36.3 C 80 24 H 02/09/20 10:50 36.3 C 02/09/20 08:47 50 L 125/61 02/09/20 08:36 36.0 C L 50 L 24 H BP Pulse Ox 02/09/20 15:44 90 L 02/09/20 12:14 122/69 90 L 02/09/20 10:50 02/09/20 08:47 02/09/20 08:36 125/61 91 L - Problem List & Annotations (1) Seizure SNOMED Code(s): 58379043 Code(s): R56.9 - UNSPECIFIED CONVULSIONS Status: Acute Priority: High Current Visit: Yes Onset Date: 02/01/20 Annotation/Comment:: Initiate Keppra if another episode is observed per conversation with /Gay. Willl need to be followed up by Neuro after discharge. Suspected generalized tonic- clonic grand mal seizure with secondary urinary and stool incontinence at about 9:10 AM on 01/31 in swing bed care resulting in some mild postictal sedation. His severe hyponatremia may be a contributing factor with no initiation of Keppra initially. Note comfort care status with neurology consultation depending on his clinical course. Repeat CT of the chest on 02/08/2020 did not indicate any acute changes as above. Note CTA of the head from 01/27/2020 [place] unremarkable for acute changes. Previously suspected recurrent vasovagal episodes prior to admission to [place] as per history and physical and swing bed care. These may be in fact brief seizures, however no noted post-ictal period. Note current COVID-19 infection which has been associated with development of seizures. 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 Notes some possible mild confusion secondary to his hypoxia and current infection on 02/08/2020. (2) COVID-19 SNOMED Code(s): 518821259 Code(s): U07.1 - COVID-19 Status: Acute Priority: High Current Visit: Yes Annotation/Comment:: Recent acute Covid 19 infection with initial hospitalization from 01/26 through 01/30/2020 at [facility] for treatment. Records reviwed on 01/31, including CT scan of the head results in that facility on 01/27/2020. 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 Patient was discharged from that facility and failed attempt to return home due to continued pronounced weakness. Other symptoms had been improving. The patient was admitted to Swing Bed in this facility for evaluation and treatment by PT/OT. IV Pepcid was also initiated on 01/31 as GI prophylaxis and treatment for his COVID-19. The patient is already on an SU inhibitor. In addition, note that the patient was transferred to inpatient/acute care secondary to newly diagnosed suspected grand mal seizure. IV Decadron and IV remdesivir have been initiated with completion expected on 02/10/2020. Serial blood work as per remdesivir guidelines. Consider transfer back to swing bed care after completion of the above IV therapy. Prognosis is extremely poor. (3) Pneumonia SNOMED Code(s): 504850231 Code(s): J18.9 - PNEUMONIA, UNSPECIFIED ORGANISM Status: Acute Priority: High Current Visit: Yes Onset Date: ~02/01/20 Qualifiers: Pneumonia type: due to unspecified organism Laterality: bilateral Lung location: unspecified part of lung Qualified Code(s): J18.9 - Pneumonia, unspecified organism Annotation/Comment:: IV Rocephin and oral doxycycline had been started due to cover for the potential of developing secondary bacterial pneumonia. Initial plan was to continue antibiotic therapy during this hospitalization, however after the [facility] physician discussed options with patient's it was decided to avoid antibiotics for now. Note, however that IV Rocephin was reinitiated on 02/08/2020 secondary to worsening hypoxia and chest x-ray. (4) CHF (congestive heart failure) SNOMED Code(s): 75689362 Code(s): I50.9 - HEART FAILURE, UNSPECIFIED Status: Acute Current Visit: Yes Qualifiers: Heart failure type: unspecified Heart failure chronicity: acute on chronic Qualified Code(s): I50.9 - Heart failure, unspecified Annotation/Comment:: No chest pain or anginal type symptoms. No evidence of acute fluid overload (5) Elevated LFTs SNOMED Code(s): 745646862, 468278840 Code(s): R79.89 - OTHER SPECIFIED ABNORMAL FINDINGS OF BLOOD CHEMISTRY Status: Acute Priority: Medium Current Visit: Yes Onset Date: 02/02/20 Annotation/Comment:: Likely secondary to mild CHF elevation. Observe for now. (6) Hypoalbuminemia SNOMED Code(s): 405438766 Code(s): E88.09 - OTH DISORDERS OF PLASMA-PROTEIN METABOLISM, NEC Status: Acute Priority: Medium Current Visit: Yes Onset Date: 02/02/20 Annotation/Comment:: Observe for now. Consider high-protein Glucerna supplements as snacks. (7) First degree AV block SNOMED Code(s): 383391468 Code(s): I44.0 - ATRIOVENTRICULAR BLOCK, FIRST DEGREE Status: Acute Priority: Medium Current Visit: Yes Onset Date: 09/16/17 Annotation/Comment:: Stable during this hospitalization. (8) Hyponatremia SNOMED Code(s): 65155024 Code(s): E87.1 - HYPO-OSMOLALITY AND HYPONATREMIA Status: Acute Priority: High Current Visit: Yes Onset Date: 02/01/20 Annotation/Comment:: Note significant hyponatremia, which may have contributed to his grand mal seizure as above. Careful initiation of 3% sodium chloride solution on admission, which was completed in the a.m. on 02/01. No further IV fluids for now secondary to patient's current CHF and COVID-19 infection. Sodium level now normal at 138 on 02/01 in comparison to 125 on 01/31 prior to patient's transfer. (9) Atrial fibrillation SNOMED Code(s): 16947951 Code(s): I48.91 - UNSPECIFIED ATRIAL FIBRILLATION Status: Chronic Priority: Medium Current Visit: Yes Qualifiers: Atrial fibrillation type: paroxysmal Qualified Code(s): I48.0 - Paroxysmal atrial fibrillation Annotation/Comment:: No atrial fibrillation on admission, however note current pacemaker. Note INR is therapeutic. Continue to observe INRs closely secondary to antibiotic therapy as above. (10) CVA (cerebral vascular accident) SNOMED Code(s): 031446835 Code(s): I63.9 - CEREBRAL INFARCTION, UNSPECIFIED Status: Chronic Priority: Low Current Visit: Yes Onset Date: ~09/15/17 Qualifiers: CVA mechanism: unspecified Qualified Code(s): I63.9 - Cerebral infarction, unspecified Annotation/Comment:: As above. (11) Coronary artery disease SNOMED Code(s): 74128991 Code(s): I25.10 - ATHSCL HEART DISEASE OF [place] CORONARY ARTERY W/O ANG PCTRS Status: Chronic Priority: Medium Current Visit: Yes Qualifiers: Coronary Disease-Associated Artery/Lesion type: [place] artery [place] vs. transplanted heart: [place] heart Associated angina: without angina Qualified Code(s): I25.10 - Atherosclerotic heart disease of [place] coronary artery without angina pectoris Annotation/Comment:: History of diffuse coronary artery disease nonoperable in the past secondary to good collaterals by distant heart catheterization. Pacemaker. History Afib. 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 No chest pain or anginal type symptoms. Note comfort care status. Noted to have developed increase in troponin today. This and the increase in CK are suspected to be due to current Covid infection and associated muscle involvement. (12) Hypertension SNOMED Code(s): 66311972 Code(s): I10 - ESSENTIAL (PRIMARY) HYPERTENSION Status: Chronic Priority: Medium Current Visit: Yes Qualifiers: Hypertension type: essential hypertension Qualified Code(s): I10 - Essential (primary) hypertension Annotation/Comment:: Blood pressures variable during this hospitalization and and also prior to transfer to inpatient/acute care. Continue to observe closely. Medication adjustment as needed. (13) Peptic reflux disease SNOMED Code(s): 788518422 Code(s): K21.9 - GASTRO-ESOPHAGEAL REFLUX DISEASE WITHOUT ESOPHAGITIS Status: Chronic Priority: Medium Current Visit: Yes Annotation/Comment:: Stable by history, however changed from oral Protonix to IV Pepcid and IV Protonix secondary to current anemia and COVID-19. (14) Renal insufficiency SNOMED Code(s): 320686640, 466560515 Code(s): N28.9 - DISORDER OF KIDNEY AND URETER, UNSPECIFIED Status: Chronic Priority: Medium Current Visit: Yes Annotation/Comment:: Progressive renal insufficiency after IV Lasix therapy after transfer to acute care. Lasix discontinued due to this and patient's sudden acute increased weakness. No improvement noted today despite small fluid bolus and minimal IV fluids. Additional small bolus given today and maintenance fluids increased. In spite of initial concerns of his renal insufficiency IV remdesivir was subsequently initiated during this hospitalization. Continued serial blood work as per remdesivir protocol throughout this hospitalization. (15) Confusion SNOMED Code(s): 299499673 Code(s): R41.0 - DISORIENTATION, UNSPECIFIED Status: Acute Priority: Medium Current Visit: Yes Onset Date: ~02/09/20 Annotation/Comment:: Somewhat increased confusion today. Note CT scan of the head on 02/07 was stable, however. Continue to observe closely. (16) Need for comfort care SNOMED Code(s): 953588885, 144092394 Code(s): KPK3170 - Status: Chronic Priority: Medium Current Visit: Yes Annotation/Comment:: Comfort care status confirmed with the patient's family. Prognosis is extremely poor. Emotional support was provided. - Problem List Review Problem List Initiated/Reviewed/Updated: Yes - My Orders Last 24 Hours: My Active Orders 02/10/20 05:11 EKG Documentation Completion [RC] ASDIRECTED Chest 1V Frontal [CR] Routine CBC WITH AUTO DIFF [HEME] DAILY CK W CKMB [CHEM] Routine CRP [C-REACTIVE PROTEIN] [CHEM] Routine D-DIMER QUANTITATIVE [COAG] Routine PRO B-TYPE NATRIUR PEPT,BNPPRO [CHEM] Routine TROPONIN I [CHEM] Routine EKG 12 Lead [EK] Routine 02/11/20 05:11 CBC WITH AUTO DIFF [HEME] DAILY - Assessment Assessment:: As above - Plan Plan:: Patient reviewed with from [facility]. Suspect elevated CK may reflect rhabdo or even cardiac involvement from Covid infection. Lasix discontinued. Rocephin and Doxy discontinued as no obvious bacterial infection noted on chest xray/patient is afebrile with normal WBC. Cautious IV fluid to see if patient feels better/less weak AND to improve GFR to point where he can be candidate for Remdesivir. Consider initiation of Keppra for suspected seizures with later referral to Neurology for better assessment. Referral to surgery for possible upper endoscopy due to his worsening dysphagia. Plan will be to return patient back to Swing Bed status Friday depending on ongoing clinical course. to assume care in AM Continue current cares See lab Will continue IVF and current cares Begin IV antivirals Continue cares As above. Extensive precautions were given to the patient and his family, who is in agreement with the treatment plan. Planned transfer back to swing bed care as above.
[2020-02-09] MEDS: Lisinopril 20 MG Tab PO SCH (19:56)
[2020-02-09] MEDS: Warfarin 5 MG Tab PO SCH (19:56)
[2020-02-09] MEDS: atorvaSTATin 10 MG Tab PO SCH (19:57)
[2020-02-09] MEDS: Dexamethasone 10 MG/ML SDV IVPUSH SCH (19:58)
[2020-02-09] MEDS: Latanoprost 0.005% Ophth Soln 2.5 ML Bottle EYEBOTH SCH (19:59)
[2020-02-10] MEDS: Sodium Chloride 0.9% 1,000 ML IV SCH (04:04)
[2020-02-10] MEDS: Albuterol/Ipratropium 4 GM Inhalation Spray INH SCH ×4 (09:43→20:04)
[2020-02-10] MEDS: Famotidine 20 MG/2 ML SDV IVPUSH SCH (09:44)
[2020-02-10] MEDS: Calcium Carbonate/Vitamin D3 625 MG-125 Unit Tab PO SCH ×2 (09:46→20:03)
[2020-02-10] MEDS: Aspirin 81 MG Tab.EC PO SCH (09:46)
[2020-02-10] MEDS: Cyanocobalamin (Vitamin B12) 1,000 MCG Tab PO SCH (09:47)
[2020-02-10] MEDS: Isosorbide Mononitrate 60 MG Tab.ER PO SCH (09:47)
[2020-02-10] MEDS: Magnesium Oxide 400 MG Tab PO SCH (09:47)
[2020-02-10] MEDS: Cholecalciferol (Vitamin D3) 25 MCG Tab PO SCH (09:47)
[2020-02-10] MEDS: Metoprolol Succinate 50 MG Tab.ER PO SCH (09:48)
[2020-02-10] MEDS: REMDESIVIR 100 MG in Sodium Chloride 0.9% 250 ML IV SCH (09:49)
--- NOTE | 2020-02-10 09:52 | PCM.PN ---
- General Info Date of Service: 02/10/20 Admission Dx/Problem (Free Text): 1. Grand mal seizure 2. COVID-19 3. Bilateral pneumonia Subjective Update: Patient is a somewhat poor historian today with persistent moderate confusion. Functional Status: Reports: Pain Controlled, Tolerating Diet, Urinating (Kam catheter), Incentive Spirometry. Denies: Ambulating, New Symptoms Pain Score: 0 - Review of Systems General: Reports: Weakness (Stable right hemiparesis with overall generalized weakness secondary to current infection), Fatigue, Malaise (Mild). Denies: Fever, Chills, Night Sweats, Appetite (Adequate) HEENT: Reports: Post Nasal Drip, Sinus Congestion Pulmonary: Reports: Shortness of Breath, Cough. Denies: Sputum, Hemoptysis, Wheezing Cardiovascular: Reports: No Symptoms. Denies: Chest Pain, Orthopnea Gastrointestinal: Reports: Other (Stool incontinence this morning). Denies: Abdominal Pain, Decreased Appetite, Hematochezia, Melena, Nausea, Vomiting Genitourinary: Reports: Other (Kam catheter with some mild hematuria) Musculoskeletal: Reports: No Symptoms Skin: Reports: Bruising (Stable). Denies: Diaphoresis Neurological: Reports: Confusion (Moderate persistent as above), Pre-Existing Deficit (Right hemiparesis), Difficulty Walking, Weakness (Generalized) Psychiatric: Reports: Confusion (As above). Denies: Agitation, Cravings, Hallucinations - Patient Data Vitals - Most Recent: Last Vital Signs Temp 36.3 C 02/10/20 04:00 Pulse 68 02/10/20 04:00 Resp 24 H 02/10/20 04:00 BP 147/93 H 02/10/20 04:00 Pulse Ox 92 L 02/10/20 04:00 Vital Signs - 24 hr 02/09/20 02/09/20 02/09/20 10:50 12:14 15:44 Temperature [ 36.3 C 36.3 C 36.3 C Temporal] Pulse, Peripheral Pulse, 90 Peripheral [ Left Pulse Oximetry] Pulse, 80 Peripheral [ Right Pulse Oximetry] Respiratory 24 H 24 H Rate Blood Pressure Blood Pressure 118/78 [Left Upper Arm ] Blood Pressure 122/69 [Right Upper Arm] O2 Sat by Pulse 90 L 90 L Oximetry 02/09/20 02/09/20 02/09/20 19:50 19:56 23:58 Temperature [ 36.3 C 36.2 C Temporal] Pulse, Peripheral Pulse, 88 87 Peripheral [ Left Pulse Oximetry] Pulse, Peripheral [ Right Pulse Oximetry] Respiratory 24 H 28 H Rate Blood Pressure 137/87 Blood Pressure 137/87 145/89 H [Left Upper Arm ] Blood Pressure [Right Upper Arm] O2 Sat by Pulse 90 L 90 L Oximetry 02/10/20 02/10/20 04:00 09:48 Temperature [ 36.3 C Temporal] Pulse, 84 Peripheral Pulse, 68 Peripheral [ Left Pulse Oximetry] Pulse, Peripheral [ Right Pulse Oximetry] Respiratory 24 H Rate Blood Pressure 177/91 H Blood Pressure 147/93 H [Left Upper Arm ] Blood Pressure [Right Upper Arm] O2 Sat by Pulse 92 L Oximetry Weight - Most Recent: 70.987 kg I&O - Last 24 Hours: Intake & Output 02/09/20 02/10/20 02/10/20 22:59 06:59 14:59 Intake Total 1247 540 Output Total 500 550 Balance 747 -10 Imaging Impressions - Last 24 Hours: Chest x-ray, portable, shows mild cardiomegaly with left sided pacer with leads in appropriate position. Significantly increased diffuse moderate to severe bilateral pulmonary infiltrates consistent with progressive pneumonia and/or CHF with significant increased findings since last chest x-ray on 02/08/2020. Stable mild right-sided elevated hemidiaphragm. Lab Results Last 24 Hours: Laboratory Results - last 24 hr 02/10/20 02/10/20 02/10/20 Range/Units 07:25 07:25 07:25 WBC 15.7 H (4.0-10.2) K/uL RBC 5.43 H (4.33-5.41) M/uL Hgb 16.3 (13.1-16.8) g/dL Hct 47.6 (39.0-49.0) % MCV 87.7 (84.0-98.0) fL MCH 30.0 (28.2-33.3) pg MCHC 34.2 (31.7-36.0) g/dL RDW 14.4 H (11.2-14.1) % Plt Count 88 L (150-350) K/uL Neut % (Auto) 90.6 H (45.0-80.0) % Lymph % (Auto) 2.9 L (10.0-50.0) % [place] % (Auto) 6.2 (2.0-14.0) % Eos % (Auto) 0.0 (0.0-5.0) % Baso % (Auto) 0.3 (0.0-2.0) % Neut # (Auto) 14.21 H (1.40-7.00) K/uL Lymph # (Auto) 0.46 L (0.50-3.50) K/uL [place] # (Auto) 0.97 (0.00-1.00) K/uL Eos # (Auto) 0.00 (0.00-0.50) K/uL Baso # (Auto) 0.04 (0.00-0.20) K/uL D-Dimer, Quantitative 2620 H (0-400) ng/mL Sodium 142 (136-145) mmol/L Potassium 4.2 (3.5-5.1) mmol/L Chloride 111 H (98-107) mmol/L Carbon Dioxide 20.0 L (21.0-32.0) mmol/L BUN 71 H (7-18) mg/dL Creatinine 1.82 H (0.51-1.17) mg/dL Est Cr Clr Drug Dosing 30.34 mL/min Estimated GFR (MDRD) 36 mL/min Glucose 149 H (74-106) mg/dL Calcium 8.4 L (8.5-10.1) mg/dL Total Bilirubin 1.0 (0.2-1.0) mg/dL AST 70 H (15-37) U/L ALT 40 (12-78) U/L Alkaline Phosphatase 51 (46-116) IU/L Creatine Kinase 264 (26-308) U/L Creatine Kinase Index 0.3 (0.0-2.5) % Troponin I 7.175 H* (0.000-0.056) ng/mL C-Reactive Protein 4.2 H (<=0.9) mg/dL NT-Pro-B Natriuret Pep 65791 H (0-125) pg/mL Total Protein 6.4 (6.4-8.2) g/dL Albumin 2.2 L (3.4-5.0) g/dL Laboratory Results - last 24 hr 11/02/10/20 02/10/20 Range/Units 07:25 07:25 07:25 WBC 15.7 H (4.0-10.2) K/uL RBC 5.43 H (4.33-5.41) M/uL Hgb 16.3 (13.1-16.8) g/dL Hct 47.6 (39.0-49.0) % MCV 87.7 (84.0-98.0) fL MCH 30.0 (28.2-33.3) pg MCHC 34.2 (31.7-36.0) g/dL RDW 14.4 H (11.2-14.1) % Plt Count 88 L (150-350) K/uL Neut % (Auto) 90.6 H (45.0-80.0) % Lymph % (Auto) 2.9 L (10.0-50.0) % [place] % (Auto) 6.2 (2.0-14.0) % Eos % (Auto) 0.0 (0.0-5.0) % Baso % (Auto) 0.3 (0.0-2.0) % Neut # (Auto) 14.21 H (1.40-7.00) K/uL Lymph # (Auto) 0.46 L (0.50-3.50) K/uL [place] # (Auto) 0.97 (0.00-1.00) K/uL Eos # (Auto) 0.00 (0.00-0.50) K/uL Baso # (Auto) 0.04 (0.00-0.20) K/uL PT (9.5-12.0) SEC INR APTT (24.5-32.8) SEC D-Dimer, Quantitative 2620 H (0-400) ng/mL Sodium 142 (136-145) mmol/L Potassium 4.2 (3.5-5.1) mmol/L Chloride 111 H (98-107) mmol/L Carbon Dioxide 20.0 L (21.0-32.0) mmol/L BUN 71 H (7-18) mg/dL Creatinine 1.82 H (0.51-1.17) mg/dL Est Cr Clr Drug Dosing 30.34 mL/min Estimated GFR (MDRD) 36 mL/min Glucose 149 H (74-106) mg/dL Calcium 8.4 L (8.5-10.1) mg/dL Total Bilirubin 1.0 (0.2-1.0) mg/dL AST 70 H (15-37) U/L ALT 40 (12-78) U/L Alkaline Phosphatase 51 (46-116) IU/L Creatine Kinase 264 (26-308) U/L Creatine Kinase Index 0.3 (0.0-2.5) % Troponin I 7.175 H* (0.000-0.056) ng/mL C-Reactive Protein 4.2 H (<=0.9) mg/dL NT-Pro-B Natriuret Pep 87321 H (0-125) pg/mL Total Protein 6.4 (6.4-8.2) g/dL Albumin 2.2 L (3.4-5.0) g/dL 02/10/20 Range/Units 07:30 WBC (4.0-10.2) K/uL RBC (4.33-5.41) M/uL Hgb (13.1-16.8) g/dL Hct (39.0-49.0) % MCV (84.0-98.0) fL MCH (28.2-33.3) pg MCHC (31.7-36.0) g/dL RDW (11.2-14.1) % Plt Count (150-350) K/uL Neut % (Auto) (45.0-80.0) % Lymph % (Auto) (10.0-50.0) % [place] % (Auto) (2.0-14.0) % Eos % (Auto) (0.0-5.0) % Baso % (Auto) (0.0-2.0) % Neut # (Auto) (1.40-7.00) K/uL Lymph # (Auto) (0.50-3.50) K/uL [place] # (Auto) (0.00-1.00) K/uL Eos # (Auto) (0.00-0.50) K/uL Baso # (Auto) (0.00-0.20) K/uL PT 79.6 H D (9.5-12.0) SEC INR 8.6 H* APTT 49.2 H (24.5-32.8) SEC D-Dimer, Quantitative (0-400) ng/mL Sodium (136-145) mmol/L Potassium (3.5-5.1) mmol/L Chloride (98-107) mmol/L Carbon Dioxide (21.0-32.0) mmol/L BUN (7-18) mg/dL Creatinine (0.51-1.17) mg/dL Est Cr Clr Drug Dosing mL/min Estimated GFR (MDRD) mL/min Glucose (74-106) mg/dL Calcium (8.5-10.1) mg/dL Total Bilirubin (0.2-1.0) mg/dL AST (15-37) U/L ALT (12-78) U/L Alkaline Phosphatase (46-116) IU/L Creatine Kinase (26-308) U/L Creatine Kinase Index (0.0-2.5) % Troponin I (0.000-0.056) ng/mL C-Reactive Protein (<=0.9) mg/dL NT-Pro-B Natriuret Pep (0-125) pg/mL Total Protein (6.4-8.2) g/dL Albumin (3.4-5.0) g/dL Bruce Results Last 24 Hours: None Med Orders - Current: Current Medications Acetaminophen (Tylenol) 650 mg PO Q4H PRN PRN Reason: Pain Last Admin: 02/06/20 16:30 Dose: 650 mg Documented by: Acetaminophen (Tylenol) 650 mg RECTAL Q4H PRN PRN Reason: Fever Last Admin: 02/07/20 19:48 Dose: 650 mg Documented by: Albuterol/Ipratropium (Combivent Respimat) 0 gm INH QID [facility] Last Admin: 02/09/20 20:00 Dose: 2 puff Documented by: Albuterol/Ipratropium (Combivent Respimat) 0 gm INH Q4H PRN PRN Reason: Dyspnea Aspirin (Halfprin) 81 mg PO DAILY [facility] Last Admin: 02/09/20 08:48 Dose: 81 mg Documented by: Atorvastatin Calcium (Lipitor) 10 mg PO BEDTIME [facility] Last Admin: 02/09/20 19:57 Dose: 10 mg Documented by: Calcium Carbonate (Oystcal-D 625 Mg-125 Units) 1 tab PO BID@08,1999 [facility] Last Admin: 02/09/20 19:58 Dose: 1 tab Documented by: Cholecalciferol (Vitamin D3) 50 mcg PO QAM [facility] Last Admin: 02/09/20 08:47 Dose: 50 mcg Documented by: Cholestyramine Resin (Cholestyramine Packet) 4 gm PO SUMOWEFR@1000 [facility] Last Admin: 02/09/20 10:58 Dose: 4 gm Documented by: Cyanocobalamin (Vitamin B12) 1,000 mcg PO DAILY [facility] Last Admin: 02/09/20 08:47 Dose: 1,000 mcg Documented by: Dexamethasone (Decadron) 6 mg IVPUSH Q24H [facility] Last Admin: 02/09/20 19:58 Dose: 6 mg Documented by: Famotidine (Pepcid) 20 mg IVPUSH DAILY [facility] Last Admin: 02/09/20 08:47 Dose: 20 mg Documented by: Remdesivir 100 mg/ Sodium (Chloride) 270 mls @ 270 mls/hr IV Q24H [facility] Stop: 02/11/20 10:01 Last Admin: 02/09/20 10:58 Dose: 270 mls/hr Documented by: Sodium Chloride (Normal Saline) 1,000 mls @ 50 mls/hr IV ASDIRECTED [facility] Last Admin: 02/10/20 04:04 Dose: 50 mls/hr Documented by: Ceftriaxone Sodium 1 gm/ (Sodium Chloride) 100 mls @ 200 mls/hr IV Q24H [facility] Last Admin: 02/09/20 15:42 Dose: 200 mls/hr Documented by: Isosorbide Mononitrate (Imdur) 60 mg PO DAILY [facility] Last Admin: 02/09/20 08:48 Dose: 60 mg Documented by: Labetalol HCl (Normodyne) 5 mg IVPUSH ONETIME PRN; Protocol PRN Reason: Hypertension Last Admin: 02/07/20 21:57 Dose: 5 mg Documented by: Latanoprost (Xalatan 0.005% Ophth Soln) 0 ml EYEBOTH BEDTIME [facility] Last Admin: 02/09/20 19:59 Dose: 1 drop Documented by: Lisinopril (Prinivil) 20 mg PO QPM@1999 [facility] Last Admin: 02/09/20 19:56 Dose: 20 mg Documented by: Magnesium Oxide (Magnesium Oxide) 400 mg PO DAILY [facility] Last Admin: 02/09/20 08:47 Dose: 400 mg Documented by: Metoprolol Succinate (Toprol Xl) 150 mg PO QAM [facility] Last Admin: 02/09/20 08:47 Dose: 150 mg Documented by: Nitroglycerin (Nitrostat) 0.4 mg SL ASDIRECTED PRN PRN Reason: Chest Pain Nitroglycerin (Nitro-Bid 2%) 0.5 gm TOP Q6H [facility] Ondansetron HCl (Zofran) 4 mg IVPUSH Q6H PRN PRN Reason: Nausea/Vomiting Saliva Substitute (Ceferino-Stir Oral [place]) 0 ml MUCMEM ASDIRECTED PRN PRN Reason: Dry Mouth Last Admin: 02/07/20 17:07 Dose: 2 spray Documented by: Sodium Chloride (Saline Flush) 10 ml FLUSH ASDIRECTED PRN PRN Reason: Keep Vein Open Last Admin: 02/09/20 10:58 Dose: 10 ml Documented by: Temazepam (Restoril) 15 mg PO BEDTIME PRN PRN Reason: Insomnia Warfarin Sodium (Coumadin) 2.5 mg PO Fr@1999 [facility] Last Admin: 02/04/20 19:35 Dose: 2.5 mg Documented by: Warfarin Sodium (Coumadin) 5 mg PO SuMoTuWeThSa@1999 [facility] Last Admin: 02/09/20 19:56 Dose: 5 mg Documented by: Discontinued Medications Dexamethasone (Decadron) 6 mg IVPUSH ONETIME ONE Stop: 02/03/20 20:36 Last Admin: 02/03/20 22:25 Dose: 6 mg Documented by: Doxycycline Monohydrate (Doxycycline Monohydrate) 100 mg PO BID [facility] Last Admin: 02/03/20 08:35 Dose: Not Given Documented by: Furosemide (Lasix) 40 mg IVPUSH Q8H [facility] Last Admin: 02/03/20 09:54 Dose: 40 mg Documented by: Sodium Chloride (Sodium Chloride 3%) 500 mls @ 100 mls/hr IV ASDIRECTED [facility] Last Admin: 02/01/20 18:04 Dose: 100 mls/hr Documented by: Ceftriaxone Sodium 1 gm/ (Sodium Chloride) 100 mls @ 200 mls/hr IV Q12H [facility] Last Admin: 02/02/20 12:00 Dose: 200 mls/hr Documented by: Ceftriaxone Sodium 1 gm/ (Sodium Chloride) 100 mls @ 200 mls/hr IV BID@0800,2000 [facility] Last Admin: 02/03/20 08:36 Dose: 200 mls/hr Documented by: Sodium Chloride (Normal Saline) 500 mls @ 125 mls/hr IV .BOLUS [facility] Last Admin: 02/03/20 14:39 Dose: 250 mls/hr Documented by: Remdesivir 200 mg/ Sodium (Chloride) 290 mls @ 290 mls/hr IV ONETIME ONE Stop: 02/04/20 09:01 Last Admin: 02/04/20 11:46 Dose: Not Given Documented by: Sodium Chloride (Normal Saline) 500 mls @ 40 mls/hr IV .BOLUS RIO Sodium Chloride (Normal Saline) 1,000 mls @ 80 mls/hr IV ASDIRECTED ONE Stop: 02/04/20 08:49 Last Admin: 02/03/20 20:34 Dose: 50 mls/hr Documented by: Sodium Chloride (Normal Saline) 250 mls @ 999 mls/hr IV ASDIRECTED [facility] Last Infusion: 02/04/20 12:05 Dose: Infused Documented by: Sodium Chloride (Normal Saline) 1,000 mls @ 50 mls/hr IV ASDIRECTED [facility] Last Admin: 02/06/20 22:06 Dose: 50 mls/hr Documented by: Remdesivir 200 mg/ Sodium (Chloride) 290 mls @ 290 mls/hr IV ONETIME ONE Stop: 02/07/20 10:01 Last Admin: 02/07/20 11:00 Dose: 290 mls/hr Documented by: Labetalol HCl (Normodyne) 5 mg IVPUSH ONETIME ONE; Protocol Stop: 02/06/20 20:31 Last Admin: 02/06/20 22:15 Dose: 5 mg Documented by: Potassium Chloride (Klor-Con M20) 20 meq PO TID [facility] Last Admin: 02/03/20 18:04 Dose: Not Given Documented by: - Exam Quality Assessment: Supplemental Oxygen (4 L/min by nasal cannula), Urine Catheter, DVT Prophylaxis (Coumadin). No: Central Line/PICC, Skin Breakdown, Restraints General: Cooperative, No Acute Distress, Other (Moderate confusion) HEENT: Pupils Equal, Pupils Reactive, EOMI, Mucous Membr. Moist/[place]. No: Scleral Icterus Neck: Trachea Midline, No JVD, No Thyromegaly, Lymphadenopathy, Carotid Bruit (Mild bilateral carotid bruits versus transmitted heart sounds) Lungs: Decreased Breath Sounds (Mild diffuse bilateral), Rales (Moderate diffuse bilateral rales). No: Rhonchi, Rub, Wheezing Cardiovascular: Regular Rhythm (Current pacemaker), Tachycardia, Murmurs (Returned mild 1/6 FRANCISCO in the aortic and mitral valves). No: Gallops, Rubs GI/Abdominal Exam: Normal Bowel Sounds, Soft, Non-Tender, No Organomegaly, No Distention, No Abnormal Bruit, No Mass, Other (Stool incontinence). No: Guarding (Male) Exam: Deferred Back Exam: Normal Inspection, Full Range of Motion. No: CVA Tenderness (L), CVA Tenderness (R), Muscle Spasm Extremities: Normal Inspection, Normal Range of Motion, Non-Tender, No Pedal Edema, Normal Capillary Refill. No: Nathaly's Sign Peripheral Pulses: 2+: Radial (R), Femoral (L), Dorsalis Pedis (L), Dorsalis Pedis (R) Skin: Warm, Dry, Intact, Ecchymosis (No petechiae). No: Rash Neurological: No New Focal Deficit, Other (Stable moderate right-sided hemiparesis and confusion) Psy/Mental Status: Alert. No: Agitated, Hallucinations, Withdrawal Symptoms #1 Interpretation EKG Date: 02/10/20 Time: 08:03 Rhythm: Other (Sinus tachycardia with frequent escape paced beats new from last EKG) Rate (Beats/Min): 130 [place]: Normal (Left cardiac axis changed from previous neutral cardiac axis) P-Wave: Enlarged (Moderate diffuse biphasic P waves) QRS: Wide (0.09 seconds with improved repolarization changes) ST-T: Other (Persistent T wave inversions in leads V4 through V6) QT: Normal SC/PQ Interval: 0.24 seconds with stable first-degree AV block Comparison: Change From Previous EKG (As above since 02/02/2020) EKG Interpretation Comments: 1. Lateral wall cardiac ischemia 2. History of atrial fibrillation with frequent escape pacer rhythm 3. First-degree AV block 4. Repolarization changes Sepsis Event Note - Evaluation Sepsis Screening Result: No Definite Risk - Focused Exam Vital Signs: Vital Signs Temp Pulse Resp BP Pulse Ox 02/10/20 04:00 36.3 C 68 24 H 147/93 H 92 L 02/09/20 23:58 36.2 C 87 28 H 145/89 H 90 L - Problem List & Annotations (1) Seizure SNOMED Code(s): 52921238 Code(s): R56.9 - UNSPECIFIED CONVULSIONS Status: Acute Priority: High Current Visit: Yes Onset Date: 02/01/20 Annotation/Comment:: Initiate Keppra if another episode is observed per conversation with /Gay by [facility] physician, however no further seizure activity after admission. Secondary to patient's overall poor prognosis from current infection, CHF, and FL patient will likely not be able to have a neurological consultation as previously planned by [facility] physicians. Suspected generalized tonic- clonic grand mal seizure with secondary urinary and stool incontinence at about 9:10 AM on 01/31 in swing bed care resulting in some mild postictal sedation. His severe hyponatremia may be a contributing factor with no initiation of Keppra initially. Note comfort care status. Repeat CT of the head on 02/08/2020 did not indicate any acute changes as above. Note CT of the head from 01/27/2020 [facility] unremarkable for acute changes. Previously suspected recurrent vasovagal episodes prior to admission to [facility] as per history and physical and swing bed care. These may be in fact brief seizures, however no noted post-ictal period. Note current COVID-19 infection which has been a ssociated with development of seizures. 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 Notes some moderate confusion secondary to his hypoxia and current infection on 02/08/2020. (2) COVID-19 SNOMED Code(s): 497514907 Code(s): U07.1 - COVID-19 Status: Acute Priority: High Current Visit: Yes Annotation/Comment:: Recent acute Covid 19 infection with initial hospitalization from 01/26 through 01/30/2020 at [facility] for treatment. Records reviewed by me on 01/31, including CT scan of the head resul ts in that facility on 01/27/2020. 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 Patient was discharged from that facility and failed attempt to return home due to continued pronounced weakness. Other symptoms had been improving. The patient was admitted to Swing Bed in this facility for evaluation and treatment by PT/OT, however had to be changed to inpatient/acute care secondary to his grand mal seizure, progressive COVID-19 symptoms, etc. IV Pepcid was also initiated on 01/31 as GI prophylaxis and treatment for his COVID-19. The patient is already on an SU inhibitor. In addition, note that the patient was transferred to inpatient/acute care secondary to newly diagnosed suspected grand mal seizure as above. IV Decadron and IV remdesivir have been initiated with completion expected on 02/11/2020. Serial blood work as per remdesivir guidelines. Note progressive renal insufficiency, which is of some concern in light of his remdesivir, however continue this therapy for now. Transfer back to swing bed care after completion of the above IV therapy. Prognosis is extremely poor. Telephone consultation with the patient's , Viki, at 10:30 AM this morning concerning patient's current health status, including progressive bilateral pneumonia, CHF, acute FL, etc. Various therapeutic options were discussed with the patient's wishing to continue IV Decadron and IV remdesivir therapy for an additional day. The patient is not a candidate for convalescent plasma secondary to significant length of his current symptoms. Ginna, supervising nurse, was also on speaker phone today with options of transfer to swing bed, half-way, hospice care, etc., including withdrawal of care and initiation of comfort care measures. Further decisions will be made by his and [facility] physician tomorrow. Emotional support, prayers, etc. were provided. (3) Pneumonia SNOMED Code(s): 782386344 Code(s): J18.9 - PNEUMONIA, UNSPECIFIED ORGANISM Status: Acute Priority: High Current Visit: Yes Onset Date: ~02/01/20 Qualifiers: Pneumonia type: due to unspecified organism Laterality: bilateral Lung location: unspecified part of lung Qualified Code(s): J18.9 - Pneumonia, unspecified organism Annotation/Comment:: IV Rocephin and oral doxycycline had been started due to cover for the potential of developing secondary bacterial pneumonia. Initial plan was to continue antibiotic therapy during this hospitalization, however after the [facility] physician discussed options with patient's it was decided to avoid antibiotics for now. Note, however that IV Rocephin was reinitiated on 02/08/2020 secondary to worsening hypoxia and chest x-ray. Chest x-ray findings on 02/10/2020 have significantly progressed since 02/07. Prognosis is extremely poor. Note significant return leukocytosis, elevated CRP, etc. on 02/09. Further care wishes discussed with the patient's earlier this morning as above. Note significantly elevated INR with no further antibiotic therapy, although IV Rocephin therapy will be continued for now. Vitamin K 5 mg IV given this morning with further INR evaluation this afternoon. His Coumadin was discontinued with change to subcu sodium heparin therapy versus Lovenox once his INRs have stabilized. (4) CHF (congestive heart failure) SNOMED Code(s): 98078552 Code(s): I50.9 - HEART FAILURE, UNSPECIFIED Status: Chronic Priority: Medium Current Visit: Yes Qualifiers: Heart failure type: unspecified Heart failure chronicity: acute on chronic Qualified Code(s): I50.9 - Heart failure, unspecified Annotation/Comment:: No chest pain or anginal type symptoms, however note evidence of acute FL with lateral wall cardiac ischemia based on today's blood work, including significantly progressive findings in today's chest x-ray and significant progressive BNP elevation. Note previous IV Lasix therapy did aggravate patient's renal insufficiency, which is also progressive today. 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 (5) Elevated LFTs SNOMED Code(s): 029048752, 518976459 Code(s): R79.89 - OTHER SPECIFIED ABNORMAL FINDINGS OF BLOOD CHEMISTRY Status: Acute Priority: Medium Current Visit: Yes Onset Date: 02/02/20 Annotation/Comment:: Likely secondary to CHF elevation and relatively stable for now. Observe closely with continuation of IV remdesivir with caution per his 's request as above. (6) Hypoalbuminemia SNOMED Code(s): 146754508 Code(s): E88.09 - OTH DISORDERS OF PLASMA-PROTEIN METABOLISM, NEC Status: Acute Priority: Medium Current Visit: Yes Onset Date: 02/02/20 Annotation/Comment:: Observe for now. Consider high-protein Glucerna supplements as snacks. (7) First degree AV block SNOMED Code(s): 208431827 Code(s): I44.0 - ATRIOVENTRICULAR BLOCK, FIRST DEGREE Status: Acute Priority: Medium Current Visit: Yes Onset Date: 09/16/17 Annotation/Comment:: Stable during this hospitalization, however note sinus tachycardia and frequent skipped pacer beats on 02/10/2020. Previous history of atrial fibrillation. Further medication adjustment on 02/09 with caution. Note current Coumadin therapy until 02/09 with change to subcutaneous heparin as above. (8) Hyponatremia SNOMED Code(s): 17137998 Code(s): E87.1 - HYPO-OSMOLALITY AND HYPONATREMIA Status: Acute Priority: High Current Visit: Yes Onset Date: 02/01/20 Annotation/Comment:: Note significant hyponatremia, which may have contributed to his grand mal seizure as above. Careful initiation of 3% sodium chloride solution on admission, which was completed in the a.m. on 02/01. No further IV fluids for now secondary to patient's current CHF and COVID-19 infection. Sodium level now normal at 138 on 02/01 in comparison to 125 on 01/31 prior to patient's transfer. (9) Atrial fibrillation SNOMED Code(s): 62636761 Code(s): I48.91 - UNSPECIFIED ATRIAL FIBRILLATION Status: Chronic Priority: Medium Current Visit: Yes Qualifiers: Atrial fibrillation type: paroxysmal Qualified Code(s): I48.0 - Paroxysmal atrial fibrillation Annotation/Comment:: No atrial fibrillation on admission, however note current pacemaker. Note INR was therapeutic on admission with severely elevated INR of 8.6 on 02/09 likely secondary to his current IV Rocephin therapy with medication adjustment as above. (10) CVA (cerebral vascular accident) SNOMED Code(s): 617212158 Code(s): I63.9 - CEREBRAL INFARCTION, UNSPECIFIED Status: Chronic Priority: Low Current Visit: Yes Onset Date: ~09/15/17 Qualifiers: CVA mechanism: unspecified Qualified Code(s): I63.9 - Cerebral infarction, unspecified Annotation/Comment:: As above. (11) Coronary artery disease SNOMED Code(s): 02339912 Code(s): I25.10 - ATHSCL HEART DISEASE OF [place] CORONARY ARTERY W/O ANG PCTRS Status: Chronic Priority: Medium Current Visit: Yes Qualifiers: Coronary Disease-Associated Artery/Lesion type: [place] artery [place] vs. transplanted heart: [place] heart Associated angina: without angina Qualified Code(s): I25.10 - Atherosclerotic heart disease of [place] coronary artery without angina pectoris Annotation/Comment:: Probable acute lateral wall FL with significant progressive troponin I elevation on 02/10/2020. Note comfort care. History of diffuse coronary artery disease nonoperable in the past secondary to good collaterals by distant heart catheterization. 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 No chest pain or anginal type symptoms, although the patient is a poor historian. Coronary disease likely affected secondary to current Covid infection. Initiate nitroglycerin paste therapy on 02/10/2020 with change to oral Imdur depending on his clinical course. (12) Hypertension SNOMED Code(s): 00592739 Code(s): I10 - ESSENTIAL (PRIMARY) HYPERTENSION Status: Chronic Priority: Medium Current Visit: Yes Qualifiers: Hypertension type: essential hypertension Qualified Code(s): I10 - Essential (primary) hypertension Annotation/Comment:: Blood pressures variable during this hospitalization and and also prior to transfer to inpatient/acute care. Continue to observe closely. Medication adjustment as needed. (13) Peptic reflux disease SNOMED Code(s): 054467985 Code(s): K21.9 - GASTRO-ESOPHAGEAL REFLUX DISEASE WITHOUT ESOPHAGITIS Status: Chronic Priority: Medium Current Visit: Yes Annotation/Comment:: Stable by history, however changed from oral Protonix to IV Pepcid and IV Pr otonix on admission secondary to current anemia and COVID-19. (14) Renal insufficiency SNOMED Code(s): 124849097, 611178700 Code(s): N28.9 - DISORDER OF KIDNEY AND URETER, UNSPECIFIED Status: Chronic Priority: Medium Current Visit: Yes Annotation/Comment:: As above. Note progressive renal insufficiency after IV Lasix therapy after transfer to acute care. Lasix discontinued by [facility] physician due to this and patient's sudden acute increased weakness. Previous IV fluid boluses were given during this hospitalization. In spite of initial concerns of his renal insufficiency IV remdesivir was subsequently initiated during this hospitalization by [facility] physician. Continued serial blood work as per remdesivir protocol throughout this hospitalization. (15) Confusion SNOMED Code(s): 051105014 Code(s): R41.0 - DISORIENTATION, UNSPECIFIED Status: Acute Priority: Medium Current Visit: Yes Onset Date: ~02/09/20 Annotation/Comment:: Somewhat increased confusion since 02/[address] scan of the head on 02/07 was stable, however. Continue to observe closely. Prognosis poor as above. (16) Need for comfort care SNOMED Code(s): 060252833, 892263078 Code(s): MDK5341 - Status: Chronic Priority: Medium Current Visit: Yes Annotation/Comment:: Comfort care status confirmed with the patient's family on admission and once again on 02/09 during telephone consultation as above. Prognosis is extremely poor. Emotional support was provided. - Problem List Review Problem List Initiated/Reviewed/Updated: Yes - My Orders Last 24 Hours: My Active Orders 02/10/20 05:11 EKG Documentation Completion [RC] ASDIRECTED Chest 1V Frontal [CR] Routine INR,PT,PROTHROMBIN TIME [COAG] Stat PTT,PARTIAL THROMBOPLSTIN TIME [COAG] Stat 02/10/20 07:25 CK W CKMB [CHEM] Routine CRP [C-REACTIVE PROTEIN] [CHEM] Routine PRO B-TYPE NATRIUR PEPT,BNPPRO [CHEM] Routine TROPONIN I [CHEM] Routine 02/10/20 09:45 Nitroglycerin [Nitro-Bid 2%] 0.5 gm TOP Q6H 02/11/20 05:11 CBC WITH AUTO DIFF [HEME] DAILY - Assessment Assessment:: As above - Plan Plan:: As above. Extensive precautions were given to the patient and his during telephone consultation today as above. Swing bed, half-way transfer, and/or initiation of hospice depending on his 's wishes. Sudhakar olvera physician resumes care in the a.m.
[2020-02-10 09:59] LABS: PTT,PARTIAL THROMBOPLSTIN TIME 49.2 SEC (24.5-32.8)
[2020-02-10] MEDS: Saliva Substitute Oral Spray 120 ML Bottle MUCMEM PRN (09:59)
[2020-02-10] MEDS: Sodium Chloride 0.9% 10 ML Syringe FLUSH PRN ×5 (10:01→20:14)
[2020-02-10] MEDS: Nitroglycerin 2% Oint 1 GM UD Packet TOP SCH ×3 (10:13→21:39)
[2020-02-10] MEDS ORDERED: Phytonadione 5 MG in Sodium Chloride 0.9% 50 ML IV ONE (10:39)
[2020-02-10] MEDS ORDERED: Diltiazem 25 MG/5 ML SDV IVPUSH ONE (10:55)
[2020-02-10] MEDS: cefTRIAXone 1 GM in Sodium Chloride 0.9% 100 ML IV SCH (15:07)
[2020-02-10] MEDS ORDERED: Phytonadione 10 MG in Sodium Chloride 0.9% 50 ML IV ONE (15:58)
[2020-02-10] MEDS ORDERED: Diltiazem 120 MG Cap.CD PO SCH (20:00)
[2020-02-10] MEDS: atorvaSTATin 10 MG Tab PO SCH (20:04)
[2020-02-10] MEDS: Lisinopril 20 MG Tab PO SCH (20:05)
[2020-02-10] MEDS: Dexamethasone 10 MG/ML SDV IVPUSH SCH (20:13)
[2020-02-10] MEDS: Latanoprost 0.005% Ophth Soln 2.5 ML Bottle EYEBOTH SCH (20:13)
[2020-02-10] MEDS: Heparin Sodium 5,000 Units/ML Vial SUBCUT SCH (21:39)
[2020-02-11] MEDS: Nitroglycerin 2% Oint 1 GM UD Packet TOP SCH ×2 (04:25→12:26)
[2020-02-11] MEDS: Sodium Chloride 0.9% 1,000 ML IV SCH (04:28)
[2020-02-11] MEDS: Heparin Sodium 5,000 Units/ML Vial SUBCUT SCH (04:29)
[2020-02-11] MEDS: Saliva Substitute Oral Spray 120 ML Bottle MUCMEM PRN ×4 (04:30→13:40)
[2020-02-11] MEDS ORDERED: Metoprolol Succinate 50 MG Tab.ER PO SCH (08:00)
[2020-02-11] MEDS: Morphine 2 MG/ML SYRINGE IVPUSH PRN ×2 (08:41→11:17)
[2020-02-11] MEDS ORDERED: LORazepam 2 MG/ML SDV IVPUSH PRN ×2 (09:15→12:53)
[2020-02-11] MEDS: Sodium Chloride 0.9% 10 ML Syringe FLUSH PRN ×2 (09:34→11:20)
[2020-02-11 09:56] VITALS: BP 132/75; PULSE 66
[2020-02-11] MEDS ORDERED: LORazepam 2 MG/ML SDV IVPUSH ONE (11:22)
[2020-02-11] MEDS: Albuterol/Ipratropium 4 GM Inhalation Spray INH SCH (12:01)
[2020-02-11] MEDS: Cholestyramine/Sucrose Powder 4 GM Packet PO SCH (12:01)
[2020-02-11] MEDS: Magnesium Oxide 400 MG Tab PO SCH (12:02)
[2020-02-11] MEDS: REMDESIVIR 100 MG in Sodium Chloride 0.9% 250 ML IV SCH (12:02)
[2020-02-11] MEDS: Calcium Carbonate/Vitamin D3 625 MG-125 Unit Tab PO SCH (12:02)
[2020-02-11] MEDS: Aspirin 81 MG Tab.EC PO SCH (12:02)
[2020-02-11] MEDS: Famotidine 20 MG/2 ML SDV IVPUSH SCH (12:02)
[2020-02-11] MEDS: Cyanocobalamin (Vitamin B12) 1,000 MCG Tab PO SCH (12:02)
[2020-02-11] MEDS: Cholecalciferol (Vitamin D3) 25 MCG Tab PO SCH (12:03)
[2020-02-11] MEDS ORDERED: Morphine 2 MG/ML SYRINGE IVPUSH PRN (12:53)
[2020-02-11] MEDS ORDERED: Morphine Oral Concentrate 20 MG/ML 30 ML Bottle PO PRN (12:54)
[2020-02-11] MEDS ORDERED: Atropine 1% Ophth Soln 5 ML BOTTLE SL PRN (13:01)
--- NOTE | 2020-02-11 13:18 | PCM.DCSUM1 ---
Discharge Summary - Hospital Course Brief History: Patient admitted for ongoing care and evaluation due to acute Covid 19 infection. Diagnosis: Stroke: No - Discharge Data Discharge Date: 02/11/20 Discharge Disposition: DC/Tfer W/I Hosp To Swing Condition: Poor - Referral to Home Health Primary Care Physician: PCP None - Discharge Diagnosis/Problem(s) (1) COVID-19 SNOMED Code(s): 071049143 ICD Code: U07.1 - COVID-19 Status: Acute Priority: High Current Visit: Yes Problem Details: Patient with bilateral pneumonia and suspected collateral involvement of other organ systems/myocarditis. Progressive worsening over last few days. Patient developed increasing confusion and agitation as well as worsening respiratory status/elevated Troponin/worsening renal function. Now receiving PRN Morphine and Ativan. Family has elected for end of life comfort care. Will be discharged today and transferred to Swing Bed (2) Need for comfort care SNOMED Code(s): 297229568, 526831213 ICD Code: [id number] - Status: Chronic Priority: Medium Current Visit: Yes Problem Details: Comfort care status confirmed with the patient's family on admission and once again today. Transfer to Swing Bed with focus on end of life care. (3) Pneumonia SNOMED Code(s): 336717907 ICD Code: J18.9 - PNEUMONIA, UNSPECIFIED ORGANISM Status: Acute Priority: High Current Visit: Yes Onset Date: ~02/01/20 Problem Details: IV Rocephin and oral doxycycline had been started due to cover for the potential of developing secondary bacterial pneumonia. Initial plan was to continue antibiotic therapy during this hospitalization, however after the [facility] physician discussed options with patient's it was decided to avoid antibiotics for now. Note, however that IV Rocephin was reinitiated on 02/08/2020 secondary to worsening hypoxia and chest x-ray. This has been discontinued again per family's wishes. Chest x-ray findings on 02/10/2020 have significantly progressed since 02/07. Prognosis is extremely poor. Note significant return leukocytosis, elevated CRP, etc. on 02/09. Qualifiers: Pneumonia type: due to unspecified organism Laterality: bilateral Lung location: unspecified part of lung Qualified Code(s): J18.9 - Pneumonia, unspecified organism (4) Renal insufficiency SNOMED Code(s): 451711052, 872168903 ICD Code: N28.9 - DISORDER OF KIDNEY AND URETER, UNSPECIFIED Status: Chronic Priority: Medium Current Visit: Yes Problem Details: Creatinine at 2.36 today. (5) Elevated CK SNOMED Code(s): 359757511 ICD Code: R74.8 - ABNORMAL LEVELS OF OTHER SERUM ENZYMES Status: Acute Priority: Medium Current Visit: Yes Problem Details: Normalized. Suspect due to Covid-19 as Covid has been shown to cause elevation due to rhabdo and car diac effects. (6) Dysphagia SNOMED Code(s): 38700689, 088610279 ICD Code: R13.10 - DYSPHAGIA, UNSPECIFIED Status: Chronic Priority: Medium Current Visit: Yes Problem Details: Long history of difficulty swallowing. Has undergone esophageal dilitation in past. Notes that food has been getting stuck more frequently in recent months. Qualifiers: Dysphagia type: unspecified Qualified Code(s): R13.10 - Dysphagia, unspecified (7) Seizure SNOMED Code(s): 27472817 ICD Code: R56.9 - UNSPECIFIED CONVULSIONS Status: Acute Priority: High Current Visit: Yes Onset Date: 02/01/20 Problem Details: Initiate Keppra if another episode is observed per conversation with /Gay by [facility] physician, however no further seizure activity after admission. Secondary to patient's overall poor prognosis from current infection, CHF, and OK patient will likely not be able to have a neurological consultation as previously planned by [facility] physicians. Suspected generalized tonic- clonic grand mal seizure with secondary urinary and stool incontinence at about 9:10 AM on 01/31 in swing bed care resulting in some mild postictal sedation. His severe hyponatremia may be a contributing factor with no initiation of Keppra initially. Note comfort care status. Repeat CT of the head on 02/08/2020 did not indicate any acute changes as above. Note CT of the head from 01/27/2020 [place] unremarkable for acute changes. Previously suspected recurrent vasovagal episodes prior to admission to [place] as per history and physical and swing bed care. These may be in fact brief seizures, however no noted post-ictal period. Note current COVID-19 infection which has been associated with development of seizures. 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 Notes some moderate confusion secondary to his hypoxia and current infection on 02/08/2020. (8) CHF (congestive heart failure) SNOMED Code(s): 15165866 ICD Code: I50.9 - HEART FAILURE, UNSPECIFIED Status: Chronic Priority: Medium Current Visit: Yes Problem Details: No chest pain or anginal type symptoms, however note evidence of acute OK vs myocarditis with lateral wall cardiac ischemia based on today's blood work, including significantly progressive findings in today's chest x-ray and significant progressive BNP elevation. Note previous IV Lasix therapy did aggravate patient's renal insufficiency, which is also progressive today. 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 Qualifiers: Heart failure type: unspecified Heart failure chronicity: acute on chronic Qualified Code(s): I50.9 - Heart failure, unspecified (9) Elevated LFTs SNOMED Code(s): 148084432, 578785597 ICD Code: R79.89 - OTHER SPECIFIED ABNORMAL FINDINGS OF BLOOD CHEMISTRY Status: Acute Priority: Medium Current Visit: Yes Onset Date: 02/02/20 Problem Details: Observe. (10) First degree AV block SNOMED Code(s): 275169446 ICD Code: I44.0 - ATRIOVENTRICULAR BLOCK, FIRST DEGREE Status: Acute Priority: Medium Current Visit: Yes Onset Date: 09/16/17 Problem Details: Stable during this hospitalization, however note sinus tachycardia and frequent skipped pacer beats on 02/10/2020. Previous history of atrial fibrillation. Further medication adjustment on 02/09 with caution. Note current Coumadin therapy until 02/09 with change to subcutaneous heparin as above. (11) Hypoalbuminemia SNOMED Code(s): 835124192 ICD Code: E88.09 - [facility] DISORDERS OF PLASMA-PROTEIN METABOLISM, NEC Status: Acute Priority: Medium Current Visit: Yes Onset Date: 02/02/20 Problem Details: Observe for now. (12) Hyponatremia SNOMED Code(s): 89721995 ICD Code: E87.1 - HYPO-OSMOLALITY AND HYPONATREMIA Status: Acute Priority: High Current Visit: Yes Onset Date: 02/01/20 Problem Details: Note significant hyponatremia, which may have contributed to his grand mal seizure as above. Careful initiation of 3% sodium chloride solution on admission, which was completed in the a.m. on 02/01. No further IV fluids for now secondary to patient's current CHF and COVID-19 infection. Sodium level normalized (13) Atrial fibrillation SNOMED Code(s): 85751624 ICD Code: I48.91 - UNSPECIFIED ATRIAL FIBRILLATION Status: Chronic Priority: Medium Current Visit: Yes Problem Details: No atrial fibrillation on admission, however note current pacemaker. Note INR was therapeutic on admission with severely elevated INR of 8.6 on 02/09 likely secondary to his current IV Rocephin therapy with medication adjustment as noted yesterday Qualifiers: Atrial fibrillation type: paroxysmal Qualified Code(s): I48.0 - Paroxysmal atrial fibrillation (14) CVA (cerebral vascular accident) SNOMED Code(s): 350930218 ICD Code: I63.9 - CEREBRAL INFARCTION, UNSPECIFIED Status: Chronic Priority: Low Current Visit: Yes Onset Date: ~09/15/17 Problem Details: As above. Qualifiers: CVA mechanism: unspecified Qualified Code(s): I63.9 - Cerebral infarction, unspecified (15) Coronary artery disease SNOMED Code(s): 67816073 ICD Code: I25.10 - ATHSCL HEART DISEASE OF [place] CORONARY ARTERY W/O ANG PCTRS Status: Chronic Priority: Medium Current Visit: Yes Problem Details: Probable acute lateral wall OK with significant progressive troponin I elevation on 02/10/2020. 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 Note comfort care. History of diffuse coronary artery disease nonoperable in the past secondary to good collaterals by distant heart catheterization. 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 No chest pain or anginal type symptoms, although the patient is a poor historian. Coronary disease likely affected secondary to current Covid infection. Initiate nitroglycerin paste therapy on 02/10/2020 with change to oral Imdur depending on his clinical course. Qualifiers: Coronary Disease-Associated Artery/Lesion type: [place] artery [place] vs. transplanted heart: [place] heart Associated angina: without angina Qualified Code(s): I25.10 - Atherosclerotic heart disease of [place] coronary artery without angina pectoris (16) Hypertension SNOMED Code(s): 43138327 ICD Code: I10 - ESSENTIAL (PRIMARY) HYPERTENSION Status: Chronic Priority: Medium Current Visit: Yes Problem Details: observe Qualifiers: Hypertension type: essential hypertension Qualified Code(s): I10 - Essential (primary) hypertension (17) Peptic reflux disease SNOMED Code(s): 089525651 ICD Code: K21.9 - GASTRO-ESOPHAGEAL REFLUX DISEASE WITHOUT ESOPHAGITIS Status: Chronic Priority: Medium Current Visit: Yes Problem Details: Stable by history, however changed from oral Protonix to IV Pepcid and IV Protonix on admission secondary to current anemia and COVID-19. - Patient Summary/Data Consults: Consultations 02/01/20 13:03 Consult to Case Management/[employer]isher [CONS] Routine Hospital Course: Patient's condition during stay varied with some days being better than others. Intermittent confusion. Strength also varied. Was initially placed on swing bed but needed to be placed inpatient due to worsening symptoms. Received antibiotics for possible secondary bacterial pneumonia. Also received Dexamethasone plus Remdesivir once renal function improved. Progressive worsening noted over this past week. Increased oxygen requirement and worsening appearance of lungs on chest films, suspected to be secondary to the Covid infection. CHF present. Also noted to have increases in CK/Troponin during stay, again suspect due to tissue effects of Covid, however cannot rule out possible OK developing as patient's overall condition worsened. Worsening respi ratory symptoms/confusion/weakness despite interventions. Patient eventually required Ativan/MS to assist with agitation and discomfort. Family has decided to pursue strictly comfort care. . Pt transfer back to Swing Bed with end of life care focus today. - Discharge Plan *PRESCRIPTION DRUG MONITORING PROGRAM REVIEWED*: Not Applicable *COPY OF PRESCRIPTION DRUG MONITORING REPORT IN PATIENT LUISANA: Not Applicable Home Medications: Home Meds Cholecalciferol (Vitamin D3) [Vitamin D3] 2,000 unit PO QAM 03/23/16 [History] Cyanocobalamin (Vitamin B-12) [Vitamin B-12] 1,000 mcg PO DAILY 03/23/16 [History] Glucosamine/D3/[place]oswellia Rocio [Glucosamine Complex Tablet] 1 tab PO DAILY 03/23/16 [History] Warfarin [Coumadin] 5 mg PO SUMOTUWETHSA@18 03/23/16 [History] Acetaminophen [Tylenol] 650 mg PO Q4H PRN tablet 09/17/17 [Rx] Calcium Carbonate/Vitamin D3 [Calcium Carb 500 MG] 1 each PO BID 11/04/18 [Histo ry] Magnesium Oxide [Magnesium] 400 mg PO QPM 11/04/18 [History] Aspirin [Halfprin] 81 mg PO DAILY tab.ec 11/18/18 [Rx] Cholestyramine/Sucrose [Cholestyramine] 4 gm PO SUMOWEFR@1000 #30 packet [Rx] Esomeprazole Magnesium [Nexium] 40 mg PO QAM #30 capsule.dr 11/18/18 [Rx] Furosemide [Lasix] 10 mg PO DAILY #30 tablet 11/18/18 [Rx] Isosorbide Mononitrate [Imdur] 60 mg PO DAILY #30 tab.er 11/18/18 [Rx] Lisinopril 20 mg PO QPM@1800 #30 tablet 11/18/18 [Rx] Metoprolol Succinate [Toprol XL 50mg] 150 mg PO QAM #90 tab.er 11/18/18 [Rx] Nitroglycerin [Nitrostat] 0.4 mg SL ASDIRECTED PRN #10 tab.sl 11/18/18 [Rx] Warfarin [Coumadin] 2.5 mg PO FR@18 #30 tablet 11/18/18 [Rx] atorvaSTATin [Lipitor] 10 mg PO BEDTIME #30 tablet 11/18/18 [Rx] Latanoprost/Pf [Latanoprost 0.005% Eye Drop] 1 drop EYEBOTH BEDTIME 01/30/20 [History] - Discharge Summary/Plan Comment DC Time >30 min.: No - General Info Date of Service: 02/11/20 Admission Dx/Problem (Free Text: 1. Grand mal seizure 2. COVID-19 3. Bilateral pneumonia Subjective Update: Patient currently unresponsive/sedated Functional Status: Reports: Pain Controlled. Denies: New Symptoms - Review of Systems General: Denies: Fever - Patient Data Vitals - Most Recent: Last Vital Signs Temp 36.2 C 02/11/20 09:55 Pulse 66 02/11/20 09:55 Resp 32 H 02/11/20 09:55 BP 132/75 02/11/20 09:55 Pulse Ox 91 L 02/11/20 09:55 Weight - Most Recent: 70.987 kg I&O - Last 24 hours: Intake & Output 02/10/20 02/11/20 02/11/20 22:59 06:59 14:59 Intake Total 400 1000 Output Total 150 550 Balance 250 1000 -550 Lab Results - Last 24 hrs: Laboratory Results - last 24 hr 02/10/20 02/10/20 02/10/20 Range/Units 15:05 19:25 19:50 WBC 17.4 H (4.0-10.2) K/uL RBC 5.72 H (4.33-5.41) M/uL Hgb 16.9 H (13.1-16.8) g/dL Hct 49.5 H (39.0-49.0) % MCV 86.5 (84.0-98.0) fL MCH 29.5 (28.2-33.3) pg MCHC 34.1 (31.7-36.0) g/dL RDW 14.6 H (11.2-14.1) % Plt Count 51 L (150-350) K/uL Neut % (Auto) 88.6 H (45.0-80.0) % Lymph % (Auto) 3.9 L (10.0-50.0) % [place] % (Auto) 7.2 (2.0-14.0) % Eos % (Auto) 0.1 (0.0-5.0) % Baso % (Auto) 0.2 (0.0-2.0) % Neut # (Auto) 15.41 H (1.40-7.00) K/uL Lymph # (Auto) 0.68 (0.50-3.50) K/uL [place] # (Auto) 1.26 H (0.00-1.00) K/uL Eos # (Auto) 0.01 (0.00-0.50) K/uL Baso # (Auto) 0.03 (0.00-0.20) K/uL PT 120.9 H D (9.5-12.0) SEC INR 13.2 H* 1.9 Sodium (136-145) mmol/L Potassium (3.5-5.1) mmol/L Chloride (98-107) mmol/L Carbon Dioxide (21.0-32.0) mmol/L BUN (7-18) mg/dL Creatinine (0.51-1.17) mg/dL Est Cr Clr Drug Dosing mL/min Estimated GFR (MDRD) mL/min Glucose (74-106) mg/dL Calcium (8.5-10.1) mg/dL Total Bilirubin (0.2-1.0) mg/dL AST (15-37) U/L ALT (12-78) U/L Alkaline Phosphatase (46-116) IU/L Total Protein (6.4-8.2) g/dL Albumin (3.4-5.0) g/dL 02/11/20 02/11/20 Range/Units 07:30 07:30 WBC 19.6 H (4.0-10.2) K/uL RBC 5.44 H (4.33-5.41) M/uL Hgb 15.9 (13.1-16.8) g/dL Hct 46.9 (39.0-49.0) % MCV 86.2 (84.0-98.0) fL MCH 29.2 (28.2-33.3) pg MCHC 33.9 (31.7-36.0) g/dL RDW 14.5 H (11.2-14.1) % Plt Count 63 L (150-350) K/uL Neut % (Auto) 90.9 H (45.0-80.0) % Lymph % (Auto) 2.6 L (10.0-50.0) % [place] % (Auto) 6.3 (2.0-14.0) % Eos % (Auto) 0.0 (0.0-5.0) % Baso % (Auto) 0.2 (0.0-2.0) % Neut # (Auto) 17.82 H (1.40-7.00) K/uL Lymph # (Auto) 0.50 (0.50-3.50) K/uL [place] # (Auto) 1.23 H (0.00-1.00) K/uL Eos # (Auto) 0.00 (0.00-0.50) K/uL Baso # (Auto) 0.04 (0.00-0.20) K/uL PT (9.5-12.0) SEC INR Sodium 145 (136-145) mmol/L Potassium 4.5 (3.5-5.1) mmol/L Chloride 114 H (98-107) mmol/L Carbon Dioxide 15.3 L (21.0-32.0) mmol/L BUN 96 H* D (7-18) mg/dL Creatinine 2.36 H (0.51-1.17) mg/dL Est Cr Clr Drug Dosing 23.40 mL/min Estimated GFR (MDRD) 26 mL/min Glucose 139 H (74-106) mg/dL Calcium 8.1 L (8.5-10.1) mg/dL Total Bilirubin 1.3 H (0.2-1.0) mg/dL AST 83 H (15-37) U/L ALT 42 (12-78) U/L Alkaline Phosphatase 65 (46-116) IU/L Total Protein 6.1 L (6.4-8.2) g/dL Albumin 2.1 L (3.4-5.0) g/dL Med Orders - Current: Current Medications Acetaminophen (Tylenol) 650 mg PO Q4H PRN PRN Reason: Pain Last Admin: 02/06/20 16:30 Dose: 650 mg Documented by: Acetaminophen (Tylenol) 650 mg RECTAL Q4H PRN PRN Reason: Fever Last Admin: 02/07/20 19:48 Dose: 650 mg Documented by: Albuterol/Ipratropium (Combivent Respimat) 0 gm INH QID [facility] Last Admin: 02/11/20 12:01 Dose: Not Given Documented by: Albuterol/Ipratropium (Combivent Respimat) 0 gm INH Q4H PRN PRN Reason: Dyspnea Aspirin (Halfprin) 81 mg PO DAILY [facility] Last Admin: 02/11/20 12:02 Dose: Not Given Documented by: Atorvastatin Calcium (Lipitor) 10 mg PO BEDTIME [facility] Last Admin: 02/10/20 20:04 Dose: Not Given Documented by: Atropine Sulfate (Atropine 1% Oph Soln) 1 ml SL Q2H PRN PRN Reason: secretions Calcium Carbonate (Oystcal-D 625 Mg-125 Units) 1 tab PO BID@0800,2000 [facility] Last Admin: 02/11/20 12:02 Dose: Not Given Documented by: Cholecalciferol (Vitamin D3) 50 mcg PO QAM [facility] Last Admin: 02/11/20 12:03 Dose: Not Given Documented by: Cholestyramine Resin (Cholestyramine Packet) 4 gm PO SUMOWEFR@1000 [facility] Last Admin: 02/11/20 12:01 Dose: Not Given Documented by: Cyanocobalamin (Vitamin B12) 1,000 mcg PO DAILY [facility] Last Admin: 02/11/20 12:02 Dose: Not Given Documented by: Dexamethasone (Decadron) 6 mg IVPUSH Q24H [facility] Last Admin: 02/10/20 20:13 Dose: 6 mg Documented by: Diltiazem HCl (Cardizem Cd) 120 mg PO QPM@1999 [facility] Last Admin: 02/10/20 20:04 Dose: Not Given Documented by: Famotidine (Pepcid) 20 mg IVPUSH DAILY [facility] Last Admin: 02/11/20 12:02 Dose: Not Given Documented by: Heparin Sodium (Porcine) (Heparin Sodium) 5,000 units SUBCUT Q8H [facility] Last Admin: 02/11/20 04:29 Dose: 5,000 units Documented by: Sodium Chloride (Normal Saline) 1,000 mls @ 50 mls/hr IV ASDIRECTED [facility] Last Admin: 02/11/20 04:28 Dose: 50 mls/hr Documented by: Labetalol HCl (Normodyne) 5 mg IVPUSH ONETIME PRN; Protocol PRN Reason: Hypertension Last Admin: 02/07/20 21:57 Dose: 5 mg Documented by: Latanoprost (Xalatan 0.005% Ophth Soln) 0 ml EYEBOTH BEDTIME [facility] Last Admin: 02/10/20 20:13 Dose: 1 drop Documented by: Lisinopril (Prinivil) 20 mg PO QPM@1999 [facility] Last Admin: 02/10/20 20:05 Dose: Not Given Documented by: Lorazepam (Ativan) 1 mg IVPUSH Q4H PRN PRN Reason: Agitation Magnesium Oxide (Magnesium Oxide) 400 mg PO DAILY [facility] Last Admin: 02/11/20 12:02 Dose: Not Given Documented by: Metoprolol Succinate (Toprol Xl) 50 mg PO DAILY [facility] Last Admin: 02/11/20 12:02 Dose: Not Given Documented by: Morphine Sulfate (Morphine) 2 mg IVPUSH Q1H PRN PRN Reason: Pain/Dyspnea Morphine Sulfate (Morphine 20 Mg/Ml Soln) 5 mg PO Q1H PRN PRN Reason: Agitation Nitroglycerin (Nitrostat) 0.4 mg SL ASDIRECTED PRN PRN Reason: Chest Pain Nitroglycerin (Nitro-Bid 2%) 0.5 gm TOP Q6H [facility] Last Admin: 02/11/20 12:26 Dose: Not Given Documented by: Ondansetron HCl (Zofran) 4 mg IVPUSH Q6H PRN PRN Reason: Nausea/Vomiting Saliva Substitute (Ceferino-Stir Oral [place]) 0 ml MUCMEM ASDIRECTED PRN PRN Reason: Dry Mouth Last Admin: 02/11/20 10:00 Dose: 5 spray Documented by: Sodium Chloride (Saline Flush) 10 ml FLUSH ASDIRECTED PRN PRN Reason: Keep Vein Open Last Admin: 02/11/20 11:20 Dose: 10 ml Documented by: Discontinued Medications Dexamethasone (Decadron) 6 mg IVPUSH ONETIME ONE Stop: 02/03/20 20:36 Last Admin: 02/03/20 22:25 Dose: 6 mg Documented by: Diltiazem HCl (Diltiazem) 20 mg IVPUSH ONETIME ONE Stop: 02/10/20 10:56 Last Admin: 02/10/20 14:07 Dose: 10 mg Documented by: Doxycycline Monohydrate (Doxycycline Monohydrate) 100 mg PO BID [facility] Last Admin: 02/03/20 08:35 Dose: Not Given Documented by: Furosemide (Lasix) 40 mg IVPUSH Q8H [facility] Last Admin: 02/03/20 09:54 Dose: 40 mg Documented by: Sodium Chloride (Sodium Chloride 3%) 500 mls @ 100 mls/hr IV ASDIRECTED [facility] Last Admin: 02/01/20 18:04 Dose: 100 mls/hr Documented by: Ceftriaxone Sodium 1 gm/ (Sodium Chloride) 100 mls @ 200 mls/hr IV Q12H [facility] Last Admin: 02/02/20 12:00 Dose: 200 mls/hr Documented by: Ceftriaxone Sodium 1 gm/ (Sodium Chloride) 100 mls @ 200 mls/hr IV BID@0800,2000 [facility] Last Admin: 02/03/20 08:36 Dose: 200 mls/hr Documented by: Sodium Chloride (Normal Saline) 500 mls @ 125 mls/hr IV .BOLUS [facility] Last Admin: 02/03/20 14:39 Dose: 250 mls/hr Documented by: Remdesivir 200 mg/ Sodium (Chloride) 290 mls @ 290 mls/hr IV ONETIME ONE Stop: 02/04/20 09:01 Last Admin: 02/04/20 11:46 Dose: Not Given Documented by: Sodium Chloride (Normal Saline) 500 mls @ 40 mls/hr IV .BOLUS RIO Sodium Chloride (Normal Saline) 1,000 mls @ 80 mls/hr IV ASDIRECTED ONE Stop: 02/04/20 08:49 Last Admin: 02/03/20 20:34 Dose: 50 mls/hr Documented by: Sodium Chloride (Normal Saline) 250 mls @ 999 mls/hr IV ASDIRECTED [facility] Last Infusion: 02/04/20 12:05 Dose: Infused Documented by: Sodium Chloride (Normal Saline) 1,000 mls @ 50 mls/hr IV ASDIRECTED [facility] Last Admin: 02/06/20 22:06 Dose: 50 mls/hr Documented by: Remdesivir 100 mg/ Sodium (Chloride) 270 mls @ 270 mls/hr IV Q24H [facility] Stop: 02/11/20 10:01 Last Admin: 02/11/20 12:02 Dose: Not Given Documented by: Remdesivir 200 mg/ Sodium (Chloride) 290 mls @ 290 mls/hr IV ONETIME ONE Stop: 02/07/20 10:01 Last Admin: 02/07/20 11:00 Dose: 290 mls/hr Documented by: Ceftriaxone Sodium 1 gm/ (Sodium Chloride) 100 mls @ 200 mls/hr IV Q24H [facility] Last Admin: 02/10/20 15:07 Dose: 200 mls/hr Documented by: Phytonadione 5 mg/ Sodium (Chloride) 50.5 mls @ 100 mls/hr IV NOW ONE Stop: 02/10/20 11:09 Last Admin: 02/10/20 14:08 Dose: 100 mls/hr Documented by: Phytonadione 10 mg/ Sodium (Chloride) 51 mls @ 100 mls/hr IV NOW ONE Stop: 02/10/20 16:28 Last Admin: 02/10/20 16:40 Dose: 100 mls/hr Documented by: Isosorbide Mononitrate (Imdur) 60 mg PO DAILY [facility] Last Admin: 02/10/20 09:47 Dose: 60 mg Documented by: Labetalol HCl (Normodyne) 5 mg IVPUSH ONETIME ONE; Protocol Stop: 02/06/20 20:31 Last Admin: 02/06/20 22:15 Dose: 5 mg Documented by: Lorazepam (Ativan) 1 mg IVPUSH Q6H PRN PRN Reason: Agitation Last Admin: 02/11/20 09:33 Dose: 1 mg Documented by: Lorazepam (Ativan) 1 mg IVPUSH ONETIME ONE Stop: 02/11/20 11:23 Last Admin: 02/11/20 11:34 Dose: 1 mg Documented by: Metoprolol Succinate ([facility] Xl) [facility] Last Admin: 02/10/20 09:48 Dose: 150 mg Documented by: Morphine Sulfate (Morphine) 2 mg IVPUSH Q2H PRN PRN Reason: Pain/Dyspnea Last Admin: 02/11/20 11:17 Dose: 2 mg Documented by: Potassium Chloride (Klor-Con M20) 20 meq PO TID [facility] Last Admin: 02/03/20 18:04 Dose: Not Given Documented by: Temazepam (Restoril) 15 mg PO BEDTIME PRN PRN Reason: Insomnia Warfarin Sodium (Coumadin) 2.5 mg PO Fr@1999 [facility] Last Admin: 02/04/20 19:35 Dose: 2.5 mg Documented by: Warfarin Sodium (Coumadin) 5 mg PO SuMoTuWeThSa@1999 [facility] Last Admin: 02/09/20 19:56 Dose: 5 mg Documented by: - Exam Quality Assessment: Reports: Supplemental Oxygen, Urine Catheter, DVT Prophylaxis General: Reports: Sedated HEENT: Reports: Pupils Equal, Pupils Reactive Neck: Reports: Trachea Midline Lungs: Reports: Rales (bilat), Rhonchi (bilat). Denies: Stridor Cardiovascular: Reports: Irregular Rhythm GI/Abdominal Exam: Soft, No Distention (Male) Exam: Deferred Rectal (Males) Exam: Deferred Extremities: No: Increased Warmth, Mottled, Pallor, Redness Skin: Reports: Warm, Dry Neurological: Reports: No New Focal Deficit
== END 2020-02-11 14:39 | disposition swing bed (61) | DRG 177 ==
LOC: LL.MS 10:39 → UNDOADMIN 10:39 → LL.MS 14:47
PROVIDERS: ADMIT Family Medicine; ATTEND Family Medicine
PROC: XW033E5 Introduction of Remdesivir Anti-infective into Peripheral Vein, Percutaneous Approach, New Technology Group 5 (ICD-10-PCS; principal; 2020-02-07)
DX: U07.1 COVID-19 (principal); J12.89 Other viral pneumonia; J15.9 Unspecified bacterial pneumonia; I21.9 Acute myocardial infarction, unspecified; E87.1 Hypo-osmolality and hyponatremia; I13.0 Hypertensive heart and chronic kidney disease with heart failure and stage 1 through stage 4 chronic kidney disease, or unspecified chronic kidney disease; I69.351 Hemiplegia and hemiparesis following cerebral infarction affecting right dominant side; Z51.5 Encounter for palliative care; N18.9 Chronic kidney disease, unspecified; R74.8 Abnormal levels of other serum enzymes; R13.10 Dysphagia, unspecified; I50.9 Heart failure, unspecified; R79.89 Other specified abnormal findings of blood chemistry; I44.0 Atrioventricular block, first degree; E88.09 Other disorders of plasma-protein metabolism, not elsewhere classified; I48.0 Paroxysmal atrial fibrillation; I25.10 Atherosclerotic heart disease of native coronary artery without angina pectoris; K21.9 Gastro-esophageal reflux disease without esophagitis; G40.409 Other generalized epilepsy and epileptic syndromes, not intractable, without status epilepticus; R53.1 Weakness; D64.9 Anemia, unspecified; R41.0 Disorientation, unspecified; Z79.01 Long term (current) use of anticoagulants; Z79.82 Long term (current) use of aspirin; Z79.899 Other long term (current) drug therapy
CPT/HCPCS: 36415; 70450; 71045; 80048; 80053; 82140; 82272; 82550; 82553; 83605; 83735; 83880; 84146; 84484; 85025; 85379; 85610; 85730; 86140; 93005; 93970; 94640; 94761; 97110-GP; 97163-GP; 97530-GP; A9270-GY; J0696; J1100; J1644; J1940; J2060; J2270; J3430; J3490; J7030; J7040; J7050

== ENCOUNTER 2020-02-11 11:26 | Inpatient (IN) | payer MEDICARE, BC ==
[2020-02-11 14:54] VITALS: BP 132/75; PULSE 66
[2020-02-11] MEDS ORDERED: Nitroglycerin 0.4 MG Tab.SL SL PRN (15:05)
[2020-02-11] MEDS ORDERED: Sodium Chloride 0.9% 10 ML Syringe FLUSH PRN ×2 (15:05)
[2020-02-11] MEDS ORDERED: Atropine 1% Ophth Soln 5 ML BOTTLE SL PRN (15:05)
[2020-02-11] MEDS ORDERED: Morphine 2 MG/ML SYRINGE IVPUSH PRN (15:05)
[2020-02-11] MEDS ORDERED: Labetalol 20 MG/4 ML Syringe IVPUSH PRN (15:05)
[2020-02-11] MEDS ORDERED: Sodium Chloride 0.9% 1,000 ML IV SCH (15:05)
[2020-02-11] MEDS ORDERED: Saliva Substitute Oral Spray 120 ML Bottle MUCMEM PRN (15:05)
[2020-02-11] MEDS ORDERED: LORazepam 2 MG/ML SDV IVPUSH PRN (15:05)
[2020-02-11] MEDS ORDERED: Morphine Oral Concentrate 20 MG/ML 30 ML Bottle PO PRN (15:05)
[2020-02-11] MEDS ORDERED: Acetaminophen 650 MG Supp RECTAL PRN (15:05)
[2020-02-11] MEDS ORDERED: Ondansetron 4 MG/2 ML SDV IVPUSH PRN (15:05)
[2020-02-11] MEDS ORDERED: Morphine 4 MG/ML Syringe IVPUSH PRN (15:32)
[2020-02-11] MEDS ORDERED: Latanoprost 0.005% Ophth Soln 2.5 ML Bottle EYEBOTH SCH (20:00)
[2020-02-11] MEDS ORDERED: Dexamethasone 10 MG/ML SDV IVPUSH SCH (20:00)
[2020-02-11] MEDS ORDERED: Heparin Sodium 5,000 Units/ML Vial SUBCUT SCH (21:00)
[2020-02-12] MEDS ORDERED: Famotidine 20 MG/2 ML SDV IVPUSH SCH (08:00)
--- NOTE | 2020-02-12 14:58 | PCM.DCSUM1 ---
Discharge Summary - Hospital Course Brief History: Admitted Swing Bed from acute inpatient in order to receive end of life comfort care for Covid 19 related complications. Diagnosis: Stroke: No - Discharge Data Discharge Date: 02/11/20 Discharge Disposition: 20 Condition: - Referral to Home Health Primary Care Physician: PCP None - Discharge Diagnosis/Problem(s) (1) COVID-19 SNOMED Code(s): 466628495 ICD Code: U07.1 - COVID-19 Status: Acute Priority: High Problem Details: Patient with bilateral pneumonia and suspected collateral involvement of other organ systems/myocarditis. Progressive worsening over last few days. Patient placed on end of life comfort cares. (2) Pneumonia SNOMED Code(s): 033229184 ICD Code: J18.9 - PNEUMONIA, UNSPECIFIED ORGANISM Status: Acute Priority: High Onset Date: ~02/01/20 Problem Details: Bilateral viral pneumonia Qualifiers: Pneumonia type: due to unspecified organism Laterality: bilateral Lung location: unspecified part of lung Qualified Code(s): J18.9 - Pneumonia, unspecified organism (3) Need for comfort care SNOMED Code(s): 532895871, [id number] ICD Code: [id number] - Status: Chronic Priority: Medium Problem Details: Comfort care status confirmed with the patient's family on admission and again when admitted to Swing. Transfered to Swing Bed with focus on end of life care. - Patient Summary/Data Consults: Consultations 02/11/20 15:05 Consult to Case Management/Operations Representative [CONS] Routine Hospital Course: Patient admitted to Swing bed, then to acute inpatient, and back to swing bed while receiving various treatments for acute Covid 19 infection and resulting pneumonia. Suspected involvement of muscle/kidneys/myocardium which in conjunction with pneumonia took progressive toll on patient. Worsening respiratory status led to discontinuation of other treatments and a focus on comfort/end of life care. - Discharge Plan *PRESCRIPTION DRUG MONITORING PROGRAM REVIEWED*: Not Applicable *COPY OF PRESCRIPTION DRUG MONITORING REPORT IN PATIENT LUISANA: Not Applicable Home Medications: Home Meds Cholecalciferol (Vitamin D3) [Vitamin D3] 2,000 unit PO QAM 03/23/16 [History] Cyanocobalamin (Vitamin B-12) [Vitamin B-12] 1,000 mcg PO DAILY 03/23/16 [History] Glucosamine/D3/Boswellia Rocio [Glucosamine Complex Tablet] 1 tab PO DAILY 03/23/16 [History] Warfarin [Coumadin] 5 mg PO SUMOTUWETHSA@18 03/23/16 [History] Acetaminophen [Tylenol] 650 mg PO Q4H PRN tablet 09/17/17 [Rx] Calcium Carbonate/Vitamin D3 [Calcium Carb 500 MG] 1 each PO BID 11/04/18 [History] Magnesium Oxide [Magnesium] 400 mg PO QPM 11/04/18 [History] Aspirin [Halfprin] 81 mg PO DAILY tab.ec 11/18/18 [Rx] Cholestyramine/Sucrose [Cholestyramine] 4 gm PO SUMOWEFR@1000 #30 packet 11/18/18 [Rx] Esomeprazole Magnesium [Nexium] 40 mg PO QAM #30 capsule.dr 11/18/18 [Rx] Furosemide [Lasix] 10 mg PO DAILY #30 tablet 11/18/18 [Rx] Isosorbide Mononitrate [Imdur] 60 mg PO DAILY #30 tab.er 11/18/18 [Rx] Lisinopril 20 mg PO QPM@1800 #30 tablet 11/18/18 [Rx] Metoprolol Succinate [Toprol XL 50mg] 150 mg PO QAM #90 tab.er 11/18/18 [Rx] Nitroglycerin [Nitrostat] 0.4 mg SL ASDIRECTED PRN #10 tab.sl 11/18/18 [Rx] Warfarin [Coumadin] 2.5 mg PO FR@18 #30 tablet 11/18/18 [Rx] atorvaSTATin [Lipitor] 10 mg PO BEDTIME #30 tablet 11/18/18 [Rx] Latanoprost/Pf [Latanoprost 0.005% Eye Drop] 1 drop EYEBOTH BEDTIME 01/30/20 [History] - Discharge Summary/Plan Comment DC Time >30 min.: No - Patient Data Vitals - Most Recent: Last Vital Signs Temp 36.2 C 02/11/20 10:00 Pulse 66 02/11/20 10:00 Resp 32 H 02/11/20 10:00 BP 132/75 02/11/20 10:00 Pulse Ox 90 L 02/11/20 15:05 Weight - Most Recent: 87.543 kg I&O - Last 24 hours: Intake & Output 02/11/20 02/12/2020 22:59 06:59 14:59 Intake Total 1056 Balance 1056 Med Orders - Current: Current Medications Discontinued Medications Acetaminophen (Tylenol) 650 mg RECTAL Q4H PRN PRN Reason: Fever Atropine Sulfate (Atropine 1% Ophth Soln) 0 ml SL Q2H PRN PRN Reason: secretions Last Admin: 02/11/20 17:15 Dose: 5 ml Documented by: Dexamethasone (Decadron) 6 mg IVPUSH Q24H RIO Famotidine (Pepcid) 20 mg IVPUSH DAILY RIO Heparin Sodium (Porcine) (Heparin Sodium) 5,000 units SUBCUT Q8H RIO Sodium Chloride (Normal Saline) 1,000 mls @ 50 mls/hr IV ASDIRECTED RIO Labetalol HCl (Normodyne) 5 mg IVPUSH ONETIME PRN; Protocol PRN Reason: Hypertension Latanoprost (Xalatan 0.005% Ophth Soln) 0 ml EYEBOTH BEDTIME RIO Lorazepam (Ativan) 1 mg IVPUSH Q4H PRN PRN Reason: Agitation Morphine Sulfate (Morphine) 2 mg IVPUSH Q1H PRN PRN Reason: Pain/Dyspnea Morphine Sulfate (Morphine 20 Mg/Ml Soln) 5 mg PO Q1H PRN PRN Reason: Agitation Morphine Sulfate (Morphine) 4 mg IVPUSH Q1H PRN PRN Reason: Pain/Dyspnea Last Admin: 02/11/20 17:16 Dose: 4 mg Documented by: Nitroglycerin (Nitrostat) 0.4 mg SL ASDIRECTED PRN PRN Reason: Chest Pain Ondansetron HCl (Zofran) 4 mg IVPUSH Q6H PRN PRN Reason: Nausea/Vomiting Saliva Substitute (Ceferino-Stir Oral [place]) 0 ml MUCMEM ASDIRECTED PRN PRN Reason: Dry Mouth Sodium Chloride (Saline Flush) 10 ml FLUSH ASDIRECTED PRN PRN Reason: Keep Vein Open Last Admin: 02/11/20 17:17 Dose: 10 ml Documented by: Sodium Chloride (Saline Flush) 10 ml FLUSH ASDIRECTED PRN PRN Reason: Keep Vein Open
== END 2020-02-11 21:15 | disposition expired | DRG 951 ==
LOC: LL.MS 14:41
PROVIDERS: ADMIT Emergency Medicine; ATTEND Emergency Medicine
DX: Z51.5 Encounter for palliative care (principal); U07.1 COVID-19; J12.89 Other viral pneumonia; I51.4 Myocarditis, unspecified; Z79.01 Long term (current) use of anticoagulants; Z79.82 Long term (current) use of aspirin; Z79.899 Other long term (current) drug therapy
CPT/HCPCS: J2270